=== PATIENT | female | born 1955 | race Caucasian/White ===

== ENCOUNTER 2020-06-18 15:21 | Emergency (ER) | payer MEDICAID ==
[2020-06-18] MEDS ORDERED: Fluorescein 1 MG Ophth Strip EYERT ONE (15:40)
--- NOTE | 2020-06-18 16:04 | EDM.PDOC ---
ED HPI GENERAL MEDICAL PROBLEM - General Chief Complaint: Eye Problems Stated Complaint: EYE IRRITATION FROM DUST AND LEAVES Time Seen by Provider: 06/18/20 15:40 Source of Information: Reports: Patient, RN Notes Reviewed History Limitations: Reports: No Limitations - History of Present Illness INITIAL COMMENTS - FREE TEXT/NARRATIVE: Patient is a 64-year-old female who presents to the ED for the evaluation of her right eye irritation. She notes she was walking this morning at around 11:30, when the wind came up and blew dust into her eye. She states that her eye has been hurting ever since, and feels like there is something stuck in it. She had her daughter help flush her eye with some eyedrops, and her eye seems to just be red and irritated, and she still feels like there is something in the eye. Patient notes she does have bilateral cataracts, other than this she denies any other sick symptoms like fevers or chills, cough or shortness of breath. She is not having any blurred vision or double vision. 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 ED EXAM GENERAL W FULL EYE - Physical Exam Exam: See Below Exam Limited By: No Limitations General Appearance: Alert, WD/WN, No Apparent Distress Eye Exam: Right Eye: Conjunctival Injection, Left Eye: Normal Inspection, Bilateral Eye: EOMI, PERRL Eyelids: Bilateral: Normal Appearance Conjunctiva & Sclera: Right: Injected, Left: Normal Appearance Cornea Exam: Right: Corneal Abrasion (to mid pupil), Examined with Flourescein, Left: Normal Appearance Extraocular Movements: Bilateral: Intact Pupils: Normal Accommodation Pupillary Size: Bilateral: 3 mm Pupillary Reaction: Bilateral: Brisk Respiratory/Chest: No Respiratory Distress, Lungs Clear, Normal Breath Sounds, No Accessory Muscle Use, Chest Non-Tender Cardiovascular: Normal Peripheral Pulses, Regular Rate, Rhythm, No Murmur Extremities: Normal Inspection, Normal Capillary Refill Neurological: Alert, Oriented, Normal Cognition, No Motor/Sensory Deficits Psychiatric: Normal Affect, Normal Mood Skin Exam: Warm, Dry, Intact, Normal Color, No Rash Course - Vital Signs Last Recorded V/S: Last Vital Signs Temp 97.7 F 06/18/20 15:34 Pulse 102 H 06/18/20 15:34 Resp 20 06/18/20 15:34 BP 143/108 H 06/18/20 15:34 Pulse Ox 96 06/18/20 15:34 - Orders/Labs/Meds Orders: Active Orders 24 hr Category Date Time Status Erythromycin Base [Erythromycin 0.5% Ophth Oint] Med 06/18/20 16:31 Once 1 gm EYERT ONETIME ONE Ketorolac [Acular 0.5% Ophth Soln] Med 06/18/20 16:33 Ordered 1 ml EYERT QID Meds: Medications Discontinued Medications Generic Name Dose Route Start Last Admin Trade Name Freq PRN Reason Stop Dose Admin Fluorescein Sodium 1 mg 06/18/20 15:40 06/18/20 16:21 Ful-Janet EYERT 06/18/20 15:41 1 mg ONETIME ONE Administration - Re-Assessments/Exams Free Text/Narrative Re-Assessment/Exam: 06/18/20 16:02 Patient presents to the ED for her right eye irritation. Have ordered some fluorescein for evaluation of her eye to evaluate for corneal abrasion. This might just be irritation due to dust in the eye from earlier. Departure - Departure Time of Disposition: 16:35 Disposition: Home, Self-Care 01 Condition: Good Clinical Impression: Injury of conjunctiva and corneal abrasion of right eye w/o FB Qualifiers: Encounter type: initial encounter Qualified Code(s): S05.01XA - Injury of conjunctiva and corneal abrasion without foreign body, right eye, initial encounter - Discharge Information *PRESCRIPTION DRUG MONITORING PROGRAM REVIEWED*: No *COPY OF PRESCRIPTION DRUG MONITORING REPORT IN PATIENT SHY: No Instructions: Corneal Abrasion, [id number] Referrals: Giuseppe Pathak PA-C [Primary Care Provider] - Forms: ED Department Discharge Additional Instructions: You have been evaluated in the ED today for a foreign body sensation in your ey e. You were identified to have a corneal abrasion to the right eye. You were given some pain drops for your eye, ketorolac, please instill 2 drops to the affected eye every 6 hours at least for the next 24 hours . You may use this up to 2-3 days if needed. Please use the erythromycin ointment, 1 cm ribbon to the lower affected eyelid margin 4 times daily for the next 3-5 days. Recommend that you follow up with optometry MARCIA for a more thorough evaluation and to make sure that everything is healing appropriately. You will have to call around and schedule yourself an appointment with the next available provider if you do not already have a current eye doctor. Please return to the ED if your symptoms should change or worsen. Sepsis Event Note (ED) - Evaluation Sepsis Screening Result: No Definite Risk - Focused Exam Vital Signs: Vital Signs Temp Pulse Resp BP Pulse Ox 06/18/20 15:34 97.7 F 102 H 20 143/108 H 96 - My Orders Last 24 Hours: My Active Orders 06/18/20 16:31 Erythromycin Base [Erythromycin 0.5% Ophth Oint] 1 gm EYERT ONETIME ONE 06/18/20 16:33 Ketorolac [Acular 0.5% Ophth Soln] 1 ml EYERT QID - Assessment/Plan Last 24 Hours: My Active Orders 06/18/20 16:31 Erythromycin Base [Erythromycin 0.5% Ophth Oint] 1 gm EYERT ONETIME ONE 06/18/20 16:33 Ketorolac [Acular 0.5% Ophth Soln] 1 ml EYERT QID
[2020-06-18] MEDS ORDERED: Erythromycin Base 0.5% Ophth Oint 1 GM Tube EYERT ONE (16:31)
[2020-06-18] MEDS ORDERED: Ketorolac 0.5% Ophth Soln 5 ML Bottle EYERT SCH (16:33)
== END 2020-06-18 16:56 | disposition home or self-care (01) ==
LOC: JD.ED 15:21
DX: S05.01XA Injury of conjunctiva and corneal abrasion without foreign body, right eye, initial encounter (principal); I10 Essential (primary) hypertension; E11.9 Type 2 diabetes mellitus without complications; W22.8XXA Striking against or struck by other objects, initial encounter
CPT/HCPCS: 99283; A9270

== ENCOUNTER → 2020-07-27 | Day surgery (SDC) | payer MEDICAID ==
[~2020-07-27] MED LIST: Cefuroxime 10 MG/ML SYRINGE EYERT SCH; Lidocaine 1% PF 2 ML SDV INJECT SCH; Pilocarpine 4% Ophth Soln 15 ML Bot EYERT SCH
[2020-07-27] MEDS: Polymyxin B/Trimethoprim 10 ML Bottle EYERT SCH ×3 (13:40→15:22)
[2020-07-27] MEDS: Brimonidine 0.2% Ophth Soln 5 ML Bottle EYERT SCH ×3 (13:46→15:22)
[2020-07-27] MEDS: Phenylephrine 2.5% Ophth Soln 2 ML Bot EYERT SCH ×5 (13:52→15:05)
[2020-07-27] MEDS: Tropicamide 1% Ophth Soln 15 ML Bottle EYERT SCH ×4 (13:57→14:33)
--- NOTE | 2020-07-27 14:22 | PCM.PREANE ---
Preanesthetic Assessment - Anesthesia/Transfusion/Family Hx Anesthesia History: Prior Anesthesia Without Reaction Family History of Anesthesia Reaction: No Transfusion History: No Prior Transfusion(s) - Review of Systems General: No Symptoms Pulmonary: No Symptoms Cardiovascular: No Symptoms Gastrointestinal: No Symptoms Neurological: No Symptoms Other: Reports: Diabetes (BS 122 07/26/20) - Physical Assessment NPO Status Date: 07/26/20 NPO Status Time: 23:00 Vital Signs: Last Vital Signs Temp 36.1 C 07/27/20 13:30 Pulse 92 07/27/20 13:30 Resp 16 07/27/20 13:30 BP 151/97 H 07/27/20 13:30 Pulse Ox 97 07/27/20 13:30 Height: 1.55 m Weight: 79.379 kg ASA Class: 2 Mental Status: Alert & Oriented x3 Airway Class: Mallampati = 2 Dentition: Reports: Normal Dentition Thyro-Mental Finger Breadths: 3 Mouth Opening Finger Breadths: 3 ROM/Head Extension: Full Lungs: Clear to Auscultation, Normal Respiratory Effort Cardiovascular: Regular Rate, Regular Rhythm - Allergies Allergies/Adverse Reactions: Allergies Allergy/AdvReac Type Severity Reaction Status Date / Time No Known Allergies Allergy Verified 07/26/20 11:45 - Acknowledgements Anesthesia Type Planned: MAC Pt an Appropriate Candidate for the Planned Anesthesia: Yes Alternatives and Risks of Anesthesia Discussed w Pt/Guardian: Yes Pt/Guardian Understands and Agrees with Anesthesia Plan: Yes PreAnesthesia Questionnaire HEENT History: Reports: Cataract Cardiovascular History: Reports: High Cholesterol, Hypertension Respiratory History: Reports: None Gastrointestinal History: Reports: None Genitourinary History: Reports: None 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: Musculoskeletal History: Reports: Gout Neurological History: Reports: None Psychiatric History: Reports: None Endocrine/Metabolic History: Reports: Diabetes, Type II - Past Surgical History HEENT Surgical History: Reports: Tonsillectomy - SUBSTANCE USE Tobacco Use Status *Q: Never Tobacco User - HOME MEDS Home Medications: Home Meds Aspirin 325 mg PO DAILY 07/26/20 [History] Carboxymethylcellulose Sodium [Artificial Tears] 1 drop EYEBOTH ASDIRECTED PRN 07/26/20 [History] atorvaSTATin [Lipitor] 20 mg PO DAILY 07/26/20 [History] glipiZIDE [Glipizide ER] 5 mg PO DAILY 07/26/20 [History] lisinopriL [Lisinopril] 5 mg PO DAILY 07/26/20 [History] metFORMIN [Glucophage XR] 500 mg PO DAILY 07/26/20 [History] - CURRENT (IN HOUSE) MEDS Current Meds: Current Medications Brimonidine Tartrate (Alphagan 0.2% Ophth Soln) 0 ml EYERT ASDIRECTED JOSÉ LUIS Stop: 07/27/20 23:00 Last Admin: 07/27/20 13:46 Dose: 1 drop Documented by: Cefuroxime Sodium (Zinacef) 0 mg EYERT ASDIRECTED JOSÉ LUIS Stop: 07/27/20 23:00 Lidocaine HCl (Xylocaine-Mpf 1%) 0 ml INJECT ASDIRECTED JOSÉ LUIS Stop: 07/27/20 23:00 Phenylephrine HCl (Joaquín-Synephrine 2.5% Ophth Soln) 0 ml EYERT ASDIRECTED JOSÉ LUIS Stop: 07/27/20 23:00 Last Admin: 07/27/20 14:09 Dose: 1 drop Documented by: Pilocarpine HCl (Pilocar 4% Ophth Soln) 0 ml EYERT ASDIRECTED JOSÉ LUIS Stop: 07/27/20 23:00 Polymyxin/Trimethoprim Sulfate (Polytrim Ophth Soln) 0 ml EYERT ASDIRECTED JOSÉ LUIS Stop: 07/27/20 23:00 Last Admin: 07/27/20 13:40 Dose: 1 drop Documented by: Tetracaine HCl (Tetracaine 0.5% Steri-Unit Shruthi) 0 ml EYEBOTH ASDIRECTED JOSÉ LUIS Stop: 07/27/20 23:00 Tropicamide (Mydriacyl 1% Ophth Soln) 0 ml EYERT ASDIRECTED JOSÉ LUIS Stop: 07/27/20 23:00 Last Admin: 07/27/20 14:13 Dose: 1 drop Documented by:
[2020-07-27] MEDS: Tetracaine HCl/PF 0.5% 4 ML Bottle EYEBOTH SCH ×4 (14:39→15:11)
--- NOTE | 2020-07-27 15:54 | PCM48HPAN ---
Post Anesthesia Note - EVALUATION WITHIN 48HRS OF ANESTHETIC Vital Signs in Normal Range: Yes Patient Participated in Evaluation: Yes Respiratory Function Stable: Yes Airway Patent: Yes Cardiovascular Function Stable: Yes Hydration Status Stable: Yes Pain Control Satisfactory: Yes Nausea and Vomiting Control Satisfactory: Yes Mental Status Recovered: Yes Vital Signs: Last Vital Signs Temp 36.1 C 07/27/20 13:30 Pulse 92 07/27/20 13:30 Resp 16 07/27/20 13:30 BP 151/97 H 07/27/20 13:30 Pulse Ox 97 07/27/20 13:30
== END ==
LOC: JD.SDS 13:34
PROVIDERS: ATTEND Ophthalmology
DX: E11.36 Type 2 diabetes mellitus with diabetic cataract (principal); H25.89 Other age-related cataract; H16.223 Keratoconjunctivitis sicca, not specified as Sjogren's, bilateral; H02.834 Dermatochalasis of left upper eyelid; H02.831 Dermatochalasis of right upper eyelid; I10 Essential (primary) hypertension; E78.00 Pure hypercholesterolemia, unspecified; Z79.82 Long term (current) use of aspirin; Z79.899 Other long term (current) drug therapy
CPT/HCPCS: 66984; C1780; J0697; J2001

== ENCOUNTER 2020-07-28 05:42 | Emergency (ER) | payer MEDICAID ==
[2020-07-28] MEDS ORDERED: Orphenadrine 100 MG Tab.ER PO STA (06:20)
[2020-07-28] MEDS ORDERED: Ibuprofen 600 MG Tab PO ONE (06:20)
--- NOTE | 2020-07-28 06:24 | EDM.PDOC ---
ED HPI GENERAL MEDICAL PROBLEM - General Chief Complaint: Respiratory Problem Stated Complaint: [facility] Time Seen by Provider: 07/28/20 05:56 Source of Information: Reports: Patient History Limitations: Reports: No Limitations - History of Present Illness INITIAL COMMENTS - FREE TEXT/NARRATIVE: Ms. Aguilar is a pleasant 64-year-old woman who now presents the ED with a complaint of right lower back pain, a nonproductive cough, and dyspnea when she coughs, since this past 07/25/2020. She describes her lower back pain is sharp in character. It comes and goes, typically lasting 10 to 15 minutes, occurring a few times per day. She states that it feels better if she is sitting and leaning forward, or if she takes a hot shower with the water spring directly on her lower right back. She states that she had all of these symptoms in 2017 or 2017. She states that she was evaluated by her PCP, who determined that she had muscle spasms, and prescribed a muscle relaxant. Her symptoms subsequently resolved. The patient states that she has been taking [id number] cough drops which may or may not have helped, and Tylenol for her back pain, 2 to 3 tablets 3-4 times a day, which does seem to help. The patient has a history of diabetes. She ordinarily checks her blood glucose 3-4 times a day, with the usual range in the high 90s to 215. Recently, her blood glucoses have been between 130 and 150. Here in the ED, the patient's initial BP is found to be mildly elevated at 156/91, otherwise, she is hemodynamically stable, afebrile, saturating 97% on room air. Prior to Sunday, the patient denies having a recent fever, chills, sore throat, ear pain, nasal or sinus congestion, cough, dyspnea, chest pain, palpitations, nausea, vomiting, constipation, diarrhea, abdominal pain, urinary symptoms, recent weight gain or weight loss, recent bloody bowel movements or black bowel movements, recent joint aches, headaches, or rashes. The patient's PCP is MILLI Murguia. She has not received an influenza vaccine this season, but agreed to receive one here today. Right Lower Back Pain Score (Numeric/FACES): 7 - Related Data Allergies Allergy/AdvReac Type Severity Reaction Status Date / Time No Known Allergies Allergy Verified 07/26/20 11:45 Home Meds: Home Meds atorvaSTATin [Lipitor] 20 mg PO DAILY 07/26/20 [History] glipiZIDE [Glipizide ER] 5 mg PO DAILY 07/26/20 [History] lisinopriL [Lisinopril] 5 mg PO DAILY 07/26/20 [History] metFORMIN [Glucophage XR] 500 mg PO DAILY 07/26/20 [History] Aspirin 81 mg PO DAILY 07/28/20 [History] Orphenadrine [Norflex] 1 tab PO Q12H PRN #14 tab.er 07/28/20 [Rx] Past Medical History Cardiovascular History: Reports: High Cholesterol, Hypertension Endocrine/Metabolic History: Reports: Diabetes, Type II - Past Surgical History HEENT Surgical History: Reports: Cataract Surgery (right only), Oral Surgery (dental extractions), Tonsillectomy Social & Family History - Tobacco Use Tobacco Use Status *Q: Never Tobacco User - Caffeine Use Caffeine Use: Reports: Tea - Alcohol Use Alcohol Use History: No - Recreational Drug Use Recreational Drug Use: No - Living Situation & Occupation Living situation: Reports: , Alone Occupation: Retired ED ROS GENERAL - Review of Systems Review Of Systems: Comprehensive ROS is negative, except as noted in HPI. ED EXAM, GENERAL - Physical Exam Exam: See Below Exam Limited By: No Limitations General Appearance: Alert, WD/WN, No Apparent Distress Eye Exam: Bilateral Eye: EOMI, Normal Inspection Ears: Normal External Exam, Hearing Grossly Normal Nose: Normal Inspection Throat/Mouth: Normal Inspection, Normal Lips, Normal Voice, No Airway Compromise Head: Atraumatic, Normocephalic Neck: Normal Inspection, Full Range of Motion Respiratory/Chest: No Respiratory Distress, Lungs Clear, Normal Breath Sounds, No Accessory Muscle Use, Other (Taking deep breaths induces a cough) Cardiovascular: Normal Peripheral Pulses, Regular Rate, Rhythm, No Edema, No Gallop, No JVD, No Murmur, No Rub Peripheral Pulses: 3+: Radial (L), Radial (R) GI/Abdominal: Normal Bowel Sounds, Soft, Non-Tender, No Organomegaly, No Distention, No Abnormal Bruit, No Mass Back Exam: Normal Inspection, Full Range of Motion, Paraspinal Tenderness (Reproducible tenderness over the right SI joint area). No: CVA Tenderness (L), CVA Tenderness (R) Extremities: Normal Inspection, Normal Range of Motion, No Pedal Edema, Normal Capillary Refill Neurological: Alert, Oriented, Normal Cognition, No Motor/Sensory Deficits Psychiatric: Normal Affect Skin Exam: Warm, Dry, Intact, Normal Color, No Rash Course - Vital Signs Last Recorded V/S: Last Vital Signs Temp 35.9 C L 07/28/20 05:47 Pulse 87 07/28/20 05:47 Resp 19 07/28/20 05:47 BP 156/91 H 07/28/20 05:47 Pulse Ox 97 07/28/20 05:47 - Orders/Labs/Meds Orders: Active Orders 24 hr Category Date Time Status Chest 2V [CR] Stat Exams 07/28/20 06:18 Taken CBC WITH MANUAL DIFF [HEME] Stat Lab 07/28/20 06:35 Results CORONAVIRUS COVID-19 PCR PHL Stat Lab 07/28/20 06:29 Received Magnesium Sulfate/Water [Magnesium Sulfate in Water Med 07/28/20 07:20 Ordered Premix] 4 gm Premix Bag 1 bag IV ONETIME Isolation [COMM] Routine Oth 07/28/20 06:20 Ordered Medication Orders Magnesium Sulfate 4 gm/ Premix 50 mls @ 12.5 mls/hr IV ONETIME ONE Stop: 07/28/20 11:19 Labs: Laboratory Tests 07/28/20 07/28/20 07/28/20 Range/Units 06:35 06:35 06:35 WBC 3.64 L (3.98-10.04) K/mm3 RBC 4.93 (3.98-5.22) M/mm3 Hgb 13.7 (11.2-15.7) gm/dl Hct 38.9 (34.1-44.9) % MCV 78.9 L D (79.4-94.8) fl MCH 27.8 (25.6-32.2) pg MCHC 35.2 (32.2-35.5) g/dl RDW Std Deviation 35.2 L (36.4-46.3) fL Plt Count 189 (182-369) K/mm3 MPV 9.2 L (9.4-12.3) fl D-Dimer, Quantitative 0.77 H (0.19-0.50) mg/L Sodium 133 L (136-145) mEq/L Potassium 3.6 (3.5-5.1) mEq/L Chloride 97 L (98-107) mEq/L Carbon Dioxide 22 (21-32) mEq/L Anion Gap 17.6 H (5-15) BUN 18 (7-18) mg/dL Creatinine 0.7 (0.55-1.02) mg/dL Est Cr Clr Drug Dosing 62.07 mL/min Estimated GFR (MDRD) > 60 (>60) mL/min BUN/Creatinine Ratio 25.7 H (14-18) Glucose 214 H (80-115) mg/dL Lactic Acid (0.4-2.0) mmol/L Calcium 8.8 (8.5-10.1) mg/dL Magnesium 1.6 L (1.8-2.4) mg/dl Total Bilirubin 0.3 (0.2-1.0) mg/dL AST 33 (15-37) U/L ALT 34 (14-59) U/L Alkaline Phosphatase 216 H (46-116) U/L Troponin I < 0.017 (0.00-0.056) ng/mL C-Reactive Protein 0.6 (<1.0) mg/dL Total Protein 7.5 (6.4-8.2) g/dl Albumin 3.6 (3.4-5.0) g/dl Globulin 3.9 gm/dL Albumin/Globulin Ratio 0.9 L (1-2) 07/28/20 Range/Units 06:35 WBC (3.98-10.04) K/mm3 RBC (3.98-5.22) M/mm3 Hgb (11.2-15.7) gm/dl Hct (34.1-44.9) % MCV (79.4-94.8) fl MCH (25.6-32.2) pg MCHC (32.2-35.5) g/dl RDW Std Deviation (36.4-46.3) fL Plt Count (182-369) K/mm3 MPV (9.4-12.3) fl D-Dimer, Quantitative (0.19-0.50) mg/L Sodium (136-145) mEq/L Potassium (3.5-5.1) mEq/L Chloride (98-107) mEq/L Carbon Dioxide (21-32) mEq/L Anion Gap (5-15) BUN (7-18) mg/dL Creatinine (0.55-1.02) mg/dL Est Cr Clr Drug Dosing mL/min Estimated GFR (MDRD) (>60) mL/min BUN/Creatinine Ratio (14-18) Glucose (80-115) mg/dL Lactic Acid 1.3 (0.4-2.0) mmol/L Calcium (8.5-10.1) mg/dL Magnesium (1.8-2.4) mg/dl Total Bilirubin (0.2-1.0) mg/dL AST (15-37) U/L ALT (14-59) U/L Alkaline Phosphatase (46-116) U/L Troponin I (0.00-0.056) ng/mL C-Reactive Protein (<1.0) mg/dL Total Protein (6.4-8.2) g/dl Albumin (3.4-5.0) g/dl Globulin gm/dL Albumin/Globulin Ratio (1-2) Meds: Medications Generic Name Dose Route Start Last Admin Trade Name Freq PRN Reason Stop Dose Admin Magnesium Sulfate 4 gm/ Premix 50 mls @ 12.5 mls/hr 07/28/20 07:20 IV 07/28/20 11:19 ONETIME ONE Discontinued Medications Generic Name Dose Route Start Last Admin Trade Name Freq PRN Reason Stop Dose Admin Ibuprofen 600 mg 07/28/20 06:20 07/28/20 06:26 Motrin PO 07/28/20 06:21 600 mg ONETIME ONE Administration Orphenadrine Citrate 100 mg 07/28/20 06:20 07/28/20 06:26 Norflex PO 07/28/20 06:21 100 mg ONETIME STA Administration - Re-Assessments/Exams Free Text/Narrative Re-Assessment/Exam: 07/28/20 06:21 As above, the patient appears to have 2 separate problems that do not appear to be related, although they both started on Sunday. Her lower back pain appears to be musculoskeletal, as it is modifiable with position and is reproducible with direct palpation. Her nonproductive cough induces some dyspnea while she is coughing, although no dyspnea when she is not coughing. No recent fever, and her oxygen saturation is 97% on room air. I have ordered a work-up in this regard that includes several blood tests, a chest x-ray, an influenza swab, and a send-out swab for the SARS-CoV-2 virus. In the meantime, the patient will be given oral Norflex and ibuprofen. 07/28/20 07:21 Two-view chest radiograph reviewed. Poor inspiratory effort. The cardiac silhouette is within normal limits. No pulmonary vascular congestion. No pleural effusions. No focal infiltrate. No pneumothorax. Formal read per the Radiologist pending. The patient's CBC is remarkable for leukopenia of 3.64, with the remainder of he r CBC being unremarkable. Her CMP is remarkable for slight hyponatremia of 133, and anion gap mildly elevated at 17.6, but with a bicarbonate normal at 22, hyperglycemia of 214, and an alkaline phosphatase slightly elevated at 216, with the remainder of her CMP being unremarkable. She has hypomagnesemia of 1.6. Her lactic acid level is within normal limits at 1.3. Her CRP is within normal limits at 0.6. Her troponin is undetectably low. Her D-dimer is mildly elevated at 0.77. Her influenza swab is negative. Based on the above, I have ordered a 4 g Mg-rider. 07/28/20 07:27 Test results discussed with the patient. She agrees to stay to receive the Mg- rider, after which time she will be discharged home. I will submit a prescription for Norflex that she should take twice a day, along with either Tylenol or ibuprofen as needed for discomfort. Departure - Departure Time of Disposition: 11:30 Disposition: Home, Self-Care 01 Condition: Good Clinical Impression: Nonproductive cough, Hypomagnesemia, Musculoskeletal back pain - Discharge Information *PRESCRIPTION DRUG MONITORING PROGRAM REVIEWED*: Not Applicable *COPY OF PRESCRIPTION DRUG MONITORING REPORT IN PATIENT SHY: Not Applicable Forms: ED Department Discharge Additional Instructions: You were seen in the emergency room for lower right back pain, a dry cough, and shortness of breath when you cough, since Sunday. Work-up in the ER included several blood tests, a chest x-ray, a influenza swab, and a-out of swab for the virus that causes COVID-19. Your blood work found your magnesium level to be low. You were given IV magnesium replacement in the ER. The remainder of your work-up was unremarkable. You do not have pneumonia. Your lower back pain appears to be due to a muscle spasm. You have been started on the muscle relaxant Norflex, and a prescription for Norflex has been sent to the [facility], located in the [facility] grocery store. Take 1 tablet of Norflex every 12 hours, starting this evening, 07/28/2020, as prescribed. Norflex works well with ibuprofen. We recommend that you take 3 tablets (600 mg) every 8 hours, with food, as needed for discomfort. If any other problems, please do not hesitate to return to the ER. You were given an influenza vaccine during your ER visit. Sepsis Event Note (ED) - Evaluation Sepsis Screening Result: No Definite Risk - Focused Exam Vital Signs: Vital Signs Temp Pulse Resp BP Pulse Ox 07/28/20 05:47 35.9 C L 87 19 156/91 H 97 - My Orders Last 24 Hours: My Active Orders 07/28/20 06:18 Chest 2V [CR] Stat 07/28/20 06:20 Isolation [COMM] Routine 07/28/20 06:29 CORONAVIRUS COVID-19 PCR PHL Stat 07/28/20 06:35 CBC WITH MANUAL DIFF [HEME] Stat 07/28/20 07:20 Magnesium Sulfate/Water [Magnesium Sulfate in Water Premix] 4 gm Premix Bag 1 bag IV ONETIME - Assessment/Plan Last 24 Hours: My Active Orders 07/28/20 06:18 Chest 2V [CR] Stat 07/28/20 06:20 Isolation [COMM] Routine 07/28/20 06:29 CORONAVIRUS COVID-19 PCR PHL Stat 07/28/20 06:35 CBC WITH MANUAL DIFF [HEME] Stat 07/28/20 07:20 Magnesium Sulfate/Water [Magnesium Sulfate in Water Premix] 4 gm Premix Bag 1 bag IV ONETIME
[2020-07-28] MEDS ORDERED: Magnesium Sulfate/Water 4 GM in Premix Bag 1 BAG IV ONE (07:20)
--- NOTE | 2020-07-28 08:31 | CR ---
Chest: 2 views of the chest were obtained. Comparison: Prior chest x-ray of 04/05/17. Findings: Heart and mediastinum: Heart size and mediastinum are normal. Lungs: Focal linear densities are noted within the lingula. Lungs otherwise are clear. No pleural effusions are seen. Osseous: Mild degenerative change is scattered within the spine with minimal scoliosis. Impression: 1. Focal atelectasis within the lingula. 2. Nothing acute is otherwise seen on 2 view chest x-ray. Diagnostic code #2
== END 2020-07-28 12:10 | disposition home or self-care (01) ==
LOC: JD.ED 05:42
DX: U07.1 COVID-19 (principal); M54.5 Low back pain; E83.42 Hypomagnesemia; E87.1 Hypo-osmolality and hyponatremia; R79.1 Abnormal coagulation profile; I10 Essential (primary) hypertension; E78.00 Pure hypercholesterolemia, unspecified; E11.9 Type 2 diabetes mellitus without complications; Z79.82 Long term (current) use of aspirin; Z79.899 Other long term (current) drug therapy
CPT/HCPCS: 36415; 71046; 80053; 83605; 83735; 84484; 85007; 85027; 85379; 86140; 87635; 87804; 96365; 96366; 99285; A9270; J3475; 99283; U0002

== ENCOUNTER 2020-09-07 07:18 | Day surgery (SDC) | payer MEDICAID ==
[2020-09-07] MEDS: Polymyxin B/Trimethoprim 10 ML Bottle EYELF SCH ×4 (07:25→09:25)
[2020-09-07] MEDS: Brimonidine 0.2% Ophth Soln 5 ML Bottle EYELF SCH ×4 (07:30→09:25)
[2020-09-07] MEDS: Phenylephrine 2.5% Ophth Soln 15 ML Bot EYELF SCH ×6 (07:35→08:58)
--- NOTE | 2020-09-07 07:39 | PCM.PREANE ---
Preanesthetic Assessment - Procedure Proposed Procedure: Lt eye cataract - Anesthesia/Transfusion/Family Hx Anesthesia History: Prior Anesthesia Without Reaction Transfusion History: No Prior Transfusion(s) - Review of Systems General: No Symptoms Pulmonary: No Symptoms, Cough (recent recovery from COVID-19) Cardiovascular: No Symptoms Gastrointestinal: No Symptoms Neurological: No Symptoms Other: Reports: Diabetes - Physical Assessment NPO Status Date: 09/06/20 NPO Status Time: 23:00 Vital Signs: 164/102, 107, 97.3F 97% 16 Height: 1.55 m Weight: 76.204 kg ASA Class: 2 Mental Status: Alert & Oriented x3 Airway Class: Mallampati = 2 Dentition: Reports: Normal Dentition Thyro-Mental Finger Breadths: 3 Mouth Opening Finger Breadths: 3 ROM/Head Extension: Full Lungs: Clear to Auscultation, Normal Respiratory Effort Cardiovascular: Regular Rate, Regular Rhythm - Allergies Allergies/Adverse Reactions: Allergies Allergy/AdvReac Type Severity Reaction Status Date / Time No Known Allergies Allergy Verified 09/07/20 05:21 - Acknowledgements Anesthesia Type Planned: MAC Pt an Appropriate Candidate for the Planned Anesthesia: Yes Alternatives and Risks of Anesthesia Discussed w Pt/Guardian: Yes Pt/Guardian Understands and Agrees with Anesthesia Plan: Yes PreAnesthesia Questionnaire HEENT History: Reports: Cataract Cardiovascular History: Reports: High Cholesterol, Hypertension Respiratory History: Reports: None Gastrointestinal History: Reports: None Genitourinary History: Reports: None 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: Musculoskeletal History: Reports: Gout Neurological History: Reports: None Psychiatric History: Reports: None Endocrine/Metabolic History: Reports: Diabetes, Type II - Past Surgical History HEENT Surgical History: Reports: Cataract Surgery (right only), Oral Surgery (dental extractions), Tonsillectomy - HOME MEDS Home Medications: Home Meds atorvaSTATin [Lipitor] 20 mg PO DAILY 07/26/20 [History] glipiZIDE [Glipizide ER] 5 mg PO DAILY 07/26/20 [History] lisinopriL [Lisinopril] 5 mg PO DAILY 07/26/20 [History] metFORMIN [Glucophage XR] 500 mg PO DAILY 07/26/20 [History] Aspirin 81 mg PO DAILY 07/28/20 [History] Orphenadrine [Norflex] 1 tab PO Q12H PRN #14 tab.er 07/28/20 [Rx] - CURRENT (IN HOUSE) MEDS Current Meds: Current Medications Brimonidine Tartrate (Alphagan 0.2% Ophth Soln) 0 ml EYELF ASDIRECTED JOSÉ LUIS Stop: 09/07/20 18:00 Last Admin: 09/07/20 07:30 Dose: 1 drop Documented by: Cefuroxime Sodium (Zinacef) 0 mg EYELF ASDIRECTED JOSÉ LUIS Stop: 09/07/20 18:00 Lidocaine HCl (Xylocaine-Mpf 1%) 0 ml INJECT ASDIRECTED JOSÉ LUIS Stop: 09/07/20 18:00 Phenylephrine HCl (Joaquín-Synephrine 2.5% Ophth Soln) 0 ml EYELF ASDIRECTED JOSÉ LUIS Stop: 09/07/20 18:00 Pilocarpine HCl (Pilocar 4% Ophth Soln) 0 ml EYELF ASDIRECTED JOSÉ LUIS Stop: 09/07/20 18:00 Polymyxin/Trimethoprim Sulfate (Polytrim Ophth Soln) 0 ml EYELF ASDIRECTED JOSÉ LUIS Stop: 09/07/20 18:00 Last Admin: 09/07/20 07:25 Dose: 1 drop Documented by: Tetracaine HCl (Tetracaine 0.5% Steri-Unit Shruthi) 0 ml EYEBOTH ASDIRECTED JOSÉ LUIS Stop: 09/07/20 18:00 Tropicamide (Mydriacyl 1% Ophth Soln) 0 ml EYELF ASDIRECTED JOSÉ LUIS Stop: 09/07/20 18:00
[2020-09-07] MEDS: Tropicamide 1% Ophth Soln 15 ML Bottle EYELF SCH ×4 (07:40→08:31)
[2020-09-07] MEDS: Cefuroxime 10 MG/ML SYRINGE EYELF SCH ×2 (08:31→09:24)
[2020-09-07] MEDS: Lidocaine 1% PF 2 ML SDV INJECT SCH ×2 (08:31→09:07)
[2020-09-07] MEDS: Pilocarpine 4% Ophth Soln 15 ML Bot EYELF SCH ×2 (08:31→09:25)
[2020-09-07] MEDS: Tetracaine HCl/PF 0.5% 4 ML Bottle EYEBOTH SCH ×5 (08:31→09:08)
--- NOTE | 2020-09-07 09:00 | PCM48HPAN ---
Post Anesthesia Note - EVALUATION WITHIN 48HRS OF ANESTHETIC Vital Signs in Normal Range: Yes Vital Signs: Last Vital Signs Temp 36.3 C 09/07/20 07:15 Pulse 107 H 09/07/20 07:15 Resp 16 09/07/20 07:15 BP 164/102 H 09/07/20 07:15 Pulse Ox 97 09/07/20 07:15
--- NOTE | 2020-09-07 09:20 | PCM48HPAN ---
Post Anesthesia Note - EVALUATION WITHIN 48HRS OF ANESTHETIC Vital Signs in Normal Range: Yes Patient Participated in Evaluation: Yes Respiratory Function Stable: Yes Airway Patent: Yes Cardiovascular Function Stable: Yes Hydration Status Stable: Yes Pain Control Satisfactory: Yes Nausea and Vomiting Control Satisfactory: Yes Mental Status Recovered: Yes Vital Signs: Last Vital Signs Temp 36.3 C 09/07/20 07:15 Pulse 107 H 09/07/20 07:15 Resp 16 09/07/20 07:15 BP 164/102 H 09/07/20 07:15 Pulse Ox 97 09/07/20 07:15
== END 2020-09-07 09:36 | disposition home or self-care (01) ==
LOC: JD.SDS 07:18
PROVIDERS: ATTEND Ophthalmology
DX: E11.36 Type 2 diabetes mellitus with diabetic cataract (principal); H25.89 Other age-related cataract; H16.103 Unspecified superficial keratitis, bilateral; H16.223 Keratoconjunctivitis sicca, not specified as Sjogren's, bilateral; E78.00 Pure hypercholesterolemia, unspecified; I10 Essential (primary) hypertension; Z79.899 Other long term (current) drug therapy; Z79.84 Long term (current) use of oral hypoglycemic drugs; Z96.1 Presence of intraocular lens
CPT/HCPCS: 66984; C1780; J0697; J2001

== ENCOUNTER 2020-09-25 20:45 | Emergency (ER) | payer MEDICAID ==
[2020-09-25] MEDS ORDERED: HYDROmorphone 1 MG/ML Syringe IM ONE (21:06)
[2020-09-25] MEDS ORDERED: Dexamethasone 4 MG/ML SDV IM ONE (21:15)
--- NOTE | 2020-09-25 21:17 | EDM.PDOC ---
ED HPI GENERAL MEDICAL PROBLEM - General Chief Complaint: Lower Extremity Injury/Pain Stated Complaint: [facility] Time Seen by Provider: 09/25/20 20:48 Source of Information: Reports: Patient History Limitations: Reports: No Limitations - History of Present Illness INITIAL COMMENTS - FREE TEXT/NARRATIVE: This is a 64-year-old female. Back in July she was seen in the ER for right hip pain and she went to see her family doctor regarding it and he did an x-ray that apparently showed some arthritis and put her on some tramadol. She states that since that time over the last few weeks the pain is gotten worse and worse and worse and now she could not get out of bed today. She denies any history of falls or injuries to her back or her right hip. She has been putting a heating pad back there but the pain is continued to worsen and seems to come from her back and run down into her hip and then down her lateral right thigh to the distal thigh area but not into the knee or the calf or foot. The patient finally called the ambulance this evening because the pain she could not tolerate. She has been putting a heating pad to her back to help with the pain but she states she is not able to get up and it feels like her bones are hurting. She denies any fever or chills no urinary symptoms no cough or congestion no nausea or vomiting. Right Hip Pain Score (Numeric/FACES): 8 - Related Data Allergies Allergy/AdvReac Type Severity Reaction Status Date / Time No Known Allergies Allergy Verified 09/25/20 20:52 Home Meds: Home Meds atorvaSTATin [Lipitor] 20 mg PO DAILY 07/26/20 [History] glipiZIDE [Glipizide ER] 5 mg PO DAILY 07/26/20 [History] lisinopriL [Lisinopril] 5 mg PO DAILY 07/26/20 [History] metFORMIN [Glucophage XR] 500 mg PO DAILY 07/26/20 [History] Aspirin 81 mg PO DAILY 07/28/20 [History] Orphenadrine [Norflex] 1 tab PO Q12H PRN #14 tab.er 07/28/20 [Rx] Acetaminophen/oxyCODONE [Percocet 325-5 MG] 1 each PO Q6H PRN #15 tab 09/25/20 [Rx] predniSONE [Prednisone] 40 mg PO QAM #5 tablet 09/25/20 [Rx] Past Medical History HEENT History: Reports: Cataract Cardiovascular History: Reports: High Cholesterol, Hypertension Respiratory History: Reports: None Gastrointestinal History: Reports: None Genitourinary History: Reports: None 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: Musculoskeletal History: Reports: Gout Neurological History: Reports: None Psychiatric History: Reports: None Endocrine/Metabolic History: Reports: Diabetes, Type II - Infectious Disease History Infectious Disease History: Reports: Novel Coronavirus - Past Surgical History HEENT Surgical History: Reports: Cataract Surgery, Oral Surgery, Tonsillectomy Social & Family History - Tobacco Use Tobacco Use Status *Q: Never Tobacco User Second Hand Smoke Exposure: No - Caffeine Use Caffeine Use: Reports: Tea - Recreational Drug Use Recreational Drug Use: No - Living Situation & Occupation Living situation: Reports: , Alone Occupation: Retired Review of Systems - Review of Systems Review Of Systems: See Below Constitutional: Denies: Chills, Fever Eyes: Reports: No Symptoms Ears: Reports: No Symptoms Nose: Reports: No Symptoms Mouth/Throat: Reports: No Symptoms Respiratory: Reports: No Symptoms Cardiovascular: Reports: No Symptoms GI/Abdominal: Reports: No Symptoms Genitourinary: Reports: No Symptoms Musculoskeletal: Reports: Back Pain Skin: Reports: No Symptoms Neurological: Reports: Other (right sciatica) Psychiatric: Reports: No Symptoms ED EXAM, GENERAL - Physical Exam Exam: See Below Exam Limited By: No Limitations General Appearance: Alert, WD/WN, Mild Distress Eye Exam: Bilateral Eye: Normal Inspection Ears: Normal External Exam Nose: Normal Inspection Throat/Mouth: Normal Lips, Normal Voice, No Airway Compromise Head: Normocephalic Neck: Supple Respiratory/Chest: No Respiratory Distress, Lungs Clear, Normal Breath Sounds Cardiovascular: Regular Rate, Rhythm, No Murmur GI/Abdominal: Soft Back Exam: Decreased Range of Motion, Other (Looking at her back she has brown mottling of the skin from using her heat I believe at a too high setting, there is no blistering noted. She is nontender in the midline spine but she does have paraspinal muscle tenderness her right SI joint is very tender in palpation of the sciatic nerve causes pain down her lateral thigh and the L4 for L5 dermatome on. By palpation of the sciatic nerve I am able to reproduce this pain. ) Extremities: Normal Inspection, Other (She complains of right hip pain and really does not want to move her leg so I cannot tell if she is got normal range of motion. Palpation of the hip itself does not appear to be tender but she does complain of that sciatic nerve pain. She describes bone pain deep and throbbing.) Neurological: Alert, Oriented Psychiatric: Anxious Skin Exam: Warm, Dry Course - Vital Signs Last Recorded V/S: Last Vital Signs Temp 97.8 F 09/25/20 20:49 Pulse 96 09/25/20 20:49 Resp 16 09/25/20 20:49 BP 174/87 H 09/25/20 20:49 Pulse Ox 99 09/25/20 20:49 - Orders/Labs/Meds Orders: Active Orders 24 hr Category Date Time Status Hip Min 2V or 3V Rt [CR] Stat Exams 09/25/20 21:07 Taken Lumbar Spine 2 or 3V [CR] Stat Exams 09/25/20 21:07 Taken Labs: Laboratory Tests 09/25/20 09/25/20 Range/Units 21:20 21:20 WBC 7.00 (3.98-10.04) K/mm3 RBC 5.36 H (3.98-5.22) M/mm3 Hgb 14.9 (11.2-15.7) gm/dl Hct 42.4 (34.1-44.9) % MCV 79.1 L (79.4-94.8) fl MCH 27.8 (25.6-32.2) pg MCHC 35.1 (32.2-35.5) g/dl RDW Std Deviation 43.6 (36.4-46.3) fL Plt Count 378 H D (182-369) K/mm3 MPV 8.8 L (9.4-12.3) fl Neut % (Auto) 69.1 (34.0-71.1) % Lymph % (Auto) 24.1 (19.3-51.7) % [place] % (Auto) 5.7 (4.7-12.5) % Eos % (Auto) 0.7 (0.7-5.8) Baso % (Auto) 0.3 (0.1-1.2) % Neut # (Auto) 4.83 (1.56-6.13) K/mm3 Lymph # (Auto) 1.69 (1.18-3.74) K/mm3 [place] # (Auto) 0.40 H (0.24-0.36) K/mm3 Eos # (Auto) 0.05 (0.04-0.36) K/mm3 Baso # (Auto) 0.02 (0.01-0.08) K/mm3 C-Reactive Protein 0.2 (<1.0) mg/dL Meds: Medications Discontinued Medications Generic Name Dose Route Start Last Admin Trade Name Blossom PRN Reason Stop Dose Admin Dexamethasone 10 mg 09/25/20 21:15 09/25/20 21:31 Decadron IM 09/25/20 21:16 10 mg ONETIME ONE Administration Hydromorphone HCl 1 mg 09/25/20 21:06 09/25/20 21:14 Dilaudid IM 09/25/20 21:07 1 mg ONETIME ONE Administration - Radiology Interpretation Free Text/Narrative:: X-rays of the right hip do not show any acute changes just arthritic changes. X-rays of the lumbar spine do not show any acute bone changes other than arthritic changes. - Re-Assessments/Exams Free Text/Narrative Re-Assessment/Exam: 09/25/20 22:47 Spoke to the patient and her sister regarding the x-ray results. The patient is much more comfortable now and laying on her back rather than her left side and she does not appear to be in any distress. I explained to her that this pain down her right leg suggest sciatica and that she needs an MRI of the lumbar spine to determine if this is just an irritation or a herniated disc. This is something that she needs to follow-up with her primary care provider on Sunday to get an MRI of her lumbar spine. In the meantime I will provide something for pain as well as a steroid pack to decrease the inflammation and irritation of the nerve. Departure - Departure Time of Disposition: 22:48 Disposition: Home, Self-Care 01 Condition: Fair Clinical Impression: Right sided sciatica Lumbar back sprain Qualifiers: Encounter type: initial encounter Qualified Code(s): S33.5XXA - Sprain of ligaments of lumbar spine, initial encounter - Discharge Information *PRESCRIPTION DRUG MONITORING PROGRAM REVIEWED*: Yes *COPY OF PRESCRIPTION DRUG MONITORING REPORT IN PATIENT SHY: No Prescriptions: Acetaminophen/oxyCODONE [Percocet 325-5 MG] 1 each PO Q6H PRN #15 tab PRN Reason: Pain predniSONE [Prednisone] 40 mg PO QAM #5 tablet Instructions: Sciatica, [id number] Referrals: Giuseppe Pathak PA-C [Physician Premium Note Interest Calculator Clerk] - Forms: ED Department Discharge Additional Instructions: Stop the tramadol and take the Percocet if needed for pain, start taking the steroids on Sunday morning and make sure you eat something with the steroids so it does not upset your stomach, you must follow-up with your primary care provider this week for recheck and possibly an MRI of your lumbar spine to help determine why you are having this pain down your right thigh, avoid any sort of bending or lifting until you can see your primary care provider, return to the ER if needed Sepsis Event Note (ED) - Evaluation Sepsis Screening Result: No Definite Risk - Focused Exam Vital Signs: Vital Signs Temp Pulse Resp BP Pulse Ox 09/25/20 20:49 97.8 F 96 16 174/87 H 99 - My Orders Last 24 Hours: My Active Orders 09/25/20 21:07 Hip Min 2V or 3V Rt [CR] Stat Lumbar Spine 2 or 3V [CR] Stat - Assessment/Plan Last 24 Hours: My Active Orders 09/25/20 21:07 Hip Min 2V or 3V Rt [CR] Stat Lumbar Spine 2 or 3V [CR] Stat
[2020-09-25] MEDS ORDERED: Acetaminophen/oxyCODONE 325-5 MG Tab PO ONE (22:58)
--- NOTE | 2020-09-26 10:42 | CR ---
Right hip: AP and lateral views of the right hip were obtained. Comparison: Prior right hip exam of 08/25/20. Joint space narrowing does not appear as severe as seen on prior study which may relate to differences in weightbearing. Sacroiliac joint is normal. No acute fracture or other abnormality is appreciated. Impression: 1. Presumably differences in weightbearing from prior study. 2. Nothing acute is definitely seen. Diagnostic code #2
--- NOTE | 2020-09-26 10:43 | CR ---
Lumbar spine: AP, lateral and coned-down lateral view centered to the lumbosacral junction were obtained. Comparison: Prior lumbar spine study of 08/25/20. There is a fairly severe compression deformity being seen at L1. This is an interval change from previous exam. There is mild retrolisthesis of the posterior vertebral line at L1 by about 4.2 mm. Scattered degenerative change is seen which is stable. Pedicles are intact. Transverse and spinous processes are intact. Impression: 1. Fairly severe compression deformity of L1 as noted above. This compression deformity is an interval change from prior study. 2. Stable degenerative change from previous study is seen. Diagnostic code #3
== END 2020-09-25 23:05 | disposition home or self-care (01) ==
LOC: JD.ED 20:45
DX: S33.5XXA Sprain of ligaments of lumbar spine, initial encounter (principal); I10 Essential (primary) hypertension; E78.00 Pure hypercholesterolemia, unspecified; E11.9 Type 2 diabetes mellitus without complications; M10.9 Gout, unspecified; Z79.82 Long term (current) use of aspirin; Z79.899 Other long term (current) drug therapy; X58.XXXA Exposure to other specified factors, initial encounter
CPT/HCPCS: 36415; 72100; 73502; 85025; 86140; 96372; 99284; A9270; J1100; J1170

== ENCOUNTER 2020-10-27 23:42 | Emergency (ER) | payer MEDICAID | END 2020-10-28 02:16 | disposition left against medical advice (07) | LOC: JD.ED 23:42 | DX: Z53.21 Procedure and treatment not carried out due to patient leaving prior to being seen by health care provider (principal) ==

== ENCOUNTER 2021-03-25 22:32 | Emergency (ER) | payer MEDICAID ==
[2021-03-25] MEDS ORDERED: Sodium Chloride 0.9% 1,000 ML IV ONE (23:07)
[2021-03-25] MEDS ORDERED: Ketorolac 15 MG/ML SDV IVPUSH ONE (23:07)
[2021-03-25] MEDS ORDERED: Ondansetron 4 MG/2 ML SDV IVPUSH ONE (23:07)
--- NOTE | 2021-03-25 23:19 | EDM.PDOC ---
ED HPI GENERAL MEDICAL PROBLEM - General Chief Complaint: Abdominal Pain Stated Complaint: VERY ILL FROM CHEMO Time Seen by Provider: 03/25/21 22:35 Source of Information: Reports: Patient History Limitations: Reports: No Limitations - History of Present Illness INITIAL COMMENTS - FREE TEXT/NARRATIVE: Patient is a 65-year-old female who complains of having dry heaves and diarrhea which started earlier today after she was treated with a new chemotherapy regime. Patient was warned she might have crampy abdominal pain and diarrhea. She is having 8 out of 10 pain in her lower abdomen but denies any dysuria or fever or chills. Patient has had no past abdominal surgeries and had felt well until 8 PM tonight. She had eaten soup for dinner without any problems and then at 8:00 woke up from sleeping with abdominal pain and the dry heaves. She denies any headache or any cough or respiratory symptoms. She has a known history of metastatic breast cancer with mets to her liver and to her bones. She states she had a recent CT scan at [place] of her abdomen which we are attempting to get in addition to an H&P. Patient did take some Compazine at 9:00pm for her dry heaves without any relief. Medical records obtained from [facility] show that she had an abdominal pelvic CT on 03/23/2021. This shows extensive hepatic metastatic disease and multifocal bony metastatic disease in the spine, left rib and pelvis with severe pathogenic compression fractures of T11 T12-L1 and L5 in addition to her left breast malignancy. 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 Onset: Today Duration: Constant Location: Reports: Abdomen Quality: Reports: Ache Severity: Severe Improves with: Reports: None Worsens with: Reports: None Associated Symptoms: Reports: No Other Symptoms - Related Data Allergies Allergy/AdvReac Type Severity Reaction Status Date / Time No Known Allergies Allergy Verified 03/25/21 23:01 Home Meds: Home Meds atorvaSTATin [Lipitor] 20 mg PO BEDTIME 07/26/20 [History] glipiZIDE [Glipizide ER] 5 mg PO DAILY 07/26/20 [History] metFORMIN [Glucophage XR] 1,000 mg PO BID 07/26/20 [History] Acetaminophen/oxyCODONE [Percocet 325-5 MG] 1 each PO Q6H PRN #15 tab 09/25/20 [Rx] Calcium Carbonate/Vitamin D3 [Calcium 500-Vit D3 200 Caplet] 1 tab PO BID 10/28/20 [History] Morphine [MS Contin] 15 mg PO BID 10/28/20 [History] OLANZapine [Olanzapine] 10 mg PO ASDIRECTED 10/28/20 [History] Ondansetron [Zofran] 8 mg PO Q8H PRN 10/28/20 [History] lisinopriL [Lisinopril] 40 mg PO DAILY 10/28/20 [History] Ondansetron [Ondansetron ODT] 4 mg PO Q6H PRN #20 tab.rapdis 03/26/21 [Rx] Past Medical History HEENT History: Reports: Cataract Cardiovascular History: Reports: High Cholesterol, Hypertension Respiratory History: Reports: None, Pneumonia, Recurrent Gastrointestinal History: Reports: None Genitourinary History: Reports: None 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: Musculoskeletal History: Reports: Gout Neurological History: Reports: None Psychiatric History: Reports: None Endocrine/Metabolic History: Reports: Diabetes, Type II Oncologic (Cancer) History: Reports: Bone, Breast, Liver, Metastatic - Infectious Disease History Infectious Disease History: Reports: Chicken Pox, Mumps, Novel Coronavirus - Past Surgical History HEENT Surgical History: Reports: Cataract Surgery, Oral Surgery, Tonsillectomy Social & Family History - Tobacco Use Tobacco Use Status *Q: Never Tobacco User - Caffeine Use Caffeine Use: Reports: Soda - Recreational Drug Use Recreational Drug Use: No - Living Situation & Occupation Living situation: Reports: , Alone Occupation: Retired ED ROS GENERAL - Review of Systems Review Of Systems: Comprehensive ROS is negative, except as noted in HPI. ED EXAM, GI/ABD - Physical Exam Exam: See Below Exam Limited By: No Limitations General Appearance: Alert, Mild Distress Head: Normocephalic Neck: Normal Inspection, Supple, Non-Tender Respiratory/Chest: No Respiratory Distress, Lungs Clear, Normal Breath Sounds Cardiovascular: Regular Rate, Rhythm, No Edema, No JVD GI/Abdominal Exam: Normal Bowel Sounds, No Organomegaly, No Distention, Tender (Mild tenderness in the epigastric area.). No: Distended, Guarding, Rigid, Rebound, Hepatomegaly Extremities: Normal Inspection, No Pedal Edema Neurological: Alert, Oriented, CN II-XII Intact, Normal Cognition Psychiatric: Normal Affect, Normal Mood Skin Exam: Warm, Dry, Normal Color Lymphatic: No Adenopathy Course - Vital Signs Text/Narrative:: Patient's CMP is unremarkable. Her white blood cell count is low at 1.1. Patient is feeling much better with IV fluids and meds. She is able to keep down p.o. fluids currently. She is requesting to go home and since she is clinically much improved I am comfortable with this. I am assuming patient will be in hospice in the near future. Last Recorded V/S: Last Vital Signs Temp 96.5 F L 03/25/21 22:45 Pulse 99 03/25/21 22:45 Resp 20 03/25/21 22:45 BP 153/97 H 03/25/21 22:45 Pulse Ox 98 03/25/21 22:45 - Orders/Labs/Meds Orders: Active Orders 24 hr Category Date Time Status UA W/O MICROSCOPIC [URIN] Stat Lab 03/25/21 23:06 Ordered Insulin NPH/Insulin Reg,Human [HumuLIN 70-30] Med 03/26/21 06:00 Active 10 units SUBCUT BIDAC Sodium Chloride 0.9% [Normal Saline] 1,000 ml Med 03/26/21 00:45 Active IV ASDIRECTED Medication Orders Sodium Chloride (Normal Saline) 1,000 mls @ 1,000 mls/hr IV ASDIRECTED JOSÉ LUIS Last Admin: 03/26/21 00:46 Dose: 1,000 mls/hr Documented by: JIMENEZ Insulin Human Isoph/Insulin Regular (Insulin Nph/Insulin Regular,Human 70-30 100 Units/Ml 10 Ml Vial) 10 units SUBCUT BIDAC JOSÉ LUIS Last Admin: 03/26/21 00:59 Dose: 10 units Documented by: JIMENEZ Labs: Laboratory Tests 03/25/21 03/25/21 03/25/21 Range/Units 23:45 23:45 23:45 WBC 1.66 L* (3.98-10.04) K/mm3 RBC 3.35 L (3.98-5.22) M/mm3 Hgb 11.2 D (11.2-15.7) gm/dl Hct 33.0 L (34.1-44.9) % MCV 98.5 H D (79.4-94.8) fl MCH 33.4 H (25.6-32.2) pg MCHC 33.9 (32.2-35.5) g/dl RDW Std Deviation 57.2 H (36.4-46.3) fL Plt Count 149 L D (182-369) K/mm3 MPV 9.7 (9.4-12.3) fl Neutrophils % (Manual) 66 H (40-60) % Band Neutrophils % 8 (0-10) % Lymphocytes % (Manual) 19 L (20-40) % Atypical Lymphs % 0 % Monocytes % (Manual) 6 (2-10) % Eosinophils % (Manual) 0 L (0.7-5.8) % Basophils % (Manual) 1 (0.1-1.2) Platelet Estimate Decreased Polychromasia 1+ slight Anisocytosis 2+ moderate RBC Morph Comment Abnormal Sodium 140 (136-145) mEq/L Potassium 4.2 (3.5-5.1) mEq/L Chloride 105 (98-107) mEq/L Carbon Dioxide 17 L (21-32) mEq/L Anion Gap 22.2 H (5-15) BUN 18 (7-18) mg/dL Creatinine 0.9 (0.55-1.02) mg/dL Est Cr Clr Drug Dosing 47.65 mL/min Estimated GFR (MDRD) > 60 (>60) mL/min BUN/Creatinine Ratio 20.0 H (14-18) Glucose 352 H (70-99) mg/dL Lactic Acid 2.4 H* (0.4-2.0) mmol/L Calcium 7.9 L D (8.5-10.1) mg/dL Total Bilirubin 1.5 H (0.2-1.0) mg/dL AST 468 H (15-37) U/L ALT 348 H (14-59) U/L Alkaline Phosphatase 364 H (46-116) U/L Total Protein 5.3 L (6.4-8.2) g/dl Albumin 2.7 L (3.4-5.0) g/dl Globulin 2.6 gm/dL Albumin/Globulin Ratio 1.0 (1-2) Lipase 65 L (73-393) U/L 03/26/21 Range/Units 01:30 WBC (3.98-10.04) K/mm3 RBC (3.98-5.22) M/mm3 Hgb (11.2-15.7) gm/dl Hct (34.1-44.9) % MCV (79.4-94.8) fl MCH (25.6-32.2) pg MCHC (32.2-35.5) g/dl RDW Std Deviation (36.4-46.3) fL Plt Count (182-369) K/mm3 MPV (9.4-12.3) fl Neutrophils % (Manual) (40-60) % Band Neutrophils % (0-10) % Lymphocytes % (Manual) (20-40) % Atypical Lymphs % % Monocytes % (Manual) (2-10) % Eosinophils % (Manual) (0.7-5.8) % Basophils % (Manual) (0.1-1.2) Platelet Estimate Polychromasia Anisocytosis RBC Morph Comment Sodium (136-145) mEq/L Potassium (3.5-5.1) mEq/L Chloride (98-107) mEq/L Carbon Dioxide (21-32) mEq/L Anion Gap (5-15) BUN (7-18) mg/dL Creatinine (0.55-1.02) mg/dL Est Cr Clr Drug Dosing mL/min Estimated GFR (MDRD) (>60) mL/min BUN/Creatinine Ratio (14-18) Glucose (70-99) mg/dL Lactic Acid 1.5 (0.4-2.0) mmol/L Calcium (8.5-10.1) mg/dL Total Bilirubin (0.2-1.0) mg/dL AST (15-37) U/L ALT (14-59) U/L Alkaline Phosphatase (46-116) U/L Total Protein (6.4-8.2) g/dl Albumin (3.4-5.0) g/dl Globulin gm/dL Albumin/Globulin Ratio (1-2) Lipase (73-393) U/L Meds: Medications Generic Name Dose Route Start Last Admin Trade Name Freq PRN Reason Stop Dose Admin Sodium Chloride 1,000 mls @ 1,000 mls/hr 03/26/21 00:45 03/26/21 00:46 Normal Saline IV 1,000 mls/hr ASDIRECTED JOSÉ LUIS Administration Insulin Human Isoph/Insulin Regular 10 units 03/26/21 06:00 03/26/21 00:59 Insulin Nph/Insulin Regular,Human 70-30 100 Units/Ml 10 Ml Vial SUBCUT 10 units BIDAC JOSÉ LUIS Administration Discontinued Medications Generic Name Dose Route Start Last Admin Trade Name Blossom DUNBAR Reason Stop Dose Admin Hydromorphone HCl 0.5 mg 03/26/21 00:18 03/26/21 00:27 Hydromorphone 0.5 Mg/0.5 Ml Syringe IVPUSH 03/26/21 00:19 0.5 mg ONETIME ONE Administration Sodium Chloride 1,000 mls @ 1,000 mls/hr 03/25/21 23:07 03/25/21 23:34 Normal Saline IV 03/26/21 00:06 1,000 mls/hr ONETIME ONE Administration Ketorolac Tromethamine 15 mg 03/25/21 23:07 03/25/21 23:34 Ketorolac 15 Mg/Ml Sdv IVPUSH 03/25/21 23:08 15 mg ONETIME ONE Administration Ondansetron HCl 4 mg 03/25/21 23:07 03/25/21 23:34 Ondansetron 4 Mg/2 Ml Sdv IVPUSH 03/25/21 23:08 4 mg ONETIME ONE Administration Departure - Departure Time of Disposition: 03:18 Disposition: Home, Self-Care 01 Condition: Fair Clinical Impression: Chemotherapy adverse reaction, Vomiting, Abdominal pain - Discharge Information Instructions: Nausea and Vomiting, Adult, Abdominal Pain, Adult, [id number] Referrals: PCP,None [Primary Care Provider] - Forms: ED Department Discharge Additional Instructions: Zofran and Compazine as needed. Increase fluids. Follow-up with oncologist if not improving by Sunday. Return to emergency department anytime if feeling worse. Sepsis Event Note (ED) - Evaluation Sepsis Screening Result: No Definite Risk - Focused Exam Vital Signs: Vital Signs Temp Pulse Resp BP Pulse Ox 03/25/21 22:45 96.5 F L 99 20 153/97 H 98 - My Orders Last 24 Hours: My Active Orders 03/25/21 23:06 UA W/O MICROSCOPIC [URIN] Stat 03/26/21 00:45 Sodium Chloride 0.9% [Normal Saline] 1,000 ml IV ASDIRECTED 03/26/21 06:00 Insulin NPH/Insulin Reg,Human [HumuLIN 70-30] 10 units SUBCUT BIDAC - Assessment/Plan Last 24 Hours: My Active Orders 03/25/21 23:06 UA W/O MICROSCOPIC [URIN] Stat 03/26/21 00:45 Sodium Chloride 0.9% [Normal Saline] 1,000 ml IV ASDIRECTED 03/26/21 06:00 Insulin NPH/Insulin Reg,Human [HumuLIN 70-30] 10 units SUBCUT BIDAC
[2021-03-26] MEDS ORDERED: HYDROmorphone 0.5 MG/0.5 ML Syringe IVPUSH ONE (00:18)
[2021-03-26] MEDS ORDERED: Sodium Chloride 0.9% 1,000 ML IV SCH (00:45)
[2021-03-26] MEDS ORDERED: Ondansetron 4 MG Tab.DIS PO ONE (03:21)
[2021-03-26] MEDS ORDERED: Insulin NPH/Insulin Regular,Human 70-30 100 Units/ML 10 ML Vial SUBCUT SCH (06:00)
== END 2021-03-26 03:35 | disposition home or self-care (01) ==
LOC: JD.ED 22:32
DX: R11.2 Nausea with vomiting, unspecified (principal); R10.13 Epigastric pain; R19.7 Diarrhea, unspecified; T45.1X5A Adverse effect of antineoplastic and immunosuppressive drugs, initial encounter; C79.51 Secondary malignant neoplasm of bone; I10 Essential (primary) hypertension; E78.00 Pure hypercholesterolemia, unspecified; E11.9 Type 2 diabetes mellitus without complications; Z79.84 Long term (current) use of oral hypoglycemic drugs; Z79.899 Other long term (current) drug therapy; Z86.16 Personal history of COVID-19
CPT/HCPCS: 36415; 80053; 83605; 83690; 85007; 85027; 96374; 96375; 99284; A9270; J1170; J1642; J1885; J2405; J7030; 99283

== ENCOUNTER 2021-04-20 15:44 | Emergency (ER) | payer MEDICAID ==
[2021-04-20] MEDS ORDERED: Sodium Chloride 0.9% 10 ML Syringe FLUSH PRN (16:32)
[2021-04-20] MEDS ORDERED: Sodium Chloride 0.9% 1,000 ML IV STA (17:12)
[2021-04-20] MEDS ORDERED: Magnesium Sulfate/Water 2 GM in Premix Bag 1 BAG IV ONE (18:22)
[2021-04-20] MEDS ORDERED: Potassium Chloride 20 MEQ Tab.ER PO ONE (18:22)
--- NOTE | 2021-04-20 18:37 | EDM.PDOC ---
ED HPI GENERAL MEDICAL PROBLEM - General Chief Complaint: Cardiovascular Problem Stated Complaint: HIGH HEART RATE Time Seen by Provider: 04/20/21 17:05 Source of Information: Reports: Patient, RN Notes Reviewed History Limitations: Reports: No Limitations - History of Present Illness INITIAL COMMENTS - FREE TEXT/NARRATIVE: Patient is a 65 year-old female presenting to the emergency department from the [facility] with complaints of tachycardia. Orts that on arrival to the infusion clinic, she was found an elevated heart rate. She received a total of 1 L of IV fluid infusion but heart rate did not improve. She has no symptoms with regards to this. She does report dizziness, weakness and fatigue, however that is been present for a number of weeks related to her chemotherapy treatment. Patient having chemo for left-sided breast cancer. She also receives infusions of IV fluids 1-2 times weekly. Prior to today her last IV infusion was last . Denies any palpitations, chest pain, shortness of breath chills, nausea, vomiting, or diarrhea. Reports decreased appetite, however this is also normal for her related to her chemotherapy treatment. - Related Data Allergies Allergy/AdvReac Type Severity Reaction Status Date / Time No Known Allergies Allergy Verified 04/20/21 15:56 Home Meds: Home Meds atorvaSTATin [Lipitor] 20 mg PO BEDTIME 07/26/20 [History] glipiZIDE [Glipizide ER] 5 mg PO DAILY 07/26/20 [History] metFORMIN [Glucophage XR] 1,000 mg PO BID 07/26/20 [History] Acetaminophen/oxyCODONE [Percocet 325-5 MG] 1 each PO Q6H PRN #15 tab 09/25/20 [Rx] Calcium Carbonate/Vitamin D3 [Calcium 500-Vit D3 200 Caplet] 1 tab PO BID 10/28/20 [History] Morphine [MS Contin] 15 mg PO BID 10/28/20 [History] OLANZapine [Olanzapine] 10 mg PO ASDIRECTED 10/28/20 [History] Ondansetron [Zofran] 8 mg PO Q8H PRN 10/28/20 [History] lisinopriL [Lisinopril] 40 mg PO DAILY 10/28/20 [History] Ondansetron [Ondansetron ODT] 4 mg PO Q6H PRN #20 tab.brendondis 03/26/21 [Rx] Past Medical History HEENT History: Reports: Cataract Cardiovascular History: Reports: High Cholesterol, Hypertension Respiratory History: Reports: None, Pneumonia, Recurrent Gastrointestinal History: Reports: None Genitourinary History: Reports: None 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: Musculoskeletal History: Reports: Gout Neurological History: Reports: None Psychiatric History: Reports: None Endocrine/Metabolic History: Reports: Diabetes, Type II Oncologic (Cancer) History: Reports: Bone, Breast, Liver, Metastatic - Infectious Disease History Infectious Disease History: Reports: Chicken Pox, Mumps, Novel Coronavirus - Past Surgical History HEENT Surgical History: Reports: Cataract Surgery, Oral Surgery, Tonsillectomy Social & Family History - Tobacco Use Tobacco Use Status *Q: Never Tobacco User - Caffeine Use Caffeine Use: Reports: Soda - Recreational Drug Use Recreational Drug Use: No - Living Situation & Occupation Living situation: Reports: , Alone Occupation: Retired ED ROS GENERAL - Review of Systems Review Of Systems: Comprehensive ROS is negative, except as noted in HPI. ED EXAM, GENERAL - Physical Exam Exam: See Below Exam Limited By: No Limitations General Appearance: Alert, WD/WN, No Apparent Distress, Other (allopecia) Neck: Normal Inspection, Supple, Non-Tender, Full Range of Motion Respiratory/Chest: No Respiratory Distress, Lungs Clear, Normal Breath Sounds, No Accessory Muscle Use, Chest Non-Tender Cardiovascular: Normal Peripheral Pulses, Regular Rate, Rhythm, No Edema, No Gallop, No JVD, No Murmur, No Rub, Tachycardia GI/Abdominal: Normal Bowel Sounds, Soft, Non-Tender, No Organomegaly, No Distention, No Abnormal Bruit, No Mass Neurological: Alert, Oriented, CN II-XII Intact, Normal Cognition, Normal Gait, Normal Reflexes, No Motor/Sensory Deficits Psychiatric: Normal Affect, Normal Mood Skin Exam: Warm, Dry, Intact, No Rash, Pallor Course - Vital Signs Last Recorded V/S: Last Vital Signs Temp 97 F 04/20/21 15:53 Pulse 142 H 04/20/21 15:53 Resp 18 04/20/21 15:53 BP 115/82 04/20/21 15:53 Pulse Ox 96 04/20/21 15:53 - Orders/Labs/Meds Labs: Laboratory Tests 04/20/21 04/20/21 04/20/21 Range/Units 17:34 17:34 17:34 WBC 2.69 L (3.98-10.04) K/mm3 RBC 2.69 L (3.98-5.22) M/mm3 Hgb 8.9 L D (11.2-15.7) gm/dl Hct 26.8 L (34.1-44.9) % MCV 99.6 H (79.4-94.8) fl MCH 33.1 H (25.6-32.2) pg MCHC 33.2 (32.2-35.5) g/dl RDW Std Deviation 52.4 H (36.4-46.3) fL Plt Count 132 L (182-369) K/mm3 MPV 8.8 L (9.4-12.3) fl Neut % (Auto) 70.3 (34.0-71.1) % Lymph % (Auto) 17.8 L (19.3-51.7) % [place] % (Auto) 7.4 (4.7-12.5) % Eos % (Auto) 0.7 (0.7-5.8) Baso % (Auto) 1.9 H (0.1-1.2) % Neut # (Auto) 1.89 (1.56-6.13) K/mm3 Lymph # (Auto) 0.48 L (1.18-3.74) K/mm3 [place] # (Auto) 0.20 L (0.24-0.36) K/mm3 Eos # (Auto) 0.02 L (0.04-0.36) K/mm3 Baso # (Auto) 0.05 (0.01-0.08) K/mm3 Manual Slide Review Abnormal smear Sodium 139 (136-145) mEq/L Potassium 3.4 L (3.5-5.1) mEq/L Chloride 105 (98-107) mEq/L Carbon Dioxide 20 L (21-32) mEq/L Anion Gap 17.4 H (5-15) BUN 8 (7-18) mg/dL Creatinine 0.6 (0.55-1.02) mg/dL Est Cr Clr Drug Dosing 71.48 mL/min Estimated GFR (MDRD) > 60 (>60) mL/min BUN/Creatinine Ratio 13.3 L (14-18) Glucose 185 H (70-99) mg/dL Lactic Acid 1.2 (0.4-2.0) mmol/L Calcium 7.5 L (8.5-10.1) mg/dL Magnesium (1.8-2.4) mg/dL Total Bilirubin 1.5 H (0.2-1.0) mg/dL AST 64 H (15-37) U/L ALT 65 H (14-59) U/L Alkaline Phosphatase 478 H (46-116) U/L Troponin I < 0.017 (0.00-0.056) ng/mL Total Protein 5.7 L (6.4-8.2) g/dl Albumin 2.1 L (3.4-5.0) g/dl Globulin 3.6 gm/dL Albumin/Globulin Ratio 0.6 L (1-2) Urine Color (Yellow) Urine Appearance (Clear) Urine pH (5.0-8.0) Ur Specific [place] (1.005-1.030) Urine Protein (Negative) Urine Glucose (UA) (Negative) Urine Ketones (Negative) Urine Occult Blood (Negative) Urine Nitrite (Negative) Urine Bilirubin (Negative) Urine Urobilinogen (0.2-1.0) Ur Leukocyte Esterase (Negative) Urine RBC (0-5) /hpf Urine WBC (0-5) /hpf Ur Squamous Epith Cells (0-5) /hpf Urine Bacteria (FEW) /hpf Urine Mucus (FEW) /hpf 04/20/21 04/20/21 Range/Units 17:34 20:00 WBC (3.98-10.04) K/mm3 RBC (3.98-5.22) M/mm3 Hgb (11.2-15.7) gm/dl Hct (34.1-44.9) % MCV (79.4-94.8) fl MCH (25.6-32.2) pg MCHC (32.2-35.5) g/dl RDW Std Deviation (36.4-46.3) fL Plt Count (182-369) K/mm3 MPV (9.4-12.3) fl Neut % (Auto) (34.0-71.1) % Lymph % (Auto) (19.3-51.7) % [place] % (Auto) (4.7-12.5) % Eos % (Auto) (0.7-5.8) Baso % (Auto) (0.1-1.2) % Neut # (Auto) (1.56-6.13) K/mm3 Lymph # (Auto) (1.18-3.74) K/mm3 [place] # (Auto) (0.24-0.36) K/mm3 Eos # (Auto) (0.04-0.36) K/mm3 Baso # (Auto) (0.01-0.08) K/mm3 Manual Slide Review Sodium (136-145) mEq/L Potassium (3.5-5.1) mEq/L Chloride (98-107) mEq/L Carbon Dioxide (21-32) mEq/L Anion Gap (5-15) BUN (7-18) mg/dL Creatinine (0.55-1.02) mg/dL Est Cr Clr Drug Dosing mL/min Estimated GFR (MDRD) (>60) mL/min BUN/Creatinine Ratio (14-18) Glucose (70-99) mg/dL Lactic Acid (0.4-2.0) mmol/L Calcium (8.5-10.1) mg/dL Magnesium 1.6 L (1.8-2.4) mg/dL Total Bilirubin (0.2-1.0) mg/dL AST (15-37) U/L ALT (14-59) U/L Alkaline Phosphatase (46-116) U/L Troponin I (0.00-0.056) ng/mL Total Protein (6.4-8.2) g/dl Albumin (3.4-5.0) g/dl Globulin gm/dL Albumin/Globulin Ratio (1-2) Urine Color Yellow (Yellow) Urine Appearance Clear (Clear) Urine pH 5.5 (5.0-8.0) Ur Specific [place] 1.015 (1.005-1.030) Urine Protein Negative (Negative) Urine Glucose (UA) 3+ H (Negative) Urine Ketones 2+ H (Negative) Urine Occult Blood Negative (Negative) Urine Nitrite Negative (Negative) Urine Bilirubin 1+ H (Negative) Urine Urobilinogen 2.0 H (0.2-1.0) Ur Leukocyte Esterase Negative (Negative) Urine RBC 0-5 (0-5) /hpf Urine WBC 0-5 (0-5) /hpf Ur Squamous Epith Cells 0-5 (0-5) /hpf Urine Bacteria Few (FEW) /hpf Urine Mucus Few (FEW) /hpf Meds: Medications Discontinued Medications Generic Name Dose Route Start Last Admin Trade Name Blossom PRN Reason Stop Dose Admin Heparin Sodium (Porcine) 500 units 04/20/21 21:52 04/20/21 21:56 Heparin Sodium 100 Units/Ml 5 Ml Syringe FLUSH 04/20/21 21:53 500 units ASDIRECTED ONE Administration Sodium Chloride 1,000 mls @ 150 mls/hr 04/20/21 17:12 04/20/21 17:31 Normal Saline IV 04/20/21 23:51 150 mls/hr NOW STA Administration Magnesium Sulfate 2 gm/ Premix 50 mls @ 25 mls/hr 04/20/21 18:22 04/20/21 18:59 IV 04/20/21 20:21 25 mls/hr ONETIME ONE Administration Potassium Chloride 40 meq 04/20/21 18:22 04/20/21 18:59 Potassium Chloride 20 Meq Tab.Er PO 04/20/21 18:23 40 meq ONETIME ONE Administration Sodium Chloride 10 ml 04/20/21 16:32 04/20/21 16:42 Sodium Chloride 0.9% 10 Ml Syringe FLUSH 10 ml ASDIRECTED PRN Administration Keep Vein Open - Re-Assessments/Exams Free Text/Narrative Re-Assessment/Exam: Patient is a 65-year-old female presenting to the emergency department from the [facility] clinic for tachycardia. Patient is currently being treated with chemotherapy for left sided breast cancer. Receives fluid infusions twice weekly, but has not received any since last . She received 1 L of IV fluids in the clinic today. On arrival to ER, she was out of a heart rate in the 140s normal sinus rhythm. She states that she feels normal, but is weak with a decreased appetite which has been the case for a number of weeks related to her chemotherapy. Exam is unremarkable. I have ordered blood work urinalysis, EKG. Start IV fluids of NS at 150 mils pending lab results. 04/20/21 1825 Hematology was significant for WBC low at 2.69, hemoglobin low at 8.9, potassium 3.4, CO2 20, anion gap 17.4, magnesium 1.6. Urinalysis is negative for infection. We will give the patient the full liter of normal saline as a bolus. I ordered 40 mEq of oral potassium as well as 2 g of IV magnesium. 04/20/21 21:39 Infusion of magnesium has completed. Heart rate is improved to 105-110. Remains sinus rhythm. Patient states that she is feeling well. She has IV fluid infusion scheduled on Sunday. Recommend that she check her pulse intermittently at home. If you find that it is high again, she should return to ER. We will discharge her home. Discharge instructions as documented. Departure - Departure Time of Disposition: 21:42 Disposition: Home, Self-Care 01 Condition: Good Clinical Impression: Hypomagnesemia, Tachycardia, Hypokalemia Instructions: Hypomagnesemia, Hypokalemia, Sinus Tachycardia Referrals: Juanito Olivares MD [Primary Care Provider] - Forms: ED Department Discharge Additional Instructions: You were seen in the emergency department today for evaluation of high heart rate. Work-up included blood work, urinalysis, and EKG. Results your work-up show that your magnesium and potassium were low. Both of these were replaced in the ER. You also received a liter of IV fluids. This did improve your heart rate. Recommend that you increase fluid intake is much as tolerable. Continue to monitor your pulse at home. If you find that it is elevated, recommend that she return for reevaluation. Follow-up with infusion clinic as scheduled on Sunday. Return to ER for any new or worsening symptoms of concern. Sepsis Event Note (ED) - Evaluation Sepsis Screening Result: No Definite Risk
== END 2021-04-20 22:04 | disposition home or self-care (01) ==
LOC: JD.ED 15:44
DX: R00.0 Tachycardia, unspecified (principal); E87.6 Hypokalemia; E83.42 Hypomagnesemia; E78.00 Pure hypercholesterolemia, unspecified; I10 Essential (primary) hypertension; E11.9 Type 2 diabetes mellitus without complications; Z79.899 Other long term (current) drug therapy; Z79.84 Long term (current) use of oral hypoglycemic drugs
CPT/HCPCS: 36415; 80053; 81001; 83605; 83735; 84484; 85025; 93005; 96365; 96366; 99285; A9270; J1642; J3475; J7030; 99284

== ENCOUNTER 2021-05-01 16:19 | Inpatient (IN) | payer MEDICAID ==
[~2021-05-01 16:19] MED LIST changes: -Cefuroxime 10 MG/ML SYRINGE EYERT SCH; +Enoxaparin 40 MG/0.4 ML Syringe SUBCUT SCH; -Lidocaine 1% PF 2 ML SDV INJECT SCH; -Pilocarpine 4% Ophth Soln 15 ML Bot EYERT SCH
[2021-05-01] MEDS ORDERED: Sodium Chloride 0.9% 1,000 ML IV ONE ×2 (16:42→20:17)
--- NOTE | 2021-05-01 16:45 | EDM.PDOC ---
ED HPI GENERAL MEDICAL PROBLEM - General Chief Complaint: General Stated Complaint: [facility] Time Seen by Provider: 05/01/21 16:35 Source of Information: Reports: Patient, Old Records, RN Notes Reviewed History Limitations: Reports: No Limitations - History of Present Illness INITIAL COMMENTS - FREE TEXT/NARRATIVE: Patient is a 65-year-old female who presents to the ER for evaluation of feeling generally unwell. She was brought to the ER by [facility]. Patient is currently on chemotherapy for left-sided breast cancer. States that her last chemo was on Sunday. She typically gets quite sick after chemo runs. States that she is not having any nausea or vomiting, but just feels dizzy, lightheaded and had some chills at home. States that she was seen in the ER a week or 2 ago, and was found to have low potassium and low magnesium, she got some fluids and electrolyte replacement this seemed to help her feel better. She does not think she has been around anyone has been sick. Oncologist is Dr. Osuna. Middle Chest Pain Score (Numeric/FACES): 6 - Related Data Allergies Allergy/AdvReac Type Severity Reaction Status Date / Time No Known Allergies Allergy Verified 05/01/21 16:34 Home Meds: Home Meds atorvaSTATin [Lipitor] 20 mg PO BEDTIME 07/26/20 [History] glipiZIDE [Glipizide ER] 5 mg PO DAILY 07/26/20 [History] metFORMIN [Glucophage XR] 1,000 mg PO BID 07/26/20 [History] Acetaminophen/oxyCODONE [Percocet 325-5 MG] 1 each PO Q6H PRN #15 tab 09/25/20 [Rx] Calcium Carbonate/Vitamin D3 [Calcium 500-Vit D3 200 Caplet] 1 tab PO BID 10/28/20 [History] Morphine [MS Contin] 15 mg PO BID 10/28/20 [History] OLANZapine [Olanzapine] 10 mg PO ASDIRECTED 10/28/20 [History] Ondansetron [Zofran] 8 mg PO Q8H PRN 10/28/20 [History] lisinopriL [Lisinopril] 40 mg PO DAILY 10/28/20 [History] Ondansetron [Ondansetron ODT] 4 mg PO Q6H PRN #20 tab.brendondis 03/26/21 [Rx] Past Medical History HEENT History: Reports: Cataract Cardiovascular History: Reports: High Cholesterol, Hypertension Respiratory History: Reports: Pneumonia, Recurrent 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: Musculoskeletal History: Reports: Gout Endocrine/Metabolic History: Reports: Diabetes, Type II Oncologic (Cancer) History: Reports: Bone, Breast, Liver, Metastatic - Infectious Disease History Infectious Disease History: Reports: Chicken Pox, Mumps, Novel Coronavirus - Past Surgical History HEENT Surgical History: Reports: Cataract Surgery, Oral Surgery, Tonsillectomy Social & Family History - Tobacco Use Tobacco Use Status *Q: Never Tobacco User - Caffeine Use Caffeine Use: Reports: None - Recreational Drug Use Recreational Drug Use: No - Living Situation & Occupation Living situation: Reports: , Alone Occupation: Retired ED ROS GENERAL - Review of Systems Review Of Systems: Comprehensive ROS is negative, except as noted in HPI. ED EXAM, GENERAL - Physical Exam Exam: See Below Exam Limited By: No Limitations General Appearance: Alert, WD/WN, No Apparent Distress, Anxious (slight genera lized) Respiratory/Chest: No Respiratory Distress, Lungs Clear, Normal Breath Sounds, No Accessory Muscle Use, Chest Non-Tender Cardiovascular: Normal Peripheral Pulses, Regular Rate, Rhythm, No Edema Peripheral Pulses: 2+: Radial (L), Radial (R) GI/Abdominal: Normal Bowel Sounds, Soft, Non-Tender, No Distention, No Mass Extremities: Normal Inspection, Normal Capillary Refill Neurological: Alert, Oriented, Normal Cognition, No Motor/Sensory Deficits Psychiatric: Normal Affect, Normal Mood Skin Exam: Warm, Dry, Intact, No Rash, Pallor (generalized) #1 Interpretation EKG Date: 05/01/21 Time: 16:25 Rhythm: Other (sinus tach) Rate (Beats/Min): 144 Aguilar: Normal P-Wave: Present QRS: Normal ST-T: Normal QT: Normal EKG Interpretation Comments: No obvious ischemia or acute ST changes noted, reviewed by myself and Dr. Bledsoe. Course - Vital Signs Last Recorded V/S: Last Vital Signs Temp 98.3 F 05/01/21 16:31 Pulse 143 H 05/01/21 16:31 Resp 24 H 05/01/21 16:31 BP 110/73 05/01/21 16:31 Pulse Ox 95 05/01/21 16:31 - Orders/Labs/Meds Orders: Active Orders 24 hr Category Date Time Status Implanted Port Access [RC] ONETIME Care 05/01/21 16:41 Active Chest 1V Frontal [CR] Stat Exams 05/01/21 16:43 Taken CORONAVIRUS COVID-19 ALLISON [MOLEC] Stat Lab 05/01/21 20:17 Ordered Sodium Chloride 0.9% [Normal Saline] 1,000 ml Med 05/01/21 20:17 Ordered IV ONETIME Isolation [COMM] Routine Oth 05/01/21 16:43 Ordered Medication Orders Sodium Chloride (Normal Saline) 1,000 mls @ 150 mls/hr IV ONETIME ONE Stop: 05/02/21 02:56 Labs: Laboratory Tests 05/01/21 05/01/21 Range/Units 17:15 17:15 WBC 1.85 L* (3.98-10.04) K/mm3 RBC 3.06 L (3.98-5.22) M/mm3 Hgb 10.2 L (11.2-15.7) gm/dl Hct 30.7 L (34.1-44.9) % MCV 100.3 H (79.4-94.8) fl MCH 33.3 H (25.6-32.2) pg MCHC 33.2 (32.2-35.5) g/dl RDW Std Deviation 59.3 H (36.4-46.3) fL Plt Count 113 L (182-369) K/mm3 MPV 9.4 (9.4-12.3) fl Neut % (Auto) 82.7 H (34.0-71.1) % Lymph % (Auto) 15.1 L (19.3-51.7) % [place] % (Auto) 1.1 L (4.7-12.5) % Eos % (Auto) 0 L (0.7-5.8) Baso % (Auto) 0.0 L (0.1-1.2) % Neut # (Auto) 1.53 L (1.56-6.13) K/mm3 Lymph # (Auto) 0.28 L (1.18-3.74) K/mm3 [place] # (Auto) 0.02 L (0.24-0.36) K/mm3 Eos # (Auto) 0.00 L (0.04-0.36) K/mm3 Baso # (Auto) 0.00 L (0.01-0.08) K/mm3 Manual Slide Review Abnormal smear Sodium 136 (136-145) mEq/L Potassium 3.8 (3.5-5.1) mEq/L Chloride 103 (98-107) mEq/L Carbon Dioxide 23 (21-32) mEq/L Anion Gap 13.8 (5-15) BUN 12 (7-18) mg/dL Creatinine 0.6 (0.55-1.02) mg/dL Est Cr Clr Drug Dosing 71.48 mL/min Estimated GFR (MDRD) > 60 (>60) mL/min BUN/Creatinine Ratio 20.0 H (14-18) Glucose 103 H (70-99) mg/dL Calcium 7.5 L (8.5-10.1) mg/dL Magnesium 1.3 L (1.8-2.4) mg/dL Total Bilirubin 1.4 H (0.2-1.0) mg/dL AST 153 H (15-37) U/L ALT 107 H (14-59) U/L Alkaline Phosphatase 348 H (46-116) U/L Total Protein 5.5 L (6.4-8.2) g/dl Albumin 2.5 L (3.4-5.0) g/dl Globulin 3.0 gm/dL Albumin/Globulin Ratio 0.8 L (1-2) Meds: Medications Generic Name Dose Route Start Last Admin Trade Name Freq PRN Reason Stop Dose Admin Sodium Chloride 1,000 mls @ 150 mls/hr 05/01/21 20:17 Normal Saline IV 05/02/21 02:56 ONETIME ONE Discontinued Medications Generic Name Dose Route Start Last Admin Trade Name Freq PRN Reason Stop Dose Admin Sodium Chloride 1,000 mls @ 999 mls/hr 05/01/21 16:42 05/01/21 16:54 Normal Saline IV 05/01/21 17:42 999 mls/hr ONETIME ONE Administration Magnesium Sulfate 2 gm/ Premix 50 mls @ 25 mls/hr 05/01/21 17:47 05/01/21 18:08 IV 05/01/21 19:46 25 mls/hr ONETIME ONE Administration Lorazepam 1 mg 05/01/21 16:57 05/01/21 17:23 Lorazepam 2 Mg/Ml Sdv IVPUSH 05/01/21 16:58 1 mg ONETIME ONE Administration Ondansetron HCl 4 mg 05/01/21 16:57 05/01/21 17:23 Ondansetron 4 Mg/2 Ml Sdv IVPUSH 05/01/21 16:58 4 mg ONETIME ONE Administration - Re-Assessments/Exams Free Text/Narrative Re-Assessment/Exam: 05/01/21 17:23 Patient presents to the ER after feeling generally unwell from chemo this last Sunday. We will go ahead and give her some IV fluids, some medications for her anxiety and nausea and get some basic labs for evaluation. 05/01/21 17:54 Patient's laboratory evaluation demonstrates a white count that is low at 1.85, with 85% neutrophils on the auto differential. Metabolic panel demonstrates a magnesium that is low at 1.3, have ordered 2 g IV mag for this. Her liver enzymes are all elevated as well as a bilirubin, the patient does have metastatic breast cancer to her bones and liver. 05/01/21 18:42 I did speak with on-call oncologist, Dr. Arroyo at , and went over lab results and the patient's clinical course for today, and he has no major concerns he does request that the patient follow-up with her doctor sometime this week for repeat lab test. I will make this known to the patient. Magnesium is still running, and should be done around 8:00 PM. If she is still feeling fine at that time we will go ahead and try to get her going home. 05/01/21 20:00 Patient was reassessed at bedside a short while ago, and states that she is again not feeling well, has generalized weakness and lightheadedness. Do not think that she is safe to discharge home at this time. I did speak with her daughters and our hospitalist, Dr. Butler and we will go ahead and place her in observation in the hospital for ongoing management of her generalized weakness. Departure - Departure Time of Disposition: 20:25 Disposition: Refer to Observation Condition: Good Clinical Impression: Chemotherapy induced neutropenia, Hypomagnesemia, Generalized weakness - Discharge Information *PRESCRIPTION DRUG MONITORING PROGRAM REVIEWED*: No *COPY OF PRESCRIPTION DRUG MONITORING REPORT IN PATIENT SHY: No Referrals: Juanito Olivares MD [Primary Care Provider] - Forms: ED Department Discharge Sepsis Event Note (ED) - Evaluation Sepsis Screening Result: No Definite Risk - Focused Exam Vital Signs: Vital Signs Temp Pulse Resp BP Pulse Ox 05/01/21 16:31 98.3 F 143 H 24 H 110/73 95 - My Orders Last 24 Hours: My Active Orders 05/01/21 16:41 Implanted Port Access [RC] ONETIME 05/01/21 16:43 Chest 1V Frontal [CR] Stat Isolation [COMM] Routine 05/01/21 20:17 CORONAVIRUS COVID-19 ALLISON [MOLEC] Stat Sodium Chloride 0.9% [Normal Saline] 1,000 ml IV ONETIME - Assessment/Plan Last 24 Hours: My Active Orders 05/01/21 16:41 Implanted Port Access [RC] ONETIME 05/01/21 16:43 Chest 1V Frontal [CR] Stat Isolation [COMM] Routine 05/01/21 20:17 CORONAVIRUS COVID-19 ALLISON [MOLEC] Stat Sodium Chloride 0.9% [Normal Saline] 1,000 ml IV ONETIME
[2021-05-01] MEDS ORDERED: LORazepam 2 MG/ML SDV IVPUSH ONE (16:57)
[2021-05-01] MEDS ORDERED: Ondansetron 4 MG/2 ML SDV IVPUSH ONE (16:57)
[2021-05-01] MEDS ORDERED: Magnesium Sulfate/Water 2 GM in Premix Bag 1 BAG IV ONE (17:47)
[2021-05-01] MEDS ORDERED: Ketorolac 30 MG/ML SDV IVPUSH ONE (20:29)
[2021-05-01] MEDS ORDERED: Docusate Sodium 100 MG Cap PO PRN (21:04)
[2021-05-01] MEDS ORDERED: Zolpidem 5 MG Tab PO PRN (21:04)
[2021-05-01] MEDS ORDERED: Ondansetron 4 MG Tab.DIS PO PRN (21:04)
[2021-05-01] MEDS ORDERED: Promethazine 6.25 MG in Sodium Chloride 0.9% 50 ML IV PRN (21:04)
[2021-05-01] MEDS: Dextrose 5%-0.45% NaCl 1,000 ML IV SCH (22:44)
[2021-05-01] MEDS: Enoxaparin 40 MG/0.4 ML Syringe SUBCUT SCH (22:44)
[2021-05-02] MEDS: Acetaminophen 325 MG Tab PO PRN (02:55)
[2021-05-02] MEDS: Pantoprazole 40 MG Tab.CR PO SCH (06:57)
--- NOTE | 2021-05-02 07:20 | CR ---
Chest: Portable view of the chest was obtained. Comparison: Prior chest x-ray of 07/28/20. Scarring is seen within the right lower lung. Minimal scarring is seen within the left lower lung. Lungs otherwise are clear. Right-sided infusion catheter is noted. Mild deformity is seen within the right third rib which appears chronic. Heart size and mediastinum are within normal limits. Impression: 1. Slight areas of scarring within both lung bases. 2. Right-sided infusion catheter. 3. Nothing acute is definitely appreciated on portable chest x-ray. Diagnostic code #2
[2021-05-02] MEDS: Acetaminophen/HYDROcodone 325-5 MG Tab PO PRN ×2 (07:51→13:50)
[2021-05-02] MEDS ORDERED: Calcium Carbonate 500 MG Tab.Chew PO PRN (08:11)
[2021-05-02] MEDS: Potassium Chloride 10 MEQ in Premix Bag 1 BAG IV SCH ×4 (08:43→11:50)
[2021-05-02] MEDS ORDERED: Take Home: Ondansetron 4 MG Tab.DIS, 2 Tab Pack PO PRN (09:46)
[2021-05-02] MEDS ORDERED: Prochlorperazine 5 MG Tab PO PRN (09:46)
[2021-05-02] MEDS ORDERED: ONDANSETRON 8 MG PO PRN (09:46)
--- NOTE | 2021-05-02 09:57 | PCM.HP.2 ---
H&P History of Present Illness - General Date of Service: 05/01/21 Admit Problem/Dx: Admission Diagnosis/Problem Admission Diagnosis/Problem Generalized weakness - History of Present Illness Other HPI/Comments: Mrs. Aguilar is a 67-year-old female history with a h/o breast cancer diagnosed in September 2020. She was started on chemotherapy in October of this year and is now on her 4th cycle of treatment. She follows with Dr. Osuna at [facility]. The patient's daughter checked on her yesterday and noted that she was very lethargic and not doing well at all. She called for the ambulance and had her brought to the ER. On arrival to the ER the patient was dehydrated, lethargic and complained of generalized weakness. She had her last chemotherapy 2 days ago and reports that every time she gets these treatments she gets pretty wiped out for several days. She has had very poor appetite over the last several days. She has mostly been able to drink some fluids and very few solids because nothing tastes good to her. She denies having any fevers or chills. She tested for possible Covid 19 in July 2020. Later on she had her two Covid 19 vaccines. In the ED today patient's COVID-19 test was negative. The rest of her lab work revealed multiple electrolyte abnormalities a low magnesium, potassium, calcium, total protein and albumin levels. Middle Chest Pain Score (Numeric/FACES): 6 Generalized Pain Score (Numeric/FACES): 4 - Related Data Allergies/Adverse Reactions: Allergies Allergy/AdvReac Type Severity Reaction Status Date / Time No Known Allergies Allergy Verified 05/01/21 23:29 Home Medications: Home Meds atorvaSTATin [Lipitor] 20 mg PO BEDTIME 07/26/20 [History] metFORMIN [Glucophage XR] 1,000 mg PO BID 07/26/20 [History] Calcium Carbonate/Vitamin D3 [Calcium 500-Vit D3 200 Caplet] 1 tab PO TID 10/28/20 [History] Morphine [MS Contin] 15 mg PO BEDTIME 10/28/20 [History] Ondansetron [Zofran] 8 mg PO Q8H PRN 10/28/20 [History] Ondansetron [Ondansetron ODT] 4 mg PO Q6H PRN #20 tab.rapdis 03/26/21 [Rx] Aspirin [Aspirin EC] 81 mg PO DAILY 05/02/21 [History] Diphenhyd/Lidocaine/Nystatin [First-Bxn Mouthwash] 153 ml MM QID PRN MDD mild-moderate pain-mouth sores 05/02/21 [History] Empagliflozin [Jardiance] 25 mg PO QAM 05/02/21 [History] Famotidine [Pepcid] 10 mg PO DAILY 05/02/21 [History] Gabapentin [Neurontin] 200 mg PO BID 05/02/21 [History] Ibuprofen [Motrin] 400 mg PO TID PRN 05/02/21 [History] Ibuprofen [Motrin] 600 mg PO TID PRN 05/02/21 [History] LORazepam [Ativan] 0.5 mg PO Q6HR 05/02/21 [History] Loperamide [Imodium] 2 mg PO ASDIRECTED 05/02/21 [History] Loratadine [Claritin] 10 mg PO DAILY 05/02/21 [History] Potassium Chloride [K-Tab] 10 meq PO TID 05/02/21 [History] Prochlorperazine [Compazine] 10 mg PO QID PRN 05/02/21 [History] amLODIPine [Norvasc] 5 mg PO DAILY 05/02/21 [History] bisacodyL [Dulcolax] 5 mg PO DAILY 05/02/21 [History] dexAMETHasone [Dexamethasone] 2 mg PO DAILY 05/02/21 [History] traZODone 50 mg PO BEDTIME 05/02/21 [History] Past Medical History - Past Health History Medical/Surgical History: Denies Medical/Surgical History HEENT History: Reports: Cataract Cardiovascular History: Reports: High Cholesterol, Hypertension Respiratory History: Reports: Pneumonia, Recurrent Gastrointestinal History: Reports: None Genitourinary History: Reports: None [employer] SECTION History: Reports: Musculoskeletal History: Reports: Gout Neurological History: Reports: None Psychiatric History: Reports: None Endocrine/Metabolic History: Reports: Diabetes, Type II Oncologic (Cancer) History: Reports: Bone, Breast, Liver, Metastatic - Infectious Disease History Infectious Disease History: Reports: Chicken Pox, Mumps, Novel Coronavirus - Past Surgical History HEENT Surgical History: Reports: Cataract Surgery, Oral Surgery, Tonsillectomy Social & Family History - Tobacco Use Tobacco Use Status *Q: Never Tobacco User - Caffeine Use Caffeine Use: Reports: None - Recreational Drug Use Recreational Drug Use: No - Living Situation & Occupation Living situation: Reports: , Alone Occupation: Retired H&P Review of Systems - Review of Systems: Review Of Systems: See Below Review of Systems Comment:: Constitutional: Patient has any fevers or chills. CVS: Denies any chest pain or any anginal symptoms Lungs: Denies any cough, wheeze or shortness of breath Abdomen: She complains of nausea but denies any vomiting or any abdominal pain. No blood in the stools or constipation. Genitourinary: She denies having any dysuria, frequency, urgency or hematuria. Neuro: She is able to ambulate with a walker. She denies any seizures or tremors Psych: Patient has a depressed mood and affect. Exam - Exam Exam: See Below - Vital Signs Vital Signs: Last Vital Signs Temp 98.2 F 05/02/21 08:11 Pulse 102 H 05/02/21 08:11 Resp 16 05/02/21 08:11 BP 106/68 05/02/21 08:11 Pulse Ox 98 05/02/21 08:11 Weight: 138 lb - Exam Physical Exam Comments:: General: This is a middle-aged female who appears ill HEENT: Normocephalic, atraumatic, PERRLA, EOMI, patient has alopecia CVS: S1-S2 appreciated regular rhythm no murmurs, rubs or gallops Lungs: Clear without rales or wheezes Abdomen: soft, nontender, bowel sounds present Extremities: There is no clubbing, cyanosis or edema. Peripheral pulses 2+ Neuro exam: Patient moves all her extremities. There is global muscle weakness but no focal findings - Patient Data Lab Results Last 24 hrs: Laboratory Results - last 24 hr 05/01/21 05/01/21 05/01/21 Range/Units 17:15 17:15 20:20 WBC 1.85 L* (3.98-10.04) K/mm3 RBC 3.06 L (3.98-5.22) M/mm3 Hgb 10.2 L (11.2-15.7) gm/dl Hct 30.7 L (34.1-44.9) % MCV 100.3 H (79.4-94.8) fl MCH 33.3 H (25.6-32.2) pg MCHC 33.2 (32.2-35.5) g/dl RDW Std Deviation 59.3 H (36.4-46.3) fL Plt Count 113 L (182-369) K/mm3 MPV 9.4 (9.4-12.3) fl Neut % (Auto) 82.7 H (34.0-71.1) % Lymph % (Auto) 15.1 L (19.3-51.7) % [place] % (Auto) 1.1 L (4.7-12.5) % Eos % (Auto) 0 L (0.7-5.8) Baso % (Auto) 0.0 L (0.1-1.2) % Neut # (Auto) 1.53 L (1.56-6.13) K/mm3 Lymph # (Auto) 0.28 L (1.18-3.74) K/mm3 [place] # (Auto) 0.02 L (0.24-0.36) K/mm3 Eos # (Auto) 0.00 L (0.04-0.36) K/mm3 Baso # (Auto) 0.00 L (0.01-0.08) K/mm3 Manual Slide Review Abnormal smear Sodium 136 (136-145) mEq/L Potassium 3.8 (3.5-5.1) mEq/L Chloride 103 (98-107) mEq/L Carbon Dioxide 23 (21-32) mEq/L Anion Gap 13.8 (5-15) BUN 12 (7-18) mg/dL Creatinine 0.6 (0.55-1.02) mg/dL Est Cr Clr Drug Dosing 71.48 mL/min Estimated GFR (MDRD) > 60 (>60) mL/min BUN/Creatinine Ratio 20.0 H (14-18) Glucose 103 H (70-99) mg/dL Calcium 7.5 L (8.5-10.1) mg/dL Magnesium 1.3 L (1.8-2.4) mg/dL Total Bilirubin 1.4 H (0.2-1.0) mg/dL AST 153 H (15-37) U/L ALT 107 H (14-59) U/L Alkaline Phosphatase 348 H (46-116) U/L Total Protein 5.5 L (6.4-8.2) g/dl Albumin 2.5 L (3.4-5.0) g/dl Globulin 3.0 gm/dL Albumin/Globulin Ratio 0.8 L (1-2) SARS-CoV-2 RNA ([facility]) Negative (NEGATIVE) 05/02/21 05/02/21 Range/Units 05:30 05:30 WBC 1.32 L* (3.98-10.04) K/mm3 RBC 2.50 L (3.98-5.22) M/mm3 Hgb 8.2 L D (11.2-15.7) gm/dl Hct 24.8 L (34.1-44.9) % MCV 99.2 H (79.4-94.8) fl MCH 32.8 H (25.6-32.2) pg MCHC 33.1 (32.2-35.5) g/dl RDW Std Deviation 57.7 H (36.4-46.3) fL Plt Count 106 L (182-369) K/mm3 MPV 9.8 (9.4-12.3) fl Neut % (Auto) 90.8 H (34.0-71.1) % Lymph % (Auto) 6.8 L (19.3-51.7) % [place] % (Auto) 0.8 L (4.7-12.5) % Eos % (Auto) 0.8 (0.7-5.8) Baso % (Auto) 0.0 L (0.1-1.2) % Neut # (Auto) 1.20 L (1.56-6.13) K/mm3 Lymph # (Auto) 0.09 L (1.18-3.74) K/mm3 [place] # (Auto) 0.01 L (0.24-0.36) K/mm3 Eos # (Auto) 0.01 L (0.04-0.36) K/mm3 Baso # (Auto) 0.00 L (0.01-0.08) K/mm3 Manual Slide Review Abnormal smear Sodium 137 (136-145) mEq/L Potassium 3.1 L (3.5-5.1) mEq/L Chloride 104 (98-107) mEq/L Carbon Dioxide 23 (21-32) mEq/L Anion Gap 13.1 (5-15) BUN 10 (7-18) mg/dL Creatinine 0.5 L (0.55-1.02) mg/dL Est Cr Clr Drug Dosing 85.77 mL/min Estimated GFR (MDRD) > 60 (>60) mL/min BUN/Creatinine Ratio 20.0 H (14-18) Glucose 145 H (70-99) mg/dL Calcium 6.6 L (8.5-10.1) mg/dL Magnesium 2.0 (1.8-2.4) mg/dL Total Bilirubin 1.1 H (0.2-1.0) mg/dL AST 144 H (15-37) U/L ALT 107 H (14-59) U/L Alkaline Phosphatase 261 H (46-116) U/L Total Protein 4.5 L (6.4-8.2) g/dl Albumin 1.9 L (3.4-5.0) g/dl Globulin 2.6 gm/dL Albumin/Globulin Ratio 0.7 L (1-2) SARS-CoV-2 RNA ([facility]) (NEGATIVE) Result Diagrams: 05/02/21 05:30 05/02/21 05:30 Sepsis Event Note - Evaluation Sepsis Screening Result: Possible Sepsis Risk - Focused Exam Vital Signs: Vital Signs Temp Pulse Resp BP Pulse Ox 05/02/21 08:11 98.2 F 102 H 16 106/68 98 05/02/21 04:06 97.3 F 95 20 77/59 L 93 L 05/02/21 02:50 91 95 05/01/21 22:33 117 H 95/61 93 L 05/01/21 22:30 117 H 95/61 94 L 05/01/21 22:15 118 H 80/52 L 93 L 05/01/21 22:12 99.3 F 119 H 91 L 05/01/21 22:07 122 H 32 H 87/53 L 83 L - Problem List (1) Generalized weakness SNOMED Code(s): 41150379 ICD Code: R53.1 - WEAKNESS Status: Acute Current Visit: Yes (2) Breast cancer SNOMED Code(s): 112311107 ICD Code: C50.919 - MALIGNANT NEOPLASM OF UNSP SITE OF UNSPECIFIED FEMALE BREAST Status: Acute Current Visit: Yes (3) Chemotherapy induced neutropenia SNOMED Code(s): 569592097 ICD Code: D70.1 - AGRANULOCYTOSIS SECONDARY TO CANCER CHEMOTHERAPY; T45.1X5A - ADVERSE EFFECT OF ANTINEOPLASTIC AND IMMUNOSUP DRUGS, INIT Status: Acute Current Visit: Yes (4) Chemotherapy adverse reaction SNOMED Code(s): 546454173 ICD Code: T45.1X5A - ADVERSE EFFECT OF ANTINEOPLASTIC AND IMMUNOSUP DRUGS, INIT Status: Acute Current Visit: No (5) Full code status SNOMED Code(s): 859751343 ICD Code: Z78.9 - OTHER SPECIFIED HEALTH STATUS Status: Acute Current Visit: Yes (6) T2DM (type 2 diabetes mellitus) SNOMED Code(s): 23768018 ICD Code: E11.9 - TYPE 2 DIABETES MELLITUS WITHOUT COMPLICATIONS Status: Acute Current Visit: Yes (7) HTN (hypertension) SNOMED Code(s): 63588665 ICD Code: I10 - ESSENTIAL (PRIMARY) HYPERTENSION Status: Acute Current Visit: Yes (8) Hyperlipidemia SNOMED Code(s): 56282110 ICD Code: E78.5 - HYPERLIPIDEMIA, UNSPECIFIED Status: Acute Current Visit: Yes (9) Hypokalemia SNOMED Code(s): 63160881 ICD Code: E87.6 - HYPOKALEMIA Status: Acute Current Visit: Yes (10) Severe protein-calorie malnutrition SNOMED Code(s): 102829322, 293222005, 663773424 ICD Code: E43 - UNSPECIFIED SEVERE PROTEIN-CALORIE MALNUTRITION Status: Acute Current Visit: Yes (11) Hypomagnesemia SNOMED Code(s): 303796144 ICD Code: E83.42 - HYPOMAGNESEMIA Status: Acute Current Visit: Yes Problem List Initiated/Reviewed/Updated: Yes Orders Last 24hrs: Active Orders 24 hr Category Date Time Status Admission Status [Patient Status] [ADT] Routine ADT 05/01/21 20:50 Active Antiembolic Devices [RC] BID Care 05/01/21 21:06 Active Dietary Supplements [RC] TIDAC Care 05/02/21 08:14 Active Oxygen Therapy [RC] ASDIRECTED Care 05/01/21 21:05 Active Up With Assistance [RC] QSHIFT Care 05/01/21 21:05 Active Vital Signs [RC] 21,03,09,15 Care 05/01/21 21:05 Active Consult to Configuration Specialist [CONS] Routine Cons 05/01/21 21:04 Active Consult to Physical Therapy [PT Evaluation and Cons 05/02/21 09:31 Active Treatment] [CONS] Routine CBC WITH AUTO DIFF [HEME] AM Lab 05/03/21 05:11 Ordered Acetaminophen [TylenoL] Med 05/01/21 21:04 Active 650 mg PO Q4H PRN Acetaminophen/HYDROcodone [[place] 325-5 MG] Med 05/01/21 21:04 Active 1 tab PO Q4H PRN Aspirin [Halfprin] Med 05/02/21 10:00 Ordered 81 mg PO DAILY Calcium Carbonate Med 05/02/21 17:00 Active 1,200 mg PO BIDMEALS Calcium Carbonate [Tums] Med 05/02/21 08:11 Active 1,000 mg PO Q2HR PRN Calcium Carbonate/Vitamin D3 Med 05/02/21 15:00 Ordered 1 tab PO TID Dextrose 5%-0.45% NaCl [Dextrose 5%-1/2 NS] 1,000 ml Med 05/01/21 21:15 Active IV ASDIRECTED Docusate Sodium [Colace] Med 05/01/21 21:04 Active 100 mg PO DAILY PRN Enoxaparin [Lovenox] Med 05/01/21 22:00 Active 40 mg SUBCUT DAILY@2200 Famotidine [Pepcid] Med 05/02/21 10:00 Ordered 10 mg PO DAILY Gabapentin [Neurontin] Med 05/02/21 10:00 Ordered 200 mg PO BID LORazepam Med 05/02/21 12:00 Ordered 0.5 mg PO Q6HR Loratadine [Claritin] Med 05/02/21 10:00 Ordered 10 mg PO DAILY Morphine [MS Contin] Med 05/02/21 21:00 Ordered 15 mg PO BEDTIME Ondansetron Med 05/02/21 09:46 Ordered 8 mg PO Q8H PRN Ondansetron [Take Home: Ondansetron ODT 4 MG, 2 Tab Med 05/02/21 09:46 Ordered Pack] 4 mg PO Q6H PRN Ondansetron [Zofran ODT] Med 05/01/21 21:04 Active 4 mg PO Q4H PRN Pantoprazole [ProTONIX] Med 05/02/21 06:00 Active 40 mg PO ACBREAKFAST Potassium Chloride [KCl in Water 10 MEQ/100 ML] 10 meq Med 05/02/21 08:15 Act jonnathan Premix Bag 1 bag IV Q1H Potassium Chloride [Klor-Con 10] Med 05/02/21 15:00 Ordered 10 meq PO TID Prochlorperazine Med 05/02/21 09:46 Ordered 10 mg PO QID PRN Promethazine [Phenergan] 6.25 mg Med 05/01/21 21:04 Active Sodium Chloride 0.9% [Normal Saline] 50 ml IV Q6H Zolpidem [Ambien] Med 05/01/21 21:04 Active 5 mg PO BEDTIME PRN bisacodyL [Dulcolax] Med 05/02/21 10:00 Ordered 5 mg PO DAILY dexAMETHasone Med 05/02/21 10:00 Ordered 2 mg PO DAILY traZODone Med 05/02/21 21:00 Ordered 50 mg PO BEDTIME Antiembolic Hose [OM.PC] Per Unit Routine Oth 05/01/21 21:05 Ordered Isolation [COMM] Routine Oth 05/01/21 16:43 Ordered Resuscitation Status Routine Resus Stat 05/01/21 21:04 Ordered Medication Orders Acetaminophen (Acetaminophen 325 Mg Tab) 650 mg PO Q4H PRN PRN Reason: Pain (Mild 1-3)/fever Last Admin: 05/02/21 02:55 Dose: 650 mg Documented by: MAXWELL Hydrocodone Bitart/Acetaminophen (Acetaminophen/Hydrocodone 325-5 Mg Tab) 1 tab PO Q4H PRN PRN Reason: Pain (moderate 4-6) Last Admin: 05/02/21 07:51 Dose: 1 tab Documented by: FRANCIS Aspirin (Aspirin 81 Mg Tab.Ec) 81 mg PO DAILY [facility] Bisacodyl (Bisacodyl 5 Mg Tab) 5 mg PO DAILY [facility] Calcium Carbonate/Glycine (Calcium Carbonate 500 Mg Tab.Chew) 1,000 mg PO Q2HR PRN PRN Reason: Indigestion Calcium Carbonate/Glycine (Calcium Carbonate 600 Mg Tab) 1,200 mg PO BIDMEALS [facility] Docusate Sodium (Docusate Sodium 100 Mg Cap) 100 mg PO DAILY PRN PRN Reason: Constipation Enoxaparin Sodium (Enoxaparin 40 Mg/0.4 Ml Syringe) 40 mg SUBCUT DAILY@2200 JOSÉ LUSI Last Admin: 05/01/21 22:44 Dose: 40 mg Documented by: CARMEN Famotidine (Famotidine 10 Mg Tab) 10 mg PO DAILY [facility] Gabapentin (Gabapentin 100 Mg Cap) 200 mg PO BID [facility] Dextrose/Sodium Chloride (Dextrose 5%-1/2 Ns) 1,000 mls @ 75 mls/hr IV ASDIRECTED [facility] Last Admin: 05/01/21 22:44 Dose: 75 mls/hr Documented by: CARMEN Promethazine HCl 6.25 mg/ (Sodium Chloride) 50.25 mls @ 100 mls/hr IV Q6H PRN PRN Reason: Nausea/Vomiting Potassium Chloride 10 meq/ (Premix) 100 mls @ 100 mls/hr IV Q1H [facility] Stop: 05/02/21 12:14 Last Admin: 05/02/21 08:43 Dose: 100 mls/hr Documented by: FRANCIS Morphine Sulfate (Morphine 15 Mg Tab.Er) 15 mg PO BEDTIME [facility] Non-Formulary Medication (Calcium Carbonate/Vitamin D3) 1 tab PO TID [facility] Non-Formulary Medication (Dexamethasone) 2 mg PO DAILY [facility] Non-Formulary Medication (Loratadine [Claritin]) 10 mg PO DAILY [facility] Non-Formulary Medication (Lorazepam) 0.5 mg PO Q6HR [facility] Non-Formulary Medication (Ondansetron) 8 mg PO Q8H PRN PRN Reason: Nausea Non-Formulary Medication (Prochlorperazine) 10 mg PO QID PRN PRN Reason: Nausea/Vomiting Ondansetron HCl (Ondansetron 4 Mg Tab.Dis) 4 mg PO Q4H PRN PRN Reason: nausea, able to take PO Ondansetron HCl (Take Home: Ondansetron 4 Mg Tab.Dis, 2 Tab Pack) packet PO Q6H PRN PRN Reason: Nausea/Vomiting Pantoprazole Sodium (Pantoprazole 40 Mg Tab.Cr) 40 mg PO ACBREAKFAST [facility] Last Admin: 05/02/21 06:57 Dose: 40 mg Documented by: MAXWELL Potassium Chloride (Potassium Chloride 10 Meq Tab.Er) 10 meq PO TID [facility] Trazodone HCl (Trazodone 50 Mg Tab) 50 mg PO BEDTIME [facility] Zolpidem Tartrate (Zolpidem 5 Mg Tab) 5 mg PO BEDTIME PRN PRN Reason: Sleep Assessment/Plan Comment:: 65-year-old female with history of metastatic breast cancer on chemotherapy p resented with generalized weakness, failure to thrive and neutropenia Generalized weakness Admit pt to the medical floor under observation status. Patient will need PT and OT as well as nutritional support Dehydration Hydrate patient with IV fluids Hypomagnesemia Replaced with IV Magnesium and recheck levels Hypokalemia Placed with IV potassium. Recheck levels Neutropenia Patient may benefit from a colony-stimulating factor such as Neulasta or Neupogen. I will contact his oncologist regarding this. In the meantime she will not be doing any chemotherapy within the next week or so. Hopefully her white cell count bounces back to within normal range some time soon. Metastatic breast cancer Pt will continue to follow with her oncologist Dr. Osuna on an outpt basis upon DC from the hospital. Diabetes mellitus We will hold medications for now since patient is not really eating much. Hypertension Hold BP meds due to borderline low blood pressures Hypocalcemia Likely secondary to the low albumin levels. Patient is on calcium supplementation Severe protein calorie malnutrition Patient has a very poor appetite and has not been taking in enough protein and calories. I will try an appetite stimulant and see if that will improve her overall oral intake. Full code DVT prophylaxis. - Mortality Measure Prognosis:: Poor
--- NOTE | 2021-05-02 10:24 | PCM.PN ---
- General Info Date of Service: 05/02/21 Admission Dx/Problem (Free Text): Admission Diagnosis/Problem Admission Diagnosis/Problem Generalized weakness Subjective Update: Pt has been complaining of chills today. She has a low grade fever. She otherwise is more energetic today and able to speak to me as opposed to yesterday. - Patient Data Vitals - Most Recent: Last Vital Signs Temp 98.2 F 05/02/21 08:11 Pulse 102 H 05/02/21 08:11 Resp 16 05/02/21 08:11 BP 106/68 05/02/21 08:11 Pulse Ox 98 05/02/21 08:11 Weight - Most Recent: 138 lb I&O - Last 24 Hours: Intake & Output 05/01/21 05/02/21 05/02/21 22:59 06:59 14:59 Intake Total 463 Output Total 200 Balance 263 Lab Results Last 24 Hours: Laboratory Results - last 24 hr 05/01/21 05/01/21 05/01/21 Range/Units 17:15 17:15 20:20 WBC 1.85 L* (3.98-10.04) K/mm3 RBC 3.06 L (3.98-5.22) M/mm3 Hgb 10.2 L (11.2-15.7) gm/dl Hct 30.7 L (34.1-44.9) % MCV 100.3 H (79.4-94.8) fl MCH 33.3 H (25.6-32.2) pg MCHC 33.2 (32.2-35.5) g/dl RDW Std Deviation 59.3 H (36.4-46.3) fL Plt Count 113 L (182-369) K/mm3 MPV 9.4 (9.4-12.3) fl Neut % (Auto) 82.7 H (34.0-71.1) % Lymph % (Auto) 15.1 L (19.3-51.7) % [place] % (Auto) 1.1 L (4.7-12.5) % Eos % (Auto) 0 L (0.7-5.8) Baso % (Auto) 0.0 L (0.1-1.2) % Neut # (Auto) 1.53 L (1.56-6.13) K/mm3 Lymph # (Auto) 0.28 L (1.18-3.74) K/mm3 [place] # (Auto) 0.02 L (0.24-0.36) K/mm3 Eos # (Auto) 0.00 L (0.04-0.36) K/mm3 Baso # (Auto) 0.00 L (0.01-0.08) K/mm3 Manual Slide Review Abnormal smear Sodium 136 (136-145) mEq/L Potassium 3.8 (3.5-5.1) mEq/L Chloride 103 (98-107) mEq/L Carbon Dioxide 23 (21-32) mEq/L Anion Gap 13.8 (5-15) BUN 12 (7-18) mg/dL Creatinine 0.6 (0.55-1.02) mg/dL Est Cr Clr Drug Dosing 71.48 mL/min Estimated GFR (MDRD) > 60 (>60) mL/min BUN/Creatinine Ratio 20.0 H (14-18) Glucose 103 H (70-99) mg/dL Calcium 7.5 L (8.5-10.1) mg/dL Magnesium 1.3 L (1.8-2.4) mg/dL Total Bilirubin 1.4 H (0.2-1.0) mg/dL AST 153 H (15-37) U/L ALT 107 H (14-59) U/L Alkaline Phosphatase 348 H (46-116) U/L Total Protein 5.5 L (6.4-8.2) g/dl Albumin 2.5 L (3.4-5.0) g/dl Globulin 3.0 gm/dL Albumin/Globulin Ratio 0.8 L (1-2) SARS-CoV-2 RNA ([facility]) Negative (NEGATIVE) 05/02/21 05/02/21 Range/Units 05:30 05:30 WBC 1.32 L* (3.98-10.04) K/mm3 RBC 2.50 L (3.98-5.22) M/mm3 Hgb 8.2 L D (11.2-15.7) gm/dl Hct 24.8 L (34.1-44.9) % MCV 99.2 H (79.4-94.8) fl MCH 32.8 H (25.6-32.2) pg MCHC 33.1 (32.2-35.5) g/dl RDW Std Deviation 57.7 H (36.4-46.3) fL Plt Count 106 L (182-369) K/mm3 MPV 9.8 (9.4-12.3) fl Neut % (Auto) 90.8 H (34.0-71.1) % Lymph % (Auto) 6.8 L (19.3-51.7) % [place] % (Auto) 0.8 L (4.7-12.5) % Eos % (Auto) 0.8 (0.7-5.8) Baso % (Auto) 0.0 L (0.1-1.2) % Neut # (Auto) 1.20 L (1.56-6.13) K/mm3 Lymph # (Auto) 0.09 L (1.18-3.74) K/mm3 [place] # (Auto) 0.01 L (0.24-0.36) K/mm3 Eos # (Auto) 0.01 L (0.04-0.36) K/mm3 Baso # (Auto) 0.00 L (0.01-0.08) K/mm3 Manual Slide Review Abnormal smear Sodium 137 (136-145) mEq/L Potassium 3.1 L (3.5-5.1) mEq/L Chloride 104 (98-107) mEq/L Carbon Dioxide 23 (21-32) mEq/L Anion Gap 13.1 (5-15) BUN 10 (7-18) mg/dL Creatinine 0.5 L (0.55-1.02) mg/dL Est Cr Clr Drug Dosing 85.77 mL/min Estimated GFR (MDRD) > 60 (>60) mL/min BUN/Creatinine Ratio 20.0 H (14-18) Glucose 145 H (70-99) mg/dL Calcium 6.6 L (8.5-10.1) mg/dL Magnesium 2.0 (1.8-2.4) mg/dL Total Bilirubin 1.1 H (0.2-1.0) mg/dL AST 144 H (15-37) U/L ALT 107 H (14-59) U/L Alkaline Phosphatase 261 H (46-116) U/L Total Protein 4.5 L (6.4-8.2) g/dl Albumin 1.9 L (3.4-5.0) g/dl Globulin 2.6 gm/dL Albumin/Globulin Ratio 0.7 L (1-2) SARS-CoV-2 RNA ([facility]ISON) (NEGATIVE) Med Orders - Current: Current Medications Acetaminophen (Acetaminophen 325 Mg Tab) 650 mg PO Q4H PRN PRN Reason: Pain (Mild 1-3)/fever Last Admin: 05/02/21 02:55 Dose: 650 mg Documented by: Hydrocodone Bitart/Acetaminophen (Acetaminophen/Hydrocodone 325-5 Mg Tab) 1 tab PO Q4H PRN PRN Reason: Pain (moderate 4-6) Last Admin: 05/02/21 07:51 Dose: 1 tab Documented by: Aspirin (Aspirin 81 Mg Tab.Ec) 81 mg PO DAILY [facility] Bisacodyl (Bisacodyl 5 Mg Tab) 5 mg PO DAILY [facility] Calcium Carbonate (Calcium Carbonate/Vitamin D3 600 Mg-200 Units Tab) 1 tab PO TID [facility] Calcium Carbonate/Glycine (Calcium Carbonate 500 Mg Tab.Chew) 1,000 mg PO Q2HR PRN PRN Reason: Indigestion Calcium Carbonate/Glycine (Calcium Carbonate 600 Mg Tab) 1,200 mg PO BIDMEALS [facility] Dexamethasone (Dexamethasone 4 Mg Tab) 2 mg PO DAILY [facility] Docusate Sodium (Docusate Sodium 100 Mg Cap) 100 mg PO DAILY PRN PRN Reason: Constipation Enoxaparin Sodium (Enoxaparin 40 Mg/0.4 Ml Syringe) 40 mg SUBCUT DAILY@2200 [facility] Last Admin: 05/01/21 22:44 Dose: 40 mg Documented by: Famotidine (Famotidine 10 Mg Tab) 10 mg PO DAILY [facility] Gabapentin (Gabapentin 100 Mg Cap) 200 mg PO BID [facility] Dextrose/Sodium Chloride (Dextrose 5%-1/2 Ns) 1,000 mls @ 75 mls/hr IV ASDIRECTED [facility] Last Admin: 05/01/21 22:44 Dose: 75 mls/hr Documented by: Promethazine HCl 6.25 mg/ (Sodium Chloride) 50.25 mls @ 100 mls/hr IV Q6H PRN PRN Reason: Nausea/Vomiting Potassium Chloride 10 meq/ (Premix) 100 mls @ 100 mls/hr IV Q1H [facility] Stop: 05/02/21 12:14 Last Admin: 05/02/21 09:50 Dose: 100 mls/hr Documented by: Loratadine (Loratadine 10 Mg Tab) 10 mg PO DAILY [facility] Lorazepam (Lorazepam 0.5 Mg Tab) 0.5 mg PO Q6H [facility] Morphine Sulfate (Morphine 15 Mg Tab.Er) 15 mg PO BEDTIME [facility] Ondansetron HCl (Ondansetron 4 Mg Tab.Dis) 4 mg PO Q4H PRN PRN Reason: nausea, able to take PO Pantoprazole Sodium (Pantoprazole 40 Mg Tab.Cr) 40 mg PO ACBREAKFAST [facility] Last Admin: 05/02/21 06:57 Dose: 40 mg Documented by: Potassium Chloride (Potassium Chloride 10 Meq Tab.Er) 10 meq PO TID [facility] Prochlorperazine Maleate (Prochlorperazine 5 Mg Tab) 10 mg PO QID PRN PRN Reason: Nausea/Vomiting Trazodone HCl (Trazodone 50 Mg Tab) 50 mg PO BEDTIME [facility] Zolpidem Tartrate (Zolpidem 5 Mg Tab) 5 mg PO BEDTIME PRN PRN Reason: Sleep Discontinued Medications Enoxaparin Sodium (Enoxaparin 40 Mg/0.4 Ml Syringe) 40 mg SUBCUT DAILY [facility] Last Admin: 05/02/21 01:33 Dose: Not Given Documented by: Sodium Chloride (Normal Saline) 1,000 mls @ 999 mls/hr IV ONETIME ONE Stop: 05/01/21 17:42 Last Admin: 05/01/21 16:54 Dose: 999 mls/hr Documented by: Magnesium Sulfate 2 gm/ Premix 50 mls @ 25 mls/hr IV ONETIME ONE Stop: 05/01/21 19:46 Last Admin: 05/01/21 18:08 Dose: 25 mls/hr Documented by: Sodium Chloride (Normal Saline) 1,000 mls @ 150 mls/hr IV ONETIME ONE Stop: 05/02/21 02:56 Last Admin: 05/01/21 22:45 Dose: Not Given Documented by: Ketorolac Tromethamine (Ketorolac 30 Mg/Ml Sdv) 30 mg IVPUSH ONETIME ONE Stop: 05/01/21 20:30 Last Admin: 05/01/21 22:44 Dose: 30 mg Documented by: Lorazepam (Lorazepam 2 Mg/Ml Sdv) 1 mg IVPUSH ONETIME ONE Stop: 05/01/21 16:58 Last Admin: 05/01/21 17:23 Dose: 1 mg Documented by: Ondansetron HCl (Ondansetron 4 Mg/2 Ml Sdv) 4 mg IVPUSH ONETIME ONE Stop: 05/01/21 16:58 Last Admin: 05/01/21 17:23 Dose: 4 mg Documented by: - Exam Central Line Total Time: 0Days 15Hours Physical Findings Comments:: General: Middle aged female. In no acute distress HEENT: NC, AT, PERRLA. Alopecia CVS: S1S2 appreciated. RRR Lungs: clear bilaterally with no rales or wheezes. pa: soft, non tender. bowel sounds present ext: no clubbing, cyanosis or edema neuro: no focal deficits. - Patient Data Lab Results Last 24 hrs: Laboratory Results - last 24 hr 05/01/21 05/01/21 05/01/21 Range/Units 17:15 17:15 20:20 WBC 1.85 L* (3.98-10.04) K/mm3 RBC 3.06 L (3.98-5.22) M/mm3 Hgb 10.2 L (11.2-15.7) gm/dl Hct 30.7 L (34.1-44.9) % MCV 100.3 H (79.4-94.8) fl MCH 33.3 H (25.6-32.2) pg MCHC 33.2 (32.2-35.5) g/dl RDW Std Deviation 59.3 H (36.4-46.3) fL Plt Count 113 L (182-369) K/mm3 MPV 9.4 (9.4-12.3) fl Neut % (Auto) 82.7 H (34.0-71.1) % Lymph % (Auto) 15.1 L (19.3-51.7) % [place] % (Auto) 1.1 L (4.7-12.5) % Eos % (Auto) 0 L (0.7-5.8) Baso % (Auto) 0.0 L (0.1-1.2) % Neut # (Auto) 1.53 L (1.56-6.13) K/mm3 Lymph # (Auto) 0.28 L (1.18-3.74) K/mm3 [place] # (Auto) 0.02 L (0.24-0.36) K/mm3 Eos # (Auto) 0.00 L (0.04-0.36) K/mm3 Baso # (Auto) 0.00 L (0.01-0.08) K/mm3 Manual Slide Review Abnormal smear Sodium 136 (136-145) mEq/L Potassium 3.8 (3.5-5.1) mEq/L Chloride 103 (98-107) mEq/L Carbon Dioxide 23 (21-32) mEq/L Anion Gap 13.8 (5-15) BUN 12 (7-18) mg/dL Creatinine 0.6 (0.55-1.02) mg/dL Est Cr Clr Drug Dosing 71.48 mL/min Estimated GFR (MDRD) > 60 (>60) mL/min BUN/Creatinine Ratio 20.0 H (14-18) Glucose 103 H (70-99) mg/dL Calcium 7.5 L (8.5-10.1) mg/dL Magnesium 1.3 L (1.8-2.4) mg/dL Total Bilirubin 1.4 H (0.2-1.0) mg/dL AST 153 H (15-37) U/L ALT 107 H (14-59) U/L Alkaline Phosphatase 348 H (46-116) U/L Total Protein 5.5 L (6.4-8.2) g/dl Albumin 2.5 L (3.4-5.0) g/dl Globulin 3.0 gm/dL Albumin/Globulin Ratio 0.8 L (1-2) SARS-CoV-2 RNA ([facility]) Negative (NEGATIVE) 05/02/21 05/02/21 Range/Units 05:30 05:30 WBC 1.32 L* (3.98-10.04) K/mm3 RBC 2.50 L (3.98-5.22) M/mm3 Hgb 8.2 L D (11.2-15.7) gm/dl Hct 24.8 L (34.1-44.9) % MCV 99.2 H (79.4-94.8) fl MCH 32.8 H (25.6-32.2) pg MCHC 33.1 (32.2-35.5) g/dl RDW Std Deviation 57.7 H (36.4-46.3) fL Plt Count 106 L (182-369) K/mm3 MPV 9.8 (9.4-12.3) fl Neut % (Auto) 90.8 H (34.0-71.1) % Lymph % (Auto) 6.8 L (19.3-51.7) % [place] % (Auto) 0.8 L (4.7-12.5) % Eos % (Auto) 0.8 (0.7-5.8) Baso % (Auto) 0.0 L (0.1-1.2) % Neut # (Auto) 1.20 L (1.56-6.13) K/mm3 Lymph # (Auto) 0.09 L (1.18-3.74) K/mm3 [place] # (Auto) 0.01 L (0.24-0.36) K/mm3 Eos # (Auto) 0.01 L (0.04-0.36) K/mm3 Baso # (Auto) 0.00 L (0.01-0.08) K/mm3 Manual Slide Review Abnormal smear Sodium 137 (136-145) mEq/L Potassium 3.1 L (3.5-5.1) mEq/L Chloride 104 (98-107) mEq/L Carbon Dioxide 23 (21-32) mEq/L Anion Gap 13.1 (5-15) BUN 10 (7-18) mg/dL Creatinine 0.5 L (0.55-1.02) mg/dL Est Cr Clr Drug Dosing 85.77 mL/min Estimated GFR (MDRD) > 60 (>60) mL/min BUN/Creatinine Ratio 20.0 H (14-18) Glucose 145 H (70-99) mg/dL Calcium 6.6 L (8.5-10.1) mg/dL Magnesium 2.0 (1.8-2.4) mg/dL Total Bilirubin 1.1 H (0.2-1.0) mg/dL AST 144 H (15-37) U/L ALT 107 H (14-59) U/L Alkaline Phosphatase 261 H (46-116) U/L Total Protein 4.5 L (6.4-8.2) g/dl Albumin 1.9 L (3.4-5.0) g/dl Globulin 2.6 gm/dL Albumin/Globulin Ratio 0.7 L (1-2) SARS-CoV-2 RNA ([facility]) (NEGATIVE) Result Diagrams: 05/02/21 05:30 05/02/21 05:30 Sepsis Event Note - Evaluation Sepsis Screening Result: Possible Sepsis Risk - Focused Exam Vital Signs: Vital Signs Temp Pulse Resp BP Pulse Ox 05/02/21 08:11 98.2 F 102 H 16 106/68 98 05/02/21 04:06 97.3 F 95 20 77/59 L 93 L 05/02/21 02:50 91 95 05/01/21 22:33 117 H 95/61 93 L 05/01/21 22:30 117 H 95/61 94 L - Problem List & Annotations (1) Generalized weakness SNOMED Code(s): 68219334 Code(s): R53.1 - WEAKNESS Status: Acute Current Visit: Yes (2) Breast cancer SNOMED Code(s): 792858251 Code(s): C50.919 - MALIGNANT NEOPLASM OF UNSP SITE OF UNSPECIFIED FEMALE BREAST Status: Acute Current Visit: Yes (3) Chemotherapy induced neutropenia SNOMED Code(s): 322508830 Code(s): D70.1 - AGRANULOCYTOSIS SECONDARY TO CANCER CHEMOTHERAPY; T45.1X5A - ADVERSE EFFECT OF ANTINEOPLASTIC AND IMMUNOSUP DRUGS, INIT Status: Acute Current Visit: Yes (4) Chemotherapy adverse reaction SNOMED Code(s): 527591426 Code(s): T45.1X5A - ADVERSE EFFECT OF ANTINEOPLASTIC AND IMMUNOSUP DRUGS, INIT Status: Acute Current Visit: No (5) Full code status SNOMED Code(s): 141585527 Code(s): Z78.9 - OTHER SPECIFIED HEALTH STATUS Status: Acute Current Visit: Yes (6) T2DM (type 2 diabetes mellitus) SNOMED Code(s): 97713964 Code(s): E11.9 - TYPE 2 DIABETES MELLITUS WITHOUT COMPLICATIONS Status: Acute Current Visit: Yes (7) HTN (hypertension) SNOMED Code(s): 77353995 Code(s): I10 - ESSENTIAL (PRIMARY) HYPERTENSION Status: Acute Current Visit: Yes (8) Hyperlipidemia SNOMED Code(s): 51108264 Code(s): E78.5 - HYPERLIPIDEMIA, UNSPECIFIED Status: Acute Current Visit: Yes (9) Hypokalemia SNOMED Code(s): 22574175 Code(s): E87.6 - HYPOKALEMIA Status: Acute Current Visit: Yes (10) Severe protein-calorie malnutrition SNOMED Code(s): 683199865, 177047734, 143665048 Code(s): E43 - UNSPECIFIED SEVERE PROTEIN-CALORIE MALNUTRITION Status: Acute Current Visit: Yes (11) Hypomagnesemia SNOMED Code(s): 424389457 Code(s): E83.42 - HYPOMAGNESEMIA Status: Acute Current Visit: Yes - Problem List Review Problem List Initiated/Reviewed/Updated: Yes - My Orders Last 24 Hours: My Active Orders 05/01/21 21:04 Consult to [employer] [CONS] Routine Acetaminophen [TylenoL] 650 mg PO Q4H PRN Acetaminophen/HYDROcodone [Gleason 325-5 MG] 1 tab PO Q4H PRN Docusate Sodium [Colace] 100 mg PO DAILY PRN Ondansetron [Zofran ODT] 4 mg PO Q4H PRN Promethazine [Phenergan] 6.25 mg Sodium Chloride 0.9% [Normal Saline] 50 ml IV Q6H Zolpidem [Ambien] 5 mg PO BEDTIME PRN Resuscitation Status Routine 05/01/21 21:05 Oxygen Therapy [RC] ASDIRECTED Up With Assistance [RC] QSHIFT Vital Signs [RC] 21,03,09,15 Antiembolic Hose [OM.PC] Per Unit Routine 05/01/21 21:06 Antiembolic Devices [RC] BID 05/01/21 21:15 Dextrose 5%-0.45% NaCl [Dextrose 5%-1/2 NS] 1,000 ml IV ASDIRECTED 05/01/21 22:00 Enoxaparin [Lovenox] 40 mg SUBCUT DAILY@2200 05/02/21 06:00 Pantoprazole [ProTONIX] 40 mg PO ACBREAKFAST 05/02/21 08:11 Calcium Carbonate [Tums] 1,000 mg PO Q2HR PRN 05/02/21 08:14 Dietary Supplements [RC] TIDAC 05/02/21 08:15 Potassium Chloride [KCl in Water 10 MEQ/100 ML] 10 meq Premix Bag 1 bag IV Q1H 05/02/21 09:31 Consult to Physical Therapy [PT Evaluation and Treatment] [CONS] Routine 05/02/21 09:46 Prochlorperazine 10 mg PO QID PRN 05/02/21 10:00 Aspirin [Halfprin] 81 mg PO DAILY Famotidine [Pepcid] 10 mg PO DAILY Gabapentin [Neurontin] 200 mg PO BID Loratadine [Claritin] 10 mg PO DAILY bisacodyL [Dulcolax] 5 mg PO DAILY dexAMETHasone 2 mg PO DAILY 05/02/21 12:00 LORazepam 0.5 mg PO Q6HR 05/02/21 15:00 Calcium Carbonate/Vitamin D3 1 tab PO TID Potassium Chloride [Klor-Con 10] 10 meq PO TID 05/02/21 17:00 Calcium Carbonate 1,200 mg PO BIDMEALS 05/02/21 21:00 Morphine [MS Contin] 15 mg PO BEDTIME traZODone 50 mg PO BEDTIME 05/03/21 05:11 CBC WITH AUTO DIFF [HEME] AM - Plan Plan:: 65-year-old female with history of metastatic breast cancer on chemotherapy presented with generalized weakness, failure to thrive and neutropenia Neutropenic fever will obtain blood cultures and a UA emprically start pt on Cefepime. Generalized weakness Admit pt to the medical floor under observation status. Patient will need PT and OT as well as nutritional support Dehydration Hydrate patient with IV fluids Hypomagnesemia Replaced with IV Magnesium and recheck levels Hypokalemia Placed with IV potassium. Recheck levels Neutropenia Patient may benefit from a colony-stimulating factor such as Neulasta or Neupogen. I will contact his oncologist regarding this. In the meantime she will not be doing any chemotherapy within the next week or so. Hopefully her white cell count bounces back to within normal range some time soon. Metastatic breast cancer Pt will continue to follow with her oncologist Dr. Osuna on an outpt basis upon DC from the hospital. Diabetes mellitus We will hold medications for now since patient is not really eating much. Hypertension Hold BP meds due to borderline low blood pressures Hypocalcemia Likely secondary to the low albumin levels. Patient is on calcium supplementation Severe protein calorie malnutrition Patient has a very poor appetite and has not been taking in enough protein and calories. I will try an appetite stimulant and see if that will improve her overall oral intake. Full code DVT prophylaxis.
[2021-05-02] MEDS: Dexamethasone 4 MG Tab PO SCH (10:33)
[2021-05-02] MEDS: Aspirin 81 MG Tab.EC PO SCH (10:33)
[2021-05-02] MEDS: Bisacodyl 5 MG Tab PO SCH (10:33)
[2021-05-02] MEDS: Famotidine 10 MG Tab PO SCH (10:34)
[2021-05-02] MEDS: Gabapentin 100 MG Cap PO SCH ×2 (10:34→21:34)
[2021-05-02] MEDS: Potassium Chloride 10 MEQ Tab.ER PO SCH ×3 (10:34→21:33)
[2021-05-02] MEDS: Dextrose 5%-0.45% NaCl 1,000 ML IV SCH (10:54)
[2021-05-02] MEDS: Megestrol Susp 40 MG/ML 10 ML UD Cup PO SCH (11:50)
[2021-05-02] MEDS: LORazepam 0.5 MG Tab PO SCH ×2 (11:52→18:15)
[2021-05-02] MEDS ORDERED: Sodium Chloride 0.9% 1,000 ML IV ONE (13:04)
[2021-05-02] MEDS: Cefepime 2 GM in Premix Bag 1 BAG IV SCH ×2 (14:45→21:37)
[2021-05-02] MEDS: Calcium Carbonate/Vitamin D3 600 MG-200 Units Tab PO SCH ×2 (16:00→21:33)
[2021-05-02] MEDS: Calcium Carbonate 600 MG Tab PO SCH (18:15)
[2021-05-02] MEDS: Enoxaparin 40 MG/0.4 ML Syringe SUBCUT SCH (21:28)
[2021-05-02] MEDS: traZODone 50 MG Tab PO SCH (21:34)
[2021-05-02] MEDS: Morphine 15 MG Tab.ER PO SCH (22:00)
[2021-05-03] MEDS: LORazepam 0.5 MG Tab PO SCH ×5 (01:03→19:30)
[2021-05-03] MEDS: Dextrose 5%-0.45% NaCl 1,000 ML IV SCH ×2 (01:05→23:42)
[2021-05-03] MEDS: Acetaminophen 325 MG Tab PO PRN ×2 (04:12→12:44)
[2021-05-03] MEDS: Pantoprazole 40 MG Tab.CR PO SCH (05:50)
[2021-05-03] MEDS: Cefepime 2 GM in Premix Bag 1 BAG IV SCH ×3 (05:52→22:28)
[2021-05-03] MEDS: Calcium Carbonate 600 MG Tab PO SCH (06:09)
[2021-05-03] MEDS ORDERED: Sodium Chloride 0.9% 500 ML IV ONE ×2 (09:05→12:30)
[2021-05-03] MEDS: Potassium Chloride 10 MEQ Tab.ER PO SCH ×3 (09:25→21:11)
[2021-05-03] MEDS: Calcium Carbonate/Vitamin D3 600 MG-200 Units Tab PO SCH ×3 (09:25→21:10)
[2021-05-03] MEDS: Dexamethasone 4 MG Tab PO SCH (09:27)
[2021-05-03] MEDS: Aspirin 81 MG Tab.EC PO SCH (09:28)
[2021-05-03] MEDS: Gabapentin 100 MG Cap PO SCH ×2 (09:28→21:10)
[2021-05-03] MEDS: Loratadine 10 MG Tab PO SCH (09:29)
[2021-05-03] MEDS: Bisacodyl 5 MG Tab PO SCH (09:29)
[2021-05-03] MEDS: Famotidine 10 MG Tab PO SCH (09:29)
[2021-05-03] MEDS: Megestrol Susp 40 MG/ML 10 ML UD Cup PO SCH (09:30)
[2021-05-03] MEDS ORDERED: Vancomycin 1 GM, Vancomycin 250 MG in Sodium Chloride 0.9% 250 ML IV ONE (10:30)
[2021-05-03] MEDS ORDERED: Sodium Chloride 0.9% 1,000 ML IV SCH (10:30)
[2021-05-03] MEDS ORDERED: Magnesium Sulfate/Water 2 GM in Premix Bag 1 BAG IV ONE (11:30)
[2021-05-03] MEDS ORDERED: Sodium Phosphate 30 MMOLE in Sodium Chloride 0.9% 250 ML IV ONE (11:45)
--- NOTE | 2021-05-03 13:03 | PCM.PN ---
- General Info Date of Service: 05/03/21 Admission Dx/Problem (Free Text): Admission Diagnosis/Problem Admission Diagnosis/Problem Generalized weakness Subjective Update: Patient complains of weakness. She complains of fever and chills. Decreased appetite. Functional Status: Reports: Pain Controlled - Review of Systems General: Reports: Fever, Weakness, Fatigue HEENT: Reports: Sore Throat Pulmonary: Reports: No Symptoms Cardiovascular: Reports: No Symptoms Gastrointestinal: Reports: No Symptoms Musculoskeletal: Reports: Other (Hip pain) - Patient Data Vitals - Most Recent: Last Vital Signs Temp 102 F H 05/03/21 12:44 Pulse 131 H 05/03/21 03:00 Resp 18 05/03/21 03:00 BP 130/86 05/03/21 03:00 Pulse Ox 97 05/03/21 03:00 Weight - Most Recent: 142 lb 2 oz I&O - Last 24 Hours: Intake & Output 05/02/21 05/03/21 05/03/21 22:59 06:59 14:59 Intake Total 2600 1555 Output Total 850 875 Balance 1750 680 Lab Results Last 24 Hours: Laboratory Results - last 24 hr 05/02/21 05/03/21 05/03/21 Range/Units 14:20 06:10 06:40 WBC 0.31 L* (3.98-10.04) K/mm3 RBC 2.25 L (3.98-5.22) M/mm3 Hgb 7.2 L* (11.2-15.7) gm/dl Hct 22.2 L (34.1-44.9) % MCV 98.7 H (79.4-94.8) fl MCH 32.0 (25.6-32.2) pg MCHC 32.4 (32.2-35.5) g/dl RDW Std Deviation 54.6 H (36.4-46.3) fL Plt Count 88 L (182-369) K/mm3 MPV 10.0 (9.4-12.3) fl Neut % (Auto) 71.0 (34.0-71.1) % Lymph % (Auto) 12.9 L (19.3-51.7) % Fisher % (Auto) 3.2 L (4.7-12.5) % Eos % (Auto) 0 L (0.7-5.8) Baso % (Auto) 0.0 L (0.1-1.2) % Neut # (Auto) 0.22 L (1.56-6.13) K/mm3 Lymph # (Auto) 0.04 L (1.18-3.74) K/mm3 Fisher # (Auto) 0.01 L (0.24-0.36) K/mm3 Eos # (Auto) 0.00 L (0.04-0.36) K/mm3 Baso # (Auto) 0.00 L (0.01-0.08) K/mm3 Manual Slide Review Abnormal smear PT (9.7-12.0) SECONDS INR APTT (21.7-31.4) SECONDS Sodium (136-145) mEq/L Potassium (3.5-5.1) mEq/L Chloride (98-107) mEq/L Carbon Dioxide (21-32) mEq/L Anion Gap (5-15) BUN (7-18) mg/dL Creatinine (0.55-1.02) mg/dL Est Cr Clr Drug Dosing mL/min Estimated GFR (MDRD) (>60) mL/min BUN/Creatinine Ratio (14-18) Glucose (70-99) mg/dL Calcium (8.5-10.1) mg/dL Phosphorus (2.6-4.7) mg/dL Magnesium (1.8-2.4) mg/dL Total Bilirubin (0.2-1.0) mg/dL AST (15-37) U/L ALT (14-59) U/L Alkaline Phosphatase (46-116) U/L Total Protein (6.4-8.2) g/dl Albumin (3.4-5.0) g/dl Globulin gm/dL Albumin/Globulin Ratio (1-2) Urine Color Yellow (Yellow) Urine Appearance Clear (Clear) Urine pH 7.0 (5.0-8.0) Ur Specific [place] 1.020 (1.005-1.030) Urine Protein 1+ H (Negative) Urine Glucose (UA) 2+ H (Negative) Urine Ketones 1+ H (Negative) Urine Occult Blood Negative (Negative) Urine Nitrite Negative (Negative) Urine Bilirubin Negative (Negative) Urine Urobilinogen 2.0 H (0.2-1.0) Ur Leukocyte Esterase Negative (Negative) Urine RBC 0-5 (0-5) /hpf Urine WBC 0-5 (0-5) /hpf Ur Squamous Epith Cells 0-5 (0-5) /hpf Urine Bacteria Few (FEW) /hpf Urine Mucus Few (FEW) /hpf Blood Type B POSITIVE Gel Antibody Screen Negative Crossmatch See Detail 05/03/21 05/03/21 05/03/21 Range/Units 06:40 06:40 10:15 WBC (3.98-10.04) K/mm3 RBC (3.98-5.22) M/mm3 Hgb (11.2-15.7) gm/dl Hct (34.1-44.9) % MCV (79.4-94.8) fl MCH (25.6-32.2) pg MCHC (32.2-35.5) g/dl RDW Std Deviation (36.4-46.3) fL Plt Count (182-369) K/mm3 MPV (9.4-12.3) fl Neut % (Auto) (34.0-71.1) % Lymph % (Auto) (19.3-51.7) % Fisher % (Auto) (4.7-12.5) % Eos % (Auto) (0.7-5.8) Baso % (Auto) (0.1-1.2) % Neut # (Auto) (1.56-6.13) K/mm3 Lymph # (Auto) (1.18-3.74) K/mm3 Fisher # (Auto) (0.24-0.36) K/mm3 Eos # (Auto) (0.04-0.36) K/mm3 Baso # (Auto) (0.01-0.08) K/mm3 Manual Slide Review PT 10.8 (9.7-12.0) SECONDS INR 0.97 APTT 23.3 (21.7-31.4) SECONDS Sodium 135 L (136-145) mEq/L Potassium 3.6 (3.5-5.1) mEq/L Chloride 103 (98-107) mEq/L Carbon Dioxide 20 L (21-32) mEq/L Anion Gap 15.6 H (5-15) BUN 8 (7-18) mg/dL Creatinine 0.6 (0.55-1.02) mg/dL Est Cr Clr Drug Dosing 71.48 mL/min Estimated GFR (MDRD) > 60 (>60) mL/min BUN/Creatinine Ratio 13.3 L (14-18) Glucose 233 H (70-99) mg/dL Calcium 7.2 L (8.5-10.1) mg/dL Phosphorus 0.9 L (2.6-4.7) mg/dL Magnesium 1.6 L (1.8-2.4) mg/dL Total Bilirubin 0.8 (0.2-1.0) mg/dL AST 142 H (15-37) U/L ALT 138 H (14-59) U/L Alkaline Phosphatase 291 H (46-116) U/L Total Protein 4.7 L (6.4-8.2) g/dl Albumin 1.9 L (3.4-5.0) g/dl Globulin 2.8 gm/dL Albumin/Globulin Ratio 0.7 L (1-2) Urine Color (Yellow) Urine Appearance (Clear) Urine pH (5.0-8.0) Ur Specific [place] (1.005-1.030) Urine Protein (Negative) Urine Glucose (UA) (Negative) Urine Ketones (Negative) Urine Occult Blood (Negative) Urine Nitrite (Negative) Urine Bilirubin (Negative) Urine Urobilinogen (0.2-1.0) Ur Leukocyte Esterase (Negative) Urine RBC (0-5) /hpf Urine WBC (0-5) /hpf Ur Squamous Epith Cells (0-5) /hpf Urine Bacteria (FEW) /hpf Urine Mucus (FEW) /hpf Blood Type Gel Antibody Screen Crossmatch Med Orders - Current: Current Medications Acetaminophen (Acetaminophen 325 Mg Tab) 650 mg PO Q4H PRN PRN Reason: Pain (Mild 1-3)/fever Last Admin: 05/03/21 12:44 Dose: 650 mg Documented by: Hydrocodone Bitart/Acetaminophen (Acetaminophen/Hydrocodone 325-5 Mg Tab) 1 tab PO Q4H PRN PRN Reason: Pain (moderate 4-6) Last Admin: 05/02/21 13:50 Dose: 1 tab Documented by: Aspirin (Aspirin 81 Mg Tab.Ec) 81 mg PO DAILY [facility] Last Admin: 05/03/21 09:28 Dose: 81 mg Documented by: Bisacodyl (Bisacodyl 5 Mg Tab) 5 mg PO DAILY [facility] Last Admin: 05/03/21 09:29 Dose: 5 mg Documented by: Calcium Carbonate (Calcium Carbonate/Vitamin D3 600 Mg-200 Units Tab) 1 tab PO TID [facility] Last Admin: 05/03/21 09:25 Dose: 1 tab Documented by: Calcium Carbonate/Glycine (Calcium Carbonate 500 Mg Tab.Chew) 1,000 mg PO Q2HR PRN PRN Reason: Indigestion Dexamethasone (Dexamethasone 4 Mg Tab) 2 mg PO DAILY [facility] Last Admin: 05/03/21 09:27 Dose: 2 mg Documented by: Docusate Sodium (Docusate Sodium 100 Mg Cap) 100 mg PO DAILY PRN PRN Reason: Constipation Famotidine (Famotidine 10 Mg Tab) 10 mg PO DAILY [facility] Last Admin: 05/03/21 09:29 Dose: 10 mg Documented by: Gabapentin (Gabapentin 100 Mg Cap) 200 mg PO BID [facility] Last Admin: 05/03/21 09:28 Dose: 200 mg Documented by: Dextrose/Sodium Chloride (Dextrose 5%-1/2 Ns) 1,000 mls @ 75 mls/hr IV ASDIRECTED [facility] Last Infusion: 05/03/21 09:23 Dose: 0 mls/hr Documented by: Promethazine HCl 6.25 mg/ (Sodium Chloride) 50.25 mls @ 100 mls/hr IV Q6H PRN PRN Reason: Nausea/Vomiting Cefepime HCl 2 gm/ Premix 50 mls @ 100 mls/hr IV Q8H [facility] Last Admin: 05/03/21 05:52 Dose: 100 mls/hr Documented by: Vancomycin HCl 1 gm/ Sodium (Chloride) 250 mls @ 250 mls/hr IV Q12H [facility] Potassium Phosphate 30 mmole/ (Sodium Chloride) 510 mls @ 102 mls/hr IV ONETIME ONE Stop: 05/03/21 18:59 Sodium Phosphate 30 mmole/ (Sodium Chloride) 260 mls @ 130 mls/hr IV ONETIME ONE Stop: 05/03/21 13:44 Last Admin: 05/03/21 12:51 Dose: 130 mls/hr Documented by: Magnesium Sulfate 2 gm/ Premix 50 mls @ 25 mls/hr IV ONETIME ONE Stop: 05/03/21 13:29 Last Admin: 05/03/21 12:50 Dose: 25 mls/hr Documented by: Loratadine (Loratadine 10 Mg Tab) 10 mg PO DAILY [facility] Last Admin: 05/03/21 09:29 Dose: 10 mg Documented by: Lorazepam (Lorazepam 0.5 Mg Tab) 0.5 mg PO Q6H [facility] Last Admin: 05/03/21 09:55 Dose: Not Given Documented by: Megestrol Acetate (Megestrol Susp 40 Mg/Ml 10 Ml Ud Cup) 400 mg PO DAILY [facility] Last Admin: 05/03/21 09:30 Dose: 400 mg Documented by: Morphine Sulfate (Morphine 15 Mg Tab.Er) 15 mg PO BEDTIME [facility] Last Admin: 05/02/21 22:00 Dose: 15 mg Documented by: Ondansetron HCl (Ondansetron 4 Mg Tab.Dis) 4 mg PO Q4H PRN PRN Reason: nausea, able to take PO Pantoprazole Sodium (Pantoprazole 40 Mg Tab.Cr) 40 mg PO ACBREAKFAST [facility] Last Admin: 05/03/21 05:50 Dose: 40 mg Documented by: Potassium Chloride (Potassium Chloride 10 Meq Tab.Er) 10 meq PO TID [facility] Last Admin: 05/03/21 09:25 Dose: 10 meq Documented by: Prochlorperazine Maleate (Prochlorperazine 5 Mg Tab) 10 mg PO QID PRN PRN Reason: Nausea/Vomiting Tbo-Filgrastim (Tbo-Filgrastim 480 Mcg/0.8 Ml Syringe) 320 mcg SUBCUT DAILY [facility] Last Admin: 05/03/21 10:22 Dose: 320 mcg Documented by: Trazodone HCl (Trazodone 50 Mg Tab) 50 mg PO BEDTIME [facility] Last Admin: 05/02/21 21:34 Dose: 50 mg Documented by: Vancomycin HCl (Pharmacy To Dose - Vancomycin) 0 dose .XX ASDIRECTED PRN PRN Reason: RX TO DOSE VANCO Zolpidem Tartrate (Zolpidem 5 Mg Tab) 5 mg PO BEDTIME PRN PRN Reason: Sleep Discontinued Medications Calcium Carbonate/Glycine (Calcium Carbonate 600 Mg Tab) 1,200 mg PO BIDMEALS [facility] Last Admin: 05/03/21 06:09 Dose: 1,200 mg Documented by: Enoxaparin Sodium (Enoxaparin 40 Mg/0.4 Ml Syringe) 40 mg SUBCUT DAILY [facility] Last Admin: 05/02/21 01:33 Dose: Not Given Documented by: Enoxaparin Sodium (Enoxaparin 40 Mg/0.4 Ml Syringe) 40 mg SUBCUT DAILY@2200 [facility] Last Admin: 05/02/21 21:28 Dose: 40 mg Documented by: Sodium Chloride (Normal Saline) 1,000 mls @ 999 mls/hr IV ONETIME ONE Stop: 05/01/21 17:42 Last Admin: 05/01/21 16:54 Dose: 999 mls/hr Documented by: Magnesium Sulfate 2 gm/ Premix 50 mls @ 25 mls/hr IV ONETIME ONE Stop: 05/01/21 19:46 Last Admin: 05/01/21 18:08 Dose: 25 mls/hr Documented by: Sodium Chloride (Normal Saline) 1,000 mls @ 150 mls/hr IV ONETIME ONE Stop: 05/02/21 02:56 Last Admin: 05/01/21 22:45 Dose: Not Given Documented by: Potassium Chloride 10 meq/ (Premix) 100 mls @ 100 mls/hr IV Q1H [facility] Stop: 05/02/21 12:14 Last Admin: 05/02/21 11:50 Dose: 100 mls/hr Documented by: Sodium Chloride (Normal Saline) 1,000 mls @ 999 mls/hr IV ONETIME ONE Stop: 05/02/21 14:04 Last Admin: 05/02/21 13:15 Dose: 999 mls/hr Documented by: Sodium Chloride (Normal Saline) 500 mls @ 500 mls/hr IV .BOLUS ONE Stop: 05/03/21 10:04 Last Admin: 05/03/21 09:22 Dose: 500 mls/hr Documented by: Vancomycin HCl 1 gm/Vancomycin HCl 250 mg/ Sodium Chloride 250 mls @ 166.667 mls/hr IV ONETIME ONE Stop: 05/03/21 11:59 Last Admin: 05/03/21 10:24 Dose: 166.667 mls/hr Documented by: Ketorolac Tromethamine (Ketorolac 30 Mg/Ml Sdv) 30 mg IVPUSH ONETIME ONE Stop: 05/01/21 20:30 Last Admin: 05/01/21 22:44 Dose: 30 mg Documented by: Lorazepam (Lorazepam 2 Mg/Ml Sdv) 1 mg IVPUSH ONETIME ONE Stop: 05/01/21 16:58 Last Admin: 05/01/21 17:23 Dose: 1 mg Documented by: Ondansetron HCl (Ondansetron 4 Mg/2 Ml Sdv) 4 mg IVPUSH ONETIME ONE Stop: 05/01/21 16:58 Last Admin: 05/01/21 17:23 Dose: 4 mg Documented by: - Exam Quality Assessment: Supplemental Oxygen (1 L) Central Line Total Time: 1Days 15Hours General: Alert, Oriented HEENT: Pupils Equal, Mucous Membr. Moist/[place] Neck: Supple Lungs: Normal Respiratory Effort, Crackles (Bibasilar) Cardiovascular: Regular Rhythm, Tachycardia GI/Abdominal Exam: Normal Bowel Sounds, Soft, Non-Tender, No Organomegaly, No Distention Extremities: Normal Inspection, Non-Tender, No Pedal Edema, Normal Capillary Refill Skin: Warm, Dry, Intact Psy/Mental Status: Alert, Normal Affect, Normal Mood - Patient Data Lab Results Last 24 hrs: Laboratory Results - last 24 hr 05/02/21 05/03/21 05/03/21 Range/Units 14:20 06:10 06:40 WBC 0.31 L* (3.98-10.04) K/mm3 RBC 2.25 L (3.98-5.22) M/mm3 Hgb 7.2 L* (11.2-15.7) gm/dl Hct 22.2 L (34.1-44.9) % MCV 98.7 H (79.4-94.8) fl MCH 32.0 (25.6-32.2) pg MCHC 32.4 (32.2-35.5) g/dl RDW Std Deviation 54.6 H (36.4-46.3) fL Plt Count 88 L (182-369) K/mm3 MPV 10.0 (9.4-12.3) fl Neut % (Auto) 71.0 (34.0-71.1) % Lymph % (Auto) 12.9 L (19.3-51.7) % Fisher % (Auto) 3.2 L (4.7-12.5) % Eos % (Auto) 0 L (0.7-5.8) Baso % (Auto) 0.0 L (0.1-1.2) % Neut # (Auto) 0.22 L (1.56-6.13) K/mm3 Lymph # (Auto) 0.04 L (1.18-3.74) K/mm3 Fisher # (Auto) 0.01 L (0.24-0.36) K/mm3 Eos # (Auto) 0.00 L (0.04-0.36) K/mm3 Baso # (Auto) 0.00 L (0.01-0.08) K/mm3 Manual Slide Review Abnormal smear PT (9.7-12.0) SECONDS INR APTT (21.7-31.4) SECONDS Sodium (136-145) mEq/L Potassium (3.5-5.1) mEq/L Chloride (98-107) mEq/L Carbon Dioxide (21-32) mEq/L Anion Gap (5-15) BUN (7-18) mg/dL Creatinine (0.55-1.02) mg/dL Est Cr Clr Drug Dosing mL/min Estimated GFR (MDRD) (>60) mL/min BUN/Creatinine Ratio (14-18) Glucose (70-99) mg/dL Calcium (8.5-10.1) mg/dL Phosphorus (2.6-4.7) mg/dL Magnesium (1.8-2.4) mg/dL Total Bilirubin (0.2-1.0) mg/dL AST (15-37) U/L ALT (14-59) U/L Alkaline Phosphatase (46-116) U/L Total Protein (6.4-8.2) g/dl Albumin (3.4-5.0) g/dl Globulin gm/dL Albumin/Globulin Ratio (1-2) Urine Color Yellow (Yellow) Urine Appearance Clear (Clear) Urine pH 7.0 (5.0-8.0) Ur Specific [place] 1.020 (1.005-1.030) Urine Protein 1+ H (Negative) Urine Glucose (UA) 2+ H (Negative) Urine Ketones 1+ H (Negative) Urine Occult Blood Negative (Negative) Urine Nitrite Negative (Negative) Urine Bilirubin Negative (Negative) Urine Urobilinogen 2.0 H (0.2-1.0) Ur Leukocyte Esterase Negative (Negative) Urine RBC 0-5 (0-5) /hpf Urine WBC 0-5 (0-5) /hpf Ur Squamous Epith Cells 0-5 (0-5) /hpf Urine Bacteria Few (FEW) /hpf Urine Mucus Few (FEW) /hpf Blood Type B POSITIVE Gel Antibody Screen Negative Crossmatch See Detail 05/03/21 05/03/21 05/03/21 Range/Units 06:40 06:40 10:15 WBC (3.98-10.04) K/mm3 RBC (3.98-5.22) M/mm3 Hgb (11.2-15.7) gm/dl Hct (34.1-44.9) % MCV (79.4-94.8) fl MCH (25.6-32.2) pg MCHC (32.2-35.5) g/dl RDW Std Deviation (36.4-46.3) fL Plt Count (182-369) K/mm3 MPV (9.4-12.3) fl Neut % (Auto) (34.0-71.1) % Lymph % (Auto) (19.3-51.7) % Fisher % (Auto) (4.7-12.5) % Eos % (Auto) (0.7-5.8) Baso % (Auto) (0.1-1.2) % Neut # (Auto) (1.56-6.13) K/mm3 Lymph # (Auto) (1.18-3.74) K/mm3 Fisher # (Auto) (0.24-0.36) K/mm3 Eos # (Auto) (0.04-0.36) K/mm3 Baso # (Auto) (0.01-0.08) K/mm3 Manual Slide Review PT 10.8 (9.7-12.0) SECONDS INR 0.97 APTT 23.3 (21.7-31.4) SECONDS Sodium 135 L (136-145) mEq/L Potassium 3.6 (3.5-5.1) mEq/L Chloride 103 (98-107) mEq/L Carbon Dioxide 20 L (21-32) mEq/L Anion Gap 15.6 H (5-15) BUN 8 (7-18) mg/dL Creatinine 0.6 (0.55-1.02) mg/dL Est Cr Clr Drug Dosing 71.48 mL/min Estimated GFR (MDRD) > 60 (>60) mL/min BUN/Creatinine Ratio 13.3 L (14-18) Glucose 233 H (70-99) mg/dL Calcium 7.2 L (8.5-10.1) mg/dL Phosphorus 0.9 L (2.6-4.7) mg/dL Magnesium 1.6 L (1.8-2.4) mg/dL Total Bilirubin 0.8 (0.2-1.0) mg/dL AST 142 H (15-37) U/L ALT 138 H (14-59) U/L Alkaline Phosphatase 291 H (46-116) U/L Total Protein 4.7 L (6.4-8.2) g/dl Albumin 1.9 L (3.4-5.0) g/dl Globulin 2.8 gm/dL Albumin/Globulin Ratio 0.7 L (1-2) Urine Color (Yellow) Urine Appearance (Clear) Urine pH (5.0-8.0) Ur Specific [place] (1.005-1.030) Urine Protein (Negative) Urine Glucose (UA) (Negative) Urine Ketones (Negative) Urine Occult Blood (Negative) Urine Nitrite (Negative) Urine Bilirubin (Negative) Urine Urobilinogen (0.2-1.0) Ur Leukocyte Esterase (Negative) Urine RBC (0-5) /hpf Urine WBC (0-5) /hpf Ur Squamous Epith Cells (0-5) /hpf Urine Bacteria (FEW) /hpf Urine Mucus (FEW) /hpf Blood Type Gel Antibody Screen Crossmatch Result Diagrams: 05/03/21 06:40 05/03/21 06:40 Sepsis Event Note - Evaluation Sepsis Screening Result: Severe Sepsis Risk - Focused Exam Vital Signs: Vital Signs Temp Temp Pulse Resp BP Pulse Ox 05/03/21 12:44 102 F H 05/03/21 04:30 100.0 F 05/03/21 04:12 101.5 F H 05/03/21 03:00 101.5 F H 131 H 18 130/86 97 - Problem List & Annotations (1) Neutropenic fever SNOMED Code(s): 183166893 Code(s): D70.9 - NEUTROPENIA, UNSPECIFIED; R50.81 - FEVER PRESENTING WITH CONDITIONS CLASSIFIED ELSEWHERE Status: Acute Current Visit: Yes (2) Breast cancer SNOMED Code(s): 339776260 Code(s): C50.919 - MALIGNANT NEOPLASM OF UNSP SITE OF UNSPECIFIED FEMALE CLARISSA ST Status: Acute Current Visit: Yes (3) Chemotherapy induced neutropenia SNOMED Code(s): 361318913 Code(s): D70.1 - AGRANULOCYTOSIS SECONDARY TO CANCER CHEMOTHERAPY; T45.1X5A - ADVERSE EFFECT OF ANTINEOPLASTIC AND IMMUNOSUP DRUGS, INIT Status: Acute Current Visit: Yes (4) Generalized weakness SNOMED Code(s): 87080914 Code(s): R53.1 - WEAKNESS Status: Acute Current Visit: Yes - Problem List Review Problem List Initiated/Reviewed/Updated: Yes - My Orders Last 24 Hours: My Active Orders 05/03/21 06:10 RED BLOOD CELLS LP [BBK] Stat TYPE AND SCREEN [BBK] Stat 05/03/21 06:40 PROCALCITONIN [REF] Routine 05/03/21 09:00 Tbo-Filgrastim [Granix] 320 mcg SUBCUT DAILY 05/03/21 09:25 Transfuse PRBC [Transfuse Red Blood Cells] [COMM] Stat 05/03/21 09:27 Verify Patient Consent Obtain [RC] ASDIRECTED 05/03/21 09:45 Pharmacy to Dose - Vancomycin 0 dose .XX ASDIRECTED PRN 05/03/21 11:30 Magnesium Sulfate/Water [Magnesium Sulfate in Water 2 GM/50 ML] 2 gm Premix Bag 1 bag IV ONETIME 05/03/21 11:42 Admission Status [Patient Status] [ADT] Routine 05/03/21 11:45 Sodium Phosphate 30 mmole Sodium Chloride 0.9% [Normal Saline] 250 ml IV ONETIME 05/03/21 14:00 Potassium Phosphates 30 mmole Sodium Chloride 0.9% [Normal Saline] 500 ml IV ONETIME 05/03/21 22:30 Vancomycin [Vancocin] 1 gm Sodium Chloride 0.9% [Normal Saline (AdvBag)] 250 ml IV Q12H 05/05/21 09:30 VANCOMYCIN TROUGH [CHEM] Timed - Plan Plan:: 65-year-old female with history of metastatic breast cancer on chemotherapy presented with generalized weakness, failure to thrive and neutropenia Neutropenic fever Fever 102 today. Tachycardic and hypotensive this morning. blood cultures and a UA emprically started pt on Cefepime. Add vancomycin Normal saline 500 mL bolus. 1 unit packed red blood cells Generalized weakness Admit pt to the medical floor under observation status. Patient will need PT and OT as well as nutritional support Hypomagnesemia Replaced with IV Magnesium and recheck levels Hypokalemia Resolved but will give some K-Phos recheck levels Neutropenia Anemia Thrombocytopenia ANC down to 220 In the meantime she will not be doing any chemotherapy within the next week or so. Hopefully her white cell count bounces back to within normal range some time soon. Give Granix/filgrastim Transfuse 1 unit packed red blood cells Follow CBC Metastatic breast cancer Spoke with Mckayla Barrett NP who recommended filgrastim. She is 5 days post chemotherapy Diabetes mellitus We will hold home medications for now since patient is not really eating much. Fingerstick blood sugar 4 times daily with sliding scale insulin low-dose Past medical history of hypertension Hold BP meds due to borderline low blood pressures Severe protein calorie malnutrition Albumin 1.9 Patient has a very poor appetite and has not been taking in enough protein and calories. I will try an appetite stimulant and see if that will improve her overall oral intake. Dehydration Resolved Full code DVT prophylaxis. Lovenox stopped because of thrombocytopenia. SCDs
[2021-05-03] MEDS ORDERED: Potassium Phosphates 30 MMOLE in Sodium Chloride 0.9% 500 ML IV ONE (14:00)
[2021-05-03] MEDS: Insulin Lispro 100 UNIT/ML 10 ML Vial SUBCUT SCH ×2 (16:45→22:26)
[2021-05-03] MEDS: Morphine 15 MG Tab.ER PO SCH (21:09)
[2021-05-03] MEDS: traZODone 50 MG Tab PO SCH (21:10)
[2021-05-04] MEDS: LORazepam 0.5 MG Tab PO SCH ×4 (00:01→18:22)
[2021-05-04] MEDS: Acetaminophen 325 MG Tab PO PRN (03:52)
[2021-05-04] MEDS: Cefepime 2 GM in Premix Bag 1 BAG IV SCH ×3 (06:01→22:22)
[2021-05-04] MEDS: Pantoprazole 40 MG Tab.CR PO SCH (06:02)
[2021-05-04] MEDS: Insulin Lispro 100 UNIT/ML 10 ML Vial SUBCUT SCH ×5 (06:29→22:23)
--- NOTE | 2021-05-04 07:08 | PCM.PN ---
- General Info Date of Service: 05/04/21 Admission Dx/Problem (Free Text): Admission Diagnosis/Problem Admission Diagnosis/Problem Generalized weakness Subjective Update: Maliha states that she is not feeling any better today than before. Her hemoglobin has gone up to 9.4 overnight and her total WBC is up to 1.06. She has not had a fever since early yesterday afternoon. She is now on 2 L via nasal cannula. Functional Status: Reports: Pain Controlled - Review of Systems General: Reports: Fatigue HEENT: Reports: No Symptoms Pulmonary: Reports: No Symptoms Cardiovascular: Reports: No Symptoms Gastrointestinal: Reports: No Symptoms - Patient Data Vitals - Most Recent: Last Vital Signs Temp 99.9 F 05/04/21 04:00 Pulse 79 05/04/21 04:00 Resp 24 H 05/04/21 04:00 BP 121/69 05/04/21 04:00 Pulse Ox 99 05/04/21 04:00 Weight - Most Recent: 146 lb I&O - Last 24 Hours: Intake & Output 05/03/21 05/04/21 05/04/21 22:59 06:59 14:59 Intake Total 3890 590 Output Total 3250 800 Balance 640 -210 Lab Results Last 24 Hours: Laboratory Results - last 24 hr 05/03/21 05/03/21 05/03/21 Range/Units 06:10 06:40 06:40 WBC (3.98-10.04) K/mm3 RBC (3.98-5.22) M/mm3 Hgb (11.2-15.7) gm/dl Hct (34.1-44.9) % MCV (79.4-94.8) fl MCH (25.6-32.2) pg MCHC (32.2-35.5) g/dl RDW Std Deviation (36.4-46.3) fL Plt Count (182-369) K/mm3 MPV (9.4-12.3) fl Neut % (Auto) (34.0-71.1) % Lymph % (Auto) (19.3-51.7) % [place] % (Auto) (4.7-12.5) % Eos % (Auto) (0.7-5.8) Baso % (Auto) (0.1-1.2) % Neut # (Auto) (1.56-6.13) K/mm3 Lymph # (Auto) (1.18-3.74) K/mm3 [place] # (Auto) (0.24-0.36) K/mm3 Eos # (Auto) (0.04-0.36) K/mm3 Baso # (Auto) (0.01-0.08) K/mm3 Manual Slide Review Abnormal smear PT (9.7-12.0) SECONDS INR APTT (21.7-31.4) SECONDS Sodium 135 L (136-145) mEq/L Potassium 3.6 (3.5-5.1) mEq/L Chloride 103 (98-107) mEq/L Carbon Dioxide 20 L (21-32) mEq/L Anion Gap 15.6 H (5-15) BUN 8 (7-18) mg/dL Creatinine 0.6 (0.55-1.02) mg/dL Est Cr Clr Drug Dosing 71.48 mL/min Estimated GFR (MDRD) > 60 (>60) mL/min BUN/Creatinine Ratio 13.3 L (14-18) Glucose 233 H (70-99) mg/dL POC Glucose (70-99) mg/dL Calcium 7.2 L (8.5-10.1) mg/dL Phosphorus (2.6-4.7) mg/dL Magnesium (1.8-2.4) mg/dL Total Bilirubin 0.8 (0.2-1.0) mg/dL AST 142 H (15-37) U/L ALT 138 H (14-59) U/L Alkaline Phosphatase 291 H (46-116) U/L Total Protein 4.7 L (6.4-8.2) g/dl Albumin 1.9 L (3.4-5.0) g/dl Globulin 2.8 gm/dL Albumin/Globulin Ratio 0.7 L (1-2) Procalcitonin ng/mL Blood Type B POSITIVE Gel Antibody Screen Negative Crossmatch See Detail 05/03/21 05/03/21 05/03/21 Range/Units 06:40 06:40 10:15 WBC (3.98-10.04) K/mm3 RBC (3.98-5.22) M/mm3 Hgb (11.2-15.7) gm/dl Hct (34.1-44.9) % MCV (79.4-94.8) fl MCH (25.6-32.2) pg MCHC (32.2-35.5) g/dl RDW Std Deviation (36.4-46.3) fL Plt Count (182-369) K/mm3 MPV (9.4-12.3) fl Neut % (Auto) (34.0-71.1) % Lymph % (Auto) (19.3-51.7) % [place] % (Auto) (4.7-12.5) % Eos % (Auto) (0.7-5.8) Baso % (Auto) (0.1-1.2) % Neut # (Auto) (1.56-6.13) K/mm3 Lymph # (Auto) (1.18-3.74) K/mm3 [place] # (Auto) (0.24-0.36) K/mm3 Eos # (Auto) (0.04-0.36) K/mm3 Baso # (Auto) (0.01-0.08) K/mm3 Manual Slide Review PT 10.8 (9.7-12.0) SECONDS INR 0.97 APTT 23.3 (21.7-31.4) SECONDS Sodium (136-145) mEq/L Potassium (3.5-5.1) mEq/L Chloride (98-107) mEq/L Carbon Dioxide (21-32) mEq/L Anion Gap (5-15) BUN (7-18) mg/dL Creatinine (0.55-1.02) mg/dL Est Cr Clr Drug Dosing mL/min Estimated GFR (MDRD) (>60) mL/min BUN/Creatinine Ratio (14-18) Glucose (70-99) mg/dL POC Glucose (70-99) mg/dL Calcium (8.5-10.1) mg/dL Phosphorus 0.9 L (2.6-4.7) mg/dL Magnesium 1.6 L (1.8-2.4) mg/dL Total Bilirubin (0.2-1.0) mg/dL AST (15-37) U/L ALT (14-59) U/L Alkaline Phosphatase (46-116) U/L Total Protein (6.4-8.2) g/dl Albumin (3.4-5.0) g/dl Globulin gm/dL Albumin/Globulin Ratio (1-2) Procalcitonin 9.35 H ng/mL Blood Type Gel Antibody Screen Crossmatch 05/03/21 05/03/21 05/03/21 Range/Units 16:29 21:01 21:01 WBC 0.95 L* (3.98-10.04) K/mm3 RBC 2.73 L (3.98-5.22) M/mm3 Hgb 8.7 L D (11.2-15.7) gm/dl Hct 26.5 L (34.1-44.9) % MCV 97.1 H (79.4-94.8) fl MCH 31.9 (25.6-32.2) pg MCHC 32.8 (32.2-35.5) g/dl RDW Std Deviation 52.5 H (36.4-46.3) fL Plt Count 71 L (182-369) K/mm3 MPV 9.9 (9.4-12.3) fl Neut % (Auto) 66.3 (34.0-71.1) % Lymph % (Auto) 4.2 L (19.3-51.7) % [place] % (Auto) 2.1 L (4.7-12.5) % Eos % (Auto) 0 L (0.7-5.8) Baso % (Auto) 0.0 L (0.1-1.2) % Neut # (Auto) 0.63 L (1.56-6.13) K/mm3 Lymph # (Auto) 0.04 L (1.18-3.74) K/mm3 [place] # (Auto) 0.02 L (0.24-0.36) K/mm3 Eos # (Auto) 0.00 L (0.04-0.36) K/mm3 Baso # (Auto) 0.00 L (0.01-0.08) K/mm3 Manual Slide Review Abnormal smear PT (9.7-12.0) SECONDS INR APTT (21.7-31.4) SECONDS Sodium (136-145) mEq/L Potassium (3.5-5.1) mEq/L Chloride (98-107) mEq/L Carbon Dioxide (21-32) mEq/L Anion Gap (5-15) BUN (7-18) mg/dL Creatinine (0.55-1.02) mg/dL Est Cr Clr Drug Dosing mL/min Estimated GFR (MDRD) (>60) mL/min BUN/Creatinine Ratio (14-18) Glucose (70-99) mg/dL POC Glucose 335 H 286 H (70-99) mg/dL Calcium (8.5-10.1) mg/dL Phosphorus (2.6-4.7) mg/dL Magnesium (1.8-2.4) mg/dL Total Bilirubin (0.2-1.0) mg/dL AST (15-37) U/L ALT (14-59) U/L Alkaline Phosphatase (46-116) U/L Total Protein (6.4-8.2) g/dl Albumin (3.4-5.0) g/dl Globulin gm/dL Albumin/Globulin Ratio (1-2) Procalcitonin ng/mL Blood Type Gel Antibody Screen Crossmatch 05/03/21 05/04/21 Range/Units 21:01 06:08 WBC (3.98-10.04) K/mm3 RBC (3.98-5.22) M/mm3 Hgb (11.2-15.7) gm/dl Hct (34.1-44.9) % MCV (79.4-94.8) fl MCH (25.6-32.2) pg MCHC (32.2-35.5) g/dl RDW Std Deviation (36.4-46.3) fL Plt Count (182-369) K/mm3 MPV (9.4-12.3) fl Neut % (Auto) (34.0-71.1) % Lymph % (Auto) (19.3-51.7) % [place] % (Auto) (4.7-12.5) % Eos % (Auto) (0.7-5.8) Baso % (Auto) (0.1-1.2) % Neut # (Auto) (1.56-6.13) K/mm3 Lymph # (Auto) (1.18-3.74) K/mm3 [place] # (Auto) (0.24-0.36) K/mm3 Eos # (Auto) (0.04-0.36) K/mm3 Baso # (Auto) (0.01-0.08) K/mm3 Manual Slide Review PT (9.7-12.0) SECONDS INR APTT (21.7-31.4) SECONDS Sodium (136-145) mEq/L Potassium (3.5-5.1) mEq/L Chloride (98-107) mEq/L Carbon Dioxide (21-32) mEq/L Anion Gap (5-15) BUN (7-18) mg/dL Creatinine (0.55-1.02) mg/dL Est Cr Clr Drug Dosing mL/min Estimated GFR (MDRD) (>60) mL/min BUN/Creatinine Ratio (14-18) Glucose (70-99) mg/dL POC Glucose 286 H 222 H (70-99) mg/dL Calcium (8.5-10.1) mg/dL Phosphorus (2.6-4.7) mg/dL Magnesium (1.8-2.4) mg/dL Total Bilirubin (0.2-1.0) mg/dL AST (15-37) U/L ALT (14-59) U/L Alkaline Phosphatase (46-116) U/L Total Protein (6.4-8.2) g/dl Albumin (3.4-5.0) g/dl Globulin gm/dL Albumin/Globulin Ratio (1-2) Procalcitonin ng/mL Blood Type Gel Antibody Screen Crossmatch Jairo Results Last 24 Hours: Microbiology 05/02/21 13:53 Blood Culture - Preliminary Blood - Venous - Lab Draw 05/02/21 13:48 Blood Culture - Preliminary Blood - Venous - Lab Draw Med Orders - Current: Current Medications Acetaminophen (Acetaminophen 325 Mg Tab) 650 mg PO Q4H PRN PRN Reason: Pain (Mild 1-3)/fever Last Admin: 05/04/21 03:52 Dose: 650 mg Documented by: Hydrocodone Bitart/Acetaminophen (Acetaminophen/Hydrocodone 325-5 Mg Tab) 1 tab PO Q4H PRN PRN Reason: Pain (moderate 4-6) Last Admin: 05/02/21 13:50 Dose: 1 tab Documented by: Aspirin (Aspirin 81 Mg Tab.Ec) 81 mg PO DAILY [facility] Last Admin: 05/03/21 09:28 Dose: 81 mg Documented by: Bisacodyl (Bisacodyl 5 Mg Tab) 5 mg PO DAILY [facility] Last Admin: 05/03/21 09:29 Dose: 5 mg Documented by: Calcium Carbonate (Calcium Carbonate/Vitamin D3 600 Mg-200 Units Tab) 1 tab PO TID [facility] Last Admin: 05/03/21 21:10 Dose: 1 tab Documented by: Calcium Carbonate/Glycine (Calcium Carbonate 500 Mg Tab.Chew) 1,000 mg PO Q2HR PRN PRN Reason: Indigestion Dexamethasone (Dexamethasone 4 Mg Tab) 2 mg PO DAILY [facility] Last Admin: 05/03/21 09:27 Dose: 2 mg Documented by: Docusate Sodium (Docusate Sodium 100 Mg Cap) 100 mg PO DAILY PRN PRN Reason: Constipation Famotidine (Famotidine 10 Mg Tab) 10 mg PO DAILY [facility] Last Admin: 05/03/21 09:29 Dose: 10 mg Documented by: Gabapentin (Gabapentin 100 Mg Cap) 200 mg PO BID [facility] Last Admin: 05/03/21 21:10 Dose: 200 mg Documented by: Dextrose/Sodium Chloride (Dextrose 5%-1/2 Ns) 1,000 mls @ 75 mls/hr IV ASDIRECTED [facility] Last Admin: 05/03/21 23:42 Dose: 75 mls/hr Documented by: Promethazine HCl 6.25 mg/ (Sodium Chloride) 50.25 mls @ 100 mls/hr IV Q6H PRN PRN Reason: Nausea/Vomiting Cefepime HCl 2 gm/ Premix 50 mls @ 100 mls/hr IV Q8H [facility] Last Admin: 05/04/21 06:01 Dose: 100 mls/hr Documented by: Vancomycin HCl 1 gm/ Sodium (Chloride) 250 mls @ 250 mls/hr IV Q12H [facility] Last Admin: 05/03/21 22:30 Dose: 250 mls/hr Documented by: Sodium Chloride (Normal Saline) 1,000 mls @ 50 mls/hr IV ASDIRECTED [facility] Insulin Human Lispro (Insulin Lispro 100 Unit/Ml 10 Ml Vial) 0 unit SUBCUT QI DACANDBED [facility]; Protocol Last Admin: 05/04/21 06:29 Dose: 2 units Documented by: Loratadine (Loratadine 10 Mg Tab) 10 mg PO DAILY [facility] Last Admin: 05/03/21 09:29 Dose: 10 mg Documented by: Lorazepam (Lorazepam 0.5 Mg Tab) 0.5 mg PO Q6H [facility] Last Admin: 05/04/21 06:16 Dose: Not Given Documented by: Megestrol Acetate (Megestrol Susp 40 Mg/Ml 10 Ml Ud Cup) 400 mg PO DAILY [facility] Last Admin: 05/03/21 09:30 Dose: 400 mg Documented by: Morphine Sulfate (Morphine 15 Mg Tab.Er) 15 mg PO BEDTIME [facility] Last Admin: 05/03/21 21:09 Dose: 15 mg Documented by: Ondansetron HCl (Ondansetron 4 Mg Tab.Dis) 4 mg PO Q4H PRN PRN Reason: nausea, able to take PO Pantoprazole Sodium (Pantoprazole 40 Mg Tab.Cr) 40 mg PO ACBREAKFAST [facility] Last Admin: 05/04/21 06:02 Dose: 40 mg Documented by: Potassium Chloride (Potassium Chloride 10 Meq Tab.Er) 10 meq PO TID [facility] Last Admin: 05/03/21 21:11 Dose: 10 meq Documented by: Prochlorperazine Maleate (Prochlorperazine 5 Mg Tab) 10 mg PO QID PRN PRN Reason: Nausea/Vomiting Tbo-Filgrastim (Tbo-Filgrastim 480 Mcg/0.8 Ml Syringe) 320 mcg SUBCUT DAILY [facility] Last Admin: 05/03/21 10:22 Dose: 320 mcg Documented by: Trazodone HCl (Trazodone 50 Mg Tab) 50 mg PO BEDTIME [facility] Last Admin: 05/03/21 21:10 Dose: 50 mg Documented by: Vancomycin HCl (Pharmacy To Dose - Vancomycin) 0 dose .XX ASDIRECTED PRN PRN Reason: RX TO DOSE VANCO Zolpidem Tartrate (Zolpidem 5 Mg Tab) 5 mg PO BEDTIME PRN PRN Reason: Sleep Discontinued Medications Calcium Carbonate/Glycine (Calcium Carbonate 600 Mg Tab) 1,200 mg PO BIDMEALS [facility] Last Admin: 05/03/21 06:09 Dose: 1,200 mg Documented by: Enoxaparin Sodium (Enoxaparin 40 Mg/0.4 Ml Syringe) 40 mg SUBCUT DAILY [facility] Last Admin: 05/02/21 01:33 Dose: Not Given Documented by: Enoxaparin Sodium (Enoxaparin 40 Mg/0.4 Ml Syringe) 40 mg SUBCUT DAILY@2200 [facility] Last Admin: 05/02/21 21:28 Dose: 40 mg Documented by: Sodium Chloride (Normal Saline) 1,000 mls @ 999 mls/hr IV ONETIME ONE Stop: 05/01/21 17:42 Last Admin: 05/01/21 16:54 Dose: 999 mls/hr Documented by: Magnesium Sulfate 2 gm/ Premix 50 mls @ 25 mls/hr IV ONETIME ONE Stop: 05/01/21 19:46 Last Admin: 05/01/21 18:08 Dose: 25 mls/hr Documented by: Sodium Chloride (Normal Saline) 1,000 mls @ 150 mls/hr IV ONETIME ONE Stop: 05/02/21 02:56 Last Admin: 05/01/21 22:45 Dose: Not Given Documented by: Potassium Chloride 10 meq/ (Premix) 100 mls @ 100 mls/hr IV Q1H JOSÉ LUIS Stop: 05/02/21 12:14 Last Admin: 05/02/21 11:50 Dose: 100 mls/hr Documented by: Sodium Chloride (Normal Saline) 1,000 mls @ 999 mls/hr IV ONETIME ONE Stop: 05/02/21 14:04 Last Admin: 05/02/21 13:15 Dose: 999 mls/hr Documented by: Sodium Chloride (Normal Saline) 500 mls @ 500 mls/hr IV .BOLUS ONE Stop: 05/03/21 10:04 Last Infusion: 05/03/21 10:30 Dose: Infused Documented by: Vancomycin HCl 1 gm/Vancomycin HCl 250 mg/ Sodium Chloride 250 mls @ 166.667 mls/hr IV ONETIME ONE Stop: 05/03/21 11:59 Last Admin: 05/03/21 10:24 Dose: 166.667 mls/hr Documented by: Potassium Phosphate 30 mmole/ (Sodium Chloride) 510 mls @ 102 mls/hr IV ONETIME ONE Stop: 05/03/21 18:59 Last Admin: 05/03/21 16:09 Dose: 102 mls/hr Documented by: Sodium Phosphate 30 mmole/ (Sodium Chloride) 260 mls @ 130 mls/hr IV ONETIME ONE Stop: 05/03/21 13:44 Last Admin: 05/03/21 12:51 Dose: 130 mls/hr Documented by: Magnesium Sulfate 2 gm/ Premix 50 mls @ 25 mls/hr IV ONETIME ONE Stop: 05/03/21 13:29 Last Admin: 05/03/21 12:50 Dose: 25 mls/hr Documented by: Sodium Chloride (Normal Saline) 500 mls @ 100 mls/hr IV ONETIME ONE Stop: 05/03/21 17:29 Last Admin: 05/03/21 15:50 Dose: 100 mls/hr Documented by: Ketorolac Tromethamine (Ketorolac 30 Mg/Ml Sdv) 30 mg IVPUSH ONETIME ONE Stop: 05/01/21 20:30 Last Admin: 05/01/21 22:44 Dose: 30 mg Documented by: Lorazepam (Lorazepam 2 Mg/Ml Sdv) 1 mg IVPUSH ONETIME ONE Stop: 05/01/21 16:58 Last Admin: 05/01/21 17:23 Dose: 1 mg Documented by: Ondansetron HCl (Ondansetron 4 Mg/2 Ml Sdv) 4 mg IVPUSH ONETIME ONE Stop: 05/01/21 16:58 Last Admin: 05/01/21 17:23 Dose: 4 mg Documented by: - Exam Central Line Total Time: 2Days 10Hours General: Alert, Lethargic HEENT: Pupils Equal, Mucous Membr. Moist/[place] Lungs: Normal Respiratory Effort, Rales (Bibasilar) Cardiovascular: Regular Rate, Regular Rhythm GI/Abdominal Exam: Normal Bowel Sounds, Soft, Non-Tender, No Distention Extremities: Normal Inspection, Normal Range of Motion, No Pedal Edema - Patient Data Lab Results Last 24 hrs: Laboratory Results - last 24 hr 05/03/21 05/03/21 05/03/21 Range/Units 06:10 06:40 06:40 WBC (3.98-10.04) K/mm3 RBC (3.98-5.22) M/mm3 Hgb (11.2-15.7) gm/dl Hct (34.1-44.9) % MCV (79.4-94.8) fl MCH (25.6-32.2) pg MCHC (32.2-35.5) g/dl RDW Std Deviation (36.4-46.3) fL Plt Count (182-369) K/mm3 MPV (9.4-12.3) fl Neut % (Auto) (34.0-71.1) % Lymph % (Auto) (19.3-51.7) % [place] % (Auto) (4.7-12.5) % Eos % (Auto) (0.7-5.8) Baso % (Auto) (0.1-1.2) % Neut # (Auto) (1.56-6.13) K/mm3 Lymph # (Auto) (1.18-3.74) K/mm3 [place] # (Auto) (0.24-0.36) K/mm3 Eos # (Auto) (0.04-0.36) K/mm3 Baso # (Auto) (0.01-0.08) K/mm3 Manual Slide Review Abnormal smear PT (9.7-12.0) SECONDS INR APTT (21.7-31.4) SECONDS Sodium 135 L (136-145) mEq/L Potassium 3.6 (3.5-5.1) mEq/L Chloride 103 (98-107) mEq/L Carbon Dioxide 20 L (21-32) mEq/L Anion Gap 15.6 H (5-15) BUN 8 (7-18) mg/dL Creatinine 0.6 (0.55-1.02) mg/dL Est Cr Clr Drug Dosing 71.48 mL/min Estimated GFR (MDRD) > 60 (>60) mL/min BUN/Creatinine Ratio 13.3 L (14-18) Glucose 233 H (70-99) mg/dL POC Glucose (70-99) mg/dL Calcium 7.2 L (8.5-10.1) mg/dL Phosphorus (2.6-4.7) mg/dL Magnesium (1.8-2.4) mg/dL Total Bilirubin 0.8 (0.2-1.0) mg/dL AST 142 H (15-37) U/L ALT 138 H (14-59) U/L Alkaline Phosphatase 291 H (46-116) U/L Total Protein 4.7 L (6.4-8.2) g/dl Albumin 1.9 L (3.4-5.0) g/dl Globulin 2.8 gm/dL Albumin/Globulin Ratio 0.7 L (1-2) Procalcitonin ng/mL Blood Type B POSITIVE Gel Antibody Screen Negative Crossmatch See Detail 05/03/21 05/03/21 05/03/21 Range/Units 06:40 06:40 10:15 WBC (3.98-10.04) K/mm3 RBC (3.98-5.22) M/mm3 Hgb (11.2-15.7) gm/dl Hct (34.1-44.9) % MCV (79.4-94.8) fl MCH (25.6-32.2) pg MCHC (32.2-35.5) g/dl RDW Std Deviation (36.4-46.3) fL Plt Count (182-369) K/mm3 MPV (9.4-12.3) fl Neut % (Auto) (34.0-71.1) % Lymph % (Auto) (19.3-51.7) % [place] % (Auto) (4.7-12.5) % Eos % (Auto) (0.7-5.8) Baso % (Auto) (0.1-1.2) % Neut # (Auto) (1.56-6.13) K/mm3 Lymph # (Auto) (1.18-3.74) K/mm3 [place] # (Auto) (0.24-0.36) K/mm3 Eos # (Auto) (0.04-0.36) K/mm3 Baso # (Auto) (0.01-0.08) K/mm3 Manual Slide Review PT 10.8 (9.7-12.0) SECONDS INR 0.97 APTT 23.3 (21.7-31.4) SECONDS Sodium (136-145) mEq/L Potassium (3.5-5.1) mEq/L Chloride (98-107) mEq/L Carbon Dioxide (21-32) mEq/L Anion Gap (5-15) BUN (7-18) mg/dL Creatinine (0.55-1.02) mg/dL Est Cr Clr Drug Dosing mL/min Estimated GFR (MDRD) (>60) mL/min BUN/Creatinine Ratio (14-18) Glucose (70-99) mg/dL POC Glucose (70-99) mg/dL Calcium (8.5-10.1) mg/dL Phosphorus 0.9 L (2.6-4.7) mg/dL Magnesium 1.6 L (1.8-2.4) mg/dL Total Bilirubin (0.2-1.0) mg/dL AST (15-37) U/L ALT (14-59) U/L Alkaline Phosphatase (46-116) U/L Total Protein (6.4-8.2) g/dl Albumin (3.4-5.0) g/dl Globulin gm/dL Albumin/Globulin Ratio (1-2) Procalcitonin 9.35 H ng/mL Blood Type Gel Antibody Screen Crossmatch 05/03/21 05/03/21 05/03/21 Range/Units 16:29 21:01 21:01 WBC 0.95 L* (3.98-10.04) K/mm3 RBC 2.73 L (3.98-5.22) M/mm3 Hgb 8.7 L D (11.2-15.7) gm/dl Hct 26.5 L (34.1-44.9) % MCV 97.1 H (79.4-94.8) fl MCH 31.9 (25.6-32.2) pg MCHC 32.8 (32.2-35.5) g/dl RDW Std Deviation 52.5 H (36.4-46.3) fL Plt Count 71 L (182-369) K/mm3 MPV 9.9 (9.4-12.3) fl Neut % (Auto) 66.3 (34.0-71.1) % Lymph % (Auto) 4.2 L (19.3-51.7) % [place] % (Auto) 2.1 L (4.7-12.5) % Eos % (Auto) 0 L (0.7-5.8) Baso % (Auto) 0.0 L (0.1-1.2) % Neut # (Auto) 0.63 L (1.56-6.13) K/mm3 Lymph # (Auto) 0.04 L (1.18-3.74) K/mm3 [place] # (Auto) 0.02 L (0.24-0.36) K/mm3 Eos # (Auto) 0.00 L (0.04-0.36) K/mm3 Baso # (Auto) 0.00 L (0.01-0.08) K/mm3 Manual Slide Review Abnormal smear PT (9.7-12.0) SECONDS INR APTT (21.7-31.4) SECONDS Sodium (136-145) mEq/L Potassium (3.5-5.1) mEq/L Chloride (98-107) mEq/L Carbon Dioxide (21-32) mEq/L Anion Gap (5-15) BUN (7-18) mg/dL Creatinine (0.55-1.02) mg/dL Est Cr Clr Drug Dosing mL/min Estimated GFR (MDRD) (>60) mL/min BUN/Creatinine Ratio (14-18) Glucose (70-99) mg/dL POC Glucose 335 H 286 H (70-99) mg/dL Calcium (8.5-10.1) mg/dL Phosphorus (2.6-4.7) mg/dL Magnesium (1.8-2.4) mg/dL Total Bilirubin (0.2-1.0) mg/dL AST (15-37) U/L ALT (14-59) U/L Alkaline Phosphatase (46-116) U/L Total Protein (6.4-8.2) g/dl Albumin (3.4-5.0) g/dl Globulin gm/dL Albumin/Globulin Ratio (1-2) Procalcitonin ng/mL Blood Type Gel Antibody Screen Crossmatch 05/03/21 05/04/21 Range/Units 21:01 06:08 WBC (3.98-10.04) K/mm3 RBC (3.98-5.22) M/mm3 Hgb (11.2-15.7) gm/dl Hct (34.1-44.9) % MCV (79.4-94.8) fl MCH (25.6-32.2) pg MCHC (32.2-35.5) g/dl RDW Std Deviation (36.4-46.3) fL Plt Count (182-369) K/mm3 MPV (9.4-12.3) fl Neut % (Auto) (34.0-71.1) % Lymph % (Auto) (19.3-51.7) % [place] % (Auto) (4.7-12.5) % Eos % (Auto) (0.7-5.8) Baso % (Auto) (0.1-1.2) % Neut # (Auto) (1.56-6.13) K/mm3 Lymph # (Auto) (1.18-3.74) K/mm3 [place] # (Auto) (0.24-0.36) K/mm3 Eos # (Auto) (0.04-0.36) K/mm3 Baso # (Auto) (0.01-0.08) K/mm3 Manual Slide Review PT (9.7-12.0) SECONDS INR APTT (21.7-31.4) SECONDS Sodium (136-145) mEq/L Potassium (3.5-5.1) mEq/L Chloride (98-107) mEq/L Carbon Dioxide (21-32) mEq/L Anion Gap (5-15) BUN (7-18) mg/dL Creatinine (0.55-1.02) mg/dL Est Cr Clr Drug Dosing mL/min Estimated GFR (MDRD) (>60) mL/min BUN/Creatinine Ratio (14-18) Glucose (70-99) mg/dL POC Glucose 286 H 222 H (70-99) mg/dL Calcium (8.5-10.1) mg/dL Phosphorus (2.6-4.7) mg/dL Magnesium (1.8-2.4) mg/dL Total Bilirubin (0.2-1.0) mg/dL AST (15-37) U/L ALT (14-59) U/L Alkaline Phosphatase (46-116) U/L Total Protein (6.4-8.2) g/dl Albumin (3.4-5.0) g/dl Globulin gm/dL Albumin/Globulin Ratio (1-2) Procalcitonin ng/mL Blood Type Gel Antibody Screen Crossmatch Result Diagrams: 05/04/21 07:10 05/04/21 07:10 Jairo Results Last 24 hrs: Microbiology 05/02/21 13:53 Blood Culture - Preliminary Blood - Venous - Lab Draw 05/02/21 13:48 Blood Culture - Preliminary Blood - Venous - Lab Draw Sepsis Event Note - Evaluation Sepsis Screening Result: Severe Sepsis Risk - Focused Exam Vital Signs: Vital Signs Temp Temp Pulse Resp BP Pulse Ox 05/04/21 04:00 99.9 F 79 24 H 121/69 99 05/04/21 03:52 99.9 F 05/04/21 00:00 97.5 F 98 24 H 108/72 99 05/03/21 20:00 99 F 88 24 H 104/64 94 L - Problem List & Annotations (1) Neutropenic fever SNOMED Code(s): 310281804 Code(s): D70.9 - NEUTROPENIA, UNSPECIFIED; R50.81 - FEVER PRESENTING WITH CONDITIONS CLASSIFIED ELSEWHERE Status: Acute Current Visit: Yes (2) Breast cancer SNOMED Code(s): 388388900 Code(s): C50.919 - MALIGNANT NEOPLASM OF UNSP SITE OF UNSPECIFIED FEMALE BREAST Status: Acute Current Visit: Yes (3) Chemotherapy induced neutropenia SNOMED Code(s): 259911007 Code(s): D70.1 - AGRANULOCYTOSIS SECONDARY TO CANCER CHEMOTHERAPY; T45.1X5A - ADVERSE EFFECT OF ANTINEOPLASTIC AND IMMUNOSUP DRUGS, INIT Status: Acute Current Visit: Yes (4) Generalized weakness SNOMED Code(s): 02590462 Code(s): R53.1 - WEAKNESS Status: Acute Current Visit: Yes - Problem List Review Problem List Initiated/Reviewed/Updated: Yes - My Orders Last 24 Hours: My Active Orders 05/03/21 09:00 Tbo-Filgrastim [Granix] 320 mcg SUBCUT DAILY 05/03/21 09:25 Transfuse PRBC [Transfuse Red Blood Cells] [COMM] Stat 05/03/21 09:45 Pharmacy to Dose - Vancomycin 0 dose .XX ASDIRECTED PRN 05/03/21 10:30 Sodium Chloride 0.9% [Normal Saline] 1,000 ml IV ASDIRECTED 05/03/21 11:42 Admission Status [Patient Status] [ADT] Routine 05/03/21 13:33 Blood Glucose Check, Bedside [RC] WITHMEALSANDBED 05/03/21 17:00 Insulin Lispro [HumaLOG] See Protocol SUBCUT QIDACANDBED 05/03/21 22:30 Vancomycin [Vancocin] 1 gm Sodium Chloride 0.9% [Normal Saline (AdvBag)] 250 ml IV Q12H 05/04/21 06:22 CBC WITH AUTO DIFF [HEME] Routine COMPREHENSIVE METABOLIC PN,CMP [CHEM] Routine MAGNESIUM [CHEM] Routine PHOSPHORUS [CHEM] Routine 05/04/21 06:23 PROCALCITONIN [REF] Routine 05/05/21 09:30 VANCOMYCIN TROUGH [CHEM] Timed - Plan Plan:: 65-year-old female with history of metastatic breast cancer on chemotherapy presented with generalized weakness, failure to thrive and neutropenia Neutropenic fever Afebrile last 18 hours. Blood pressure improving White count increasing blood cultures and a UA emprically started pt on Cefepime. Add vancomycin Normal saline 500 mL bolus. 1 unit packed red blood cells Generalized weakness Admit pt to the medical floor under observation status. Patient will need PT and OT as well as nutritional support Hypomagnesemia Currently 1.8 Hypokalemia Resolved and currently 4.2 Neutropenia Anemia Thrombocytopenia Last chemotherapy Sunday, April 29 ANC up to 960 Continue Granix/filgrastim Transfused 1 unit packed red blood cells Hemoglobin up to 9.4 Follow CBC Metastatic breast cancer Spoke with Mckayla Barrett NP who recommended filgrastim. She is 6 days post chemotherapy Diabetes mellitus We will hold home medications for now since patient is not really eating much. Fingerstick blood sugar 4 times daily with sliding scale insulin low-dose Past medical history of hypertension Hold BP meds due to borderline low blood pressures Severe protein calorie malnutrition Hypophosphatemia Phosphorus 1.2 Will replace Started on Megace Dehydration Resolved Full code DVT prophylaxis. Lovenox stopped because of thrombocytopenia. SCDs
[2021-05-04] MEDS: Calcium Carbonate/Vitamin D3 600 MG-200 Units Tab PO SCH ×3 (09:09→21:29)
[2021-05-04] MEDS: Loratadine 10 MG Tab PO SCH (09:10)
[2021-05-04] MEDS: Dexamethasone 4 MG Tab PO SCH (09:10)
[2021-05-04] MEDS: Aspirin 81 MG Tab.EC PO SCH (09:12)
[2021-05-04] MEDS: Bisacodyl 5 MG Tab PO SCH (09:12)
[2021-05-04] MEDS: Famotidine 10 MG Tab PO SCH (09:13)
[2021-05-04] MEDS: Gabapentin 100 MG Cap PO SCH ×2 (09:14→21:28)
[2021-05-04] MEDS: Potassium Chloride 10 MEQ Tab.ER PO SCH ×3 (09:14→21:30)
[2021-05-04] MEDS: Megestrol Susp 40 MG/ML 10 ML UD Cup PO SCH (09:15)
[2021-05-04] MEDS ORDERED: Sodium Phosphate 30 MMOLE in Sodium Chloride 0.9% 250 ML IV ONE ×2 (10:00→14:00)
[2021-05-04] MEDS ORDERED: Sodium Chloride 0.9% 1,000 ML IV SCH (14:30)
[2021-05-04] MEDS: Morphine 15 MG Tab.ER PO SCH (21:29)
[2021-05-04] MEDS: traZODone 50 MG Tab PO SCH (21:30)
[2021-05-05] MEDS: LORazepam 0.5 MG Tab PO SCH ×4 (02:21→19:11)
[2021-05-05] MEDS: Cefepime 2 GM in Premix Bag 1 BAG IV SCH ×3 (06:18→21:18)
[2021-05-05] MEDS: Pantoprazole 40 MG Tab.CR PO SCH (06:20)
[2021-05-05] MEDS: Insulin Lispro 100 UNIT/ML 10 ML Vial SUBCUT SCH ×4 (07:42→21:55)
[2021-05-05] MEDS: Bisacodyl 5 MG Tab PO SCH (09:21)
[2021-05-05] MEDS: Aspirin 81 MG Tab.EC PO SCH (09:21)
[2021-05-05] MEDS: Megestrol Susp 40 MG/ML 10 ML UD Cup PO SCH (09:21)
[2021-05-05] MEDS: Loratadine 10 MG Tab PO SCH (09:21)
[2021-05-05] MEDS: Dexamethasone 4 MG Tab PO SCH (09:21)
[2021-05-05] MEDS: Potassium Chloride 10 MEQ Tab.ER PO SCH ×3 (09:21→21:00)
[2021-05-05] MEDS: Calcium Carbonate/Vitamin D3 600 MG-200 Units Tab PO SCH ×3 (09:21→21:00)
[2021-05-05] MEDS: Famotidine 10 MG Tab PO SCH (09:22)
[2021-05-05] MEDS: Gabapentin 100 MG Cap PO SCH ×2 (09:22→21:00)
[2021-05-05] MEDS ORDERED: Vancomycin 500 MG SDV ONE (11:17)
[2021-05-05] MEDS ORDERED: Magnesium Sulfate/Water 2 GM in Premix Bag 1 BAG IV ONE (11:30)
[2021-05-05] MEDS: Vancomycin 1 GM, Vancomycin 250 MG in Sodium Chloride 0.9% 250 ML IV SCH ×2 (11:41→21:57)
--- NOTE | 2021-05-05 12:12 | PCM.PN ---
- General Info Date of Service: 05/05/21 Admission Dx/Problem (Free Text): Admission Diagnosis/Problem Admission Diagnosis/Problem Generalized weakness Subjective Update: Maliha is starting to feel stronger today. Blood parameters are also improving. Appetite is still poor but improving. Functional Status: Reports: Pain Controlled - Review of Systems General: Reports: Fatigue. Denies: Fever, Chills HEENT: Reports: No Symptoms Pulmonary: Denies: Shortness of Breath, Cough Cardiovascular: Reports: No Symptoms - Patient Data Vitals - Most Recent: Last Vital Signs Temp 98.4 F 05/05/21 10:41 Pulse 103 H 05/05/21 10:41 Resp 26 H 05/05/21 10:41 BP 95/63 05/05/21 10:41 Pulse Ox 93 L 05/05/21 10:41 Weight - Most Recent: 145 lb 6.4 oz I&O - Last 24 Hours: Intake & Output 05/04/21 05/05/21 05/05/21 22:59 06:59 14:59 Intake Total 1740 2512 Output Total 500 2412 Balance 1240 100 Lab Results Last 24 Hours: Laboratory Results - last 24 hr 05/04/21 05/04/21 05/04/21 Range/Units 07:10 17:28 21:36 WBC (3.98-10.04) K/mm3 RBC (3.98-5.22) M/mm3 Hgb (11.2-15.7) gm/dl Hct (34.1-44.9) % MCV (79.4-94.8) fl MCH (25.6-32.2) pg MCHC (32.2-35.5) g/dl RDW Std Deviation (36.4-46.3) fL Plt Count (182-369) K/mm3 MPV (9.4-12.3) fl Neut % (Auto) (34.0-71.1) % Lymph % (Auto) (19.3-51.7) % Morrill % (Auto) (4.7-12.5) % Eos % (Auto) (0.7-5.8) Baso % (Auto) (0.1-1.2) % Neut # (Auto) (1.56-6.13) K/mm3 Lymph # (Auto) (1.18-3.74) K/mm3 Morrill # (Auto) (0.24-0.36) K/mm3 Eos # (Auto) (0.04-0.36) K/mm3 Baso # (Auto) (0.01-0.08) K/mm3 Manual Slide Review Sodium (136-145) mEq/L Potassium (3.5-5.1) mEq/L Chloride (98-107) mEq/L Carbon Dioxide (21-32) mEq/L Anion Gap (5-15) BUN (7-18) mg/dL Creatinine (0.55-1.02) mg/dL Est Cr Clr Drug Dosing mL/min Estimated GFR (MDRD) (>60) mL/min BUN/Creatinine Ratio (14-18) Glucose (70-99) mg/dL POC Glucose 207 H 257 H (70-99) mg/dL Calcium (8.5-10.1) mg/dL Phosphorus (2.6-4.7) mg/dL Magnesium (1.8-2.4) mg/dL Total Bilirubin (0.2-1.0) mg/dL AST (15-37) U/L ALT (14-59) U/L Alkaline Phosphatase (46-116) U/L Total Protein (6.4-8.2) g/dl Albumin (3.4-5.0) g/dl Globulin gm/dL Albumin/Globulin Ratio (1-2) Procalcitonin 5.58 H ng/mL Vancomycin Trough (10.0-20.0) 05/05/21 05/05/21 05/05/21 Range/Units 05:51 06:28 06:28 WBC 2.41 L* (3.98-10.04) K/mm3 RBC 2.82 L (3.98-5.22) M/mm3 Hgb 9.0 L (11.2-15.7) gm/dl Hct 27.5 L (34.1-44.9) % MCV 97.5 H (79.4-94.8) fl MCH 31.9 (25.6-32.2) pg MCHC 32.7 (32.2-35.5) g/dl RDW Std Deviation 54.0 H (36.4-46.3) fL Plt Count 52 L (182-369) K/mm3 MPV 9.9 (9.4-12.3) fl Neut % (Auto) 62.3 (34.0-71.1) % Lymph % (Auto) 10.4 L (19.3-51.7) % Morrill % (Auto) 5.8 (4.7-12.5) % Eos % (Auto) 0.4 L (0.7-5.8) Baso % (Auto) 0.8 (0.1-1.2) % Neut # (Auto) 1.50 L (1.56-6.13) K/mm3 Lymph # (Auto) 0.25 L (1.18-3.74) K/mm3 Morrill # (Auto) 0.14 L (0.24-0.36) K/mm3 Eos # (Auto) 0.01 L (0.04-0.36) K/mm3 Baso # (Auto) 0.02 (0.01-0.08) K/mm3 Manual Slide Review Abnormal smear Sodium 137 (136-145) mEq/L Potassium 4.0 (3.5-5.1) mEq/L Chloride 107 (98-107) mEq/L Carbon Dioxide 22 (21-32) mEq/L Anion Gap 12.0 (5-15) BUN 4 L (7-18) mg/dL Creatinine 0.4 L (0.55-1.02) mg/dL Est Cr Clr Drug Dosing 107.22 mL/min Estimated GFR (MDRD) > 60 (>60) mL/min BUN/Creatinine Ratio 10.0 L (14-18) Glucose 142 H (70-99) mg/dL POC Glucose 139 H (70-99) mg/dL Calcium 7.0 L (8.5-10.1) mg/dL Phosphorus 1.8 L (2.6-4.7) mg/dL Magnesium 1.7 L (1.8-2.4) mg/dL Total Bilirubin 1.0 (0.2-1.0) mg/dL AST 512 H (15-37) U/L ALT 477 H (14-59) U/L Alkaline Phosphatase 357 H (46-116) U/L Total Protein 4.6 L (6.4-8.2) g/dl Albumin 1.8 L (3.4-5.0) g/dl Globulin 2.8 gm/dL Albumin/Globulin Ratio 0.6 L (1-2) Procalcitonin ng/mL Vancomycin Trough (10.0-20.0) 05/05/21 Range/Units 09:26 WBC (3.98-10.04) K/mm3 RBC (3.98-5.22) M/mm3 Hgb (11.2-15.7) gm/dl Hct (34.1-44.9) % MCV (79.4-94.8) fl MCH (25.6-32.2) pg MCHC (32.2-35.5) g/dl RDW Std Deviation (36.4-46.3) fL Plt Count (182-369) K/mm3 MPV (9.4-12.3) fl Neut % (Auto) (34.0-71.1) % Lymph % (Auto) (19.3-51.7) % Morrill % (Auto) (4.7-12.5) % Eos % (Auto) (0.7-5.8) Baso % (Auto) (0.1-1.2) % Neut # (Auto) (1.56-6.13) K/mm3 Lymph # (Auto) (1.18-3.74) K/mm3 Morrill # (Auto) (0.24-0.36) K/mm3 Eos # (Auto) (0.04-0.36) K/mm3 Baso # (Auto) (0.01-0.08) K/mm3 Manual Slide Review Sodium (136-145) mEq/L Potassium (3.5-5.1) mEq/L Chloride (98-107) mEq/L Carbon Dioxide (21-32) mEq/L Anion Gap (5-15) BUN (7-18) mg/dL Creatinine (0.55-1.02) mg/dL Est Cr Clr Drug Dosing mL/min Estimated GFR (MDRD) (>60) mL/min BUN/Creatinine Ratio (14-18) Glucose (70-99) mg/dL POC Glucose (70-99) mg/dL Calcium (8.5-10.1) mg/dL Phosphorus (2.6-4.7) mg/dL Magnesium (1.8-2.4) mg/dL Total Bilirubin (0.2-1.0) mg/dL AST (15-37) U/L ALT (14-59) U/L Alkaline Phosphatase (46-116) U/L Total Protein (6.4-8.2) g/dl Albumin (3.4-5.0) g/dl Globulin gm/dL Albumin/Globulin Ratio (1-2) Procalcitonin ng/mL Vancomycin Trough 9.3 L (10.0-20.0) Med Orders - Current: Current Medications Acetaminophen (Acetaminophen 325 Mg Tab) 650 mg PO Q4H PRN PRN Reason: Pain (Mild 1-3)/fever Last Admin: 05/04/21 03:52 Dose: 650 mg Documented by: Hydrocodone Bitart/Acetaminophen (Acetaminophen/Hydrocodone 325-5 Mg Tab) 1 tab PO Q4H PRN PRN Reason: Pain (moderate 4-6) Last Admin: 05/02/21 13:50 Dose: 1 tab Documented by: Aspirin (Aspirin 81 Mg Tab.Ec) 81 mg PO DAILY [facility] Last Admin: 05/05/21 09:21 Dose: 81 mg Documented by: Bisacodyl (Bisacodyl 5 Mg Tab) 5 mg PO DAILY [facility] Last Admin: 05/05/21 09:21 Dose: 5 mg Documented by: Calcium Carbonate (Calcium Carbonate/Vitamin D3 600 Mg-200 Units Tab) 1 tab PO TID [facility] Last Admin: 05/05/21 09:21 Dose: 1 tab Documented by: Calcium Carbonate/Glycine (Calcium Carbonate 500 Mg Tab.Chew) 1,000 mg PO Q2HR PRN PRN Reason: Indigestion Dexamethasone (Dexamethasone 4 Mg Tab) 2 mg PO DAILY [facility] Last Admin: 05/05/21 09:21 Dose: 2 mg Documented by: Docusate Sodium (Docusate Sodium 100 Mg Cap) 100 mg PO DAILY PRN PRN Reason: Constipation Famotidine (Famotidine 10 Mg Tab) 10 mg PO DAILY [facility] Last Admin: 05/05/21 09:22 Dose: 10 mg Documented by: Gabapentin (Gabapentin 100 Mg Cap) 200 mg PO BID [facility] Last Admin: 05/05/21 09:22 Dose: 200 mg Documented by: Promethazine HCl 6.25 mg/ (Sodium Chloride) 50.25 mls @ 100 mls/hr IV Q6H PRN PRN Reason: Nausea/Vomiting Cefepime HCl 2 gm/ Premix 50 mls @ 100 mls/hr IV Q8H [facility] Last Admin: 05/05/21 06:18 Dose: 100 mls/hr Documented by: Sodium Chloride (Normal Saline) 1,000 mls @ 15 mls/hr IV ASDIRECTED [facility] Last Admin: 05/04/21 18:26 Dose: 15 mls/hr Documented by: Vancomycin HCl 1 gm/Vancomycin HCl 250 mg/ Sodium Chloride 250 mls @ 166.667 mls/hr IV Q12H [facility] Last Admin: 05/05/21 11:41 Dose: 166.667 mls/hr Documented by: Sodium Phosphate 30 mmole/ (Sodium Chloride) 260 mls @ 130 mls/hr IV ONETIME ONE Stop: 05/05/21 15:59 Magnesium Sulfate 2 gm/ Premix 50 mls @ 25 mls/hr IV ONETIME ONE Stop: 05/05/21 13:29 Last Admin: 05/05/21 11:41 Dose: 25 mls/hr Documented by: Insulin Human Lispro (Insulin Lispro 100 Unit/Ml 10 Ml Vial) 0 unit SUBCUT QIDACANDBED [facility]; Protocol Last Admin: 05/05/21 07:42 Dose: Not Given Documented by: Loratadine (Loratadine 10 Mg Tab) 10 mg PO DAILY [facility] Last Admin: 05/05/21 09:21 Dose: 10 mg Documented by: Lorazepam (Lorazepam 0.5 Mg Tab) 0.5 mg PO Q6H [facility] Last Admin: 05/05/21 07:40 Dose: Not Given Documented by: Megestrol Acetate (Megestrol Susp 40 Mg/Ml 10 Ml Ud Cup) 400 mg PO DAILY [facility] Last Admin: 05/05/21 09:21 Dose: 400 mg Documented by: Morphine Sulfate (Morphine 15 Mg Tab.Er) 15 mg PO BEDTIME [facility] Last Admin: 05/04/21 21:29 Dose: 15 mg Documented by: Ondansetron HCl (Ondansetron 4 Mg Tab.Dis) 4 mg PO Q4H PRN PRN Reason: nausea, able to take PO Pantoprazole Sodium (Pantoprazole 40 Mg Tab.Cr) 40 mg PO ACBREAKFAST [facility] Last Admin: 05/05/21 06:20 Dose: 40 mg Documented by: Potassium Chloride (Potassium Chloride 10 Meq Tab.Er) 10 meq PO TID [facility] Last Admin: 05/05/21 09:21 Dose: 10 meq Documented by: Prochlorperazine Maleate (Prochlorperazine 5 Mg Tab) 10 mg PO QID PRN PRN Reason: Nausea/Vomiting Tbo-Filgrastim (Tbo-Filgrastim 480 Mcg/0.8 Ml Syringe) 320 mcg SUBCUT DAILY [facility] Last Admin: 05/05/21 09:28 Dose: 320 mcg Documented by: Trazodone HCl (Trazodone 50 Mg Tab) 50 mg PO BEDTIME [facility] Last Admin: 05/04/21 21:30 Dose: 50 mg Documented by: Vancomycin HCl (Pharmacy To Dose - Vancomycin) 0 dose .XX ASDIRECTED PRN PRN Reason: RX TO DOSE VANCO Zolpidem Tartrate (Zolpidem 5 Mg Tab) 5 mg PO BEDTIME PRN PRN Reason: Sleep Discontinued Medications Calcium Carbonate/Glycine (Calcium Carbonate 600 Mg Tab) 1,200 mg PO BIDMEALS [facility] Last Admin: 05/03/21 06:09 Dose: 1,200 mg Documented by: Enoxaparin Sodium (Enoxaparin 40 Mg/0.4 Ml Syringe) 40 mg SUBCUT DAILY [facility] Last Admin: 05/02/21 01:33 Dose: Not Given Documented by: Enoxaparin Sodium (Enoxaparin 40 Mg/0.4 Ml Syringe) 40 mg SUBCUT DAILY@2200 [facility] Last Admin: 05/02/21 21:28 Dose: 40 mg Documented by: Sodium Chloride (Normal Saline) 1,000 mls @ 999 mls/hr IV ONETIME ONE Stop: 05/01/21 17:42 Last Admin: 05/01/21 16:54 Dose: 999 mls/hr Documented by: Magnesium Sulfate 2 gm/ Premix 50 mls @ 25 mls/hr IV ONETIME ONE Stop: 05/01/21 19:46 Last Admin: 05/01/21 18:08 Dose: 25 mls/hr Documented by: Sodium Chloride (Normal Saline) 1,000 mls @ 150 mls/hr IV ONETIME ONE Stop: 05/02/21 02:56 Last Admin: 05/01/21 22:45 Dose: Not Given Documented by: Dextrose/Sodium Chloride (Dextrose 5%-1/2 Ns) 1,000 mls @ 75 mls/hr IV ASDIRECTED [facility] Last Admin: 05/03/21 23:42 Dose: 75 mls/hr Documented by: Potassium Chloride 10 meq/ (Premix) 100 mls @ 100 mls/hr IV Q1H [facility] Stop: 05/02/21 12:14 Last Admin: 05/02/21 11:50 Dose: 100 mls/hr Documented by: Sodium Chloride (Normal Saline) 1,000 mls @ 999 mls/hr IV ONETIME ONE Stop: 05/02/21 14:04 Last Admin: 05/02/21 13:15 Dose: 999 mls/hr Documented by: Sodium Chloride (Normal Saline) 500 mls @ 500 mls/hr IV .BOLUS ONE Stop: 05/03/21 10:04 Last Infusion: 05/03/21 10:30 Dose: Infused Documented by: Vancomycin HCl 1 gm/Vancomycin HCl 250 mg/ Sodium Chloride 250 mls @ 166.667 mls/hr IV ONETIME ONE Stop: 05/03/21 11:59 Last Admin: 05/03/21 10:24 Dose: 166.667 mls/hr Documented by: Vancomycin HCl 1 gm/ Sodium (Chloride) 250 mls @ 250 mls/hr IV Q12H [facility] Last Admin: 05/04/21 23:01 Dose: 250 mls/hr Documented by: Potassium Phosphate 30 mmole/ (Sodium Chloride) 510 mls @ 102 mls/hr IV ONETIME ONE Stop: 05/03/21 18:59 Last Admin: 05/03/21 16:09 Dose: 102 mls/hr Documented by: Sodium Phosphate 30 mmole/ (Sodium Chloride) 260 mls @ 130 mls/hr IV ONETIME ONE Stop: 05/03/21 13:44 Last Admin: 05/03/21 12:51 Dose: 130 mls/hr Documented by: Magnesium Sulfate 2 gm/ Premix 50 mls @ 25 mls/hr IV ONETIME ONE Stop: 05/03/21 13:29 Last Admin: 05/03/21 12:50 Dose: 25 mls/hr Documented by: Sodium Chloride (Normal Saline) 500 mls @ 100 mls/hr IV ONETIME ONE Stop: 05/03/21 17:29 Last Admin: 05/03/21 15:50 Dose: 100 mls/hr Documented by: Sodium Chloride (Normal Saline) 1,000 mls @ 50 mls/hr IV ASDIRECTED [facility] Sodium Phosphate 30 mmole/ (Sodium Chloride) 260 mls @ 130 mls/hr IV ONETIME ONE Stop: 05/04/21 11:59 Last Admin: 05/04/21 11:34 Dose: 130 mls/hr Documented by: Sodium Phosphate 30 mmole/ (Sodium Chloride) 260 mls @ 130 mls/hr IV ONETIME ONE Stop: 05/04/21 15:59 Last Admin: 05/04/21 15:21 Dose: 130 mls/hr Documented by: Insulin Human Lispro (Insulin Lispro 100 Unit/Ml 10 Ml Vial) 0 unit SUBCUT QIDACANDBED [facility]; Protocol Last Admin: 05/04/21 11:53 Dose: Not Given Documented by: Ketorolac Tromethamine (Ketorolac 30 Mg/Ml Sdv) 30 mg IVPUSH ONETIME ONE Stop: 05/01/21 20:30 Last Admin: 05/01/21 22:44 Dose: 30 mg Documented by: Lorazepam (Lorazepam 2 Mg/Ml Sdv) 1 mg IVPUSH ONETIME ONE Stop: 05/01/21 16:58 Last Admin: 05/01/21 17:23 Dose: 1 mg Documented by: Ondansetron HCl (Ondansetron 4 Mg/2 Ml Sdv) 4 mg IVPUSH ONETIME ONE Stop: 05/01/21 16:58 Last Admin: 05/01/21 17:23 Dose: 4 mg Documented by: Vancomycin HCl (Vancomycin 500 Mg Sdv) Confirm Administered Dose 500 mg .ROUTE .STK-MED ONE Stop: 05/05/21 11:18 Last Admin: 05/05/21 11:43 Dose: Not Given Documented by: - Exam Quality Assessment: Supplemental Oxygen Central Line Total Time: 3Days 15Hours HEENT: Pupils Equal Neck: Supple Lungs: Crackles (Bibasilar and midlung toro). No: Normal Respiratory Effort (Increased rate with normal respiratory effort) GI/Abdominal Exam: Normal Bowel Sounds, Soft, Non-Tender, No Distention Extremities: Normal Range of Motion, No Pedal Edema, Normal Capillary Refill, Pedal Edema (1+) Skin: Warm, Dry, Intact Psy/Mental Status: Alert, Normal Affect, Normal Mood - Patient Data Lab Results Last 24 hrs: Laboratory Results - last 24 hr 05/04/21 05/04/21 05/04/21 Range/Units 07:10 17:28 21:36 WBC (3.98-10.04) K/mm3 RBC (3.98-5.22) M/mm3 Hgb (11.2-15.7) gm/dl Hct (34.1-44.9) % MCV (79.4-94.8) fl MCH (25.6-32.2) pg MCHC (32.2-35.5) g/dl RDW Std Deviation (36.4-46.3) fL Plt Count (182-369) K/mm3 MPV (9.4-12.3) fl Neut % (Auto) (34.0-71.1) % Lymph % (Auto) (19.3-51.7) % Morrill % (Auto) (4.7-12.5) % Eos % (Auto) (0.7-5.8) Baso % (Auto) (0.1-1.2) % Neut # (Auto) (1.56-6.13) K/mm3 Lymph # (Auto) (1.18-3.74) K/mm3 Morrill # (Auto) (0.24-0.36) K/mm3 Eos # (Auto) (0.04-0.36) K/mm3 Baso # (Auto) (0.01-0.08) K/mm3 Manual Slide Review Sodium (136-145) mEq/L Potassium (3.5-5.1) mEq/L Chloride (98-107) mEq/L Carbon Dioxide (21-32) mEq/L Anion Gap (5-15) BUN (7-18) mg/dL Creatinine (0.55-1.02) mg/dL Est Cr Clr Drug Dosing mL/min Estimated GFR (MDRD) (>60) mL/min BUN/Creatinine Ratio (14-18) Glucose (70-99) mg/dL POC Glucose 207 H 257 H (70-99) mg/dL Calcium (8.5-10.1) mg/dL Phosphorus (2.6-4.7) mg/dL Magnesium (1.8-2.4) mg/dL Total Bilirubin (0.2-1.0) mg/dL AST (15-37) U/L ALT (14-59) U/L Alkaline Phosphatase (46-116) U/L Total Protein (6.4-8.2) g/dl Albumin (3.4-5.0) g/dl Globulin gm/dL Albumin/Globulin Ratio (1-2) Procalcitonin 5.58 H ng/mL Vancomycin Trough (10.0-20.0) 05/05/21 05/05/21 05/05/21 Range/Units 05:51 06:28 06:28 WBC 2.41 L* (3.98-10.04) K/mm3 RBC 2.82 L (3.98-5.22) M/mm3 Hgb 9.0 L (11.2-15.7) gm/dl Hct 27.5 L (34.1-44.9) % MCV 97.5 H (79.4-94.8) fl MCH 31.9 (25.6-32.2) pg MCHC 32.7 (32.2-35.5) g/dl RDW Std Deviation 54.0 H (36.4-46.3) fL Plt Count 52 L (182-369) K/mm3 MPV 9.9 (9.4-12.3) fl Neut % (Auto) 62.3 (34.0-71.1) % Lymph % (Auto) 10.4 L (19.3-51.7) % Morrill % (Auto) 5.8 (4.7-12.5) % Eos % (Auto) 0.4 L (0.7-5.8) Baso % (Auto) 0.8 (0.1-1.2) % Neut # (Auto) 1.50 L (1.56-6.13) K/mm3 Lymph # (Auto) 0.25 L (1.18-3.74) K/mm3 Morrill # (Auto) 0.14 L (0.24-0.36) K/mm3 Eos # (Auto) 0.01 L (0.04-0.36) K/mm3 Baso # (Auto) 0.02 (0.01-0.08) K/mm3 Manual Slide Review Abnormal smear Sodium 137 (136-145) mEq/L Potassium 4.0 (3.5-5.1) mEq/L Chloride 107 (98-107) mEq/L Carbon Dioxide 22 (21-32) mEq/L Anion Gap 12.0 (5-15) BUN 4 L (7-18) mg/dL Creatinine 0.4 L (0.55-1.02) mg/dL Est Cr Clr Drug Dosing 107.22 mL/min Estimated GFR (MDRD) > 60 (>60) mL/min BUN/Creatinine Ratio 10.0 L (14-18) Glucose 142 H (70-99) mg/dL POC Glucose 139 H (70-99) mg/dL Calcium 7.0 L (8.5-10.1) mg/dL Phosphorus 1.8 L (2.6-4.7) mg/dL Magnesium 1.7 L (1.8-2.4) mg/dL Total Bilirubin 1.0 (0.2-1.0) mg/dL AST 512 H (15-37) U/L ALT 477 H (14-59) U/L Alkaline Phosphatase 357 H (46-116) U/L Total Protein 4.6 L (6.4-8.2) g/dl Albumin 1.8 L (3.4-5.0) g/dl Globulin 2.8 gm/dL Albumin/Globulin Ratio 0.6 L (1-2) Procalcitonin ng/mL Vancomycin Trough (10.0-20.0) 05/05/21 Range/Units 09:26 WBC (3.98-10.04) K/mm3 RBC (3.98-5.22) M/mm3 Hgb (11.2-15.7) gm/dl Hct (34.1-44.9) % MCV (79.4-94.8) fl MCH (25.6-32.2) pg MCHC (32.2-35.5) g/dl RDW Std Deviation (36.4-46.3) fL Plt Count (182-369) K/mm3 MPV (9.4-12.3) fl Neut % (Auto) (34.0-71.1) % Lymph % (Auto) (19.3-51.7) % Morrill % (Auto) (4.7-12.5) % Eos % (Auto) (0.7-5.8) Baso % (Auto) (0.1-1.2) % Neut # (Auto) (1.56-6.13) K/mm3 Lymph # (Auto) (1.18-3.74) K/mm3 Morrill # (Auto) (0.24-0.36) K/mm3 Eos # (Auto) (0.04-0.36) K/mm3 Baso # (Auto) (0.01-0.08) K/mm3 Manual Slide Review Sodium (136-145) mEq/L Potassium (3.5-5.1) mEq/L Chloride (98-107) mEq/L Carbon Dioxide (21-32) mEq/L Anion Gap (5-15) BUN (7-18) mg/dL Creatinine (0.55-1.02) mg/dL Est Cr Clr Drug Dosing mL/min Estimated GFR (MDRD) (>60) mL/min BUN/Creatinine Ratio (14-18) Glucose (70-99) mg/dL POC Glucose (70-99) mg/dL Calcium (8.5-10.1) mg/dL Phosphorus (2.6-4.7) mg/dL Magnesium (1.8-2.4) mg/dL Total Bilirubin (0.2-1.0) mg/dL AST (15-37) U/L ALT (14-59) U/L Alkaline Phosphatase (46-116) U/L Total Protein (6.4-8.2) g/dl Albumin (3.4-5.0) g/dl Globulin gm/dL Albumin/Globulin Ratio (1-2) Procalcitonin ng/mL Vancomycin Trough 9.3 L (10.0-20.0) Result Diagrams: 05/05/21 06:28 05/05/21 06:28 Sepsis Event Note - Evaluation Sepsis Screening Result: Severe Sepsis Risk - Focused Exam Vital Signs: Vital Signs Temp Pulse Resp BP Pulse Ox 05/05/21 10:41 98.4 F 103 H 26 H 95/63 93 L 05/05/21 09:48 109 H 93 L 05/05/21 04:39 97.7 F 88 26 H 106/75 97 - Problem List & Annotations (1) Neutropenic fever SNOMED Code(s): 870920245 Code(s): D70.9 - NEUTROPENIA, UNSPECIFIED; R50.81 - FEVER PRESENTING WITH CON DITIONS CLASSIFIED ELSEWHERE Status: Acute Current Visit: Yes (2) Breast cancer SNOMED Code(s): 872095173 Code(s): C50.919 - MALIGNANT NEOPLASM OF UNSP SITE OF UNSPECIFIED FEMALE BREAST Status: Acute Current Visit: Yes (3) Chemotherapy induced neutropenia SNOMED Code(s): 690911567 Code(s): D70.1 - AGRANULOCYTOSIS SECONDARY TO CANCER CHEMOTHERAPY; T45.1X5A - ADVERSE EFFECT OF ANTINEOPLASTIC AND IMMUNOSUP DRUGS, INIT Status: Acute Current Visit: Yes (4) Generalized weakness SNOMED Code(s): 44468470 Code(s): R53.1 - WEAKNESS Status: Acute Current Visit: Yes - Problem List Review Problem List Initiated/Reviewed/Updated: Yes - My Orders Last 24 Hours: My Active Orders 05/04/21 11:15 Insulin Lispro [HumaLOG] See Protocol SUBCUT QIDACANDBED 05/04/21 14:29 Code Status [Resuscitation Status] Routine 05/04/21 14:30 Sodium Chloride 0.9% [Normal Saline] 1,000 ml IV ASDIRECTED 05/05/21 11:00 Vancomycin 1 gm Vancomycin 250 mg Sodium Chloride 0.9% [Normal Saline] 250 ml IV Q12H 05/05/21 11:07 Magnesium Sulfate/Water [Magnesium Sulfate in Water 2 GM/50 ML] 2 gm Premix Bag 1 bag IV ONETIME 05/05/21 12:00 Sodium Phosphate 30 mmole Sodium Chloride 0.9% [Normal Saline] 250 ml IV ONETIME - Plan Plan:: 65-year-old female with history of metastatic breast cancer on chemotherapy presented with generalized weakness, failure to thrive and neutropenia Neutropenic fever Afebrile for 48 hours. Blood pressure improving White count increasing-WBC 2.4, ANC 1500 blood cultures and a UA Cefepime, vancomycin 1 unit packed red blood cells -given on May 03 Generalized weakness Admit pt to the medical floor under observation status. Patient will need PT and OT as well as nutritional support Pancytopenia Last chemotherapy Sunday, April 29 ANC up to 1500 Granix/filgrastim -stop on May 06 Transfused 1 unit packed red blood cells Hemoglobin up to 9.0 Follow CBC Metastatic breast cancer Spoke with Mckayla Barrett NP who recommended filgrastim. She is 7 days post chemotherapy Diabetes mellitus Restart home Jardiance Continue to hold Glucophage Fingerstick blood sugar 4 times daily with sliding scale insulin low-dose Past medical history of hypertension Hold BP meds due to borderline low blood pressures Severe protein calorie malnutrition Hypophosphatemia Hypomagnesemia Magnesium 1.8 Phosphorus 1.8 Will replace Started on Megace Dehydration Resolved Full code DVT prophylaxis. Lovenox stopped because of thrombocytopenia. SCDs
[2021-05-05] MEDS ORDERED: Sodium Phosphate 30 MMOLE in Sodium Chloride 0.9% 250 ML IV ONE (14:00)
[2021-05-05] MEDS ORDERED: Sodium Chloride 0.9% 500 ML IV SCH (18:07)
[2021-05-05] MEDS: Morphine 15 MG Tab.ER PO SCH (21:00)
[2021-05-05] MEDS: Sodium Chloride 0.9% 1,000 ML IV SCH (21:17)
[2021-05-05] MEDS: traZODone 50 MG Tab PO SCH (21:55)
[2021-05-05] MEDS: Acetaminophen/HYDROcodone 325-5 MG Tab PO PRN (23:47)
[2021-05-05] MEDS: Acetaminophen 325 MG Tab PO PRN (23:49)
[2021-05-06] MEDS: LORazepam 0.5 MG Tab PO SCH ×4 (06:03→19:18)
[2021-05-06] MEDS: Vancomycin 1 GM, Vancomycin 250 MG in Sodium Chloride 0.9% 250 ML IV SCH ×3 (06:04→22:52)
[2021-05-06] MEDS: Cefepime 2 GM in Premix Bag 1 BAG IV SCH ×3 (06:05→22:11)
[2021-05-06] MEDS: Pantoprazole 40 MG Tab.CR PO SCH (06:06)
[2021-05-06] MEDS: Insulin Lispro 100 UNIT/ML 10 ML Vial SUBCUT SCH ×4 (06:53→21:17)
[2021-05-06] MEDS: Calcium Carbonate/Vitamin D3 600 MG-200 Units Tab PO SCH ×3 (08:31→21:16)
[2021-05-06] MEDS: Loratadine 10 MG Tab PO SCH (08:32)
[2021-05-06] MEDS: Dexamethasone 4 MG Tab PO SCH (08:33)
[2021-05-06] MEDS: Bisacodyl 5 MG Tab PO SCH (08:33)
[2021-05-06] MEDS: Potassium Chloride 10 MEQ Tab.ER PO SCH ×3 (08:34→21:16)
[2021-05-06] MEDS: Empagliflozin 25 MG Tab PO SCH (08:34)
[2021-05-06] MEDS: Aspirin 81 MG Tab.EC PO SCH (08:34)
[2021-05-06] MEDS: Megestrol Susp 40 MG/ML 10 ML UD Cup PO SCH (08:35)
[2021-05-06] MEDS: Gabapentin 100 MG Cap PO SCH ×2 (08:35→21:15)
[2021-05-06] MEDS: Famotidine 10 MG Tab PO SCH (08:36)
[2021-05-06] MEDS ORDERED: Sodium Phosphate 30 MMOLE in Sodium Chloride 0.9% 250 ML IV ONE (09:00)
--- NOTE | 2021-05-06 11:56 | PCM.PN ---
- General Info Date of Service: 05/06/21 Admission Dx/Problem (Free Text): Admission Diagnosis/Problem Admission Diagnosis/Problem Generalized weakness Subjective Update: Patient continues to improve. She has a little bit better appetite and better lab work. White count is now in the normal range. She did grow out gram- positive rods from her blood. Functional Status: Reports: Pain Controlled - Review of Systems General: Reports: Fatigue. Denies: Fever HEENT: Reports: No Symptoms Pulmonary: Reports: No Symptoms Cardiovascular: Reports: No Symptoms - Patient Data Vitals - Most Recent: Last Vital Signs Temp 98.2 F 05/06/21 08:50 Pulse 103 H 05/06/21 08:50 Resp 18 05/06/21 08:50 BP 134/91 H 05/06/21 08:50 Pulse Ox 99 05/06/21 08:50 Weight - Most Recent: 146 lb 11.2 oz I&O - Last 24 Hours: Intake & Output 05/05/21 05/06/21 05/06/21 22:59 06:59 14:59 Intake Total 910 520 Output Total 300 400 Balance 610 120 Lab Results Last 24 Hours: Laboratory Results - last 24 hr 05/05/21 05/05/21 05/05/21 Range/Units 12:09 18:30 21:28 WBC (3.98-10.04) K/mm3 RBC (3.98-5.22) M/mm3 Hgb (11.2-15.7) gm/dl Hct (34.1-44.9) % MCV (79.4-94.8) fl MCH (25.6-32.2) pg MCHC (32.2-35.5) g/dl RDW Std Deviation (36.4-46.3) fL Plt Count (182-369) K/mm3 MPV (9.4-12.3) fl Neut % (Auto) (34.0-71.1) % Lymph % (Auto) (19.3-51.7) % [place] % (Auto) (4.7-12.5) % Eos % (Auto) (0.7-5.8) Baso % (Auto) (0.1-1.2) % Neut # (Auto) (1.56-6.13) K/mm3 Lymph # (Auto) (1.18-3.74) K/mm3 [place] # (Auto) (0.24-0.36) K/mm3 Eos # (Auto) (0.04-0.36) K/mm3 Baso # (Auto) (0.01-0.08) K/mm3 Manual Slide Review Sodium (136-145) mEq/L Potassium (3.5-5.1) mEq/L Chloride (98-107) mEq/L Carbon Dioxide (21-32) mEq/L Anion Gap (5-15) BUN (7-18) mg/dL Creatinine (0.55-1.02) mg/dL Est Cr Clr Drug Dosing mL/min Estimated GFR (MDRD) (>60) mL/min BUN/Creatinine Ratio (14-18) Glucose (70-99) mg/dL POC Glucose 230 H 285 H 275 H (70-99) mg/dL Calcium (8.5-10.1) mg/dL Phosphorus (2.6-4.7) mg/dL Magnesium (1.8-2.4) mg/dL Total Bilirubin (0.2-1.0) mg/dL AST (15-37) U/L ALT (14-59) U/L Alkaline Phosphatase (46-116) U/L Total Protein (6.4-8.2) g/dl Albumin (3.4-5.0) g/dl Globulin gm/dL Albumin/Globulin Ratio (1-2) 05/06/21 05/06/21 05/06/21 Range/Units 04:53 04:53 06:10 WBC 4.44 (3.98-10.04) K/mm3 RBC 2.96 L (3.98-5.22) M/mm3 Hgb 9.4 L (11.2-15.7) gm/dl Hct 28.8 L (34.1-44.9) % MCV 97.3 H (79.4-94.8) fl MCH 31.8 (25.6-32.2) pg MCHC 32.6 (32.2-35.5) g/dl RDW Std Deviation 55.5 H (36.4-46.3) fL Plt Count 46 L (182-369) K/mm3 MPV 10.8 (9.4-12.3) fl Neut % (Auto) 70.6 (34.0-71.1) % Lymph % (Auto) 14.4 L (19.3-51.7) % [place] % (Auto) 10.1 (4.7-12.5) % Eos % (Auto) 0.2 L (0.7-5.8) Baso % (Auto) 1.1 (0.1-1.2) % Neut # (Auto) 3.13 (1.56-6.13) K/mm3 Lymph # (Auto) 0.64 L (1.18-3.74) K/mm3 [place] # (Auto) 0.45 H (0.24-0.36) K/mm3 Eos # (Auto) 0.01 L (0.04-0.36) K/mm3 Baso # (Auto) 0.05 (0.01-0.08) K/mm3 Manual Slide Review Abnormal smear Sodium 140 (136-145) mEq/L Potassium 4.2 (3.5-5.1) mEq/L Chloride 109 H (98-107) mEq/L Carbon Dioxide 21 (21-32) mEq/L Anion Gap 14.2 (5-15) BUN 5 L (7-18) mg/dL Creatinine 0.5 L (0.55-1.02) mg/dL Est Cr Clr Drug Dosing 85.77 mL/min Estimated GFR (MDRD) > 60 (>60) mL/min BUN/Creatinine Ratio 10.0 L (14-18) Glucose 192 H (70-99) mg/dL POC Glucose 164 H (70-99) mg/dL Calcium 7.5 L (8.5-10.1) mg/dL Phosphorus 2.2 L (2.6-4.7) mg/dL Magnesium 1.8 (1.8-2.4) mg/dL Total Bilirubin 1.1 H (0.2-1.0) mg/dL AST 304 H (15-37) U/L ALT 437 H (14-59) U/L Alkaline Phosphatase 537 H (46-116) U/L Total Protein 4.7 L (6.4-8.2) g/dl Albumin 1.8 L (3.4-5.0) g/dl Globulin 2.9 gm/dL Albumin/Globulin Ratio 0.6 L (1-2) 05/06/21 Range/Units 11:05 WBC (3.98-10.04) K/mm3 RBC (3.98-5.22) M/mm3 Hgb (11.2-15.7) gm/dl Hct (34.1-44.9) % MCV (79.4-94.8) fl MCH (25.6-32.2) pg MCHC (32.2-35.5) g/dl RDW Std Deviation (36.4-46.3) fL Plt Count (182-369) K/mm3 MPV (9.4-12.3) fl Neut % (Auto) (34.0-71.1) % Lymph % (Auto) (19.3-51.7) % [place] % (Auto) (4.7-12.5) % Eos % (Auto) (0.7-5.8) Baso % (Auto) (0.1-1.2) % Neut # (Auto) (1.56-6.13) K/mm3 Lymph # (Auto) (1.18-3.74) K/mm3 [place] # (Auto) (0.24-0.36) K/mm3 Eos # (Auto) (0.04-0.36) K/mm3 Baso # (Auto) (0.01-0.08) K/mm3 Manual Slide Review Sodium (136-145) mEq/L Potassium (3.5-5.1) mEq/L Chloride (98-107) mEq/L Carbon Dioxide (21-32) mEq/L Anion Gap (5-15) BUN (7-18) mg/dL Creatinine (0.55-1.02) mg/dL Est Cr Clr Drug Dosing mL/min Estimated GFR (MDRD) (>60) mL/min BUN/Creatinine Ratio (14-18) Glucose (70-99) mg/dL POC Glucose 177 H (70-99) mg/dL Calcium (8.5-10.1) mg/dL Phosphorus (2.6-4.7) mg/dL Magnesium (1.8-2.4) mg/dL Total Bilirubin (0.2-1.0) mg/dL AST (15-37) U/L ALT (14-59) U/L Alkaline Phosphatase (46-116) U/L Total Protein (6.4-8.2) g/dl Albumin (3.4-5.0) g/dl Globulin gm/dL Albumin/Globulin Ratio (1-2) Jairo Results Last 24 Hours: Microbiology 05/02/21 13:48 Blood Culture - Preliminary Blood - Venous - Lab Draw Gram Positive Rods 05/02/21 13:53 Blood Culture - Preliminary Blood - Venous - Lab Draw Gram Positive Rods Med Orders - Current: Current Medications Acetaminophen (Acetaminophen 325 Mg Tab) 650 mg PO Q4H PRN PRN Reason: Pain (Mild 1-3)/fever Last Admin: 05/05/21 23:49 Dose: 650 mg Documented by: Hydrocodone Bitart/Acetaminophen (Acetaminophen/Hydrocodone 325-5 Mg Tab) 1 tab PO Q4H PRN PRN Reason: Pain (moderate 4-6) Last Admin: 05/05/21 23:47 Dose: 1 tab Documented by: Aspirin (Aspirin 81 Mg Tab.Ec) 81 mg PO DAILY [facility] Last Admin: 05/06/21 08:34 Dose: 81 mg Documented by: Bisacodyl (Bisacodyl 5 Mg Tab) 5 mg PO DAILY [facility] Last Admin: 05/06/21 08:33 Dose: 5 mg Documented by: Calcium Carbonate (Calcium Carbonate/Vitamin D3 600 Mg-200 Units Tab) 1 tab PO TID [facility] Last Admin: 05/06/21 08:31 Dose: 1 tab Documented by: Calcium Carbonate/Glycine (Calcium Carbonate 500 Mg Tab.Chew) 1,000 mg PO Q2HR PRN PRN Reason: Indigestion Dexamethasone (Dexamethasone 4 Mg Tab) 2 mg PO DAILY [facility] Last Admin: 05/06/21 08:33 Dose: 2 mg Documented by: Docusate Sodium (Docusate Sodium 100 Mg Cap) 100 mg PO DAILY PRN PRN Reason: Constipation Famotidine (Famotidine 10 Mg Tab) 10 mg PO DAILY [facility] Last Admin: 05/06/21 08:36 Dose: 10 mg Documented by: Gabapentin (Gabapentin 100 Mg Cap) 200 mg PO BID [facility] Last Admin: 05/06/21 08:35 Dose: 200 mg Documented by: Promethazine HCl 6.25 mg/ (Sodium Chloride) 50.25 mls @ 100 mls/hr IV Q6H PRN PRN Reason: Nausea/Vomiting Cefepime HCl 2 gm/ Premix 50 mls @ 100 mls/hr IV Q8H [facility] Last Admin: 05/06/21 06:05 Dose: 100 mls/hr Documented by: Vancomycin HCl 1 gm/Vancomycin HCl 250 mg/ Sodium Chloride 250 mls @ 166.667 mls/hr IV Q12H [facility] Last Admin: 05/06/21 06:04 Dose: Not Given Documented by: Sodium Chloride (Normal Saline) 1,000 mls @ 25 mls/hr IV ASDIRECTED [facility] Last Admin: 05/05/21 21:17 Dose: 25 mls/hr Documented by: Insulin Human Lispro (Insulin Lispro 100 Unit/Ml 10 Ml Vial) 0 unit SUBCUT QIDACANDBED [facility]; Protocol Last Admin: 05/06/21 11:28 Dose: 2 unit Documented by: Loratadine (Loratadine 10 Mg Tab) 10 mg PO DAILY [facility] Last Admin: 05/06/21 08:32 Dose: 10 mg Documented by: Lorazepam (Lorazepam 0.5 Mg Tab) 0.5 mg PO Q6H [facility] Last Admin: 05/06/21 06:21 Dose: Not Given Documented by: Megestrol Acetate (Megestrol Susp 40 Mg/Ml 10 Ml Ud Cup) 400 mg PO DAILY [facility] Last Admin: 05/06/21 08:35 Dose: 400 mg Documented by: Morphine Sulfate (Morphine 15 Mg Tab.Er) 15 mg PO BEDTIME [facility] Last Admin: 05/05/21 21:00 Dose: 15 mg Documented by: Ondansetron HCl (Ondansetron 4 Mg Tab.Dis) 4 mg PO Q4H PRN PRN Reason: nausea, able to take PO Pantoprazole Sodium (Pantoprazole 40 Mg Tab.Cr) 40 mg PO ACBREAKFAST [facility] Last Admin: 05/06/21 06:06 Dose: 40 mg Documented by: Potassium Chloride (Potassium Chloride 10 Meq Tab.Er) 10 meq PO TID [facility] Last Admin: 05/06/21 08:34 Dose: 10 meq Documented by: Prochlorperazine Maleate (Prochlorperazine 5 Mg Tab) 10 mg PO QID PRN PRN Reason: Nausea/Vomiting Trazodone HCl (Trazodone 50 Mg Tab) 50 mg PO BEDTIME [facility] Last Admin: 05/05/21 21:55 Dose: 50 mg Documented by: Vancomycin HCl (Pharmacy To Dose - Vancomycin) 0 dose .XX ASDIRECTED PRN PRN Reason: RX TO DOSE VANCO Zolpidem Tartrate (Zolpidem 5 Mg Tab) 5 mg PO BEDTIME PRN PRN Reason: Sleep Discontinued Medications Calcium Carbonate/Glycine (Calcium Carbonate 600 Mg Tab) 1,200 mg PO BIDMEALS [facility] Last Admin: 05/03/21 06:09 Dose: 1,200 mg Documented by: Enoxaparin Sodium (Enoxaparin 40 Mg/0.4 Ml Syringe) 40 mg SUBCUT DAILY [facility] Last Admin: 05/02/21 01:33 Dose: Not Given Documented by: Enoxaparin Sodium (Enoxaparin 40 Mg/0.4 Ml Syringe) 40 mg SUBCUT DAILY@2200 [facility] Last Admin: 05/02/21 21:28 Dose: 40 mg Documented by: Sodium Chloride (Normal Saline) 1,000 mls @ 999 mls/hr IV ONETIME ONE Stop: 05/01/21 17:42 Last Admin: 05/01/21 16:54 Dose: 999 mls/hr Documented by: Magnesium Sulfate 2 gm/ Premix 50 mls @ 25 mls/hr IV ONETIME ONE Stop: 05/01/21 19:46 Last Admin: 05/01/21 18:08 Dose: 25 mls/hr Documented by: Sodium Chloride (Normal Saline) 1,000 mls @ 150 mls/hr IV ONETIME ONE Stop: 05/02/21 02:56 Last Admin: 05/01/21 22:45 Dose: Not Given Documented by: Dextrose/Sodium Chloride (Dextrose 5%-1/2 Ns) 1,000 mls @ 75 mls/hr IV ASDIRECTED [facility] Last Admin: 05/03/21 23:42 Dose: 75 mls/hr Documented by: Potassium Chloride 10 meq/ (Premix) 100 mls @ 100 mls/hr IV Q1H [facility] Stop: 05/02/21 12:14 Last Admin: 05/02/21 11:50 Dose: 100 mls/hr Documented by: Sodium Chloride (Normal Saline) 1,000 mls @ 999 mls/hr IV ONETIME ONE Stop: 05/02/21 14:04 Last Admin: 05/02/21 13:15 Dose: 999 mls/hr Documented by: Sodium Chloride (Normal Saline) 500 mls @ 500 mls/hr IV .BOLUS ONE Stop: 05/03/21 10:04 Last Infusion: 05/03/21 10:30 Dose: Infused Documented by: Vancomycin HCl 1 gm/Vancomycin HCl 250 mg/ Sodium Chloride 250 mls @ 166.667 mls/hr IV ONETIME ONE Stop: 05/03/21 11:59 Last Admin: 05/03/21 10:24 Dose: 166.667 mls/hr Documented by: Vancomycin HCl 1 gm/ Sodium (Chloride) 250 mls @ 250 mls/hr IV Q12H [facility] Last Admin: 05/04/21 23:01 Dose: 250 mls/hr Documented by: Potassium Phosphate 30 mmole/ (Sodium Chloride) 510 mls @ 102 mls/hr IV ONETIME ONE Stop: 05/03/21 18:59 Last Admin: 05/03/21 16:09 Dose: 102 mls/hr Documented by: Sodium Phosphate 30 mmole/ (Sodium Chloride) 260 mls @ 130 mls/hr IV ONETIME ONE Stop: 05/03/21 13:44 Last Admin: 05/03/21 12:51 Dose: 130 mls/hr Documented by: Magnesium Sulfate 2 gm/ Premix 50 mls @ 25 mls/hr IV ONETIME ONE Stop: 05/03/21 13:29 Last Admin: 05/03/21 12:50 Dose: 25 mls/hr Documented by: Sodium Chloride (Normal Saline) 500 mls @ 100 mls/hr IV ONETIME ONE Stop: 05/03/21 17:29 Last Admin: 05/03/21 15:50 Dose: 100 mls/hr Documented by: Sodium Chloride (Normal Saline) 1,000 mls @ 50 mls/hr IV ASDIRECTED [facility] Sodium Phosphate 30 mmole/ (Sodium Chloride) 260 mls @ 130 mls/hr IV ONETIME ONE Stop: 05/04/21 11:59 Last Admin: 05/04/21 11:34 Dose: 130 mls/hr Documented by: Sodium Phosphate 30 mmole/ (Sodium Chloride) 260 mls @ 130 mls/hr IV ONETIME ONE Stop: 05/04/21 15:59 Last Admin: 05/04/21 15:21 Dose: 130 mls/hr Documented by: Sodium Chloride (Normal Saline) 1,000 mls @ 15 mls/hr IV ASDIRECTED [facility] Last Admin: 05/04/21 18:26 Dose: 15 mls/hr Documented by: Sodium Phosphate 30 mmole/ (Sodium Chloride) 260 mls @ 130 mls/hr IV ONETIME ONE Stop: 05/05/21 15:59 Last Admin: 05/05/21 13:54 Dose: 130 mls/hr Documented by: Magnesium Sulfate 2 gm/ Premix 50 mls @ 25 mls/hr IV ONETIME ONE Stop: 05/05/21 13:29 Last Admin: 05/05/21 11:41 Dose: 25 mls/hr Documented by: Sodium Phosphate 30 mmole/ (Sodium Chloride) 260 mls @ 86.667 mls/hr IV ONETIME ONE Stop: 05/06/21 09:01 Last Admin: 05/06/21 08:44 Dose: 86.667 mls/hr Documented by: Insulin Human Lispro (Insulin Lispro 100 Unit/Ml 10 Ml Vial) 0 unit SUBCUT QIDACANDBED [facility]; Protocol Last Admin: 05/04/21 11:53 Dose: Not Given Documented by: Ketorolac Tromethamine (Ketorolac 30 Mg/Ml Sdv) 30 mg IVPUSH ONETIME ONE Stop: 05/01/21 20:30 Last Admin: 05/01/21 22:44 Dose: 30 mg Documented by: Lorazepam (Lorazepam 2 Mg/Ml Sdv) 1 mg IVPUSH ONETIME ONE Stop: 05/01/21 16:58 Last Admin: 05/01/21 17:23 Dose: 1 mg Documented by: Ondansetron HCl (Ondansetron 4 Mg/2 Ml Sdv) 4 mg IVPUSH ONETIME ONE Stop: 05/01/21 16:58 Last Admin: 05/01/21 17:23 Dose: 4 mg Documented by: Tbo-Filgrastim (Tbo-Filgrastim 480 Mcg/0.8 Ml Syringe) 320 mcg SUBCUT DAILY [facility] Stop: 05/06/21 11:00 Last Admin: 05/05/21 09:28 Dose: 320 mcg Documented by: Vancomycin HCl (Vancomycin 500 Mg Sdv) Confirm Administered Dose 500 mg .ROUTE .STK-MED ONE Stop: 05/05/21 11:18 Last Admin: 05/05/21 11:43 Dose: Not Given Documented by: - Exam Quality Assessment: Supplemental Oxygen (1 L) Central Line Total Time: 4Days 15Hours General: Alert, Oriented HEENT: Pupils Equal, Mucous Membr. Moist/Angus Neck: Supple Lungs: Normal Respiratory Effort, Crackles (Bibasilar) Cardiovascular: Regular Rate, Regular Rhythm GI/Abdominal Exam: Normal Bowel Sounds, Soft, Non-Tender, No Distention Extremities: Normal Inspection Skin: Warm, Dry, Intact Psy/Mental Status: Alert, Normal Affect, Normal Mood - Patient Data Lab Results Last 24 hrs: Laboratory Results - last 24 hr 05/05/21 05/05/21 05/05/21 Range/Units 12:09 18:30 21:28 WBC (3.98-10.04) K/mm3 RBC (3.98-5.22) M/mm3 Hgb (11.2-15.7) gm/dl Hct (34.1-44.9) % MCV (79.4-94.8) fl MCH (25.6-32.2) pg MCHC (32.2-35.5) g/dl RDW Std Deviation (36.4-46.3) fL Plt Count (182-369) K/mm3 MPV (9.4-12.3) fl Neut % (Auto) (34.0-71.1) % Lymph % (Auto) (19.3-51.7) % [place] % (Auto) (4.7-12.5) % Eos % (Auto) (0.7-5.8) Baso % (Auto) (0.1-1.2) % Neut # (Auto) (1.56-6.13) K/mm3 Lymph # (Auto) (1.18-3.74) K/mm3 [place] # (Auto) (0.24-0.36) K/mm3 Eos # (Auto) (0.04-0.36) K/mm3 Baso # (Auto) (0.01-0.08) K/mm3 Manual Slide Review Sodium (136-145) mEq/L Potassium (3.5-5.1) mEq/L Chloride (98-107) mEq/L Carbon Dioxide (21-32) mEq/L Anion Gap (5-15) BUN (7-18) mg/dL Creatinine (0.55-1.02) mg/dL Est Cr Clr Drug Dosing mL/min Estimated GFR (MDRD) (>60) mL/min BUN/Creatinine Ratio (14-18) Glucose (70-99) mg/dL POC Glucose 230 H 285 H 275 H (70-99) mg/dL Calcium (8.5-10.1) mg/dL Phosphorus (2.6-4.7) mg/dL Magnesium (1.8-2.4) mg/dL Total Bilirubin (0.2-1.0) mg/dL AST (15-37) U/L ALT (14-59) U/L Alkaline Phosphatase (46-116) U/L Total Protein (6.4-8.2) g/dl Albumin (3.4-5.0) g/dl Globulin gm/dL Albumin/Globulin Ratio (1-2) 05/06/21 05/06/21 05/06/21 Range/Units 04:53 04:53 06:10 WBC 4.44 (3.98-10.04) K/mm3 RBC 2.96 L (3.98-5.22) M/mm3 Hgb 9.4 L (11.2-15.7) gm/dl Hct 28.8 L (34.1-44.9) % MCV 97.3 H (79.4-94.8) fl MCH 31.8 (25.6-32.2) pg MCHC 32.6 (32.2-35.5) g/dl RDW Std Deviation 55.5 H (36.4-46.3) fL Plt Count 46 L (182-369) K/mm3 MPV 10.8 (9.4-12.3) fl Neut % (Auto) 70.6 (34.0-71.1) % Lymph % (Auto) 14.4 L (19.3-51.7) % [place] % (Auto) 10.1 (4.7-12.5) % Eos % (Auto) 0.2 L (0.7-5.8) Baso % (Auto) 1.1 (0.1-1.2) % Neut # (Auto) 3.13 (1.56-6.13) K/mm3 Lymph # (Auto) 0.64 L (1.18-3.74) K/mm3 [place] # (Auto) 0.45 H (0.24-0.36) K/mm3 Eos # (Auto) 0.01 L (0.04-0.36) K/mm3 Baso # (Auto) 0.05 (0.01-0.08) K/mm3 Manual Slide Review Abnormal smear Sodium 140 (136-145) mEq/L Potassium 4.2 (3.5-5.1) mEq/L Chloride 109 H (98-107) mEq/L Carbon Dioxide 21 (21-32) mEq/L Anion Gap 14.2 (5-15) BUN 5 L (7-18) mg/dL Creatinine 0.5 L (0.55-1.02) mg/dL Est Cr Clr Drug Dosing 85.77 mL/min Estimated GFR (MDRD) > 60 (>60) mL/min BUN/Creatinine Ratio 10.0 L (14-18) Glucose 192 H (70-99) mg/dL POC Glucose 164 H (70-99) mg/dL Calcium 7.5 L (8.5-10.1) mg/dL Phosphorus 2.2 L (2.6-4.7) mg/dL Magnesium 1.8 (1.8-2.4) mg/dL Total Bilirubin 1.1 H (0.2-1.0) mg/dL AST 304 H (15-37) U/L ALT 437 H (14-59) U/L Alkaline Phosphatase 537 H (46-116) U/L Total Protein 4.7 L (6.4-8.2) g/dl Albumin 1.8 L (3.4-5.0) g/dl Globulin 2.9 gm/dL Albumin/Globulin Ratio 0.6 L (1-2) 05/06/ Range/Units 11:05 WBC (3.98-10.04) K/mm3 RBC (3.98-5.22) M/mm3 Hgb (11.2-15.7) gm/dl Hct (34.1-44.9) % MCV (79.4-94.8) fl MCH (25.6-32.2) pg MCHC (32.2-35.5) g/dl RDW Std Deviation (36.4-46.3) fL Plt Count (182-369) K/mm3 MPV (9.4-12.3) fl Neut % (Auto) (34.0-71.1) % Lymph % (Auto) (19.3-51.7) % [place] % (Auto) (4.7-12.5) % Eos % (Auto) (0.7-5.8) Baso % (Auto) (0.1-1.2) % Neut # (Auto) (1.56-6.13) K/mm3 Lymph # (Auto) (1.18-3.74) K/mm3 [place] # (Auto) (0.24-0.36) K/mm3 Eos # (Auto) (0.04-0.36) K/mm3 Baso # (Auto) (0.01-0.08) K/mm3 Manual Slide Review Sodium (136-145) mEq/L Potassium (3.5-5.1) mEq/L Chloride (98-107) mEq/L Carbon Dioxide (21-32) mEq/L Anion Gap (5-15) BUN (7-18) mg/dL Creatinine (0.55-1.02) mg/dL Est Cr Clr Drug Dosing mL/min Estimated GFR (MDRD) (>60) mL/min BUN/Creatinine Ratio (14-18) Glucose (70-99) mg/dL POC Glucose 177 H (70-99) mg/dL Calcium (8.5-10.1) mg/dL Phosphorus (2.6-4.7) mg/dL Magnesium (1.8-2.4) mg/dL Total Bilirubin (0.2-1.0) mg/dL AST (15-37) U/L ALT (14-59) U/L Alkaline Phosphatase (46-116) U/L Total Protein (6.4-8.2) g/dl Albumin (3.4-5.0) g/dl Globulin gm/dL Albumin/Globulin Ratio (1-2) Result Diagrams: 05/06/21 04:53 05/06/21 04:53 Jairo Results Last 24 hrs: Microbiology 05/02/21 13:48 Blood Culture - Preliminary Blood - Venous - Lab Draw Gram Positive Rods 05/02/21 13:53 Blood Culture - Preliminary Blood - Venous - Lab Draw Gram Positive Rods Sepsis Event Note - Evaluation Sepsis Screening Result: Severe Sepsis Risk - Focused Exam Vital Signs: Vital Signs Temp Temp Pulse Pulse Resp BP BP 05/06/21 08:50 98.2 F 103 H 18 134/91 H 05/06/21 08:39 98.2 F 87 05/06/21 08:31 05/06/21 04:00 98.6 F 95 24 H 129/82 05/06/21 00:00 98.0 F Pulse Ox Pulse Ox 05/06/21 08:50 99 05/06/21 08:39 94 L 05/06/21 08:31 93 L 05/06/21 04:00 91 L 05/06/21 00:00 95 - Problem List & Annotations (1) Neutropenic fever SNOMED Code(s): 998569241 Code(s): D70.9 - NEUTROPENIA, UNSPECIFIED; R50.81 - FEVER PRESENTING WITH CONDITIONS CLASSIFIED ELSEWHERE Status: Acute Current Visit: Yes (2) Breast cancer SNOMED Code(s): 404442939 Code(s): C50.919 - MALIGNANT NEOPLASM OF UNSP SITE OF UNSPECIFIED FEMALE BREAST Status: Acute Current Visit: Yes (3) Chemotherapy induced neutropenia SNOMED Code(s): 288239619 Code(s): D70.1 - AGRANULOCYTOSIS SECONDARY TO CANCER CHEMOTHERAPY; T45.1X5A - ADVERSE EFFECT OF ANTINEOPLASTIC AND IMMUNOSUP DRUGS, INIT Status: Acute Current Visit: Yes (4) Generalized weakness SNOMED Code(s): 30073551 Code(s): R53.1 - WEAKNESS Status: Acute Current Visit: Yes - Problem List Review Problem List Initiated/Reviewed/Updated: Yes - My Orders Last 24 Hours: My Active Orders 05/05/21 11:00 Vancomycin 1 gm Vancomycin 250 mg Sodium Chloride 0.9% [Normal Saline] 250 ml IV Q12H 05/05/21 21:15 Sodium Chloride 0.9% [Normal Saline] 1,000 ml IV ASDIRECTED 05/06/21 Echo Comp wo Cont [US] Routine 05/06/21 09:00 Empagliflozin [Jardiance] 25 mg PO DAILY 05/06/21 11:49 BLOOD CULTURE [MREF] Stat BLOOD CULTURE [MREF] Stat Blood Culture x2 Reflex Set [OM.PC] Stat 05/07/21 05:11 CBC WITH AUTO DIFF [HEME] AM CMP [COMPREHENSIVE METABOLIC PN,CMP] [CHEM] AM MAGNESIUM [CHEM] AM PHOSPHORUS [CHEM] AM 05/07/21 10:00 VANCOMYCIN TROUGH [CHEM] Timed - Plan Plan:: 65-year-old female with history of metastatic breast cancer on chemotherapy presented with generalized weakness, failure to thrive and neutropenia Neutropenic fever -resolved Gram-positive messi bacteremia Afebrile for 72, White count normalized-WBC 4.4, ANC 1500 3.3. Marked toxic granulation of PMNs. Few immature granulocytes seen. blood cultures growing gram-positive messi. Repeat PCR today is negative Cefepime, vancomycinwe will likely stop cefepime when culture and sensitivity results return 1 unit packed red blood cells -given on May 03 Generalized weaknessimproving Admit pt to the medical floor under observation status. Patient will need PT and OT as well as nutritional support Pancytopenia Marked thrombocytopenia -Platelets 46,000 Last chemotherapy April 29 Granix/filgrastim -stopped on May 06 Transfused 1 unit packed red blood cells Hemoglobin up to 9.0 Follow CBC Metastatic breast cancer Spoke with Mckayla Barrett NP who recommended filgrastim. She is 7 days post chemotherapy Transaminitis secondary to chemotherapy -No change in enzymes -AST 304, ALT 437, alkaline phosphatase worsened at 537. -Bilirubin 0.7 -Albumin 1.8 Diabetes mellitus Restart home Jardiance Continue to hold Glucophage Fingerstick blood sugar 4 times daily with sliding scale insulin low-dose Past medical history of hypertension Hold BP meds due to borderline low blood pressures Severe protein calorie malnutrition Hypophosphatemia Hypomagnesemia Magnesium 1.8 Phosphorus 2.2 Will replace Started on Megace Dehydration Resolved Full code DVT prophylaxis. Lovenox stopped because of thrombocytopenia. SCDs
[2021-05-06] MEDS: Morphine 15 MG Tab.ER PO SCH (21:16)
[2021-05-06] MEDS: traZODone 50 MG Tab PO SCH (21:17)
[2021-05-06] MEDS: Acetaminophen/HYDROcodone 325-5 MG Tab PO PRN (21:17)
[2021-05-06] MEDS: Acetaminophen 325 MG Tab PO PRN (22:14)
[2021-05-07] MEDS: LORazepam 0.5 MG Tab PO SCH ×4 (06:00→17:58)
[2021-05-07] MEDS: Sodium Chloride 0.9% 1,000 ML IV SCH (06:26)
[2021-05-07] MEDS: Insulin Lispro 100 UNIT/ML 10 ML Vial SUBCUT SCH ×4 (06:35→21:30)
[2021-05-07] MEDS: Cefepime 2 GM in Premix Bag 1 BAG IV SCH (06:49)
[2021-05-07] MEDS: Pantoprazole 40 MG Tab.CR PO SCH (06:50)
[2021-05-07] MEDS: Calcium Carbonate/Vitamin D3 600 MG-200 Units Tab PO SCH ×3 (08:22→21:13)
[2021-05-07] MEDS: Dexamethasone 4 MG Tab PO SCH (08:23)
[2021-05-07] MEDS: Loratadine 10 MG Tab PO SCH (08:23)
[2021-05-07] MEDS: Empagliflozin 25 MG Tab PO SCH (08:24)
[2021-05-07] MEDS: Aspirin 81 MG Tab.EC PO SCH (08:24)
[2021-05-07] MEDS: Bisacodyl 5 MG Tab PO SCH (08:24)
[2021-05-07] MEDS: Potassium Chloride 10 MEQ Tab.ER PO SCH ×3 (08:25→21:13)
[2021-05-07] MEDS: Gabapentin 100 MG Cap PO SCH ×2 (08:25→21:13)
[2021-05-07] MEDS: Megestrol Susp 40 MG/ML 10 ML UD Cup PO SCH (08:25)
[2021-05-07] MEDS: Famotidine 10 MG Tab PO SCH (08:26)
[2021-05-07] MEDS: Vancomycin 1 GM, Vancomycin 250 MG in Sodium Chloride 0.9% 250 ML IV SCH ×2 (11:33→23:14)
--- NOTE | 2021-05-07 11:56 | PCM.PN ---
- General Info Date of Service: 05/07/21 Admission Dx/Problem (Free Text): Admission Diagnosis/Problem Admission Diagnosis/Problem Generalized weakness Subjective Update: Patient patient is improving appetite. She ate 90% of her dinner and 100% of breakfast. We had a long conversation today about vaccination for COVID-19. Her family, sister and children, are not vaccinated. I recommended that she have them get vaccinated before she sees them in person because of the high risk to her if she gets infected. Patient with understanding. Functional Status: Reports: Pain Controlled - Review of Systems General: Reports: No Symptoms, Fatigue HEENT: Reports: No Symptoms Pulmonary: Reports: No Symptoms Cardiovascular: Reports: No Symptoms Gastrointestinal: Reports: No Symptoms Musculoskeletal: Reports: No Symptoms - Patient Data Vitals - Most Recent: Last Vital Signs Temp 99.3 F 05/07/21 08:16 Pulse 112 H 05/07/21 08:16 Resp 22 H 05/07/21 08:16 BP 114/69 05/07/21 08:16 Pulse Ox 98 05/07/21 08:16 Weight - Most Recent: 146 lb 8 oz I&O - Last 24 Hours: Intake & Output 05/06/21 05/07/21 05/07/21 22:59 06:59 14:59 Intake Total 1500 300 Output Total 850 1350 Balance 650 -1050 Lab Results Last 24 Hours: Laboratory Results - last 24 hr 05/06/21 05/06/21 05/07/21 Range/Units 17:00 20:56 05:28 WBC 4.35 (3.98-10.04) K/mm3 RBC 2.94 L (3.98-5.22) M/mm3 Hgb 9.4 L (11.2-15.7) gm/dl Hct 29.3 L (34.1-44.9) % MCV 99.7 H (79.4-94.8) fl MCH 32.0 (25.6-32.2) pg MCHC 32.1 L (32.2-35.5) g/dl RDW Std Deviation 57.7 H (36.4-46.3) fL Plt Count 41 L (182-369) K/mm3 MPV 10.9 (9.4-12.3) fl Neut % (Auto) 55.4 (34.0-71.1) % Lymph % (Auto) 25.3 (19.3-51.7) % [place] % (Auto) 9.2 (4.7-12.5) % Eos % (Auto) 0.5 L (0.7-5.8) Baso % (Auto) 1.1 (0.1-1.2) % Neut # (Auto) 2.41 (1.56-6.13) K/mm3 Lymph # (Auto) 1.10 L (1.18-3.74) K/mm3 [place] # (Auto) 0.40 H (0.24-0.36) K/mm3 Eos # (Auto) 0.02 L (0.04-0.36) K/mm3 Baso # (Auto) 0.05 (0.01-0.08) K/mm3 Manual Slide Review Abnormal smear Sodium (136-145) mEq/L Potassium (3.5-5.1) mEq/L Chloride (98-107) mEq/L Carbon Dioxide (21-32) mEq/L Anion Gap (5-15) BUN (7-18) mg/dL Creatinine (0.55-1.02) mg/dL Est Cr Clr Drug Dosing mL/min Estimated GFR (MDRD) (>60) mL/min BUN/Creatinine Ratio (14-18) Glucose (70-99) mg/dL POC Glucose 228 H 165 H (70-99) mg/dL Calcium (8.5-10.1) mg/dL Phosphorus (2.6-4.7) mg/dL Magnesium (1.8-2.4) mg/dL Total Bilirubin (0.2-1.0) mg/dL AST (15-37) U/L ALT (14-59) U/L Alkaline Phosphatase (46-116) U/L Total Protein (6.4-8.2) g/dl Albumin (3.4-5.0) g/dl Globulin gm/dL Albumin/Globulin Ratio (1-2) Vancomycin Trough (10.0-20.0) 05/07/21 05/07/21 05/07/21 Range/Units 05:28 06:35 10:14 WBC (3.98-10.04) K/mm3 RBC (3.98-5.22) M/mm3 Hgb (11.2-15.7) gm/dl Hct (34.1-44.9) % MCV (79.4-94.8) fl MCH (25.6-32.2) pg MCHC (32.2-35.5) g/dl RDW Std Deviation (36.4-46.3) fL Plt Count (182-369) K/mm3 MPV (9.4-12.3) fl Neut % (Auto) (34.0-71.1) % Lymph % (Auto) (19.3-51.7) % [place] % (Auto) (4.7-12.5) % Eos % (Auto) (0.7-5.8) Baso % (Auto) (0.1-1.2) % Neut # (Auto) (1.56-6.13) K/mm3 Lymph # (Auto) (1.18-3.74) K/mm3 [place] # (Auto) (0.24-0.36) K/mm3 Eos # (Auto) (0.04-0.36) K/mm3 Baso # (Auto) (0.01-0.08) K/mm3 Manual Slide Review Sodium 139 (136-145) mEq/L Potassium 4.4 (3.5-5.1) mEq/L Chloride 109 H (98-107) mEq/L Carbon Dioxide 24 (21-32) mEq/L Anion Gap 10.4 (5-15) BUN 7 (7-18) mg/dL Creatinine 0.5 L (0.55-1.02) mg/dL Est Cr Clr Drug Dosing 85.77 mL/min Estimated GFR (MDRD) > 60 (>60) mL/min BUN/Creatinine Ratio 14.0 (14-18) Glucose 116 H (70-99) mg/dL POC Glucose 105 H (70-99) mg/dL Calcium 7.6 L (8.5-10.1) mg/dL Phosphorus 2.5 L (2.6-4.7) mg/dL Magnesium 1.8 (1.8-2.4) mg/dL Total Bilirubin 1.1 H (0.2-1.0) mg/dL AST 192 H (15-37) U/L ALT 354 H (14-59) U/L Alkaline Phosphatase 589 H (46-116) U/L Total Protein 4.8 L (6.4-8.2) g/dl Albumin 1.9 L (3.4-5.0) g/dl Globulin 2.9 gm/dL Albumin/Globulin Ratio 0.7 L (1-2) Vancomycin Trough 15.7 (10.0-20.0) 05/07/21 Range/Units 11:16 WBC (3.98-10.04) K/mm3 RBC (3.98-5.22) M/mm3 Hgb (11.2-15.7) gm/dl Hct (34.1-44.9) % MCV (79.4-94.8) fl MCH (25.6-32.2) pg MCHC (32.2-35.5) g/dl RDW Std Deviation (36.4-46.3) fL Plt Count (182-369) K/mm3 MPV (9.4-12.3) fl Neut % (Auto) (34.0-71.1) % Lymph % (Auto) (19.3-51.7) % [place] % (Auto) (4.7-12.5) % Eos % (Auto) (0.7-5.8) Baso % (Auto) (0.1-1.2) % Neut # (Auto) (1.56-6.13) K/mm3 Lymph # (Auto) (1.18-3.74) K/mm3 [place] # (Auto) (0.24-0.36) K/mm3 Eos # (Auto) (0.04-0.36) K/mm3 Baso # (Auto) (0.01-0.08) K/mm3 Manual Slide Review Sodium (136-145) mEq/L Potassium (3.5-5.1) mEq/L Chloride (98-107) mEq/L Carbon Dioxide (21-32) mEq/L Anion Gap (5-15) BUN (7-18) mg/dL Creatinine (0.55-1.02) mg/dL Est Cr Clr Drug Dosing mL/min Estimated GFR (MDRD) (>60) mL/min BUN/Creatinine Ratio (14-18) Glucose (70-99) mg/dL POC Glucose 187 H (70-99) mg/dL Calcium (8.5-10.1) mg/dL Phosphorus (2.6-4.7) mg/dL Magnesium (1.8-2.4) mg/dL Total Bilirubin (0.2-1.0) mg/dL AST (15-37) U/L ALT (14-59) U/L Alkaline Phosphatase (46-116) U/L Total Protein (6.4-8.2) g/dl Albumin (3.4-5.0) g/dl Globulin gm/dL Albumin/Globulin Ratio (1-2) Vancomycin Trough (10.0-20.0) [place] Results Last 24 Hours: Microbiology 05/02/21 13:48 Bacteria Detection (PCR) - Final Blood - Venous - Lab Draw 05/02/21 13:48 Blood Culture - Preliminary Blood - Venous - Lab Draw Gram Positive Rods 05/02/21 13:53 Blood Culture - Preliminary Blood - Venous - Lab Draw Gram Positive Rods Med Orders - Current: Current Medications Acetaminophen (Acetaminophen 325 Mg Tab) 650 mg PO Q4H PRN PRN Reason: Pain (Mild 1-3)/fever Last Admin: 05/06/21 22:14 Dose: 650 mg Documented by: Hydrocodone Bitart/Acetaminophen (Acetaminophen/Hydrocodone 325-5 Mg Tab) 1 tab PO Q4H PRN PRN Reason: Pain (moderate 4-6) Last Admin: 05/06/21 21:17 Dose: 1 tab Documented by: Aspirin (Aspirin 81 Mg Tab.Ec) 81 mg PO DAILY [facility] Last Admin: 05/07/21 08:24 Dose: 81 mg Documented by: Bisacodyl (Bisacodyl 5 Mg Tab) 5 mg PO DAILY [facility] Last Admin: 05/07/21 08:24 Dose: 5 mg Documented by: Calcium Carbonate (Calcium Carbonate/Vitamin D3 600 Mg-200 Units Tab) 1 tab PO TID [facility] Last Admin: 05/07/21 08:22 Dose: 1 tab Documented by: Calcium Carbonate/Glycine (Calcium Carbonate 500 Mg Tab.Chew) 1,000 mg PO Q2HR PRN PRN Reason: Indigestion Dexamethasone (Dexamethasone 4 Mg Tab) 2 mg PO DAILY [facility] Last Admin: 05/07/21 08:23 Dose: 2 mg Documented by: Docusate Sodium (Docusate Sodium 100 Mg Cap) 100 mg PO DAILY PRN PRN Reason: Constipation Famotidine (Famotidine 10 Mg Tab) 10 mg PO DAILY [facility] Last Admin: 05/07/21 08:26 Dose: 10 mg Documented by: Gabapentin (Gabapentin 100 Mg Cap) 200 mg PO BID [facility] Last Admin: 05/07/21 08:25 Dose: 200 mg Documented by: Promethazine HCl 6.25 mg/ (Sodium Chloride) 50.25 mls @ 100 mls/hr IV Q6H PRN PRN Reason: Nausea/Vomiting Vancomycin HCl 1 gm/Vancomycin HCl 250 mg/ Sodium Chloride 250 mls @ 166.667 mls/hr IV Q12H [facility] Last Admin: 05/07/21 11:33 Dose: 166.667 mls/hr Documented by: Sodium Chloride (Normal Saline) 1,000 mls @ 25 mls/hr IV ASDIRECTED [facility] Last Admin: 05/07/21 06:26 Dose: 25 mls/hr Documented by: Cefepime HCl 2 gm/ Sodium (Chloride) 50 mls @ 100 mls/hr IV Q8H [facility] Insulin Human Lispro (Insulin Lispro 100 Unit/Ml 10 Ml Vial) 0 unit SUBCUT QIDACANDBED [facility]; Protocol Last Admin: 05/07/21 11:32 Dose: 2 unit Documented by: Loratadine (Loratadine 10 Mg Tab) 10 mg PO DAILY [facility] Last Admin: 05/07/21 08:23 Dose: 10 mg Documented by: Lorazepam (Lorazepam 0.5 Mg Tab) 0.5 mg PO Q6H [facility] Last Admin: 05/07/21 11:44 Dose: Not Given Documented by: Megestrol Acetate (Megestrol Susp 40 Mg/Ml 10 Ml Ud Cup) 400 mg PO DAILY [facility] Last Admin: 05/07/21 08:25 Dose: 400 mg Documented by: Morphine Sulfate (Morphine 15 Mg Tab.Er) 15 mg PO BEDTIME [facility] Last Admin: 05/06/21 21:16 Dose: 15 mg Documented by: Ondansetron HCl (Ondansetron 4 Mg Tab.Dis) 4 mg PO Q4H PRN PRN Reason: nausea, able to take PO Pantoprazole Sodium (Pantoprazole 40 Mg Tab.Cr) 40 mg PO ACBREAKFAST [facility] Last Admin: 05/07/21 06:50 Dose: 40 mg Documented by: Potassium Chloride (Potassium Chloride 10 Meq Tab.Er) 10 meq PO TID [facility] Last Admin: 05/07/21 08:25 Dose: 10 meq Documented by: Prochlorperazine Maleate (Prochlorperazine 5 Mg Tab) 10 mg PO QID PRN PRN Reason: Nausea/Vomiting Trazodone HCl (Trazodone 50 Mg Tab) 50 mg PO BEDTIME [facility] Last Admin: 05/06/21 21:17 Dose: 50 mg Documented by: Vancomycin HCl (Pharmacy To Dose - Vancomycin) 0 dose .XX ASDIRECTED PRN PRN Reason: RX TO DOSE VANCO Zolpidem Tartrate (Zolpidem 5 Mg Tab) 5 mg PO BEDTIME PRN PRN Reason: Sleep Discontinued Medications Calcium Carbonate/Glycine (Calcium Carbonate 600 Mg Tab) 1,200 mg PO BIDMEALS [facility] Last Admin: 05/03/21 06:09 Dose: 1,200 mg Documented by: Enoxaparin Sodium (Enoxaparin 40 Mg/0.4 Ml Syringe) 40 mg SUBCUT DAILY [facility] Last Admin: 05/02/21 01:33 Dose: Not Given Documented by: Enoxaparin Sodium (Enoxaparin 40 Mg/0.4 Ml Syringe) 40 mg SUBCUT DAILY@2200 [facility] Last Admin: 05/02/21 21:28 Dose: 40 mg Documented by: Sodium Chloride (Normal Saline) 1,000 mls @ 999 mls/hr IV ONETIME ONE Stop: 05/01/21 17:42 Last Admin: 05/01/21 16:54 Dose: 999 mls/hr Documented by: Magnesium Sulfate 2 gm/ Premix 50 mls @ 25 mls/hr IV ONETIME ONE Stop: 05/01/21 19:46 Last Admin: 05/01/21 18:08 Dose: 25 mls/hr Documented by: Sodium Chloride (Normal Saline) 1,000 mls @ 150 mls/hr IV ONETIME ONE Stop: 05/02/21 02:56 Last Admin: 05/01/21 22:45 Dose: Not Given Documented by: Dextrose/Sodium Chloride (Dextrose 5%-1/2 Ns) 1,000 mls @ 75 mls/hr IV ASDIRECTED [facility] Last Admin: 05/03/21 23:42 Dose: 75 mls/hr Documented by: Potassium Chloride 10 meq/ (Premix) 100 mls @ 100 mls/hr IV Q1H [facility] Stop: 05/02/21 12:14 Last Admin: 05/02/21 11:50 Dose: 100 mls/hr Documented by: Sodium Chloride (Normal Saline) 1,000 mls @ 999 mls/hr IV ONETIME ONE Stop: 05/02/21 14:04 Last Admin: 05/02/21 13:15 Dose: 999 mls/hr Documented by: Cefepime HCl 2 gm/ Premix 50 mls @ 100 mls/hr IV Q8H [facility] Last Admin: 05/07/21 06:49 Dose: 100 mls/hr Documented by: Sodium Chloride (Normal Saline) 500 mls @ 500 mls/hr IV .BOLUS ONE Stop: 05/03/21 10:04 Last Infusion: 05/03/21 10:30 Dose: Infused Documented by: Vancomycin HCl 1 gm/Vancomycin HCl 250 mg/ Sodium Chloride 250 mls @ 166.667 mls/hr IV ONETIME ONE Stop: 05/03/21 11:59 Last Admin: 05/03/21 10:24 Dose: 166.667 mls/hr Documented by: Vancomycin HCl 1 gm/ Sodium (Chloride) 250 mls @ 250 mls/hr IV Q12H [facility] Last Admin: 05/04/21 23:01 Dose: 250 mls/hr Documented by: Potassium Phosphate 30 mmole/ (Sodium Chloride) 510 mls @ 102 mls/hr IV ONETIME ONE Stop: 05/03/21 18:59 Last Admin: 05/03/21 16:09 Dose: 102 mls/hr Documented by: Sodium Phosphate 30 mmole/ (Sodium Chloride) 260 mls @ 130 mls/hr IV ONETIME ONE Stop: 05/03/21 13:44 Last Admin: 05/03/21 12:51 Dose: 130 mls/hr Documented by: Magnesium Sulfate 2 gm/ Premix 50 mls @ 25 mls/hr IV ONETIME ONE Stop: 05/03/21 13:29 Last Admin: 05/03/21 12:50 Dose: 25 mls/hr Documented by: Sodium Chloride (Normal Saline) 500 mls @ 100 mls/hr IV ONETIME ONE Stop: 05/03/21 17:29 Last Admin: 05/03/21 15:50 Dose: 100 mls/hr Documented by: Sodium Chloride (Normal Saline) 1,000 mls @ 50 mls/hr IV ASDIRECTED [facility] Sodium Phosphate 30 mmole/ (Sodium Chloride) 260 mls @ 130 mls/hr IV ONETIME ONE Stop: 05/04/21 11:59 Last Admin: 05/04/21 11:34 Dose: 130 mls/hr Documented by: Sodium Phosphate 30 mmole/ (Sodium Chloride) 260 mls @ 130 mls/hr IV ONETIME ONE Stop: 05/04/21 15:59 Last Admin: 05/04/21 15:21 Dose: 130 mls/hr Documented by: Sodium Chloride (Normal Saline) 1,000 mls @ 15 mls/hr IV ASDIRECTED [facility] Last Admin: 05/04/21 18:26 Dose: 15 mls/hr Documented by: Sodium Phosphate 30 mmole/ (Sodium Chloride) 260 mls @ 130 mls/hr IV ONETIME ONE Stop: 05/05/21 15:59 Last Admin: 05/05/21 13:54 Dose: 130 mls/hr Documented by: Magnesium Sulfate 2 gm/ Premix 50 mls @ 25 mls/hr IV ONETIME ONE Stop: 05/05/21 13:29 Last Admin: 05/05/21 11:41 Dose: 25 mls/hr Documented by: Sodium Phosphate 30 mmole/ (Sodium Chloride) 260 mls @ 86.667 mls/hr IV ONETIME ONE Stop: 05/06/21 09:01 Last Admin: 05/06/21 08:44 Dose: 86.667 mls/hr Documented by: Insulin Human Lispro (Insulin Lispro 100 Unit/Ml 10 Ml Vial) 0 unit SUBCUT QIDACANDBED [facility]; Protocol Last Admin: 05/04/21 11:53 Dose: Not Given Documented by: Ketorolac Tromethamine (Ketorolac 30 Mg/Ml Sdv) 30 mg IVPUSH ONETIME ONE Stop: 05/01/21 20:30 Last Admin: 05/01/21 22:44 Dose: 30 mg Documented by: Lorazepam (Lorazepam 2 Mg/Ml Sdv) 1 mg IVPUSH ONETIME ONE Stop: 05/01/21 16:58 Last Admin: 05/01/21 17:23 Dose: 1 mg Documented by: Ondansetron HCl (Ondansetron 4 Mg/2 Ml Sdv) 4 mg IVPUSH ONETIME ONE Stop: 09/12/21 16:58 Last Admin: 05/01/21 17:23 Dose: 4 mg Documented by: Tbo-Filgrastim (Tbo-Filgrastim 480 Mcg/0.8 Ml Syringe) 320 mcg SUBCUT DAILY [facility] Stop: 05/06/21 11:00 Last Admin: 05/05/21 09:28 Dose: 320 mcg Documented by: Vancomycin HCl (Vancomycin 500 Mg Sdv) Confirm Administered Dose 500 mg .ROUTE .STK-MED ONE Stop: 05/05/21 11:18 Last Admin: 05/05/21 11:43 Dose: Not Given Documented by: - Exam Quality Assessment: Supplemental Oxygen Central Line Total Time: 5Days 14Hours HEENT: Mucous Membr. Moist/[place] Neck: Supple Lungs: Normal Respiratory Effort, Crackles (Bibasilar) Cardiovascular: Regular Rate, Regular Rhythm GI/Abdominal Exam: Normal Bowel Sounds, Soft, Non-Tender, No Distention Extremities: Normal Inspection, Normal Range of Motion, Non-Tender, No Pedal Edema Psy/Mental Status: Alert, Normal Affect, Normal Mood - Patient Data Lab Results Last 24 hrs: Laboratory Results - last 24 hr 05/06/21 05/06/21 05/07/21 Range/Units 17:00 20:56 05:28 WBC 4.35 (3.98-10.04) K/mm3 RBC 2.94 L (3.98-5.22) M/mm3 Hgb 9.4 L (11.2-15.7) gm/dl Hct 29.3 L (34.1-44.9) % MCV 99.7 H (79.4-94.8) fl MCH 32.0 (25.6-32.2) pg MCHC 32.1 L (32.2-35.5) g/dl RDW Std Deviation 57.7 H (36.4-46.3) fL Plt Count 41 L (182-369) K/mm3 MPV 10.9 (9.4-12.3) fl Neut % (Auto) 55.4 (34.0-71.1) % Lymph % (Auto) 25.3 (19.3-51.7) % [place] % (Auto) 9.2 (4.7-12.5) % Eos % (Auto) 0.5 L (0.7-5.8) Baso % (Auto) 1.1 (0.1-1.2) % Neut # (Auto) 2.41 (1.56-6.13) K/mm3 Lymph # (Auto) 1.10 L (1.18-3.74) K/mm3 [place] # (Auto) 0.40 H (0.24-0.36) K/mm3 Eos # (Auto) 0.02 L (0.04-0.36) K/mm3 Baso # (Auto) 0.05 (0.01-0.08) K/mm3 Manual Slide Review Abnormal smear Sodium (136-145) mEq/L Potassium (3.5-5.1) mEq/L Chloride (98-107) mEq/L Carbon Dioxide (21-32) mEq/L Anion Gap (5-15) BUN (7-18) mg/dL Creatinine (0.55-1.02) mg/dL Est Cr Clr Drug Dosing mL/min Estimated GFR (MDRD) (>60) mL/min BUN/Creatinine Ratio (14-18) Glucose (70-99) mg/dL POC Glucose 228 H 165 H (70-99) mg/dL Calcium (8.5-10.1) mg/dL Phosphorus (2.6-4.7) mg/dL Magnesium (1.8-2.4) mg/dL Total Bilirubin (0.2-1.0) mg/dL AST (15-37) U/L ALT (14-59) U/L Alkaline Phosphatase (46-116) U/L Total Protein (6.4-8.2) g/dl Albumin (3.4-5.0) g/dl Globulin gm/dL Albumin/Globulin Ratio (1-2) Vancomycin Trough (10.0-20.0) 05/07/21 05/07/21 05/07/21 Range/Units 05:28 06:35 10:14 WBC (3.98-10.04) K/mm3 RBC (3.98-5.22) M/mm3 Hgb (11.2-15.7) gm/dl Hct (34.1-44.9) % MCV (79.4-94.8) fl MCH (25.6-32.2) pg MCHC (32.2-35.5) g/dl RDW Std Deviation (36.4-46.3) fL Plt Count (182-369) K/mm3 MPV (9.4-12.3) fl Neut % (Auto) (34.0-71.1) % Lymph % (Auto) (19.3-51.7) % [place] % (Auto) (4.7-12.5) % Eos % (Auto) (0.7-5.8) Baso % (Auto) (0.1-1.2) % Neut # (Auto) (1.56-6.13) K/mm3 Lymph # (Auto) (1.18-3.74) K/mm3 [place] # (Auto) (0.24-0.36) K/mm3 Eos # (Auto) (0.04-0.36) K/mm3 Baso # (Auto) (0.01-0.08) K/mm3 Manual Slide Review Sodium 139 (136-145) mEq/L Potassium 4.4 (3.5-5.1) mEq/L Chloride 109 H (98-107) mEq/L Carbon Dioxide 24 (21-32) mEq/L Anion Gap 10.4 (5-15) BUN 7 (7-18) mg/dL Creatinine 0.5 L (0.55-1.02) mg/dL Est Cr Clr Drug Dosing 85.77 mL/min Estimated GFR (MDRD) > 60 (>60) mL/min BUN/Creatinine Ratio 14.0 (14-18) Glucose 116 H (70-99) mg/dL POC Glucose 105 H (70-99) mg/dL Calcium 7.6 L (8.5-10.1) mg/dL Phosphorus 2.5 L (2.6-4.7) mg/dL Magnesium 1.8 (1.8-2.4) mg/dL Total Bilirubin 1.1 H (0.2-1.0) mg/dL AST 192 H (15-37) U/L ALT 354 H (14-59) U/L Alkaline Phosphatase 589 H (46-116) U/L Total Protein 4.8 L (6.4-8.2) g/dl Albumin 1.9 L (3.4-5.0) g/dl Globulin 2.9 gm/dL Albumin/Globulin Ratio 0.7 L (1-2) Vancomycin Trough 15.7 (10.0-20.0) 05/07/ Range/Units 11:16 WBC (3.98-10.04) K/mm3 RBC (3.98-5.22) M/mm3 Hgb (11.2-15.7) gm/dl Hct (34.1-44.9) % MCV (79.4-94.8) fl MCH (25.6-32.2) pg MCHC (32.2-35.5) g/dl RDW Std Deviation (36.4-46.3) fL Plt Count (182-369) K/mm3 MPV (9.4-12.3) fl Neut % (Auto) (34.0-71.1) % Lymph % (Auto) (19.3-51.7) % [place] % (Auto) (4.7-12.5) % Eos % (Auto) (0.7-5.8) Baso % (Auto) (0.1-1.2) % Neut # (Auto) (1.56-6.13) K/mm3 Lymph # (Auto) (1.18-3.74) K/mm3 [place] # (Auto) (0.24-0.36) K/mm3 Eos # (Auto) (0.04-0.36) K/mm3 Baso # (Auto) (0.01-0.08) K/mm3 Manual Slide Review Sodium (136-145) mEq/L Potassium (3.5-5.1) mEq/L Chloride (98-107) mEq/L Carbon Dioxide (21-32) mEq/L Anion Gap (5-15) BUN (7-18) mg/dL Creatinine (0.55-1.02) mg/dL Est Cr Clr Drug Dosing mL/min Estimated GFR (MDRD) (>60) mL/min BUN/Creatinine Ratio (14-18) Glucose (70-99) mg/dL POC Glucose 187 H (70-99) mg/dL Calcium (8.5-10.1) mg/dL Phosphorus (2.6-4.7) mg/dL Magnesium (1.8-2.4) mg/dL Total Bilirubin (0.2-1.0) mg/dL AST (15-37) U/L ALT (14-59) U/L Alkaline Phosphatase (46-116) U/L Total Protein (6.4-8.2) g/dl Albumin (3.4-5.0) g/dl Globulin gm/dL Albumin/Globulin Ratio (1-2) Vancomycin Trough (10.0-20.0) Result Diagrams: 05/07/21 05:28 05/07/21 05:28 [place] Results Last 24 hrs: Microbiology 05/02/21 13:48 Bacteria Detection (PCR) - Final Blood - Venous - Lab Draw 05/02/21 13:48 Blood Culture - Preliminary Blood - Venous - Lab Draw Gram Positive Rods 05/02/21 13:53 Blood Culture - Preliminary Blood - Venous - Lab Draw Gram Positive Rods Sepsis Event Note - Evaluation Sepsis Screening Result: Possible Sepsis Risk - Focused Exam Vital Signs: Vital Signs Temp Pulse Resp BP Pulse Ox 05/07/21 08:16 99.3 F 112 H 22 H 114/69 98 05/07/21 04:43 98.1 F 86 16 123/76 93 L 05/07/21 00:34 97.3 F 81 16 121/76 93 L - Problem List & Annotations (1) Neutropenic fever SNOMED Code(s): 398529949 Code(s): D70.9 - NEUTROPENIA, UNSPECIFIED; R50.81 - FEVER PRESENTING WITH CONDITIONS CLASSIFIED ELSEWHERE Status: Acute Current Visit: Yes (2) Breast cancer SNOMED Code(s): 800971804 Code(s): C50.919 - MALIGNANT NEOPLASM OF UNSP SITE OF UNSPECIFIED FEMALE BREAST Status: Acute Current Visit: Yes (3) Chemotherapy induced neutropenia SNOMED Code(s): 809686148 Code(s): D70.1 - AGRANULOCYTOSIS SECONDARY TO CANCER CHEMOTHERAPY; T45.1X5A - ADVERSE EFFECT OF ANTINEOPLASTIC AND IMMUNOSUP DRUGS, INIT Status: Acute Current Visit: Yes (4) Generalized weakness SNOMED Code(s): 74477505 Code(s): R53.1 - WEAKNESS Status: Acute Current Visit: Yes - Problem List Review Problem List Initiated/Reviewed/Updated: Yes - My Orders Last 24 Hours: My Active Orders 05/06/21 11:49 Blood Culture x2 Reflex Set [OM.PC] Stat 05/06/21 12:05 BLOOD CULTURE [MREF] Stat 05/06/21 12:12 BLOOD CULTURE [MREF] Stat - Plan Plan:: 65-year-old female with history of metastatic breast cancer on chemotherapy presented with generalized weakness, failure to thrive and neutropenia Neutropenic fever -resolved Gram-positive messi bacteremia Afebrile; last fever 05/03/2021 at 1325 White count normalized-WBC 4.4, anc 2.4; Moderate toxic granulation on PMNs, slight left shift, occasional atypical lymphocytes, thrombocytopenia with normal morphology blood cultures growing gram-positive messi. Repeat PCR today is negative Cefepime, vancomycinwe will likely stop cefepime when culture and sensitivity results return 1 unit packed red blood cells -given on May 03 Generalized weaknessimproving Admit pt to the medical floor under observation status. Patient will need PT and OT as well as nutritional support Pancytopenia Marked thrombocytopenia -Platelets 41,000 Last chemotherapy April 29 Granix/filgrastim -stopped on May 06 Transfused 1 unit packed red blood cells Hemoglobin up to 9.0 Follow CBC Metastatic breast cancer Spoke with Mckayla Barrett NP who recommended filgrastim. She is 7 days post chemotherapy Transaminitis secondary to chemotherapy -No change in enzymes -AST 192 ALT 354, alkaline phosphatase worsened at 589. -Bilirubin 1.1 -Albumin 1.9 Diabetes mellitus Restart home Jardiance Continue to hold Glucophage Fingerstick blood sugar 4 times daily with sliding scale insulin low-dose Past medical history of hypertension Hold BP meds due to borderline low blood pressures Severe protein calorie malnutrition Hypophosphatemia Hypomagnesemia Magnesium 1.8 Phosphorus 2.5 Replace as needed. Started on Megace Dehydration Resolved Full code DVT prophylaxis. Lovenox stopped because of thrombocytopenia. SCDs
[2021-05-07] MEDS: Cefepime 2 GM in Sodium Chloride 0.9% 50 ML IV SCH ×2 (14:10→21:12)
[2021-05-07] MEDS: Acetaminophen/HYDROcodone 325-5 MG Tab PO PRN (18:26)
[2021-05-07] MEDS: Morphine 15 MG Tab.ER PO SCH (21:12)
[2021-05-07] MEDS: traZODone 50 MG Tab PO SCH (21:13)
[2021-05-08] MEDS: LORazepam 0.5 MG Tab PO SCH ×5 (02:44→23:43)
[2021-05-08] MEDS: Pantoprazole 40 MG Tab.CR PO SCH (05:45)
[2021-05-08] MEDS: Cefepime 2 GM in Sodium Chloride 0.9% 50 ML IV SCH ×3 (05:45→22:16)
[2021-05-08] MEDS: Acetaminophen 325 MG Tab PO PRN ×2 (05:54→19:56)
[2021-05-08] MEDS: Insulin Lispro 100 UNIT/ML 10 ML Vial SUBCUT SCH ×4 (06:50→21:12)
[2021-05-08] MEDS: Loratadine 10 MG Tab PO SCH (09:46)
[2021-05-08] MEDS: Calcium Carbonate/Vitamin D3 600 MG-200 Units Tab PO SCH ×3 (09:46→21:09)
[2021-05-08] MEDS: Dexamethasone 4 MG Tab PO SCH (09:47)
[2021-05-08] MEDS: Bisacodyl 5 MG Tab PO SCH (09:47)
[2021-05-08] MEDS: Aspirin 81 MG Tab.EC PO SCH (09:48)
[2021-05-08] MEDS: Empagliflozin 25 MG Tab PO SCH (09:48)
[2021-05-08] MEDS: Potassium Chloride 10 MEQ Tab.ER PO SCH ×3 (09:48→21:09)
[2021-05-08] MEDS: Megestrol Susp 40 MG/ML 10 ML UD Cup PO SCH (09:48)
[2021-05-08] MEDS: Famotidine 10 MG Tab PO SCH (09:49)
[2021-05-08] MEDS: Gabapentin 100 MG Cap PO SCH ×2 (09:49→21:09)
[2021-05-08] MEDS: Vancomycin 1 GM, Vancomycin 250 MG in Sodium Chloride 0.9% 250 ML IV SCH ×2 (11:11→22:52)
[2021-05-08] MEDS: Sodium Chloride 0.9% 1,000 ML IV SCH (14:27)
[2021-05-08] MEDS: Phosphorus #1 250 MG Tab PO SCH ×2 (14:27→21:09)
[2021-05-08] MEDS: Acetaminophen/HYDROcodone 325-5 MG Tab PO PRN ×2 (15:59→19:55)
--- NOTE | 2021-05-08 16:06 | PCM.PN ---
- General Info Date of Service: 05/08/21 Admission Dx/Problem (Free Text): Admission Diagnosis/Problem Admission Diagnosis/Problem Generalized weakness Subjective Update: Mrs. Aguilar is a 67-year-old female history with a h/o breast cancer diagnosed in September 2020. She was started on chemotherapy in October of this year and is now on her 4th cycle of treatment. her last does of chemo was about 8 days ago. She follows with Dr. Osuna at [facility]. She was brought to the ER due to lethargy. In the hospital, she was informed to have low a positive will blood cultu [id number] rods. Today patient does not have any new complaints. She still feels tired. Otherwise the patient denies headache, dizziness, fever, chills, or dysuria. - Review of Systems Systems Review Comment:: Positive for fatigue. All other systems were reviewed and negative. - Patient Data Vitals - Most Recent: Last Vital Signs Temp 36.7 C 05/08/21 11:46 Pulse 106 H 05/08/21 11:46 Resp 20 05/08/21 11:46 BP 118/78 05/08/21 11:46 Pulse Ox 95 05/08/21 11:46 Weight - Most Recent: 65.635 kg I&O - Last 24 Hours: Intake & Output 05/08/21 05/08/21 05/08/21 06:59 14:59 22:59 Intake Total 600 2130 Output Total 700 825 Balance -100 1305 Lab Results Last 24 Hours: Laboratory Results - last 24 hr 05/07/21 05/07/21 05/08/21 Range/Units 16:56 21:11 06:38 POC Glucose 209 H 170 H 132 H (70-99) mg/dL 05/08/21 Range/Units 11:30 POC Glucose 184 H (70-99) mg/dL [place] Results Last 24 Hours: Microbiology 05/06/21 12:12 Blood Culture - Preliminary Blood - Venous - Lab Draw 05/06/21 12:05 Blood Culture - Preliminary Blood - Venous Med Orders - Current: Current Medications Acetaminophen (Acetaminophen 325 Mg Tab) 650 mg PO Q4H PRN PRN Reason: Pain (Mild 1-3)/fever Last Admin: 05/08/21 05:54 Dose: 650 mg Documented by: Hydrocodone Bitart/Acetaminophen (Acetaminophen/Hydrocodone 325-5 Mg Tab) 1 tab PO Q4H PRN PRN Reason: Pain (moderate 4-6) Last Admin: 05/08/21 15:59 Dose: 1 tab Documented by: Aspirin (Aspirin 81 Mg Tab.Ec) 81 mg PO DAILY [facility] Last Admin: 05/08/21 09:48 Dose: 81 mg Documented by: Bisacodyl (Bisacodyl 5 Mg Tab) 5 mg PO DAILY [facility] Last Admin: 05/08/21 09:47 Dose: 5 mg Documented by: Calcium Carbonate (Calcium Carbonate/Vitamin D3 600 Mg-200 Units Tab) 1 tab PO TID [facility] Last Admin: 05/08/21 14:28 Dose: 1 tab Documented by: Calcium Carbonate/Glycine (Calcium Carbonate 500 Mg Tab.Chew) 1,000 mg PO Q2HR PRN PRN Reason: Indigestion Dexamethasone (Dexamethasone 4 Mg Tab) 2 mg PO DAILY [facility] Last Admin: 05/08/21 09:47 Dose: 2 mg Documented by: Docusate Sodium (Docusate Sodium 100 Mg Cap) 100 mg PO DAILY PRN PRN Reason: Constipation Famotidine (Famotidine 10 Mg Tab) 10 mg PO DAILY [facility] Last Admin: 05/08/21 09:49 Dose: 10 mg Documented by: Gabapentin (Gabapentin 100 Mg Cap) 200 mg PO BID [facility] Last Admin: 05/08/21 09:49 Dose: 200 mg Documented by: Promethazine HCl 6.25 mg/ (Sodium Chloride) 50.25 mls @ 100 mls/hr IV Q6H PRN PRN Reason: Nausea/Vomiting Vancomycin HCl 1 gm/Vancomycin HCl 250 mg/ Sodium Chloride 250 mls @ 166.667 mls/hr IV Q12H [facility] Last Admin: 05/08/21 11:11 Dose: 166.667 mls/hr Documented by: Sodium Chloride (Normal Saline) 1,000 mls @ 25 mls/hr IV ASDIRECTED [facility] Last Admin: 05/08/21 14:27 Dose: 25 mls/hr Documented by: Cefepime HCl 2 gm/ Sodium (Chloride) 50 mls @ 100 mls/hr IV Q8H [facility] Last Admin: 05/08/21 14:17 Dose: 100 mls/hr Documented by: Insulin Human Lispro (Insulin Lispro 100 Unit/Ml 10 Ml Vial) 0 unit SUBCUT QIDACANDBED [facility]; Protocol Last Admin: 05/08/21 11:43 Dose: 2 unit Documented by: Loratadine (Loratadine 10 Mg Tab) 10 mg PO DAILY [facility] Last Admin: 05/08/21 09:46 Dose: 10 mg Documented by: Lorazepam (Lorazepam 0.5 Mg Tab) 0.5 mg PO Q6H [facility] Last Admin: 05/08/21 14:13 Dose: Not Given Documented by: Megestrol Acetate (Megestrol Susp 40 Mg/Ml 10 Ml Ud Cup) 400 mg PO DAILY [facility] Last Admin: 05/08/21 09:48 Dose: 400 mg Documented by: Morphine Sulfate (Morphine 15 Mg Tab.Er) 15 mg PO BEDTIME [facility] Last Admin: 05/07/21 21:12 Dose: 15 mg Documented by: Ondansetron HCl (Ondansetron 4 Mg Tab.Dis) 4 mg PO Q4H PRN PRN Reason: nausea, able to take PO Pantoprazole Sodium (Pantoprazole 40 Mg Tab.Cr) 40 mg PO ACBREAKFAST [facility] Last Admin: 05/08/21 05:45 Dose: 40 mg Documented by: Potassium Chloride (Potassium Chloride 10 Meq Tab.Er) 10 meq PO TID [facility] Last Admin: 05/08/21 14:28 Dose: 10 meq Documented by: Prochlorperazine Maleate (Prochlorperazine 5 Mg Tab) 10 mg PO QID PRN PRN Reason: Nausea/Vomiting Sodium Phosphate (Phosphorus #1 250 Mg Tab) 250 mg PO TID [facility] Stop: 05/08/21 21:01 Last Admin: 05/08/21 14:27 Dose: 250 mg Documented by: Trazodone HCl (Trazodone 50 Mg Tab) 50 mg PO BEDTIME [facility] Last Admin: 05/07/21 21:13 Dose: 50 mg Documented by: Vancomycin HCl (Pharmacy To Dose - Vancomycin) 0 dose .XX ASDIRECTED PRN PRN Reason: RX TO DOSE VANCO Zolpidem Tartrate (Zolpidem 5 Mg Tab) 5 mg PO BEDTIME PRN PRN Reason: Sleep Last Admin: 05/07/21 21:12 Dose: 5 mg Documented by: Discontinued Medications Calcium Carbonate/Glycine (Calcium Carbonate 600 Mg Tab) 1,200 mg PO BIDMEALS [facility] Last Admin: 05/03/21 06:09 Dose: 1,200 mg Documented by: Enoxaparin Sodium (Enoxaparin 40 Mg/0.4 Ml Syringe) 40 mg SUBCUT DAILY [facility] Last Admin: 05/02/21 01:33 Dose: Not Given Documented by: Enoxaparin Sodium (Enoxaparin 40 Mg/0.4 Ml Syringe) 40 mg SUBCUT DAILY@2200 [facility] Last Admin: 05/02/21 21:28 Dose: 40 mg Documented by: Sodium Chloride (Normal Saline) 1,000 mls @ 999 mls/hr IV ONETIME ONE Stop: 05/01/21 17:42 Last Admin: 05/01/21 16:54 Dose: 999 mls/hr Documented by: Magnesium Sulfate 2 gm/ Premix 50 mls @ 25 mls/hr IV ONETIME ONE Stop: 05/01/21 19:46 Last Admin: 05/01/21 18:08 Dose: 25 mls/hr Documented by: Sodium Chloride (Normal Saline) 1,000 mls @ 150 mls/hr IV ONETIME ONE Stop: 05/02/21 02:56 Last Admin: 05/01/21 22:45 Dose: Not Given Documented by: Dextrose/Sodium Chloride (Dextrose 5%-1/2 Ns) 1,000 mls @ 75 mls/hr IV ASDIRECTED [facility] Last Admin: 05/03/21 23:42 Dose: 75 mls/hr Documented by: Potassium Chloride 10 meq/ (Premix) 100 mls @ 100 mls/hr IV Q1H [facility] Stop: 05/02/21 12:14 Last Admin: 05/02/21 11:50 Dose: 100 mls/hr Documented by: Sodium Chloride (Normal Saline) 1,000 mls @ 999 mls/hr IV ONETIME ONE Stop: 05/02/21 14:04 Last Admin: 05/02/21 13:15 Dose: 999 mls/hr Documented by: Cefepime HCl 2 gm/ Premix 50 mls @ 100 mls/hr IV Q8H [facility] Last Admin: 05/07/21 06:49 Dose: 100 mls/hr Documented by: Sodium Chloride (Normal Saline) 500 mls @ 500 mls/hr IV .BOLUS ONE Stop: 05/03/21 10:04 Last Infusion: 05/03/21 10:30 Dose: Infused Documented by: Vancomycin HCl 1 gm/Vancomycin HCl 250 mg/ Sodium Chloride 250 mls @ 166.667 mls/hr IV ONETIME ONE Stop: 05/03/21 11:59 Last Admin: 05/03/21 10:24 Dose: 166.667 mls/hr Documented by: Vancomycin HCl 1 gm/ Sodium (Chloride) 250 mls @ 250 mls/hr IV Q12H [facility] Last Admin: 05/04/21 23:01 Dose: 250 mls/hr Documented by: Potassium Phosphate 30 mmole/ (Sodium Chloride) 510 mls @ 102 mls/hr IV ONETIME ONE Stop: 05/03/21 18:59 Last Admin: 05/03/21 16:09 Dose: 102 mls/hr Documented by: Sodium Phosphate 30 mmole/ (Sodium Chloride) 260 mls @ 130 mls/hr IV ONETIME ONE Stop: 05/03/21 13:44 Last Admin: 05/03/21 12:51 Dose: 130 mls/hr Documented by: Magnesium Sulfate 2 gm/ Premix 50 mls @ 25 mls/hr IV ONETIME ONE Stop: 05/03/21 13:29 Last Admin: 05/03/21 12:50 Dose: 25 mls/hr Documented by: Sodium Chloride (Normal Saline) 500 mls @ 100 mls/hr IV ONETIME ONE Stop: 05/03/21 17:29 Last Admin: 05/03/21 15:50 Dose: 100 mls/hr Documented by: Sodium Chloride (Normal Saline) 1,000 mls @ 50 mls/hr IV ASDIRECTED [facility] Sodium Phosphate 30 mmole/ (Sodium Chloride) 260 mls @ 130 mls/hr IV ONETIME ONE Stop: 05/04/21 11:59 Last Admin: 05/04/21 11:34 Dose: 130 mls/hr Documented by: Sodium Phosphate 30 mmole/ (Sodium Chloride) 260 mls @ 130 mls/hr IV ONETIME ONE Stop: 05/04/21 15:59 Last Admin: 05/04/21 15:21 Dose: 130 mls/hr Documented by: Sodium Chloride (Normal Saline) 1,000 mls @ 15 mls/hr IV ASDIRECTED [facility] Last Admin: 05/04/21 18:26 Dose: 15 mls/hr Documented by: Sodium Phosphate 30 mmole/ (Sodium Chloride) 260 mls @ 130 mls/hr IV ONETIME ONE Stop: 05/05/21 15:59 Last Admin: 05/05/21 13:54 Dose: 130 mls/hr Documented by: Magnesium Sulfate 2 gm/ Premix 50 mls @ 25 mls/hr IV ONETIME ONE Stop: 05/05/21 13:29 Last Admin: 05/05/21 11:41 Dose: 25 mls/hr Documented by: Sodium Phosphate 30 mmole/ (Sodium Chloride) 260 mls @ 86.667 mls/hr IV ONETIME ONE Stop: 05/06/21 09:01 Last Admin: 05/06/21 08:44 Dose: 86.667 mls/hr Documented by: Insulin Human Lispro (Insulin Lispro 100 Unit/Ml 10 Ml Vial) 0 unit SUBCUT QIDACANDBED [facility]; Protocol Last Admin: 05/04/21 11:53 Dose: Not Given Documented by: Ketorolac Tromethamine (Ketorolac 30 Mg/Ml Sdv) 30 mg IVPUSH ONETIME ONE Stop: 05/01/21 20:30 Last Admin: 05/01/21 22:44 Dose: 30 mg Documented by: Lorazepam (Lorazepam 2 Mg/Ml Sdv) 1 mg IVPUSH ONETIME ONE Stop: 05/01/21 16:58 Last Admin: 05/01/21 17:23 Dose: 1 mg Documented by: Ondansetron HCl (Ondansetron 4 Mg/2 Ml Sdv) 4 mg IVPUSH ONETIME ONE Stop: 05/01/21 16:58 Last Admin: 05/01/21 17:23 Dose: 4 mg Documented by: Tbo-Filgrastim (Tbo-Filgrastim 480 Mcg/0.8 Ml Syringe) 320 mcg SUBCUT DAILY [facility] Stop: 05/06/21 11:00 Last Admin: 05/05/21 09:28 Dose: 320 mcg Documented by: Vancomycin HCl (Vancomycin 500 Mg Sdv) Confirm Administered Dose 500 mg .ROUTE .STK-MED ONE Stop: 05/05/21 11:18 Last Admin: 05/05/21 11:43 Dose: Not Given Documented by: - Exam Central Line Total Time: 6Days 18Hours Physical Findings Comments:: Central: No acute distress HEENT: Mucous Membr. Moist/[place] Neck: Supple Lungs: Normal Respiratory Effort, Crackles (Bibasilar) Cardiovascular: Regular Rate, Regular Rhythm GI/Abdominal Exam: Normal Bowel Sounds, Soft, Non-Tender, No Distention Extremities: Normal Inspection, Normal Range of Motion, Non-Tender, No Pedal Edema Psy/Mental Status: Alert, Normal Affect, Normal Mood - Patient Data Lab Results Last 24 hrs: Laboratory Results - last 24 hr 05/07/21 05/07/21 05/08/21 Range/Units 16:56 21:11 06:38 POC Glucose 209 H 170 H 132 H (70-99) mg/dL 05/08/21 Range/Units 11:30 POC Glucose 184 H (70-99) mg/dL Result Diagrams: 05/07/21 05:28 05/07/21 05:28 [place] Results Last 24 hrs: Microbiology 05/06/21 12:12 Blood Culture - Preliminary Blood - Venous - Lab Draw 05/06/21 12:05 Blood Culture - Preliminary Blood - Venous Sepsis Event Note - Evaluation Sepsis Screening Result: Possible Sepsis Risk - Focused Exam Vital Signs: Vital Signs Temp Pulse Resp BP Pulse Ox 05/08/21 11:46 36.7 C 106 H 20 118/78 95 05/08/21 08:25 36.4 C 106 H 18 93/63 92 L - Problem List Review Problem List Initiated/Reviewed/Updated: Yes - My Orders Last 24 Hours: My Active Orders 05/08/21 15:00 Phosphorus #1 [Neutra-Phos] 250 mg PO TID - Plan Plan:: 65-year-old female with history of metastatic breast cancer on chemotherapy pres ented with generalized weakness, failure to thrive and neutropenia Neutropenic fever -resolved Gram-positive messi bacteremia Afebrile; last fever 05/03/2021 at 1325 White count normalized blood cultures growing gram-positive messi. Repeat PCR today is negative. Sensitivity pending Cefepime, vancomycinwe will likely stop cefepime when culture and sensitivity results return 1 unit packed red blood cells -given on May 03 Generalized weaknessimproving Admit pt to the medical floor under observation status. Patient will need PT and OT as well as nutritional support Pancytopenia Marked thrombocytopenia Platelets 41,000 Last chemotherapy April 29 Granix/filgrastim -stopped on May 06 Transfused 1 unit packed red blood cells Hemoglobin up to 9.4 Follow CBC Metastatic breast cancer Spoke with Mckayla Barrett NP who recommended filgrastim. She was started on chemotherapy in October of this year and is now on her 4th cycle of treatment. her last does of chemo was on April 29. She follows with Dr. Osuna at [facility] Transaminitis possibly secondary to chemotherapy Repeat liver enzymes in the morning Ultrasound abdomen Diabetes mellitus Restart home Jardiance Continue to hold Glucophage Fingerstick blood sugar 4 times daily with sliding scale insulin low-dose Past medical history of hypertension Hold BP meds due to borderline low blood pressures Severe protein calorie malnutrition Hypophosphatemia Hypomagnesemia Replaced and repeat it. Started on Megace Dehydration Resolved Full code DVT prophylaxis. Lovenox stopped because of thrombocytopenia. SCDs
[2021-05-08] MEDS: Morphine 15 MG Tab.ER PO SCH (21:08)
[2021-05-08] MEDS: traZODone 50 MG Tab PO SCH (21:09)
[2021-05-09] MEDS: Cefepime 2 GM in Sodium Chloride 0.9% 50 ML IV SCH (06:06)
[2021-05-09] MEDS: Pantoprazole 40 MG Tab.CR PO SCH (06:06)
[2021-05-09] MEDS: LORazepam 0.5 MG Tab PO SCH ×2 (06:10→12:54)
[2021-05-09] MEDS: Insulin Lispro 100 UNIT/ML 10 ML Vial SUBCUT SCH ×4 (06:46→22:31)
[2021-05-09] MEDS: Empagliflozin 25 MG Tab PO SCH (08:38)
[2021-05-09] MEDS: Calcium Carbonate/Vitamin D3 600 MG-200 Units Tab PO SCH ×3 (08:38→20:56)
[2021-05-09] MEDS: Aspirin 81 MG Tab.EC PO SCH (08:38)
[2021-05-09] MEDS: Potassium Chloride 10 MEQ Tab.ER PO SCH ×3 (08:38→20:56)
[2021-05-09] MEDS: Acetaminophen/HYDROcodone 325-5 MG Tab PO PRN ×2 (08:39→15:23)
[2021-05-09] MEDS: Loratadine 10 MG Tab PO SCH (08:39)
[2021-05-09] MEDS: Bisacodyl 5 MG Tab PO SCH (08:39)
[2021-05-09] MEDS: Gabapentin 100 MG Cap PO SCH ×2 (08:39→20:56)
[2021-05-09] MEDS: Famotidine 10 MG Tab PO SCH (08:39)
[2021-05-09] MEDS: Megestrol Susp 40 MG/ML 10 ML UD Cup PO SCH (08:40)
[2021-05-09] MEDS: Dexamethasone 4 MG Tab PO SCH (08:40)
[2021-05-09] MEDS ORDERED: Magnesium Sulfate/Water 4 GM in Premix Bag 1 BAG IV ONE (09:00)
[2021-05-09] MEDS: Levofloxacin/Dextrose 5%-Water 750 MG in Premix Bag 1 BAG IV SCH (11:25)
--- NOTE | 2021-05-09 12:30 | US ---
Limited abdominal ultrasound: Multiple real-time images of the upper right abdomen were obtained. Comparison: No prior abdominal imaging is available. Findings: Liver is very irregular in its echo pattern raising the possibility of diffuse liver metastasis. Gallbladder contains no shadowing gallstones. No gallbladder wall thickening or biliary duct dilatation is seen. Right kidney shows a small hyperechoic area within the cortex measuring 7 mm possibly due to an angiomyolipoma. No hydronephrosis is seen. Right kidney has a length of 9.9 cm. Pancreas shows no discrete abnormality. Main portal vein shows normal hepatopedal flow. Impression: 1. Diffusely abnormal appearing liver raising the possibility of metastatic disease. Contrast enhanced CT would be needed to confirm. 2. 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 3. No additional abnormality is appreciated on right upper quadrant abdominal ultrasound. Diagnostic code #9
[2021-05-09] MEDS: Sodium Chloride 0.9% 1,000 ML IV SCH (13:01)
--- NOTE | 2021-05-09 13:33 | PCM.PN ---
- General Info Date of Service: 05/09/21 Admission Dx/Problem (Free Text): Admission Diagnosis/Problem Admission Diagnosis/Problem Generalized weakness Subjective Update: Mrs. Aguilar is a 67-year-old female history with a h/o breast cancer diagnosed in September 2020. She was started on chemotherapy in October of this year and is now on her 4th cycle of treatment. her last does of chemo was about 8 days ago. She follows with Dr. Osuna at [place]. She was brought to the ER due to lethargy. In the hospital, she was informed to have low a positive will blood cultu [id number] rods. Today patient does not have any new complaints. She still feels less tired. She Otherwise denies headache, dizziness, fever, chills, or dysuria. Her blood culture sensitivity still pending. Called microbiology-they feel she could have an unusual species. They need send her blood specimen to even higher labs for further culture and identification which may take 4-5 more days. - Review of Systems Systems Review Comment:: Positive for fatigue. All other systems were reviewed and negative. - Patient Data Vitals - Most Recent: Last Vital Signs Temp 37.1 C 05/09/21 08:15 Pulse 110 H 05/09/21 08:15 Resp 16 05/09/21 08:15 BP 146/86 H 05/09/21 08:15 Pulse Ox 94 L 05/09/21 08:15 Weight - Most Recent: 65.045 kg I&O - Last 24 Hours: Intake & Output 05/08/21 05/09/21 05/09/21 22:59 06:59 14:59 Intake Total 840 500 660 Output Total 1275 1500 400 Balance -435 -1000 260 Lab Results Last 24 Hours: Laboratory Results - last 24 hr 05/08/21 05/08/21 05/09/21 Range/Units 17:12 20:58 06:22 WBC 3.86 L (3.98-10.04) K/mm3 RBC 3.19 L (3.98-5.22) M/mm3 Hgb 10.3 L (11.2-15.7) gm/dl Hct 32.6 L (34.1-44.9) % MCV 102.2 H (79.4-94.8) fl MCH 32.3 H (25.6-32.2) pg MCHC 31.6 L (32.2-35.5) g/dl RDW Std Deviation 62.6 H (36.4-46.3) fL Plt Count 47 L (182-369) K/mm3 MPV 11.4 (9.4-12.3) fl Neut % (Auto) 64.8 (34.0-71.1) % Lymph % (Auto) 18.1 L (19.3-51.7) % Gates % (Auto) 9.1 (4.7-12.5) % Eos % (Auto) 1.0 (0.7-5.8) Baso % (Auto) 0.8 (0.1-1.2) % Neut # (Auto) 2.50 (1.56-6.13) K/mm3 Lymph # (Auto) 0.70 L (1.18-3.74) K/mm3 Gates # (Auto) 0.35 (0.24-0.36) K/mm3 Eos # (Auto) 0.04 (0.04-0.36) K/mm3 Baso # (Auto) 0.03 (0.01-0.08) K/mm3 Manual Slide Review Abnormal smear Sodium (136-145) mEq/L Potassium (3.5-5.1) mEq/L Chloride (98-107) mEq/L Carbon Dioxide (21-32) mEq/L Anion Gap (5-15) BUN (7-18) mg/dL Creatinine (0.55-1.02) mg/dL Est Cr Clr Drug Dosing mL/min Estimated GFR (MDRD) (>60) mL/min BUN/Creatinine Ratio (14-18) Glucose (70-99) mg/dL POC Glucose 267 H 252 H (70-99) mg/dL Calcium (8.5-10.1) mg/dL Phosphorus (2.6-4.7) mg/dL Magnesium (1.8-2.4) mg/dL Total Bilirubin (0.2-1.0) mg/dL AST (15-37) U/L ALT (14-59) U/L Alkaline Phosphatase (46-116) U/L Total Protein (6.4-8.2) g/dl Albumin (3.4-5.0) g/dl Globulin gm/dL Albumin/Globulin Ratio (1-2) 05/09/21 05/09/21 05/09/21 Range/Units 06:22 06:44 12:40 WBC (3.98-10.04) K/mm3 RBC (3.98-5.22) M/mm3 Hgb (11.2-15.7) gm/dl Hct (34.1-44.9) % MCV (79.4-94.8) fl MCH (25.6-32.2) pg MCHC (32.2-35.5) g/dl RDW Std Deviation (36.4-46.3) fL Plt Count (182-369) K/mm3 MPV (9.4-12.3) fl Neut % (Auto) (34.0-71.1) % Lymph % (Auto) (19.3-51.7) % Gates % (Auto) (4.7-12.5) % Eos % (Auto) (0.7-5.8) Baso % (Auto) (0.1-1.2) % Neut # (Auto) (1.56-6.13) K/mm3 Lymph # (Auto) (1.18-3.74) K/mm3 Gates # (Auto) (0.24-0.36) K/mm3 Eos # (Auto) (0.04-0.36) K/mm3 Baso # (Auto) (0.01-0.08) K/mm3 Manual Slide Review Sodium 137 (136-145) mEq/L Potassium 4.1 (3.5-5.1) mEq/L Chloride 104 (98-107) mEq/L Carbon Dioxide 24 (21-32) mEq/L Anion Gap 13.1 (5-15) BUN 11 (7-18) mg/dL Creatinine 0.6 (0.55-1.02) mg/dL Est Cr Clr Drug Dosing 71.48 mL/min Estimated GFR (MDRD) > 60 (>60) mL/min BUN/Creatinine Ratio 18.3 H (14-18) Glucose 150 H (70-99) mg/dL POC Glucose 138 H 380 H (70-99) mg/dL Calcium 8.0 L (8.5-10.1) mg/dL Phosphorus 3.4 (2.6-4.7) mg/dL Magnesium 1.6 L (1.8-2.4) mg/dL Total Bilirubin 1.3 H (0.2-1.0) mg/dL AST 108 H (15-37) U/L ALT 254 H (14-59) U/L Alkaline Phosphatase 654 H (46-116) U/L Total Protein 5.3 L (6.4-8.2) g/dl Albumin 2.1 L (3.4-5.0) g/dl Globulin 3.2 gm/dL Albumin/Globulin Ratio 0.7 L (1-2) Jairo Results Last 24 Hours: Microbiology 05/02/21 13:53 Blood Culture - Preliminary Blood - Venous - Lab Draw Gram Positive Rods 05/02/21 13:48 Blood Culture - Preliminary Blood - Venous - Lab Draw Gram Positive Rods Med Orders - Current: Current Medications Acetaminophen (Acetaminophen 325 Mg Tab) 650 mg PO Q4H PRN PRN Reason: Pain (Mild 1-3)/fever Last Admin: 05/08/21 19:56 Dose: 650 mg Documented by: Hydrocodone Bitart/Acetaminophen (Acetaminophen/Hydrocodone 325-5 Mg Tab) 1 tab PO Q4H PRN PRN Reason: Pain (moderate 4-6) Last Admin: 05/09/21 08:39 Dose: 1 tab Documented by: Aspirin (Aspirin 81 Mg Tab.Ec) 81 mg PO DAILY [facility] Last Admin: 05/09/21 08:38 Dose: 81 mg Documented by: Bisacodyl (Bisacodyl 5 Mg Tab) 5 mg PO DAILY [facility] Last Admin: 05/09/21 08:39 Dose: 5 mg Documented by: Calcium Carbonate (Calcium Carbonate/Vitamin D3 600 Mg-200 Units Tab) 1 tab PO TID [facility] Last Admin: 05/09/21 08:38 Dose: 1 tab Documented by: Calcium Carbonate/Glycine (Calcium Carbonate 500 Mg Tab.Chew) 1,000 mg PO Q2HR PRN PRN Reason: Indigestion Dexamethasone (Dexamethasone 4 Mg Tab) 2 mg PO DAILY [facility] Last Admin: 05/09/21 08:40 Dose: 2 mg Documented by: Docusate Sodium (Docusate Sodium 100 Mg Cap) 100 mg PO DAILY PRN PRN Reason: Constipation Famotidine (Famotidine 10 Mg Tab) 10 mg PO DAILY [facility] Last Admin: 05/09/21 08:39 Dose: 10 mg Documented by: Gabapentin (Gabapentin 100 Mg Cap) 200 mg PO BID [facility] Last Admin: 05/09/21 08:39 Dose: 200 mg Documented by: Promethazine HCl 6.25 mg/ (Sodium Chloride) 50.25 mls @ 100 mls/hr IV Q6H PRN PRN Reason: Nausea/Vomiting Sodium Chloride (Normal Saline) 1,000 mls @ 25 mls/hr IV ASDIRECTED [facility] Last Admin: 05/09/21 13:01 Dose: 25 mls/hr Documented by: Levofloxacin/Dextrose 750 mg/ (Premix) 150 mls @ 100 mls/hr IV Q24H [facility] Last Admin: 05/09/21 11:25 Dose: 100 mls/hr Documented by: Insulin Human Lispro (Insulin Lispro 100 Unit/Ml 10 Ml Vial) 0 unit SUBCUT QIDACANDBED [facility]; Protocol Last Admin: 05/09/21 12:54 Dose: 10 unit Documented by: Loratadine (Loratadine 10 Mg Tab) 10 mg PO DAILY [facility] Last Admin: 05/09/21 08:39 Dose: 10 mg Documented by: Lorazepam (Lorazepam 0.5 Mg Tab) 0.5 mg PO Q6H [facility] Last Admin: 05/09/21 12:54 Dose: 0.5 mg Documented by: Losartan Potassium (Losartan 25 Mg Tab) 25 mg PO DAILY [facility] Megestrol Acetate (Megestrol Susp 40 Mg/Ml 10 Ml Ud Cup) 400 mg PO DAILY [facility] Last Admin: 05/09/21 08:40 Dose: 400 mg Documented by: Morphine Sulfate (Morphine 15 Mg Tab.Er) 15 mg PO BEDTIME [facility] Last Admin: 05/08/21 21:08 Dose: 15 mg Documented by: Ondansetron HCl (Ondansetron 4 Mg Tab.Dis) 4 mg PO Q4H PRN PRN Reason: nausea, able to take PO Pantoprazole Sodium (Pantoprazole 40 Mg Tab.Cr) 40 mg PO ACBREAKFAST [facility] Last Admin: 05/09/21 06:06 Dose: 40 mg Documented by: Potassium Chloride (Potassium Chloride 10 Meq Tab.Er) 10 meq PO TID [facility] Last Admin: 05/09/21 08:38 Dose: 10 meq Documented by: Prochlorperazine Maleate (Prochlorperazine 5 Mg Tab) 10 mg PO QID PRN PRN Reason: Nausea/Vomiting Trazodone HCl (Trazodone 50 Mg Tab) 50 mg PO BEDTIME [facility] Last Admin: 05/08/21 21:09 Dose: 50 mg Documented by: Zolpidem Tartrate (Zolpidem 5 Mg Tab) 5 mg PO BEDTIME PRN PRN Reason: Sleep Last Admin: 05/07/21 21:12 Dose: 5 mg Documented by: Discontinued Medications Calcium Carbonate/Glycine (Calcium Carbonate 600 Mg Tab) 1,200 mg PO BIDMEALS [facility] Last Admin: 05/03/21 06:09 Dose: 1,200 mg Documented by: Enoxaparin Sodium (Enoxaparin 40 Mg/0.4 Ml Syringe) 40 mg SUBCUT DAILY [facility] Last Admin: 05/02/21 01:33 Dose: Not Given Documented by: Enoxaparin Sodium (Enoxaparin 40 Mg/0.4 Ml Syringe) 40 mg SUBCUT DAILY@2200 [facility] Last Admin: 05/02/21 21:28 Dose: 40 mg Documented by: Sodium Chloride (Normal Saline) 1,000 mls @ 999 mls/hr IV ONETIME ONE Stop: 05/01/21 17:42 Last Admin: 05/01/21 16:54 Dose: 999 mls/hr Documented by: Magnesium Sulfate 2 gm/ Premix 50 mls @ 25 mls/hr IV ONETIME ONE Stop: 05/01/21 19:46 Last Admin: 05/01/21 18:08 Dose: 25 mls/hr Documented by: Sodium Chloride (Normal Saline) 1,000 mls @ 150 mls/hr IV ONETIME ONE Stop: 05/02/21 02:56 Last Admin: 05/01/21 22:45 Dose: Not Given Documented by: Dextrose/Sodium Chloride (Dextrose 5%-1/2 Ns) 1,000 mls @ 75 mls/hr IV ASDIRECTED [facility] Last Admin: 05/03/21 23:42 Dose: 75 mls/hr Documented by: Potassium Chloride 10 meq/ (Premix) 100 mls @ 100 mls/hr IV Q1H [facility] Stop: 05/02/21 12:14 Last Admin: 05/02/21 11:50 Dose: 100 mls/hr Documented by: Sodium Chloride (Normal Saline) 1,000 mls @ 999 mls/hr IV ONETIME ONE Stop: 05/02/21 14:04 Last Admin: 05/02/21 13:15 Dose: 999 mls/hr Documented by: Cefepime HCl 2 gm/ Premix 50 mls @ 100 mls/hr IV Q8H [facility] Last Admin: 05/07/21 06:49 Dose: 100 mls/hr Documented by: Sodium Chloride (Normal Saline) 500 mls @ 500 mls/hr IV .BOLUS ONE Stop: 05/03/21 10:04 Last Infusion: 05/03/21 10:30 Dose: Infused Documented by: Vancomycin HCl 1 gm/Vancomycin HCl 250 mg/ Sodium Chloride 250 mls @ 166.667 mls/hr IV ONETIME ONE Stop: 05/03/21 11:59 Last Admin: 05/03/21 10:24 Dose: 166.667 mls/hr Documented by: Vancomycin HCl 1 gm/ Sodium (Chloride) 250 mls @ 250 mls/hr IV Q12H [facility] Last Admin: 05/04/21 23:01 Dose: 250 mls/hr Documented by: Potassium Phosphate 30 mmole/ (Sodium Chloride) 510 mls @ 102 mls/hr IV ONETIME ONE Stop: 05/03/21 18:59 Last Admin: 05/03/21 16:09 Dose: 102 mls/hr Documented by: Sodium Phosphate 30 mmole/ (Sodium Chloride) 260 mls @ 130 mls/hr IV ONETIME ONE Stop: 05/03/21 13:44 Last Admin: 05/03/21 12:51 Dose: 130 mls/hr Documented by: Magnesium Sulfate 2 gm/ Premix 50 mls @ 25 mls/hr IV ONETIME ONE Stop: 05/03/21 13:29 Last Admin: 05/03/21 12:50 Dose: 25 mls/hr Documented by: Sodium Chloride (Normal Saline) 500 mls @ 100 mls/hr IV ONETIME ONE Stop: 05/03/21 17:29 Last Admin: 05/03/21 15:50 Dose: 100 mls/hr Documented by: Sodium Chloride (Normal Saline) 1,000 mls @ 50 mls/hr IV ASDIRECTED [facility] Sodium Phosphate 30 mmole/ (Sodium Chloride) 260 mls @ 130 mls/hr IV ONETIME ONE Stop: 05/04/21 11:59 Last Admin: 05/04/21 11:34 Dose: 130 mls/hr Documented by: Sodium Phosphate 30 mmole/ (Sodium Chloride) 260 mls @ 130 mls/hr IV ONETIME O NE Stop: 05/04/21 15:59 Last Admin: 05/04/21 15:21 Dose: 130 mls/hr Documented by: Sodium Chloride (Normal Saline) 1,000 mls @ 15 mls/hr IV ASDIRECTED [facility] Last Admin: 05/04/21 18:26 Dose: 15 mls/hr Documented by: Vancomycin HCl 1 gm/Vancomycin HCl 250 mg/ Sodium Chloride 250 mls @ 166.667 mls/hr IV Q12H [facility] Last Admin: 05/08/21 22:52 Dose: 166.667 mls/hr Documented by: Sodium Phosphate 30 mmole/ (Sodium Chloride) 260 mls @ 130 mls/hr IV ONETIME ONE Stop: 05/05/21 15:59 Last Admin: 05/05/21 13:54 Dose: 130 mls/hr Documented by: Magnesium Sulfate 2 gm/ Premix 50 mls @ 25 mls/hr IV ONETIME ONE Stop: 05/05/21 13:29 Last Admin: 05/05/21 11:41 Dose: 25 mls/hr Documented by: Sodium Phosphate 30 mmole/ (Sodium Chloride) 260 mls @ 86.667 mls/hr IV ONETIME ONE Stop: 05/06/21 09:01 Last Admin: 05/06/21 08:44 Dose: 86.667 mls/hr Documented by: Cefepime HCl 2 gm/ Sodium (Chloride) 50 mls @ 100 mls/hr IV Q8H [facility] Last Admin: 05/09/21 06:06 Dose: 100 mls/hr Documented by: Magnesium Sulfate 4 gm/ Premix 50 mls @ 12.5 mls/hr IV ONETIME ONE Stop: 05/09/21 12:59 Last Admin: 05/09/21 12:55 Dose: 12.5 mls/hr Documented by: Insulin Human Lispro (Insulin Lispro 100 Unit/Ml 10 Ml Vial) 0 unit SUBCUT QIDACANDBED [facility]; Protocol Last Admin: 05/04/21 11:53 Dose: Not Given Documented by: Ketorolac Tromethamine (Ketorolac 30 Mg/Ml Sdv) 30 mg IVPUSH ONETIME ONE Stop: 05/01/21 20:30 Last Admin: 05/01/21 22:44 Dose: 30 mg Documented by: Lorazepam (Lorazepam 2 Mg/Ml Sdv) 1 mg IVPUSH ONETIME ONE Stop: 05/01/21 16:58 Last Admin: 05/01/21 17:23 Dose: 1 mg Documented by: Ondansetron HCl (Ondansetron 4 Mg/2 Ml Sdv) 4 mg IVPUSH ONETIME ONE Stop: 05/01/21 16:58 Last Admin: 05/01/21 17:23 Dose: 4 mg Documented by: Sodium Phosphate (Phosphorus #1 250 Mg Tab) 250 mg PO TID [facility] Stop: 05/08/21 21:01 Last Admin: 05/08/21 21:09 Dose: 250 mg Documented by: Tbo-Filgrastim (Tbo-Filgrastim 480 Mcg/0.8 Ml Syringe) 320 mcg SUBCUT DAILY [facility] Stop: 05/06/21 11:00 Last Admin: 05/05/21 09:28 Dose: 320 mcg Documented by: Vancomycin HCl (Pharmacy To Dose - Vancomycin) 0 dose .XX ASDIRECTED PRN PRN Reason: RX TO DOSE VANCO Vancomycin HCl (Vancomycin 500 Mg Sdv) Confirm Administered Dose 500 mg .ROUTE .STK-MED ONE Stop: 05/05/21 11:18 Last Admin: 05/05/21 11:43 Dose: Not Given Documented by: - Exam Central Line Total Time: 7Days 15Hours Physical Findings Comments:: Central Line Total Time: 6Days 18Hours Physical Findings Comments:: Central: No acute distress HEENT: Mucous Membr. Moist/[place] Neck: Supple Lungs: Normal Respiratory Effort, Crackles (Bibasilar) Cardiovascular: Regular Rate, Regular Rhythm GI/Abdominal Exam: Normal Bowel Sounds, Soft, Non-Tender, No Distention Extremities: Normal Inspection, Normal Range of Motion, Non-Tender, No Pedal Edema Psy/Mental Status: Alert, Normal Affect, Normal Mood - Patient Data Lab Results Last 24 hrs: Laboratory Results - last 24 hr 05/08/21 05/08/21 05/09/21 Range/Units 17:12 20:58 06:22 WBC 3.86 L (3.98-10.04) K/mm3 RBC 3.19 L (3.98-5.22) M/mm3 Hgb 10.3 L (11.2-15.7) gm/dl Hct 32.6 L (34.1-44.9) % MCV 102.2 H (79.4-94.8) fl MCH 32.3 H (25.6-32.2) pg MCHC 31.6 L (32.2-35.5) g/dl RDW Std Deviation 62.6 H (36.4-46.3) fL Plt Count 47 L (182-369) K/mm3 MPV 11.4 (9.4-12.3) fl Neut % (Auto) 64.8 (34.0-71.1) % Lymph % (Auto) 18.1 L (19.3-51.7) % Gates % (Auto) 9.1 (4.7-12.5) % Eos % (Auto) 1.0 (0.7-5.8) Baso % (Auto) 0.8 (0.1-1.2) % Neut # (Auto) 2.50 (1.56-6.13) K/mm3 Lymph # (Auto) 0.70 L (1.18-3.74) K/mm3 Gates # (Auto) 0.35 (0.24-0.36) K/mm3 Eos # (Auto) 0.04 (0.04-0.36) K/mm3 Baso # (Auto) 0.03 (0.01-0.08) K/mm3 Manual Slide Review Abnormal smear Sodium (136-145) mEq/L Potassium (3.5-5.1) mEq/L Chloride (98-107) mEq/L Carbon Dioxide (21-32) mEq/L Anion Gap (5-15) BUN (7-18) mg/dL Creatinine (0.55-1.02) mg/dL Est Cr Clr Drug Dosing mL/min Estimated GFR (MDRD) (>60) mL/min BUN/Creatinine Ratio (14-18) Glucose (70-99) mg/dL POC Glucose 267 H 252 H (70-99) mg/dL Calcium (8.5-10.1) mg/dL Phosphorus (2.6-4.7) mg/dL Magnesium (1.8-2.4) mg/dL Total Bilirubin (0.2-1.0) mg/dL AST (15-37) U/L ALT (14-59) U/L Alkaline Phosphatase (46-116) U/L Total Protein (6.4-8.2) g/dl Albumin (3.4-5.0) g/dl Globulin gm/dL Albumin/Globulin Ratio (1-2) 05/09/21 05/09/21 05/09/21 Range/Units 06:22 06:44 12:40 WBC (3.98-10.04) K/mm3 RBC (3.98-5.22) M/mm3 Hgb (11.2-15.7) gm/dl Hct (34.1-44.9) % MCV (79.4-94.8) fl MCH (25.6-32.2) pg MCHC (32.2-35.5) g/dl RDW Std Deviation (36.4-46.3) fL Plt Count (182-369) K/mm3 MPV (9.4-12.3) fl Neut % (Auto) (34.0-71.1) % Lymph % (Auto) (19.3-51.7) % Gates % (Auto) (4.7-12.5) % Eos % (Auto) (0.7-5.8) Baso % (Auto) (0.1-1.2) % Neut # (Auto) (1.56-6.13) K/mm3 Lymph # (Auto) (1.18-3.74) K/mm3 Gates # (Auto) (0.24-0.36) K/mm3 Eos # (Auto) (0.04-0.36) K/mm3 Baso # (Auto) (0.01-0.08) K/mm3 Manual Slide Review Sodium 137 (136-145) mEq/L Potassium 4.1 (3.5-5.1) mEq/L Chloride 104 (98-107) mEq/L Carbon Dioxide 24 (21-32) mEq/L Anion Gap 13.1 (5-15) BUN 11 (7-18) mg/dL Creatinine 0.6 (0.55-1.02) mg/dL Est Cr Clr Drug Dosing 71.48 mL/min Estimated GFR (MDRD) > 60 (>60) mL/min BUN/Creatinine Ratio 18.3 H (14-18) Glucose 150 H (70-99) mg/dL POC Glucose 138 H 380 H (70-99) mg/dL Calcium 8.0 L (8.5-10.1) mg/dL Phosphorus 3.4 (2.6-4.7) mg/dL Magnesium 1.6 L (1.8-2.4) mg/dL Total Bilirubin 1.3 H (0.2-1.0) mg/dL AST 108 H (15-37) U/L ALT 254 H (14-59) U/L Alkaline Phosphatase 654 H (46-116) U/L Total Protein 5.3 L (6.4-8.2) g/dl Albumin 2.1 L (3.4-5.0) g/dl Globulin 3.2 gm/dL Albumin/Globulin Ratio 0.7 L (1-2) Result Diagrams: 05/09/21 06:22 05/09/21 06:22 Jairo Results Last 24 hrs: Microbiology 05/02/21 13:53 Blood Culture - Preliminary Blood - Venous - Lab Draw Gram Positive Rods 05/02/21 13:48 Blood Culture - Preliminary Blood - Venous - Lab Draw Gram Positive Rods Sepsis Event Note - Evaluation Sepsis Screening Result: Possible Sepsis Risk - Focused Exam Vital Signs: Vital Signs Temp Pulse Resp BP Pulse Ox 05/09/21 08:15 37.1 C 110 H 16 146/86 H 94 L 05/09/21 03:03 125/81 05/09/21 02:56 36.0 C L 91 18 142/94 H 92 L - Problem List Review Problem List Initiated/Reviewed/Updated: Yes - My Orders Last 24 Hours: My Active Orders 05/08/21 21:28 Renew/Continue Central Line Access [OM.PC] Routine 05/09/21 11:00 Levofloxacin/Dextrose 5%-Water [Levaquin in D5W 750 MG/150 ML] 750 mg Premix Bag 1 bag IV Q24H 05/09/21 13:30 Losartan [Cozaar] 25 mg PO DAILY 05/10/21 05:00 CBC WITH AUTO DIFF [HEME] DAILY COMPREHENSIVE METABOLIC PN,CMP [CHEM] DAILY MAGNESIUM [CHEM] Routine 05/11/21 05:00 CBC WITH AUTO DIFF [HEME] DAILY COMPREHENSIVE METABOLIC PN,CMP [CHEM] DAILY 05/12/21 05:00 CBC WITH AUTO DIFF [HEME] DAILY COMPREHENSIVE METABOLIC PN,CMP [CHEM] DAILY 05/13/21 05:00 CBC WITH AUTO DIFF [HEME] DAILY COMPREHENSIVE METABOLIC PN,CMP [CHEM] DAILY - Plan Plan:: 65-year-old female with history of metastatic breast cancer on chemotherapy presented with generalized weakness, failure to thrive and neutropenia Neutropenic fever -resolved Gram-positive messi bacteremia Afebrile; last fever 05/03/2021 at 1325 White count almost normalized blood cultures growing gram-positive messi. Repeat PCR today is negative. Sensitivity pending I will discontinue vancomycin since culture showed gram-positive rods I will discontinue cefepime and initiate Levaquin for more convenient for outside infusion 1 unit packed red blood cells -given on May 03 Generalized weaknessimproving Admit pt to the medical floor under observation status. Patient will need PT and OT as well as nutritional support Pancytopenia Marked thrombocytopenia Platelets 47 today Last chemotherapy April 29 Granix/filgrastim -stopped on May 06 Transfused 1 unit packed red blood cells Hemoglobin up to 10.3 today Follow CBC Metastatic breast cancer Spoke with Mckayla Barrett NP who recommended filgrastim. She was started on chemotherapy in October of this year and is now on her 4th cycle of treatment. her last does of chemo was on April 29. She follows with Dr. Osuna at [place] Transaminitis possibly secondary to chemotherapy Repeat liver enzymes in the morning Ultrasound abdomen -diffusely abnormal appearance liver raising the possibility of metastatic disease. 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 We discussed with patient if she would like to do more work-up or not. Diabetes mellitus Restart home Jardiance Continue to hold Glucophage Fingerstick blood sugar 4 times daily with sliding scale insulin low-dose Past medical history of hypertension Blood pressure started to increase Added losartan 25 mg daily Severe protein calorie malnutrition Hypophosphatemia Hypomagnesemia Replaced and repeat it. Started on Megace Dehydration Resolved Full code DVT prophylaxis. Lovenox stopped because of thrombocytopenia. SCDs
[2021-05-09] MEDS: Vancomycin 1 GM, Vancomycin 250 MG in Sodium Chloride 0.9% 250 ML IV SCH (15:09)
[2021-05-09] MEDS: Losartan 25 MG Tab PO SCH (15:15)
[2021-05-09] MEDS: traZODone 50 MG Tab PO SCH (20:57)
[2021-05-09] MEDS: Morphine 15 MG Tab.ER PO SCH (20:57)
[2021-05-10] MEDS: LORazepam 0.5 MG Tab PO SCH ×4 (00:44→18:04)
[2021-05-10] MEDS: Pantoprazole 40 MG Tab.CR PO SCH (06:41)
[2021-05-10] MEDS: Insulin Lispro 100 UNIT/ML 10 ML Vial SUBCUT SCH ×4 (07:22→22:26)
--- NOTE | 2021-05-10 08:46 | CR ---
Chest: Portable view of the chest was obtained. Comparison: Prior chest x-ray of 05/01/21. Increasing density is seen within both lower lungs. Upper lungs are clear. Right-sided infusion port is seen. Heart size is normal. Upper mediastinum is within normal limits. Impression: 1. Increasing density within both lung bases. Some of this represents scarring but other findings could represent increasing areas of atelectasis versus possible pneumonia if patient has infectious symptoms. 2. Other stable findings as described above. Diagnostic code #3
[2021-05-10] MEDS: Loratadine 10 MG Tab PO SCH (09:41)
[2021-05-10] MEDS: Calcium Carbonate/Vitamin D3 600 MG-200 Units Tab PO SCH ×3 (09:41→21:29)
[2021-05-10] MEDS: Empagliflozin 25 MG Tab PO SCH (09:42)
[2021-05-10] MEDS: Bisacodyl 5 MG Tab PO SCH (09:42)
[2021-05-10] MEDS: Famotidine 10 MG Tab PO SCH (09:42)
[2021-05-10] MEDS: Potassium Chloride 10 MEQ Tab.ER PO SCH ×3 (09:42→21:33)
[2021-05-10] MEDS: Aspirin 81 MG Tab.EC PO SCH (09:42)
[2021-05-10] MEDS: Gabapentin 100 MG Cap PO SCH ×2 (09:43→21:29)
[2021-05-10] MEDS: Megestrol Susp 40 MG/ML 10 ML UD Cup PO SCH (09:43)
[2021-05-10] MEDS: Dexamethasone 4 MG Tab PO SCH (09:43)
[2021-05-10] MEDS: Losartan 25 MG Tab PO SCH (09:48)
[2021-05-10] MEDS: Acetaminophen 325 MG Tab PO PRN (12:49)
[2021-05-10] MEDS: Levofloxacin/Dextrose 5%-Water 750 MG in Premix Bag 1 BAG IV SCH (12:52)
--- NOTE | 2021-05-10 18:00 | PCM.PN ---
- General Info Date of Service: 05/10/21 Admission Dx/Problem (Free Text): Admission Diagnosis/Problem Admission Diagnosis/Problem Generalized weakness Subjective Update: Mrs. Aguilar is a 67-year-old female history with a h/o breast cancer diagnosed in September 2020. She was started on chemotherapy in October of this year and is now on her 4th cycle of treatment. her last does of chemo was about 8 days ago. She follows with Dr. Osuna at [place]. She was brought to the ER due to lethargy. In the hospital, she was informed to have low a positive will blood cultu [id number] rods. Today patient is feeling weaker. But denies a fever, chills, nausea, vomiting, or dysuria. Tachycardia and tachypnea He is on 1.5 L today - Review of Systems Systems Review Comment:: Positive for fatigue. All other systems were reviewed and negative. - Patient Data Vitals - Most Recent: Last Vital Signs Temp 36.9 C 05/10/21 16:51 Pulse 95 05/10/21 16:51 Resp 24 H 05/10/21 16:51 BP 85/61 L 05/10/21 16:51 Pulse Ox 93 L 05/10/21 16:51 Weight - Most Recent: 63.684 kg I&O - Last 24 Hours: Intake & Output 05/10/21 05/10/21 05/10/21 06:59 14:59 22:59 Intake Total 300 180 830 Output Total 217 766 [id number] Balance -150 -320 -170 Lab Results Last 24 Hours: Laboratory Results - last 24 hr 05/09/21 05/10/21 05/10/21 Range/Units 22:26 06:06 06:06 WBC 5.06 (3.98-10.04) K/mm3 RBC 3.30 L (3.98-5.22) M/mm3 Hgb 10.7 L (11.2-15.7) gm/dl Hct 33.9 L (34.1-44.9) % MCV 102.7 H (79.4-94.8) fl MCH 32.4 H (25.6-32.2) pg MCHC 31.6 L (32.2-35.5) g/dl RDW Std Deviation 65.7 H (36.4-46.3) fL Plt Count 63 L (182-369) K/mm3 MPV 11.1 (9.4-12.3) fl Neut % (Auto) 62.4 (34.0-71.1) % Lymph % (Auto) 19.8 (19.3-51.7) % Clare % (Auto) 9.5 (4.7-12.5) % Eos % (Auto) 2.4 (0.7-5.8) Baso % (Auto) 1.6 H (0.1-1.2) % Neut # (Auto) 3.16 (1.56-6.13) K/mm3 Lymph # (Auto) 1.00 L (1.18-3.74) K/mm3 Clare # (Auto) 0.48 H (0.24-0.36) K/mm3 Eos # (Auto) 0.12 (0.04-0.36) K/mm3 Baso # (Auto) 0.08 (0.01-0.08) K/mm3 Manual Slide Review Abnormal smear Sodium 133 L (136-145) mEq/L Potassium 4.1 (3.5-5.1) mEq/L Chloride 101 (98-107) mEq/L Carbon Dioxide 22 (21-32) mEq/L Anion Gap 14.1 (5-15) BUN 14 (7-18) mg/dL Creatinine 0.5 L (0.55-1.02) mg/dL Est Cr Clr Drug Dosing 85.77 mL/min Estimated GFR (MDRD) > 60 (>60) mL/min BUN/Creatinine Ratio 28.0 H (14-18) Glucose 116 H (70-99) mg/dL POC Glucose 220 H (70-99) mg/dL Calcium 8.2 L (8.5-10.1) mg/dL Magnesium 1.9 (1.8-2.4) mg/dL Total Bilirubin 1.1 H (0.2-1.0) mg/dL AST 71 H (15-37) U/L ALT 192 H (14-59) U/L Alkaline Phosphatase 614 H (46-116) U/L Total Protein 5.3 L (6.4-8.2) g/dl Albumin 2.2 L (3.4-5.0) g/dl Globulin 3.1 gm/dL Albumin/Globulin Ratio 0.7 L (1-2) Urine Color (Yellow) Urine Appearance (Clear) Urine pH (5.0-8.0) Ur Specific [place] (1.005-1.030) Urine Protein (Negative) Urine Glucose (UA) (Negative) Urine Ketones (Negative) Urine Occult Blood (Negative) Urine Nitrite (Negative) Urine Bilirubin (Negative) Urine Urobilinogen (0.2-1.0) Ur Leukocyte Esterase (Negative) 05/10/21 05/10/21 05/10/21 Range/Units 06:43 11:00 12:38 WBC (3.98-10.04) K/mm3 RBC (3.98-5.22) M/mm3 Hgb (11.2-15.7) gm/dl Hct (34.1-44.9) % MCV (79.4-94.8) fl MCH (25.6-32.2) pg MCHC (32.2-35.5) g/dl RDW Std Deviation (36.4-46.3) fL Plt Count (182-369) K/mm3 MPV (9.4-12.3) fl Neut % (Auto) (34.0-71.1) % Lymph % (Auto) (19.3-51.7) % Clare % (Auto) (4.7-12.5) % Eos % (Auto) (0.7-5.8) Baso % (Auto) (0.1-1.2) % Neut # (Auto) (1.56-6.13) K/mm3 Lymph # (Auto) (1.18-3.74) K/mm3 Clare # (Auto) (0.24-0.36) K/mm3 Eos # (Auto) (0.04-0.36) K/mm3 Baso # (Auto) (0.01-0.08) K/mm3 Manual Slide Review Sodium (136-145) mEq/L Potassium (3.5-5.1) mEq/L Chloride (98-107) mEq/L Carbon Dioxide (21-32) mEq/L Anion Gap (5-15) BUN (7-18) mg/dL Creatinine (0.55-1.02) mg/dL Est Cr Clr Drug Dosing mL/min Estimated GFR (MDRD) (>60) mL/min BUN/Creatinine Ratio (14-18) Glucose (70-99) mg/dL POC Glucose 110 H 149 H (70-99) mg/dL Calcium (8.5-10.1) mg/dL Magnesium (1.8-2.4) mg/dL Total Bilirubin (0.2-1.0) mg/dL AST (15-37) U/L ALT (14-59) U/L Alkaline Phosphatase (46-116) U/L Total Protein (6.4-8.2) g/dl Albumin (3.4-5.0) g/dl Globulin gm/dL Albumin/Globulin Ratio (1-2) Urine Color Yellow (Yellow) Urine Appearance Clear (Clear) Urine pH 6.5 (5.0-8.0) Ur Specific [place] 1.015 (1.005-1.030) Urine Protein Negative (Negative) Urine Glucose (UA) 2+ H (Negative) Urine Ketones Negative (Negative) Urine Occult Blood Negative (Negative) Urine Nitrite Negative (Negative) Urine Bilirubin Negative (Negative) Urine Urobilinogen 0.2 (0.2-1.0) Ur Leukocyte Esterase Negative (Negative) Med Orders - Current: Current Medications Acetaminophen (Acetaminophen 325 Mg Tab) 650 mg PO Q4H PRN PRN Reason: Pain (Mild 1-3)/fever Last Admin: 05/10/21 12:49 Dose: 650 mg Documented by: Hydrocodone Bitart/Acetaminophen (Acetaminophen/Hydrocodone 325-5 Mg Tab) 1 tab PO Q4H PRN PRN Reason: Pain (moderate 4-6) Last Admin: 05/09/21 15:23 Dose: 1 tab Documented by: Aspirin (Aspirin 81 Mg Tab.Ec) 81 mg PO DAILY [facility] Last Admin: 05/10/21 09:42 Dose: 81 mg Documented by: Bisacodyl (Bisacodyl 5 Mg Tab) 5 mg PO DAILY [facility] Last Admin: 05/10/21 09:42 Dose: 5 mg Documented by: Calcium Carbonate (Calcium Carbonate/Vitamin D3 600 Mg-200 Units Tab) 1 tab PO TID [facility] Last Admin: 05/10/21 16:00 Dose: 1 tab Documented by: Calcium Carbonate/Glycine (Calcium Carbonate 500 Mg Tab.Chew) 1,000 mg PO Q2HR PRN PRN Reason: Indigestion Dexamethasone (Dexamethasone 4 Mg Tab) 2 mg PO DAILY [facility] Last Admin: 05/10/21 09:43 Dose: 2 mg Documented by: Docusate Sodium (Docusate Sodium 100 Mg Cap) 100 mg PO DAILY PRN PRN Reason: Constipation Famotidine (Famotidine 10 Mg Tab) 10 mg PO DAILY [facility] Last Admin: 05/10/21 09:42 Dose: 10 mg Documented by: Gabapentin (Gabapentin 100 Mg Cap) 200 mg PO BID [facility] Last Admin: 05/10/21 09:43 Dose: 200 mg Documented by: Promethazine HCl 6.25 mg/ (Sodium Chloride) 50.25 mls @ 100 mls/hr IV Q6H PRN PRN Reason: Nausea/Vomiting Sodium Chloride (Normal Saline) 1,000 mls @ 25 mls/hr IV ASDIRECTED [facility] Last Admin: 05/09/21 13:01 Dose: 25 mls/hr Documented by: Levofloxacin/Dextrose 750 mg/ (Premix) 150 mls @ 100 mls/hr IV Q24H [facility] Last Admin: 05/10/21 12:52 Dose: 100 mls/hr Documented by: Insulin Human Lispro (Insulin Lispro 100 Unit/Ml 10 Ml Vial) 0 unit SUBCUT QIDACANDBED [facility]; Protocol Last Admin: 05/10/21 12:41 Dose: Not Given Documented by: Loratadine (Loratadine 10 Mg Tab) 10 mg PO DAILY [facility] Last Admin: 05/10/21 09:41 Dose: 10 mg Documented by: Lorazepam (Lorazepam 0.5 Mg Tab) 0.5 mg PO Q6H [facility] Last Admin: 05/10/21 12:51 Dose: 0.5 mg Documented by: Losartan Potassium (Losartan 25 Mg Tab) 25 mg PO DAILY [facility] Last Admin: 05/10/21 09:48 Dose: 25 mg Documented by: Megestrol Acetate (Megestrol Susp 40 Mg/Ml 10 Ml Ud Cup) 400 mg PO DAILY [facility] Last Admin: 05/10/21 09:43 Dose: 400 mg Documented by: Morphine Sulfate (Morphine 15 Mg Tab.Er) 15 mg PO BEDTIME [facility] Last Admin: 05/09/21 20:57 Dose: 15 mg Documented by: Ondansetron HCl (Ondansetron 4 Mg Tab.Dis) 4 mg PO Q4H PRN PRN Reason: nausea, able to take PO Pantoprazole Sodium (Pantoprazole 40 Mg Tab.Cr) 40 mg PO ACBREAKFAST [facility] Last Admin: 05/10/21 06:41 Dose: 40 mg Documented by: Potassium Chloride (Potassium Chloride 10 Meq Tab.Er) 10 meq PO TID [facility] Last Admin: 05/10/21 16:00 Dose: 10 meq Documented by: Prochlorperazine Maleate (Prochlorperazine 5 Mg Tab) 10 mg PO QID PRN PRN Reason: Nausea/Vomiting Trazodone HCl (Trazodone 50 Mg Tab) 50 mg PO BEDTIME [facility] Last Admin: 05/09/21 20:57 Dose: 50 mg Documented by: Zolpidem Tartrate (Zolpidem 5 Mg Tab) 5 mg PO BEDTIME PRN PRN Reason: Sleep Last Admin: 05/07/21 21:12 Dose: 5 mg Documented by: Discontinued Medications Calcium Carbonate/Glycine (Calcium Carbonate 600 Mg Tab) 1,200 mg PO BIDMEALS [facility] Last Admin: 05/03/21 06:09 Dose: 1,200 mg Documented by: Enoxaparin Sodium (Enoxaparin 40 Mg/0.4 Ml Syringe) 40 mg SUBCUT DAILY [facility] Last Admin: 05/02/21 01:33 Dose: Not Given Documented by: Enoxaparin Sodium (Enoxaparin 40 Mg/0.4 Ml Syringe) 40 mg SUBCUT DAILY@2200 [facility] Last Admin: 05/02/21 21:28 Dose: 40 mg Documented by: Sodium Chloride (Normal Saline) 1,000 mls @ 999 mls/hr IV ONETIME ONE Stop: 05/01/21 17:42 Last Admin: 05/01/21 16:54 Dose: 999 mls/hr Documented by: Magnesium Sulfate 2 gm/ Premix 50 mls @ 25 mls/hr IV ONETIME ONE Stop: 05/01/21 19:46 Last Admin: 05/01/21 18:08 Dose: 25 mls/hr Documented by: Sodium Chloride (Normal Saline) 1,000 mls @ 150 mls/hr IV ONETIME ONE Stop: 05/02/21 02:56 Last Admin: 05/01/21 22:45 Dose: Not Given Documented by: Dextrose/Sodium Chloride (Dextrose 5%-1/2 Ns) 1,000 mls @ 75 mls/hr IV ASDIRECTED [facility] Last Admin: 05/03/21 23:42 Dose: 75 mls/hr Documented by: Potassium Chloride 10 meq/ (Premix) 100 mls @ 100 mls/hr IV Q1H [facility] Stop: 05/02/21 12:14 Last Admin: 05/02/21 11:50 Dose: 100 mls/hr Documented by: Sodium Chloride (Normal Saline) 1,000 mls @ 999 mls/hr IV ONETIME ONE Stop: 05/02/21 14:04 Last Admin: 05/02/21 13:15 Dose: 999 mls/hr Documented by: Cefepime HCl 2 gm/ Premix 50 mls @ 100 mls/hr IV Q8H [facility] Last Admin: 05/07/21 06:49 Dose: 100 mls/hr Documented by: Sodium Chloride (Normal Saline) 500 mls @ 500 mls/hr IV .BOLUS ONE Stop: 05/03/21 10:04 Last Infusion: 05/03/21 10:30 Dose: Infused Documented by: Vancomycin HCl 1 gm/Vancomycin HCl 250 mg/ Sodium Chloride 250 mls @ 166.667 mls/hr IV ONETIME ONE Stop: 05/03/21 11:59 Last Admin: 05/03/21 10:24 Dose: 166.667 mls/hr Documented by: Vancomycin HCl 1 gm/ Sodium (Chloride) 250 mls @ 250 mls/hr IV Q12H [facility] Last Admin: 05/04/21 23:01 Dose: 250 mls/hr Documented by: Potassium Phosphate 30 mmole/ (Sodium Chloride) 510 mls @ 102 mls/hr IV ONETIME ONE Stop: 05/03/21 18:59 Last Admin: 05/03/21 16:09 Dose: 102 mls/hr Documented by: Sodium Phosphate 30 mmole/ (Sodium Chloride) 260 mls @ 130 mls/hr IV ONETIME ONE Stop: 05/03/21 13:44 Last Admin: 05/03/21 12:51 Dose: 130 mls/hr Documented by: Magnesium Sulfate 2 gm/ Premix 50 mls @ 25 mls/hr IV ONETIME ONE Stop: 05/03/21 13:29 Last Admin: 05/03/21 12:50 Dose: 25 mls/hr Documented by: Sodium Chloride (Normal Saline) 500 mls @ 100 mls/hr IV ONETIME ONE Stop: 05/03/21 17:29 Last Admin: 05/03/21 15:50 Dose: 100 mls/hr Documented by: Sodium Chloride (Normal Saline) 1,000 mls @ 50 mls/hr IV ASDIRECTED [facility] Sodium Phosphate 30 mmole/ (Sodium Chloride) 260 mls @ 130 mls/hr IV ONETIME ONE Stop: 05/04/21 11:59 Last Admin: 05/04/21 11:34 Dose: 130 mls/hr Documented by: Sodium Phosphate 30 mmole/ (Sodium Chloride) 260 mls @ 130 mls/hr IV ONETIME ON E Stop: 05/04/21 15:59 Last Admin: 05/04/21 15:21 Dose: 130 mls/hr Documented by: Sodium Chloride (Normal Saline) 1,000 mls @ 15 mls/hr IV ASDIRECTED [facility] Last Admin: 05/04/21 18:26 Dose: 15 mls/hr Documented by: Vancomycin HCl 1 gm/Vancomycin HCl 250 mg/ Sodium Chloride 250 mls @ 166.667 mls/hr IV Q12H [facility] Last Admin: 05/09/21 15:09 Dose: Not Given Documented by: Sodium Phosphate 30 mmole/ (Sodium Chloride) 260 mls @ 130 mls/hr IV ONETIME ONE Stop: 05/05/21 15:59 Last Admin: 05/05/21 13:54 Dose: 130 mls/hr Documented by: Magnesium Sulfate 2 gm/ Premix 50 mls @ 25 mls/hr IV ONETIME ONE Stop: 05/05/21 13:29 Last Admin: 05/05/21 11:41 Dose: 25 mls/hr Documented by: Sodium Phosphate 30 mmole/ (Sodium Chloride) 260 mls @ 86.667 mls/hr IV ONETIME ONE Stop: 05/06/21 09:01 Last Admin: 05/06/21 08:44 Dose: 86.667 mls/hr Documented by: Cefepime HCl 2 gm/ Sodium (Chloride) 50 mls @ 100 mls/hr IV Q8H [facility] Last Admin: 05/09/21 06:06 Dose: 100 mls/hr Documented by: Magnesium Sulfate 4 gm/ Premix 50 mls @ 12.5 mls/hr IV ONETIME ONE Stop: 05/09/21 12:59 Last Admin: 05/09/21 12:55 Dose: 12.5 mls/hr Documented by: Insulin Human Lispro (Insulin Lispro 100 Unit/Ml 10 Ml Vial) 0 unit SUBCUT QIDACANDBED [facility]; Protocol Last Admin: 05/04/21 11:53 Dose: Not Given Documented by: Ketorolac Tromethamine (Ketorolac 30 Mg/Ml Sdv) 30 mg IVPUSH ONETIME ONE Stop: 05/01/21 20:30 Last Admin: 05/01/21 22:44 Dose: 30 mg Documented by: Lorazepam (Lorazepam 2 Mg/Ml Sdv) 1 mg IVPUSH ONETIME ONE Stop: 05/01/21 16:58 Last Admin: 05/01/21 17:23 Dose: 1 mg Documented by: Ondansetron HCl (Ondansetron 4 Mg/2 Ml Sdv) 4 mg IVPUSH ONETIME ONE Stop: 05/01/21 16:58 Last Admin: 05/01/21 17:23 Dose: 4 mg Documented by: Sodium Phosphate (Phosphorus #1 250 Mg Tab) 250 mg PO TID [facility] Stop: 05/08/21 21:01 Last Admin: 05/08/21 21:09 Dose: 250 mg Documented by: Tbo-Filgrastim (Tbo-Filgrastim 480 Mcg/0.8 Ml Syringe) 320 mcg SUBCUT DAILY [facility] Stop: 05/06/21 11:00 Last Admin: 05/05/21 09:28 Dose: 320 mcg Documented by: Vancomycin HCl (Pharmacy To Dose - Vancomycin) 0 dose .XX ASDIRECTED PRN PRN Reason: RX TO DOSE VANCO Vancomycin HCl (Vancomycin 500 Mg Sdv) Confirm Administered Dose 500 mg .ROUTE .STK-MED ONE Stop: 05/05/21 11:18 Last Admin: 05/05/21 11:43 Dose: Not Given Documented by: - Exam Central Line Total Time: 8Days 23Hours Physical Findings Comments:: Central: No acute distress HEENT: Mucous Membr. Moist/[place] Neck: Supple Chest: a port is noted. no evidence of infection. Lungs: Normal Respiratory Effort, Crackles (Bibasilar) Cardiovascular: Regular Rate, Regular Rhythm GI/Abdominal Exam: Normal Bowel Sounds, Soft, Non-Tender, No Distention Extremities: Normal Inspection, Normal Range of Motion, Non-Tender, No Pedal Edema Psy/Mental Status: Alert, Normal Affect, Normal Mood - Patient Data Lab Results Last 24 hrs: Laboratory Results - last 24 hr 05/09/21 05/10/21 05/10/21 Range/Units 22:26 06:06 06:06 WBC 5.06 (3.98-10.04) K/mm3 RBC 3.30 L (3.98-5.22) M/mm3 Hgb 10.7 L (11.2-15.7) gm/dl Hct 33.9 L (34.1-44.9) % MCV 102.7 H (79.4-94.8) fl MCH 32.4 H (25.6-32.2) pg MCHC 31.6 L (32.2-35.5) g/dl RDW Std Deviation 65.7 H (36.4-46.3) fL Plt Count 63 L (182-369) K/mm3 MPV 11.1 (9.4-12.3) fl Neut % (Auto) 62.4 (34.0-71.1) % Lymph % (Auto) 19.8 (19.3-51.7) % Clare % (Auto) 9.5 (4.7-12.5) % Eos % (Auto) 2.4 (0.7-5.8) Baso % (Auto) 1.6 H (0.1-1.2) % Neut # (Auto) 3.16 (1.56-6.13) K/mm3 Lymph # (Auto) 1.00 L (1.18-3.74) K/mm3 Clare # (Auto) 0.48 H (0.24-0.36) K/mm3 Eos # (Auto) 0.12 (0.04-0.36) K/mm3 Baso # (Auto) 0.08 (0.01-0.08) K/mm3 Manual Slide Review Abnormal smear Sodium 133 L (136-145) mEq/L Potassium 4.1 (3.5-5.1) mEq/L Chloride 101 (98-107) mEq/L Carbon Dioxide 22 (21-32) mEq/L Anion Gap 14.1 (5-15) BUN 14 (7-18) mg/dL Creatinine 0.5 L (0.55-1.02) mg/dL Est Cr Clr Drug Dosing 85.77 mL/min Estimated GFR (MDRD) > 60 (>60) mL/min BUN/Creatinine Ratio 28.0 H (14-18) Glucose 116 H (70-99) mg/dL POC Glucose 220 H (70-99) mg/dL Calcium 8.2 L (8.5-10.1) mg/dL Magnesium 1.9 (1.8-2.4) mg/dL Total Bilirubin 1.1 H (0.2-1.0) mg/dL AST 71 H (15-37) U/L ALT 192 H (14-59) U/L Alkaline Phosphatase 614 H (46-116) U/L Total Protein 5.3 L (6.4-8.2) g/dl Albumin 2.2 L (3.4-5.0) g/dl Globulin 3.1 gm/dL Albumin/Globulin Ratio 0.7 L (1-2) Urine Color (Yellow) Urine Appearance (Clear) Urine pH (5.0-8.0) Ur Specific [place] (1.005-1.030) Urine Protein (Negative) Urine Glucose (UA) (Negative) Urine Ketones (Negative) Urine Occult Blood (Negative) Urine Nitrite (Negative) Urine Bilirubin (Negative) Urine Urobilinogen (0.2-1.0) Ur Leukocyte Esterase (Negative) 05/10/21 05/10/21 05/10/21 Range/Units 06:43 11:00 12:38 WBC (3.98-10.04) K/mm3 RBC (3.98-5.22) M/mm3 Hgb (11.2-15.7) gm/dl Hct (34.1-44.9) % MCV (79.4-94.8) fl MCH (25.6-32.2) pg MCHC (32.2-35.5) g/dl RDW Std Deviation (36.4-46.3) fL Plt Count (182-369) K/mm3 MPV (9.4-12.3) fl Neut % (Auto) (34.0-71.1) % Lymph % (Auto) (19.3-51.7) % Clare % (Auto) (4.7-12.5) % Eos % (Auto) (0.7-5.8) Baso % (Auto) (0.1-1.2) % Neut # (Auto) (1.56-6.13) K/mm3 Lymph # (Auto) (1.18-3.74) K/mm3 Clare # (Auto) (0.24-0.36) K/mm3 Eos # (Auto) (0.04-0.36) K/mm3 Baso # (Auto) (0.01-0.08) K/mm3 Manual Slide Review Sodium (136-145) mEq/L Potassium (3.5-5.1) mEq/L Chloride (98-107) mEq/L Carbon Dioxide (21-32) mEq/L Anion Gap (5-15) BUN (7-18) mg/dL Creatinine (0.55-1.02) mg/dL Est Cr Clr Drug Dosing mL/min Estimated GFR (MDRD) (>60) mL/min BUN/Creatinine Ratio (14-18) Glucose (70-99) mg/dL POC Glucose 110 H 149 H (70-99) mg/dL Calcium (8.5-10.1) mg/dL Magnesium (1.8-2.4) mg/dL Total Bilirubin (0.2-1.0) mg/dL AST (15-37) U/L ALT (14-59) U/L Alkaline Phosphatase (46-116) U/L Total Protein (6.4-8.2) g/dl Albumin (3.4-5.0) g/dl Globulin gm/dL Albumin/Globulin Ratio (1-2) Urine Color Yellow (Yellow) Urine Appearance Clear (Clear) Urine pH 6.5 (5.0-8.0) Ur Specific [place] 1.015 (1.005-1.030) Urine Protein Negative (Negative) Urine Glucose (UA) 2+ H (Negative) Urine Ketones Negative (Negative) Urine Occult Blood Negative (Negative) Urine Nitrite Negative (Negative) Urine Bilirubin Negative (Negative) Urine Urobilinogen 0.2 (0.2-1.0) Ur Leukocyte Esterase Negative (Negative) Result Diagrams: 05/10/21 06:06 05/10/21 06:06 Sepsis Event Note - Evaluation Sepsis Screening Result: Severe Sepsis Risk - Focused Exam Vital Signs: Vital Signs Temp Pulse Resp BP Pulse Ox 05/10/21 16:51 36.9 C 95 24 H 85/61 L 93 L 05/10/21 12:49 36.7 C 05/10/21 12:44 36.7 C 118 H 24 H 102/70 93 L 05/10/21 09:48 99/67 05/10/21 09:46 36.8 C 125 H 18 99/67 90 L - Problem List Review Problem List Initiated/Reviewed/Updated: Yes - My Orders Last 24 Hours: My Active Orders 05/10/21 09:09 Renew/Continue Central Line Access [OM.PC] Routine 05/11/21 05:00 CBC WITH AUTO DIFF [HEME] DAILY COMPREHENSIVE METABOLIC PN,CMP [CHEM] DAILY 05/12/21 05:00 CBC WITH AUTO DIFF [HEME] DAILY COMPREHENSIVE METABOLIC PN,CMP [CHEM] DAILY 05/13/21 05:00 CBC WITH AUTO DIFF [HEME] DAILY COMPREHENSIVE METABOLIC PN,CMP [CHEM] DAILY - Plan Plan:: 65-year-old female with history of metastatic breast cancer on chemotherapy presented with generalized weakness, failure to thrive and neutropenia Neutropenic fever -resolved Gram-positive messi bacteremia Afebrile; last fever 05/03/2021 at 1325 White count normalized blood cultures growing gram-positive messi. Repeat PCR today is negative. Sensitivity pending I will discontinue vancomycin since culture showed gram-positive rods I will discontinue cefepime and initiate Levaquin for more convenient for outside infusion 1 unit packed red blood cells -given on May 03 Generalized weaknessimproving Admit pt to the medical floor under observation status. Patient will need PT and OT as well as nutritional support Pancytopenia Marked thrombocytopenia Platelets 63 today Last chemotherapy April 29 Granix/filgrastim -stopped on May 06 Transfused 1 unit packed red blood cells Hemoglobin up to 10.7 today Follow CBC Metastatic breast cancer Spoke with Mckayla Barrett NP who recommended filgrastim. She was started on chemotherapy in October of this year and is now on her 4th cycle of treatment. her last does of chemo was on April 29. She follows with Dr. Osuna at [place] Transaminitis possibly secondary to chemotherapy Repeat liver enzymes in the morning Ultrasound abdomen -diffusely abnormal appearance liver raising the possibility of metastatic disease. 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 Discussed with patient this morning who agreed not to do further work up including CT abd with contrast. She will see Dr. Osuna at [place] for further workup and treatment. Diabetes mellitus Restart home Jardiance Continue to hold Glucophage Fingerstick blood sugar 4 times daily with sliding scale insulin low-dose Past medical history of hypertension Blood pressure started to increase Added losartan 25 mg daily Severe protein calorie malnutrition Hypophosphatemia Hypomagnesemia Replaced and repeat it. Started on Megace Dehydration Resolved Full code DVT prophylaxis. Lovenox stopped because of thrombocytopenia. SCDs Disposition: She is feeling weaker. she has tachycardia and tachypnea today. He is on 1.5 L today. But she had been on RM over the past days until today. Possibly tomorrow.
[2021-05-10] MEDS: Morphine 15 MG Tab.ER PO SCH (21:29)
[2021-05-10] MEDS: traZODone 50 MG Tab PO SCH (21:29)
[2021-05-11] MEDS: Acetaminophen 325 MG Tab PO PRN (00:22)
[2021-05-11] MEDS: LORazepam 0.5 MG Tab PO SCH ×4 (00:38→18:12)
[2021-05-11] MEDS: Pantoprazole 40 MG Tab.CR PO SCH (06:58)
[2021-05-11] MEDS: Sodium Chloride 0.9% 1,000 ML IV SCH (06:58)
[2021-05-11] MEDS: Insulin Lispro 100 UNIT/ML 10 ML Vial SUBCUT SCH ×4 (07:25→22:09)
[2021-05-11] MEDS ORDERED: Dextrose 5%-0.9% NaCl 1,000 ML IV SCH (08:15)
[2021-05-11] MEDS: Calcium Carbonate/Vitamin D3 600 MG-200 Units Tab PO SCH ×3 (09:13→21:04)
[2021-05-11] MEDS: Loratadine 10 MG Tab PO SCH (09:13)
[2021-05-11] MEDS: Bisacodyl 5 MG Tab PO SCH (09:14)
[2021-05-11] MEDS: Aspirin 81 MG Tab.EC PO SCH (09:14)
[2021-05-11] MEDS: Potassium Chloride 10 MEQ Tab.ER PO SCH ×3 (09:15→21:04)
[2021-05-11] MEDS: Losartan 25 MG Tab PO SCH (09:15)
[2021-05-11] MEDS: Empagliflozin 25 MG Tab PO SCH (09:16)
[2021-05-11] MEDS: Gabapentin 100 MG Cap PO SCH ×2 (09:16→21:05)
[2021-05-11] MEDS: Megestrol Susp 40 MG/ML 10 ML UD Cup PO SCH (09:16)
[2021-05-11] MEDS: Famotidine 10 MG Tab PO SCH (09:16)
[2021-05-11] MEDS: Dexamethasone 4 MG Tab PO SCH (09:17)
--- NOTE | 2021-05-11 10:42 | CR ---
Chest: Portable view of the chest was obtained. Comparison: Prior chest x-ray of 05/10/21. Patchy areas of linear densities are seen within both lungs, worse on the left side. Both findings are slightly improved from prior study presumably due to decreasing atelectasis. Lungs otherwise are clear. Heart size and mediastinum are normal. Right-sided infusion port is seen. Slight degenerative change is scattered within the spine. Sclerotic area is noted within the proximal left humerus which was not seen on prior chest x-ray and is difficult to exclude an osteoblastic metastasis. Impression: 1. Sclerotic area within the proximal left humerus. Difficult to exclude an osteosclerotic metastasis. Please correlate with the patient's history. 2. Improved atelectasis within both lung bases. 3. Other stable findings as noted above. Diagnostic code #9
[2021-05-11] MEDS: Levofloxacin/Dextrose 5%-Water 750 MG in Premix Bag 1 BAG IV SCH (11:17)
[2021-05-11] MEDS: SODIUM CHLORIDE 0.9% IV SCH (13:20)
[2021-05-11] MEDS: AMIKACIN IV SCH (13:20)
--- NOTE | 2021-05-11 15:05 | PCM.PN ---
- General Info Date of Service: 05/11/21 Admission Dx/Problem (Free Text): Admission Diagnosis/Problem Admission Diagnosis/Problem Generalized weakness Subjective Update: Mrs. Aguilar is a 67-year-old female history with a h/o breast cancer diagnosed in September 2020. She was started on chemotherapy in October of this year and is now on her 4th cycle of treatment. her last does of chemo was about 8 days ago. She follows with Dr. Osuna at [place]. She was brought to the ER due to lethargy. In the hospital, she was informed to have low a positive will blood cultu [id number] rods. Today patient still feels weak. But denies a fever, chills, nausea, vomiting, or dysuria. She still has tachycardia and tachypnea He is now on 2-2.5 L Repeat blood culture became positive exactly on day 4. - Review of Systems Systems Review Comment:: Positive for fatigue. All other systems were reviewed and negative. - Patient Data Vitals - Most Recent: Last Vital Signs Temp 37.2 C 05/11/21 11:56 Pulse 120 H 05/11/21 11:56 Resp 28 H 05/11/21 11:56 BP 102/60 05/11/21 11:56 Pulse Ox 94 L 05/11/21 11:56 Weight - Most Recent: 63.594 kg I&O - Last 24 Hours: Intake & Output 05/11/21 05/11/21 05/11/21 06:59 14:59 22:59 Intake Total 300 Output Total 800 Balance -500 Lab Results Last 24 Hours: Laboratory Results - last 24 hr 05/10/21 05/10/21 05/11/21 Range/Units 18:01 22:17 06:20 WBC 5.12 (3.98-10.04) K/mm3 RBC 3.31 L (3.98-5.22) M/mm3 Hgb 10.6 L (11.2-15.7) gm/dl Hct 34.3 (34.1-44.9) % MCV 103.6 H (79.4-94.8) fl MCH 32.0 (25.6-32.2) pg MCHC 30.9 L (32.2-35.5) g/dl RDW Std Deviation 67.9 H (36.4-46.3) fL Plt Count 81 L (182-369) K/mm3 MPV 10.9 (9.4-12.3) fl Neut % (Auto) 72.7 H (34.0-71.1) % Lymph % (Auto) 14.1 L (19.3-51.7) % [place] % (Auto) 8.0 (4.7-12.5) % Eos % (Auto) 1.8 (0.7-5.8) Baso % (Auto) 2.0 H (0.1-1.2) % Neut # (Auto) 3.73 (1.56-6.13) K/mm3 Lymph # (Auto) 0.72 L (1.18-3.74) K/mm3 [place] # (Auto) 0.41 H (0.24-0.36) K/mm3 Eos # (Auto) 0.09 (0.04-0.36) K/mm3 Baso # (Auto) 0.10 H (0.01-0.08) K/mm3 Manual Slide Review Abnormal smear Sodium (136-145) mEq/L Potassium (3.5-5.1) mEq/L Chloride (98-107) mEq/L Carbon Dioxide (21-32) mEq/L Anion Gap (5-15) BUN (7-18) mg/dL Creatinine (0.55-1.02) mg/dL Est Cr Clr Drug Dosing mL/min Estimated GFR (MDRD) (>60) mL/min BUN/Creatinine Ratio (14-18) Glucose (70-99) mg/dL POC Glucose 235 H 195 H (70-99) mg/dL Calcium (8.5-10.1) mg/dL Total Bilirubin (0.2-1.0) mg/dL AST (15-37) U/L ALT (14-59) U/L Alkaline Phosphatase (46-116) U/L Total Protein (6.4-8.2) g/dl Albumin (3.4-5.0) g/dl Globulin gm/dL Albumin/Globulin Ratio (1-2) 05/11/21 05/11/21 05/11/21 Range/Units 06:20 06:47 11:04 WBC (3.98-10.04) K/mm3 RBC (3.98-5.22) M/mm3 Hgb (11.2-15.7) gm/dl Hct (34.1-44.9) % MCV (79.4-94.8) fl MCH (25.6-32.2) pg MCHC (32.2-35.5) g/dl RDW Std Deviation (36.4-46.3) fL Plt Count (182-369) K/mm3 MPV (9.4-12.3) fl Neut % (Auto) (34.0-71.1) % Lymph % (Auto) (19.3-51.7) % [place] % (Auto) (4.7-12.5) % Eos % (Auto) (0.7-5.8) Baso % (Auto) (0.1-1.2) % Neut # (Auto) (1.56-6.13) K/mm3 Lymph # (Auto) (1.18-3.74) K/mm3 [place] # (Auto) (0.24-0.36) K/mm3 Eos # (Auto) (0.04-0.36) K/mm3 Baso # (Auto) (0.01-0.08) K/mm3 Manual Slide Review Sodium 135 L (136-145) mEq/L Potassium 4.0 (3.5-5.1) mEq/L Chloride 104 (98-107) mEq/L Carbon Dioxide 22 (21-32) mEq/L Anion Gap 13.0 (5-15) BUN 16 (7-18) mg/dL Creatinine 0.4 L (0.55-1.02) mg/dL Est Cr Clr Drug Dosing 107.22 mL/min Estimated GFR (MDRD) > 60 (>60) mL/min BUN/Creatinine Ratio 40.0 H (14-18) Glucose 102 H (70-99) mg/dL POC Glucose 62 L 237 H (70-99) mg/dL Calcium 7.9 L (8.5-10.1) mg/dL Total Bilirubin 1.0 (0.2-1.0) mg/dL AST 65 H (15-37) U/L ALT 143 H (14-59) U/L Alkaline Phosphatase 570 H (46-116) U/L Total Protein 5.6 L (6.4-8.2) g/dl Albumin 2.1 L (3.4-5.0) g/dl Globulin 3.5 gm/dL Albumin/Globulin Ratio 0.6 L (1-2) Jairo Results Last 24 Hours: Microbiology 05/06/21 12:05 Blood Culture - Preliminary Blood - Venous Gram Positive Rods Med Orders - Current: Current Medications Acetaminophen (Acetaminophen 325 Mg Tab) 650 mg PO Q4H PRN PRN Reason: Pain (Mild 1-3)/fever Last Admin: 05/11/21 00:22 Dose: 650 mg Documented by: Hydrocodone Bitart/Acetaminophen (Acetaminophen/Hydrocodone 325-5 Mg Tab) 1 tab PO Q4H PRN PRN Reason: Pain (moderate 4-6) Last Admin: 05/09/21 15:23 Dose: 1 tab Documented by: Aspirin (Aspirin 81 Mg Tab.Ec) 81 mg PO DAILY [facility] Last Admin: 05/11/21 09:14 Dose: 81 mg Documented by: Bisacodyl (Bisacodyl 5 Mg Tab) 5 mg PO DAILY [facility] Last Admin: 05/11/21 09:14 Dose: 5 mg Documented by: Calcium Carbonate (Calcium Carbonate/Vitamin D3 600 Mg-200 Units Tab) 1 tab PO TID [facility] Last Admin: 05/11/21 09:13 Dose: 1 tab Documented by: Calcium Carbonate/Glycine (Calcium Carbonate 500 Mg Tab.Chew) 1,000 mg PO Q2HR PRN PRN Reason: Indigestion Dexamethasone (Dexamethasone 4 Mg Tab) 2 mg PO DAILY [facility] Last Admin: 05/11/21 09:17 Dose: 2 mg Documented by: Docusate Sodium (Docusate Sodium 100 Mg Cap) 100 mg PO DAILY PRN PRN Reason: Constipation Famotidine (Famotidine 10 Mg Tab) 10 mg PO DAILY [facility] Last Admin: 05/11/21 09:16 Dose: 10 mg Documented by: Gabapentin (Gabapentin 100 Mg Cap) 200 mg PO BID [facility] Last Admin: 05/11/21 09:16 Dose: 200 mg Documented by: Promethazine HCl 6.25 mg/ (Sodium Chloride) 50.25 mls @ 100 mls/hr IV Q6H PRN PRN Reason: Nausea/Vomiting Levofloxacin/Dextrose 750 mg/ (Premix) 150 mls @ 100 mls/hr IV Q24H [facility] Last Admin: 05/11/21 11:17 Dose: 100 mls/hr Documented by: Dextrose/Sodium Chloride (Dextrose 5%-Normal Saline) 1,000 mls @ 60 mls/hr IV ASDIRECTED [facility] Amikacin Sulfate 580 mg/ (Sodium Chloride) 102.32 mls @ 102.32 mls/hr IV Q24H [facility] Last Admin: 05/11/21 13:20 Dose: 102.32 mls/hr Documented by: Insulin Human Lispro (Insulin Lispro 100 Unit/Ml 10 Ml Vial) 0 unit SUBCUT Q IDACANDBED [facility]; Protocol Last Admin: 05/11/21 11:18 Dose: 4 unit Documented by: Loratadine (Loratadine 10 Mg Tab) 10 mg PO DAILY [facility] Last Admin: 05/11/21 09:13 Dose: 10 mg Documented by: Lorazepam (Lorazepam 0.5 Mg Tab) 0.5 mg PO Q6H [facility] Last Admin: 05/11/21 11:54 Dose: 0.5 mg Documented by: Losartan Potassium (Losartan 25 Mg Tab) 25 mg PO DAILY [facility] Last Admin: 05/11/21 09:15 Dose: 25 mg Documented by: Megestrol Acetate (Megestrol Susp 40 Mg/Ml 10 Ml Ud Cup) 400 mg PO DAILY [facility] Last Admin: 05/11/21 09:16 Dose: 400 mg Documented by: Morphine Sulfate (Morphine 15 Mg Tab.Er) 15 mg PO BEDTIME [facility] Last Admin: 05/10/21 21:29 Dose: 15 mg Documented by: Ondansetron HCl (Ondansetron 4 Mg Tab.Dis) 4 mg PO Q4H PRN PRN Reason: nausea, able to take PO Pantoprazole Sodium (Pantoprazole 40 Mg Tab.Cr) 40 mg PO ACBREAKFAST [facility] Last Admin: 05/11/21 06:58 Dose: 40 mg Documented by: Potassium Chloride (Potassium Chloride 10 Meq Tab.Er) 10 meq PO TID [facility] Last Admin: 05/11/21 09:15 Dose: 10 meq Documented by: Prochlorperazine Maleate (Prochlorperazine 5 Mg Tab) 10 mg PO QID PRN PRN Reason: Nausea/Vomiting Trazodone HCl (Trazodone 50 Mg Tab) 50 mg PO BEDTIME [facility] Last Admin: 05/10/21 21:29 Dose: 50 mg Documented by: Zolpidem Tartrate (Zolpidem 5 Mg Tab) 5 mg PO BEDTIME PRN PRN Reason: Sleep Last Admin: 05/07/21 21:12 Dose: 5 mg Documented by: Discontinued Medications Calcium Carbonate/Glycine (Calcium Carbonate 600 Mg Tab) 1,200 mg PO BIDMEALS [facility] Last Admin: 05/03/21 06:09 Dose: 1,200 mg Documented by: Enoxaparin Sodium (Enoxaparin 40 Mg/0.4 Ml Syringe) 40 mg SUBCUT DAILY [facility] Last Admin: 05/02/21 01:33 Dose: Not Given Documented by: Enoxaparin Sodium (Enoxaparin 40 Mg/0.4 Ml Syringe) 40 mg SUBCUT DAILY@2200 [facility] Last Admin: 05/02/21 21:28 Dose: 40 mg Documented by: Sodium Chloride (Normal Saline) 1,000 mls @ 999 mls/hr IV ONETIME ONE Stop: 05/01/21 17:42 Last Admin: 05/01/21 16:54 Dose: 999 mls/hr Documented by: Magnesium Sulfate 2 gm/ Premix 50 mls @ 25 mls/hr IV ONETIME ONE Stop: 05/01/21 19:46 Last Admin: 05/01/21 18:08 Dose: 25 mls/hr Documented by: Sodium Chloride (Normal Saline) 1,000 mls @ 150 mls/hr IV ONETIME ONE Stop: 05/02/21 02:56 Last Admin: 05/01/21 22:45 Dose: Not Given Documented by: Dextrose/Sodium Chloride (Dextrose 5%-1/2 Ns) 1,000 mls @ 75 mls/hr IV ASDIRECTED [facility] Last Admin: 05/03/21 23:42 Dose: 75 mls/hr Documented by: Potassium Chloride 10 meq/ (Premix) 100 mls @ 100 mls/hr IV Q1H [facility] Stop: 05/02/21 12:14 Last Admin: 05/02/21 11:50 Dose: 100 mls/hr Documented by: Sodium Chloride (Normal Saline) 1,000 mls @ 999 mls/hr IV ONETIME ONE Stop: 05/02/21 14:04 Last Admin: 05/02/21 13:15 Dose: 999 mls/hr Documented by: Cefepime HCl 2 gm/ Premix 50 mls @ 100 mls/hr IV Q8H [facility] Last Admin: 05/07/21 06:49 Dose: 100 mls/hr Documented by: Sodium Chloride (Normal Saline) 500 mls @ 500 mls/hr IV .BOLUS ONE Stop: 05/03/21 10:04 Last Infusion: 05/03/21 10:30 Dose: Infused Documented by: Vancomycin HCl 1 gm/Vancomycin HCl 250 mg/ Sodium Chloride 250 mls @ 166.667 mls/hr IV ONETIME ONE Stop: 05/03/21 11:59 Last Admin: 05/03/21 10:24 Dose: 166.667 mls/hr Documented by: Vancomycin HCl 1 gm/ Sodium (Chloride) 250 mls @ 250 mls/hr IV Q12H [facility] Last Admin: 05/04/21 23:01 Dose: 250 mls/hr Documented by: Potassium Phosphate 30 mmole/ (Sodium Chloride) 510 mls @ 102 mls/hr IV ONETIME ONE Stop: 05/03/21 18:59 Last Admin: 05/03/21 16:09 Dose: 102 mls/hr Documented by: Sodium Phosphate 30 mmole/ (Sodium Chloride) 260 mls @ 130 mls/hr IV ONETIME ONE Stop: 05/03/21 13:44 Last Admin: 05/03/21 12:51 Dose: 130 mls/hr Documented by: Magnesium Sulfate 2 gm/ Premix 50 mls @ 25 mls/hr IV ONETIME ONE Stop: 05/03/21 13:29 Last Admin: 05/03/21 12:50 Dose: 25 mls/hr Documented by: Sodium Chloride (Normal Saline) 500 mls @ 100 mls/hr IV ONETIME ONE Stop: 05/03/21 17:29 Last Admin: 05/03/21 15:50 Dose: 100 mls/hr Documented by: Sodium Chloride (Normal Saline) 1,000 mls @ 50 mls/hr IV ASDIRECTED [facility] Sodium Phosphate 30 mmole/ (Sodium Chloride) 260 mls @ 130 mls/hr IV ONETIME ONE Stop: 05/04/21 11:59 Last Admin: 05/04/21 11:34 Dose: 130 mls/hr Documented by: Sodium Phosphate 30 mmole/ (Sodium Chloride) 260 mls @ 130 mls/hr IV ONETIME ONE Stop: 05/04/21 15:59 Last Admin: 05/04/21 15:21 Dose: 130 mls/hr Documented by: Sodium Chloride (Normal Saline) 1,000 mls @ 15 mls/hr IV ASDIRECTED [facility] Last Admin: 05/04/21 18:26 Dose: 15 mls/hr Documented by: Vancomycin HCl 1 gm/Vancomycin HCl 250 mg/ Sodium Chloride 250 mls @ 166.667 mls/hr IV Q12H [facility] Last Admin: 05/09/21 15:09 Dose: Not Given Documented by: Sodium Phosphate 30 mmole/ (Sodium Chloride) 260 mls @ 130 mls/hr IV ONETIME ONE Stop: 05/05/21 15:59 Last Admin: 05/05/21 13:54 Dose: 130 mls/hr Documented by: Magnesium Sulfate 2 gm/ Premix 50 mls @ 25 mls/hr IV ONETIME ONE Stop: 05/05/21 13:29 Last Admin: 05/05/21 11:41 Dose: 25 mls/hr Documented by: Sodium Chloride (Normal Saline) 1,000 mls @ 25 mls/hr IV ASDIRECTED [facility] Last Admin: 05/11/21 06:58 Dose: 25 mls/hr Documented by: Sodium Phosphate 30 mmole/ (Sodium Chloride) 260 mls @ 86.667 mls/hr IV ONETIME ONE Stop: 05/06/21 09:01 Last Admin: 05/06/21 08:44 Dose: 86.667 mls/hr Documented by: Cefepime HCl 2 gm/ Sodium (Chloride) 50 mls @ 100 mls/hr IV Q8H [facility] Last Admin: 05/09/21 06:06 Dose: 100 mls/hr Documented by: Magnesium Sulfate 4 gm/ Premix 50 mls @ 12.5 mls/hr IV ONETIME ONE Stop: 05/09/21 12:59 Last Admin: 05/09/21 12:55 Dose: 12.5 mls/hr Documented by: Insulin Human Lispro (Insulin Lispro 100 Unit/Ml 10 Ml Vial) 0 unit SUBCUT QIDACANDBED [facility]; Protocol Last Admin: 05/04/21 11:53 Dose: Not Given Documented by: Ketorolac Tromethamine (Ketorolac 30 Mg/Ml Sdv) 30 mg IVPUSH ONETIME ONE Stop: 05/01/21 20:30 Last Admin: 05/01/21 22:44 Dose: 30 mg Documented by: Lorazepam (Lorazepam 2 Mg/Ml Sdv) 1 mg IVPUSH ONETIME ONE Stop: 05/01/21 16:58 Last Admin: 05/01/21 17:23 Dose: 1 mg Documented by: Ondansetron HCl (Ondansetron 4 Mg/2 Ml Sdv) 4 mg IVPUSH ONETIME ONE Stop: 05/01/21 16:58 Last Admin: 05/01/21 17:23 Dose: 4 mg Documented by: Sodium Phosphate (Phosphorus #1 250 Mg Tab) 250 mg PO TID [facility] Stop: 05/08/21 21:01 Last Admin: 05/08/21 21:09 Dose: 250 mg Documented by: Tbo-Filgrastim (Tbo-Filgrastim 480 Mcg/0.8 Ml Syringe) 320 mcg SUBCUT DAILY [facility] Stop: 05/06/21 11:00 Last Admin: 05/05/21 09:28 Dose: 320 mcg Documented by: Vancomycin HCl (Pharmacy To Dose - Vancomycin) 0 dose .XX ASDIRECTED PRN PRN Reason: RX TO DOSE VANCO Vancomycin HCl (Vancomycin 500 Mg Sdv) Confirm Administered Dose 500 mg .ROUTE .STK-MED ONE Stop: 05/05/21 11:18 Last Admin: 05/05/21 11:43 Dose: Not Given Documented by: - Exam Central Line Total Time: 9Days 19Hours Physical Findings Comments:: Central: No acute distress HEENT: Mucous Membr. Moist/[place] Neck: Supple Chest: a port is noted in the RU chest area. No evidence of infection. Lungs: Normal Respiratory Effort, Crackles (Bibasilar) Cardiovascular: Regular Rate, Regular Rhythm GI/Abdominal Exam: Normal Bowel Sounds, Soft, Non-Tender, No Distention Extremities: Normal Inspection, Normal Range of Motion, Non-Tender, No Pedal Edema Psy/Mental Status: Alert, Normal Affect, Normal Mood - Patient Data Lab Results Last 24 hrs: Laboratory Results - last 24 hr 05/10/21 05/10/21 05/11/21 Range/Units 18:01 22:17 06:20 WBC 5.12 (3.98-10.04) K/mm3 RBC 3.31 L (3.98-5.22) M/mm3 Hgb 10.6 L (11.2-15.7) gm/dl Hct 34.3 (34.1-44.9) % MCV 103.6 H (79.4-94.8) fl MCH 32.0 (25.6-32.2) pg MCHC 30.9 L (32.2-35.5) g/dl RDW Std Deviation 67.9 H (36.4-46.3) fL Plt Count 81 L (182-369) K/mm3 MPV 10.9 (9.4-12.3) fl Neut % (Auto) 72.7 H (34.0-71.1) % Lymph % (Auto) 14.1 L (19.3-51.7) % [place] % (Auto) 8.0 (4.7-12.5) % Eos % (Auto) 1.8 (0.7-5.8) Baso % (Auto) 2.0 H (0.1-1.2) % Neut # (Auto) 3.73 (1.56-6.13) K/mm3 Lymph # (Auto) 0.72 L (1.18-3.74) K/mm3 [place] # (Auto) 0.41 H (0.24-0.36) K/mm3 Eos # (Auto) 0.09 (0.04-0.36) K/mm3 Baso # (Auto) 0.10 H (0.01-0.08) K/mm3 Manual Slide Review Abnormal smear Sodium (136-145) mEq/L Potassium (3.5-5.1) mEq/L Chloride (98-107) mEq/L Carbon Dioxide (21-32) mEq/L Anion Gap (5-15) BUN (7-18) mg/dL Creatinine (0.55-1.02) mg/dL Est Cr Clr Drug Dosing mL/min Estimated GFR (MDRD) (>60) mL/min BUN/Creatinine Ratio (14-18) Glucose (70-99) mg/dL POC Glucose 235 H 195 H (70-99) mg/dL Calcium (8.5-10.1) mg/dL Total Bilirubin (0.2-1.0) mg/dL AST (15-37) U/L ALT (14-59) U/L Alkaline Phosphatase (46-116) U/L Total Protein (6.4-8.2) g/dl Albumin (3.4-5.0) g/dl Globulin gm/dL Albumin/Globulin Ratio (1-2) 05/11/21 05/11/21 05/11/21 Range/Units 06:20 06:47 11:04 WBC (3.98-10.04) K/mm3 RBC (3.98-5.22) M/mm3 Hgb (11.2-15.7) gm/dl Hct (34.1-44.9) % MCV (79.4-94.8) fl MCH (25.6-32.2) pg MCHC (32.2-35.5) g/dl RDW Std Deviation (36.4-46.3) fL Plt Count (182-369) K/mm3 MPV (9.4-12.3) fl Neut % (Auto) (34.0-71.1) % Lymph % (Auto) (19.3-51.7) % [place] % (Auto) (4.7-12.5) % Eos % (Auto) (0.7-5.8) Baso % (Auto) (0.1-1.2) % Neut # (Auto) (1.56-6.13) K/mm3 Lymph # (Auto) (1.18-3.74) K/mm3 [place] # (Auto) (0.24-0.36) K/mm3 Eos # (Auto) (0.04-0.36) K/mm3 Baso # (Auto) (0.01-0.08) K/mm3 Manual Slide Review Sodium 135 L (136-145) mEq/L Potassium 4.0 (3.5-5.1) mEq/L Chloride 104 (98-107) mEq/L Carbon Dioxide 22 (21-32) mEq/L Anion Gap 13.0 (5-15) BUN 16 (7-18) mg/dL Creatinine 0.4 L (0.55-1.02) mg/dL Est Cr Clr Drug Dosing 107.22 mL/min Estimated GFR (MDRD) > 60 (>60) mL/min BUN/Creatinine Ratio 40.0 H (14-18) Glucose 102 H (70-99) mg/dL POC Glucose 62 L 237 H (70-99) mg/dL Calcium 7.9 L (8.5-10.1) mg/dL Total Bilirubin 1.0 (0.2-1.0) mg/dL AST 65 H (15-37) U/L ALT 143 H (14-59) U/L Alkaline Phosphatase 570 H (46-116) U/L Total Protein 5.6 L (6.4-8.2) g/dl Albumin 2.1 L (3.4-5.0) g/dl Globulin 3.5 gm/dL Albumin/Globulin Ratio 0.6 L (1-2) Result Diagrams: 05/11/21 06:20 05/11/21 06:20 Jairo Results Last 24 hrs: Microbiology 05/06/21 12:05 Blood Culture - Preliminary Blood - Venous Gram Positive Rods Sepsis Event Note - Evaluation Sepsis Screening Result: Possible Sepsis Risk - Focused Exam Vital Signs: Vital Signs Temp Pulse Resp BP Pulse Ox 05/11/21 11:56 37.2 C 120 H 28 H 102/60 94 L 05/11/21 09:15 106/73 05/11/21 09:12 36.8 C 125 H 26 H 106/73 93 L 05/11/21 05:07 36.6 C 97 18 102/70 93 L - Problem List Review Problem List Initiated/Reviewed/Updated: Yes - My Orders Last 24 Hours: My Active Orders 05/11/21 05:00 Blood Culture x2 Reflex Set [OM.PC] ONETIME 05/11/21 06:30 BLOOD CULTURE [MREF] ONETIME 05/11/21 08:15 Dextrose 5%-0.9% NaCl [Dextrose 5%-Normal Saline] 1,000 ml IV ASDIRECTED 05/11/21 13:00 Amikacin 580 mg Sodium Chloride 0.9% [Normal Saline] 100 ml IV Q24H 05/11/21 13:16 Renew/Continue Central Line Access [OM.PC] Routine 05/12/21 05:00 CBC WITH AUTO DIFF [HEME] DAILY COMPREHENSIVE METABOLIC PN,CMP [CHEM] DAILY 05/13/21 05:00 CBC WITH AUTO DIFF [HEME] DAILY COMPREHENSIVE METABOLIC PN,CMP [CHEM] DAILY - Plan Plan:: 65-year-old female with history of metastatic breast cancer on chemotherapy presented with generalized weakness, failure to thrive and neutropenia Neutropenic fever -resolved Gram-positive messi bacteremia Afebrile; last fever 05/03/2021 at 1325 White count normalized blood cultures growing gram-positive messi. Repeat PCR today is negative. Sensiti vity pending Repeat blood culture became positive exactly on day 4. As pe microbiology lab, it could be rapid grooming macrobacteria discontinued vancomycin since culture showed gram-positive rods discontinued cefepime and initiated Levaquin on 05/10/2021. I will add amikacin 10mg/kg today (05/11) Echo on 05/06/2021 -EF 60 to 65%; none diagnostic a study for valve vegetation. She has a port in the RU chest. No evidence of infection. I would not like to remove the port before causative bacteria is identified. Discussed with the patient the possibility of the transfer to a higher level hospital where there is an infectious disease doctor available. Patient agreed to be transferred to [place] but she does not want to go to anywhere else such as [place]. Contacted [facility] and [facility] in [place]. There is no bed available at both hospitals. Generalized weaknessimproving Admit pt to the medical floor under observation status. Patient will need PT and OT as well as nutritional support Pancytopenia Anemia 1 unit packed red blood cells -given on May 03 Marked thrombocytopenia Platelets improving Last chemotherapy Sunday, April 29 Granix/filgrastim -stopped on May 06 Transfused 1 unit packed red blood cells Hemoglobin is trending up Follow CBC Metastatic breast cancer Spoke with Mckayla Barrett NP who recommended filgrastim. She was started on chemotherapy in October of this year and is now on her 4th cycle of treatment. her last does of chemo was on April 29. She follows with Dr. Osuna at [place] Transaminitis possibly secondary to chemotherapy Repeat liver enzymes in the morning Ultrasound abdomen -diffusely abnormal appearance liver raising the possibility of metastatic disease. 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 Discussed with patient this morning who agreed not to do further work up including CT abd with contrast. She will see Dr. Osuna at [place] for further workup and treatment. Diabetes mellitus Restart home Jardiance Continue to hold Glucophage Fingerstick blood sugar 4 times daily with sliding scale insulin low-dose Past medical history of hypertension Blood pressure started to increase Added losartan 25 mg daily Severe protein calorie malnutrition Hypophosphatemia Hypomagnesemia Replaced and repeat it. Started on Megace Dehydration Resolved Full code DVT prophylaxis. Lovenox stopped because of thrombocytopenia. SCDs Disposition: TBD
[2021-05-11] MEDS: Morphine 15 MG Tab.ER PO SCH (21:05)
[2021-05-11] MEDS: traZODone 50 MG Tab PO SCH (21:05)
[2021-05-12] MEDS: LORazepam 0.5 MG Tab PO SCH ×4 (00:26→17:40)
[2021-05-12] MEDS: Insulin Lispro 100 UNIT/ML 10 ML Vial SUBCUT SCH ×4 (06:25→21:36)
[2021-05-12] MEDS: Pantoprazole 40 MG Tab.CR PO SCH (06:31)
[2021-05-12] MEDS: Aspirin 81 MG Tab.EC PO SCH (08:35)
[2021-05-12] MEDS: Famotidine 10 MG Tab PO SCH (08:35)
[2021-05-12] MEDS: Calcium Carbonate/Vitamin D3 600 MG-200 Units Tab PO SCH ×3 (08:35→20:49)
[2021-05-12] MEDS: Gabapentin 100 MG Cap PO SCH ×2 (08:35→20:50)
[2021-05-12] MEDS: Dexamethasone 4 MG Tab PO SCH (08:35)
[2021-05-12] MEDS: Loratadine 10 MG Tab PO SCH (08:35)
[2021-05-12] MEDS: Losartan 25 MG Tab PO SCH (08:37)
[2021-05-12] MEDS: Potassium Chloride 10 MEQ Tab.ER PO SCH ×3 (08:37→20:49)
[2021-05-12] MEDS: Empagliflozin 25 MG Tab PO SCH (08:39)
[2021-05-12] MEDS: Megestrol Susp 40 MG/ML 10 ML UD Cup PO SCH (08:39)
[2021-05-12] MEDS: Bisacodyl 5 MG Tab PO SCH (08:39)
[2021-05-12] MEDS: Levofloxacin/Dextrose 5%-Water 750 MG in Premix Bag 1 BAG IV SCH (10:57)
--- NOTE | 2021-05-12 12:39 | PCM.PN ---
- General Info Date of Service: 05/12/21 Admission Dx/Problem (Free Text): Admission Diagnosis/Problem Admission Diagnosis/Problem Generalized weakness Subjective Update: Mrs. Aguilar is a 67-year-old female history with a h/o breast cancer diagnosed in September 2020. She was started on chemotherapy in October of this year and is now on her 4th cycle of treatment. her last does of chemo was about 8 days ago. She follows with Dr. Osuna at [place]. She was brought to the ER due to lethargy. In the hospital, she was informed to have low a positive will blood cultu up-[id number] rods. Today patient is feeling better. Denies fever, chills, nausea, vomiting, or dysuria. She still has mild tachypnea but her tachycardia is improving He is now on 2 L WBC 4.82, platelets 124, red blood cells of 3.34 No episodes of hypoglycemia - Patient Data Vitals - Most Recent: Last Vital Signs Temp 35.6 C L 05/12/21 08:38 Pulse 116 H 05/12/21 08:38 Resp 12 05/12/21 08:38 BP 92/60 05/12/21 08:38 Pulse Ox 94 L 05/12/21 08:38 Weight - Most Recent: 63.185 kg I&O - Last 24 Hours: Intake & Output 05/11/21 05/12/21 05/12/21 22:59 06:59 14:59 Intake Total 2092 1910 Output Total 1200 1500 Balance 892 410 Lab Results Last 24 Hours: Laboratory Results - last 24 hr 05/11/21 05/11/21 05/12/21 Range/Units 17:12 22:00 05:58 WBC 4.82 (3.98-10.04) K/mm3 RBC 3.34 L (3.98-5.22) M/mm3 Hgb 10.7 L (11.2-15.7) gm/dl Hct 34.6 (34.1-44.9) % MCV 103.6 H (79.4-94.8) fl MCH 32.0 (25.6-32.2) pg MCHC 30.9 L (32.2-35.5) g/dl RDW Std Deviation 66.4 H (36.4-46.3) fL Plt Count 124 L (182-369) K/mm3 MPV 10.3 (9.4-12.3) fl Neut % (Auto) 75.5 H (34.0-71.1) % Lymph % (Auto) 14.1 L (19.3-51.7) % Adams % (Auto) 7.5 (4.7-12.5) % Eos % (Auto) 1.5 (0.7-5.8) Baso % (Auto) 0.4 (0.1-1.2) % Neut # (Auto) 3.64 (1.56-6.13) K/mm3 Lymph # (Auto) 0.68 L (1.18-3.74) K/mm3 Adams # (Auto) 0.36 (0.24-0.36) K/mm3 Eos # (Auto) 0.07 (0.04-0.36) K/mm3 Baso # (Auto) 0.02 (0.01-0.08) K/mm3 Manual Slide Review Abnormal smear Sodium (136-145) mEq/L Potassium (3.5-5.1) mEq/L Chloride (98-107) mEq/L Carbon Dioxide (21-32) mEq/L Anion Gap (5-15) BUN (7-18) mg/dL Creatinine (0.55-1.02) mg/dL Est Cr Clr Drug Dosing mL/min Estimated GFR (MDRD) (>60) mL/min BUN/Creatinine Ratio (14-18) Glucose (70-99) mg/dL POC Glucose 226 H 292 H (70-99) mg/dL Calcium (8.5-10.1) mg/dL Total Bilirubin (0.2-1.0) mg/dL AST (15-37) U/L ALT (14-59) U/L Alkaline Phosphatase (46-116) U/L Total Protein (6.4-8.2) g/dl Albumin (3.4-5.0) g/dl Globulin gm/dL Albumin/Globulin Ratio (1-2) 05/12/21 05/12/21 05/12/21 Range/Units 05:58 06:24 11:46 WBC (3.98-10.04) K/mm3 RBC (3.98-5.22) M/mm3 Hgb (11.2-15.7) gm/dl Hct (34.1-44.9) % MCV (79.4-94.8) fl MCH (25.6-32.2) pg MCHC (32.2-35.5) g/dl RDW Std Deviation (36.4-46.3) fL Plt Count (182-369) K/mm3 MPV (9.4-12.3) fl Neut % (Auto) (34.0-71.1) % Lymph % (Auto) (19.3-51.7) % Adams % (Auto) (4.7-12.5) % Eos % (Auto) (0.7-5.8) Baso % (Auto) (0.1-1.2) % Neut # (Auto) (1.56-6.13) K/mm3 Lymph # (Auto) (1.18-3.74) K/mm3 Adams # (Auto) (0.24-0.36) K/mm3 Eos # (Auto) (0.04-0.36) K/mm3 Baso # (Auto) (0.01-0.08) K/mm3 Manual Slide Review Sodium 139 (136-145) mEq/L Potassium 4.2 (3.5-5.1) mEq/L Chloride 107 (98-107) mEq/L Carbon Dioxide 20 L (21-32) mEq/L Anion Gap 16.2 H (5-15) BUN 13 (7-18) mg/dL Creatinine 0.5 L (0.55-1.02) mg/dL Est Cr Clr Drug Dosing 85.77 mL/min Estimated GFR (MDRD) > 60 (>60) mL/min BUN/Creatinine Ratio 26.0 H (14-18) Glucose 153 H (70-99) mg/dL POC Glucose 146 H 227 H (70-99) mg/dL Calcium 8.3 L (8.5-10.1) mg/dL Total Bilirubin 0.7 (0.2-1.0) mg/dL AST 57 H (15-37) U/L ALT 127 H (14-59) U/L Alkaline Phosphatase 559 H (46-116) U/L Total Protein 6.1 L (6.4-8.2) g/dl Albumin 2.1 L (3.4-5.0) g/dl Globulin 4.0 gm/dL Albumin/Globulin Ratio 0.5 L (1-2) Jairo Results Last 24 Hours: Microbiology 05/11/21 06:20 Blood Culture - Preliminary Blood - Venous 05/06/21 12:12 Blood Culture - Final Blood - Venous - Lab Draw Med Orders - Current: Current Medications Acetaminophen (Acetaminophen 325 Mg Tab) 650 mg PO Q4H PRN PRN Reason: Pain (Mild 1-3)/fever Last Admin: 05/11/21 00:22 Dose: 650 mg Documented by: Hydrocodone Bitart/Acetaminophen (Acetaminophen/Hydrocodone 325-5 Mg Tab) 1 tab PO Q4H PRN PRN Reason: Pain (moderate 4-6) Last Admin: 05/09/21 15:23 Dose: 1 tab Documented by: Aspirin (Aspirin 81 Mg Tab.Ec) 81 mg PO DAILY [facility] Last Admin: 05/12/21 08:35 Dose: 81 mg Documented by: Bisacodyl (Bisacodyl 5 Mg Tab) 5 mg PO DAILY [facility] Last Admin: 05/12/21 08:39 Dose: 5 mg Documented by: Calcium Carbonate (Calcium Carbonate/Vitamin D3 600 Mg-200 Units Tab) 1 tab PO TID [facility] Last Admin: 05/12/21 08:35 Dose: 1 tab Documented by: Calcium Carbonate/Glycine (Calcium Carbonate 500 Mg Tab.Chew) 1,000 mg PO Q2HR PRN PRN Reason: Indigestion Dexamethasone (Dexamethasone 4 Mg Tab) 2 mg PO DAILY [facility] Last Admin: 05/12/21 08:35 Dose: 2 mg Documented by: Docusate Sodium (Docusate Sodium 100 Mg Cap) 100 mg PO DAILY PRN PRN Reason: Constipation Famotidine (Famotidine 10 Mg Tab) 10 mg PO DAILY [facility] Last Admin: 05/12/21 08:35 Dose: 10 mg Documented by: Gabapentin (Gabapentin 100 Mg Cap) 200 mg PO BID [facility] Last Admin: 05/12/21 08:35 Dose: 200 mg Documented by: Promethazine HCl 6.25 mg/ (Sodium Chloride) 50.25 mls @ 100 mls/hr IV Q6H PRN PRN Reason: Nausea/Vomiting Levofloxacin/Dextrose 750 mg/ (Premix) 150 mls @ 100 mls/hr IV Q24H [facility] Last Admin: 05/12/21 10:57 Dose: 100 mls/hr Documented by: Amikacin Sulfate 580 mg/ (Sodium Chloride) 102.32 mls @ 102.32 mls/hr IV Q24H [facility] Last Admin: 05/11/21 13:20 Dose: 102.32 mls/hr Documented by: Insulin Human Lispro (Insulin Lispro 100 Unit/Ml 10 Ml Vial) 0 unit SUBCUT QIDACANDBED [facility]; Protocol Last Admin: 05/12/21 11:55 Dose: 4 unit Documented by: Loratadine (Loratadine 10 Mg Tab) 10 mg PO DAILY [facility] Last Admin: 05/12/21 08:35 Dose: 10 mg Documented by: Lorazepam (Lorazepam 0.5 Mg Tab) 0.5 mg PO Q6H [facility] Last Admin: 05/12/21 11:56 Dose: 0.5 mg Documented by: Losartan Potassium (Losartan 25 Mg Tab) 25 mg PO DAILY [facility] Last Admin: 05/12/21 08:37 Dose: 25 mg Documented by: Megestrol Acetate (Megestrol Susp 40 Mg/Ml 10 Ml Ud Cup) 400 mg PO DAILY [facility] Last Admin: 05/12/21 08:39 Dose: 400 mg Documented by: Morphine Sulfate (Morphine 15 Mg Tab.Er) 15 mg PO BEDTIME [facility] Last Admin: 05/11/21 21:05 Dose: 15 mg Documented by: Ondansetron HCl (Ondansetron 4 Mg Tab.Dis) 4 mg PO Q4H PRN PRN Reason: nausea, able to take PO Pantoprazole Sodium (Pantoprazole 40 Mg Tab.Cr) 40 mg PO ACBREAKFAST [facility] Last Admin: 05/12/21 06:31 Dose: 40 mg Documented by: Potassium Chloride (Potassium Chloride 10 Meq Tab.Er) 10 meq PO TID [facility] Last Admin: 05/12/21 08:37 Dose: 10 meq Documented by: Prochlorperazine Maleate (Prochlorperazine 5 Mg Tab) 10 mg PO QID PRN PRN Reason: Nausea/Vomiting Trazodone HCl (Trazodone 50 Mg Tab) 50 mg PO BEDTIME [facility] Last Admin: 05/11/21 21:05 Dose: 50 mg Documented by: Zolpidem Tartrate (Zolpidem 5 Mg Tab) 5 mg PO BEDTIME PRN PRN Reason: Sleep Last Admin: 05/07/21 21:12 Dose: 5 mg Documented by: Discontinued Medications Calcium Carbonate/Glycine (Calcium Carbonate 600 Mg Tab) 1,200 mg PO BIDMEALS [facility] Last Admin: 05/03/21 06:09 Dose: 1,200 mg Documented by: Enoxaparin Sodium (Enoxaparin 40 Mg/0.4 Ml Syringe) 40 mg SUBCUT DAILY [facility] Last Admin: 05/02/21 01:33 Dose: Not Given Documented by: Enoxaparin Sodium (Enoxaparin 40 Mg/0.4 Ml Syringe) 40 mg SUBCUT DAILY@2200 [facility] Last Admin: 05/02/21 21:28 Dose: 40 mg Documented by: Sodium Chloride (Normal Saline) 1,000 mls @ 999 mls/hr IV ONETIME ONE Stop: 05/01/21 17:42 Last Admin: 05/01/21 16:54 Dose: 999 mls/hr Documented by: Magnesium Sulfate 2 gm/ Premix 50 mls @ 25 mls/hr IV ONETIME ONE Stop: 05/01/21 19:46 Last Admin: 05/01/21 18:08 Dose: 25 mls/hr Documented by: Sodium Chloride (Normal Saline) 1,000 mls @ 150 mls/hr IV ONETIME ONE Stop: 05/02/21 02:56 Last Admin: 05/01/21 22:45 Dose: Not Given Documented by: Dextrose/Sodium Chloride (Dextrose 5%-1/2 Ns) 1,000 mls @ 75 mls/hr IV ASDIRECTED [facility] Last Admin: 05/03/21 23:42 Dose: 75 mls/hr Documented by: Potassium Chloride 10 meq/ (Premix) 100 mls @ 100 mls/hr IV Q1H [facility] Stop: 05/02/21 12:14 Last Admin: 05/02/21 11:50 Dose: 100 mls/hr Documented by: Sodium Chloride (Normal Saline) 1,000 mls @ 999 mls/hr IV ONETIME ONE Stop: 05/02/21 14:04 Last Admin: 05/02/21 13:15 Dose: 999 mls/hr Documented by: Cefepime HCl 2 gm/ Premix 50 mls @ 100 mls/hr IV Q8H [facility] Last Admin: 05/07/21 06:49 Dose: 100 mls/hr Documented by: Sodium Chloride (Normal Saline) 500 mls @ 500 mls/hr IV .BOLUS ONE Stop: 05/03/21 10:04 Last Infusion: 05/03/21 10:30 Dose: Infused Documented by: Vancomycin HCl 1 gm/Vancomycin HCl 250 mg/ Sodium Chloride 250 mls @ 166.667 mls/hr IV ONETIME ONE Stop: 05/03/21 11:59 Last Admin: 05/03/21 10:24 Dose: 166.667 mls/hr Documented by: Vancomycin HCl 1 gm/ Sodium (Chloride) 250 mls @ 250 mls/hr IV Q12H [facility] Last Admin: 05/04/21 23:01 Dose: 250 mls/hr Documented by: Potassium Phosphate 30 mmole/ (Sodium Chloride) 510 mls @ 102 mls/hr IV ONETIME ONE Stop: 05/03/21 18:59 Last Admin: 05/03/21 16:09 Dose: 102 mls/hr Documented by: Sodium Phosphate 30 mmole/ (Sodium Chloride) 260 mls @ 130 mls/hr IV ONETIME ONE Stop: 05/03/21 13:44 Last Admin: 05/03/21 12:51 Dose: 130 mls/hr Documented by: Magnesium Sulfate 2 gm/ Premix 50 mls @ 25 mls/hr IV ONETIME ONE Stop: 05/03/21 13:29 Last Admin: 05/03/21 12:50 Dose: 25 mls/hr Documented by: Sodium Chloride (Normal Saline) 500 mls @ 100 mls/hr IV ONETIME ONE Stop: 05/03/21 17:29 Last Admin: 05/03/21 15:50 Dose: 100 mls/hr Documented by: Sodium Chloride (Normal Saline) 1,000 mls @ 50 mls/hr IV ASDIRECTED [facility] Sodium Phosphate 30 mmole/ (Sodium Chloride) 260 mls @ 130 mls/hr IV ONETIME ONE Stop: 05/04/21 11:59 Last Admin: 05/04/21 11:34 Dose: 130 mls/hr Documented by: Sodium Phosphate 30 mmole/ (Sodium Chloride) 260 mls @ 130 mls/hr IV ONETIME ONE Stop: 05/04/21 15:59 Last Admin: 05/04/21 15:21 Dose: 130 mls/hr Documented by: Sodium Chloride (Normal Saline) 1,000 mls @ 15 mls/hr IV ASDIRECTED [facility] Last Admin: 05/04/21 18:26 Dose: 15 mls/hr Documented by: Vancomycin HCl 1 gm/Vancomycin HCl 250 mg/ Sodium Chloride 250 mls @ 166.667 mls/hr IV Q12H [facility] Last Admin: 05/09/21 15:09 Dose: Not Given Documented by: Sodium Phosphate 30 mmole/ (Sodium Chloride) 260 mls @ 130 mls/hr IV ONETIME ONE Stop: 05/05/21 15:59 Last Admin: 05/05/21 13:54 Dose: 130 mls/hr Documented by: Magnesium Sulfate 2 gm/ Premix 50 mls @ 25 mls/hr IV ONETIME ONE Stop: 05/05/21 13:29 Last Admin: 05/05/21 11:41 Dose: 25 mls/hr Documented by: Sodium Chloride (Normal Saline) 1,000 mls @ [facility] Last Admin: 05/11/21 06:58 Dose: 25 mls/hr Documented by: Sodium Phosphate 30 mmole/ (Sodium Chloride) 260 mls @ 86.667 mls/hr IV ONETIME ONE Stop: 05/06/21 09:01 Last Admin: 05/06/21 08:44 Dose: 86.667 mls/hr Documented by: Cefepime HCl 2 gm/ Sodium (Chloride) 50 mls @ 100 mls/hr IV Q8H [facility] Last Admin: 05/09/21 06:06 Dose: 100 mls/hr Documented by: Magnesium Sulfate 4 gm/ Premix 50 mls @ 12.5 mls/hr IV ONETIME ONE Stop: 05/09/21 12:59 Last Admin: 05/09/21 12:55 Dose: 12.5 mls/hr Documented by: Dextrose/Sodium Chloride (Dextrose 5%-Normal Saline) 1,000 mls @ 60 mls/hr IV ASDIRECTED [facility] Last Admin: 05/11/21 16:43 Dose: 60 mls/hr Documented by: Insulin Human Lispro (Insulin Lispro 100 Unit/Ml 10 Ml Vial) 0 unit SUBCUT QIDACANDBED [facility]; Protocol Last Admin: 05/04/21 11:53 Dose: Not Given Documented by: Ketorolac Tromethamine (Ketorolac 30 Mg/Ml Sdv) 30 mg IVPUSH ONETIME ONE Stop: 05/01/21 20:30 Last Admin: 05/01/21 22:44 Dose: 30 mg Documented by: Lorazepam (Lorazepam 2 Mg/Ml Sdv) 1 mg IVPUSH ONETIME ONE Stop: 05/01/21 16:58 Last Admin: 05/01/21 17:23 Dose: 1 mg Documented by: Ondansetron HCl (Ondansetron 4 Mg/2 Ml Sdv) 4 mg IVPUSH ONETIME ONE Stop: 05/01/21 16:58 Last Admin: 05/01/21 17:23 Dose: 4 mg Documented by: Sodium Phosphate (Phosphorus #1 250 Mg Tab) 250 mg PO TID JOSÉ LUIS Stop: 05/08/21 21:01 Last Admin: 05/08/21 21:09 Dose: 250 mg Documented by: Tbo-Filgrastim (Tbo-Filgrastim 480 Mcg/0.8 Ml Syringe) 320 mcg SUBCUT DAILY JOSÉ LUIS Stop: 05/06/21 11:00 Last Admin: 05/05/21 09:28 Dose: 320 mcg Documented by: Vancomycin HCl (Pharmacy To Dose - Vancomycin) 0 dose .XX ASDIRECTED PRN PRN Reason: RX TO DOSE VANCO Vancomycin HCl (Vancomycin 500 Mg Sdv) Confirm Administered Dose 500 mg .ROUTE .STK-MED ONE Stop: 05/05/21 11:18 Last Admin: 05/05/21 11:43 Dose: Not Given Documented by: - Exam Central Line Total Time: 10Days 18Hours - Patient Data Lab Results Last 24 hrs: Laboratory Results - last 24 hr 05/11/21 05/11/21 05/12/21 Range/Units 17:12 22:00 05:58 WBC 4.82 (3.98-10.04) K/mm3 RBC 3.34 L (3.98-5.22) M/mm3 Hgb 10.7 L (11.2-15.7) gm/dl Hct 34.6 (34.1-44.9) % MCV 103.6 H (79.4-94.8) fl MCH 32.0 (25.6-32.2) pg MCHC 30.9 L (32.2-35.5) g/dl RDW Std Deviation 66.4 H (36.4-46.3) fL Plt Count 124 L (182-369) K/mm3 MPV 10.3 (9.4-12.3) fl Neut % (Auto) 75.5 H (34.0-71.1) % Lymph % (Auto) 14.1 L (19.3-51.7) % Adams % (Auto) 7.5 (4.7-12.5) % Eos % (Auto) 1.5 (0.7-5.8) Baso % (Auto) 0.4 (0.1-1.2) % Neut # (Auto) 3.64 (1.56-6.13) K/mm3 Lymph # (Auto) 0.68 L (1.18-3.74) K/mm3 Adams # (Auto) 0.36 (0.24-0.36) K/mm3 Eos # (Auto) 0.07 (0.04-0.36) K/mm3 Baso # (Auto) 0.02 (0.01-0.08) K/mm3 Manual Slide Review Abnormal smear Sodium (136-145) mEq/L Potassium (3.5-5.1) mEq/L Chloride (98-107) mEq/L Carbon Dioxide (21-32) mEq/L Anion Gap (5-15) BUN (7-18) mg/dL Creatinine (0.55-1.02) mg/dL Est Cr Clr Drug Dosing mL/min Estimated GFR (MDRD) (>60) mL/min BUN/Creatinine Ratio (14-18) Glucose (70-99) mg/dL POC Glucose 226 H 292 H (70-99) mg/dL Calcium (8.5-10.1) mg/dL Total Bilirubin (0.2-1.0) mg/dL AST (15-37) U/L ALT (14-59) U/L Alkaline Phosphatase (46-116) U/L Total Protein (6.4-8.2) g/dl Albumin (3.4-5.0) g/dl Globulin gm/dL Albumin/Globulin Ratio (1-2) 05/12/21 05/12/21 05/12/21 Range/Units 05:58 06:24 11:46 WBC (3.98-10.04) K/mm3 RBC (3.98-5.22) M/mm3 Hgb (11.2-15.7) gm/dl Hct (34.1-44.9) % MCV (79.4-94.8) fl MCH (25.6-32.2) pg MCHC (32.2-35.5) g/dl RDW Std Deviation (36.4-46.3) fL Plt Count (182-369) K/mm3 MPV (9.4-12.3) fl Neut % (Auto) (34.0-71.1) % Lymph % (Auto) (19.3-51.7) % Adams % (Auto) (4.7-12.5) % Eos % (Auto) (0.7-5.8) Baso % (Auto) (0.1-1.2) % Neut # (Auto) (1.56-6.13) K/mm3 Lymph # (Auto) (1.18-3.74) K/mm3 Adams # (Auto) (0.24-0.36) K/mm3 Eos # (Auto) (0.04-0.36) K/mm3 Baso # (Auto) (0.01-0.08) K/mm3 Manual Slide Review Sodium 139 (136-145) mEq/L Potassium 4.2 (3.5-5.1) mEq/L Chloride 107 (98-107) mEq/L Carbon Dioxide 20 L (21-32) mEq/L Anion Gap 16.2 H (5-15) BUN 13 (7-18) mg/dL Creatinine 0.5 L (0.55-1.02) mg/dL Est Cr Clr Drug Dosing 85.77 mL/min Estimated GFR (MDRD) > 60 (>60) mL/min BUN/Creatinine Ratio 26.0 H (14-18) Glucose 153 H (70-99) mg/dL POC Glucose 146 H 227 H (70-99) mg/dL Calcium 8.3 L (8.5-10.1) mg/dL Total Bilirubin 0.7 (0.2-1.0) mg/dL AST 57 H (15-37) U/L ALT 127 H (14-59) U/L Alkaline Phosphatase 559 H (46-116) U/L Total Protein 6.1 L (6.4-8.2) g/dl Albumin 2.1 L (3.4-5.0) g/dl Globulin 4.0 gm/dL Albumin/Globulin Ratio 0.5 L (1-2) Result Diagrams: 05/12/21 05:58 05/12/21 05:58 Jairo Results Last 24 hrs: Microbiology 05/11/21 06:20 Blood Culture - Preliminary Blood - Venous 05/06/21 12:12 Blood Culture - Final Blood - Venous - Lab Draw Sepsis Event Note - Evaluation Sepsis Screening Result: No Definite Risk - Focused Exam Vital Signs: Vital Signs Temp Pulse Resp BP Pulse Ox 05/12/21 08:38 35.6 C L 116 H 12 92/60 94 L 05/12/21 08:37 92/60 05/12/21 05:05 36.2 C 85 24 H 100/86 96 - Problem List Review Problem List Initiated/Reviewed/Updated: Yes - My Orders Last 24 Hours: My Active Orders 05/11/21 13:00 Amikacin 580 mg Sodium Chloride 0.9% [Normal Saline] 100 ml IV Q24H 05/11/21 13:16 Renew/Continue Central Line Access [OM.PC] Routine 05/12/21 05:58 MISC TEST Routine 05/13/21 05:00 CBC WITH AUTO DIFF [HEME] DAILY COMPREHENSIVE METABOLIC PN,CMP [CHEM] DAILY - Plan Plan:: 65-year-old female with history of metastatic breast cancer on chemotherapy p resented with generalized weakness, failure to thrive and neutropenia Neutropenic fever -resolved Gram-positive messi bacteremia Afebrile; last fever 05/03/2021 at 1325 White count normalized blood cultures growing gram-positive messi. Repeat PCR today is negative. Sensitivity pending Repeat blood culture became positive exactly on day 4. As pe microbiology lab, it could be rapid growing macrobacteria discontinued vancomycin since culture showed gram-positive rods discontinued cefepime and initiated Levaquin on 05/10/2021. Continue amikacin 10mg/kg today (05/11) (pharmacy to dose) Echo on 05/06/2021 -EF 60 to 65%; none diagnostic a study for valve vegetation. She has a port in the RU chest. No evidence of infection. I would not like to remove the port before causative bacteria is identified. Discussed with the patient the possibility of the transfer to a higher level hospital where there is an infectious disease doctor available. Patient agreed to be transferred to [place] but she does not want to go to anywhere else such as [place]. Contacted [facility] and [facility] in [place]. But I could not get a bed for her from both hospitals in [place]. Chest [id number] area within the proximal left humerus. Difficulty to exclude an osteosclerotic metastases. Improved atelectasis within both lung bases. Generalized weaknessimproving Admit pt to the medical floor under observation status. Patient will need PT and OT as well as nutritional support Pancytopenia WBC up to 4.85 today Anemia 1 unit packed red blood cells -given on May 03 Marked thrombocytopenia Platelets improving Last chemotherapy April 29 Granix/filgrastim -stopped on May 06 Transfused 1 unit packed red blood cells Hemoglobin is trending up to 124 today Follow CBC Metastatic breast cancer Spoke with Mckayla Barrett NP who recommended filgrastim. She was started on chemotherapy in October of this year and is now on her 4th cycle of treatment. her last does of chemo was on April 29. She follows with Dr. Osuna at [place] Transaminitis possibly secondary to chemotherapy Repeat liver enzymes in the morning Ultrasound abdomen -diffusely abnormal appearance liver raising the possibility of metastatic disease. 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 Discussed with patient this morning who agreed not to do further work up includ ing CT abd with contrast. She will see Dr. Osuna at [place] for further workup and treatment. Diabetes mellitus One episode of hypoglycemia Restart home Jardiance Continue to hold Glucophage Fingerstick blood sugar 4 times daily with sliding scale insulin low-dose Advised pt not to skip meals Past medical history of hypertension Blood pressure started to increase Added losartan 25 mg daily Severe protein calorie malnutrition Hypophosphatemia Hypomagnesemia Replaced and repeat it. Started on Megace Dehydration Resolved Full code DVT prophylaxis. Lovenox stopped because of thrombocytopenia. SCDs Disposition: TBD, pending on blood culture sensitivity Length of stay is greater than 96 hours due to complicated medical condition, slow response to treatment and awaiting for culture sensitivity.
[2021-05-12] MEDS: AMIKACIN IV SCH (13:15)
[2021-05-12] MEDS: SODIUM CHLORIDE 0.9% IV SCH (13:15)
[2021-05-12] MEDS: Morphine 15 MG Tab.ER PO SCH (20:49)
[2021-05-12] MEDS: traZODone 50 MG Tab PO SCH (20:50)
[2021-05-13] MEDS: LORazepam 0.5 MG Tab PO SCH ×4 (04:25→17:52)
[2021-05-13] MEDS: Insulin Lispro 100 UNIT/ML 10 ML Vial SUBCUT SCH ×4 (07:46→22:24)
[2021-05-13] MEDS: Pantoprazole 40 MG Tab.CR PO SCH (07:46)
--- NOTE | 2021-05-13 09:00 | PCM.PN ---
- General Info Date of Service: 05/13/21 Admission Dx/Problem (Free Text): Admission Diagnosis/Problem Admission Diagnosis/Problem Generalized weakness Subjective Update: The patient is a 65-year-old lady who was admitted to acute hospitalization on May 01, 2021 out of concern for generalized weakness. The patient has a history of breast cancer and has been on chemotherapy 2 days prior to admission. The patient was placed in neutropenic precautions as her white cell count initially had been at 1800. The patient says today that she is feeling very weak. She has not been eating very well. The patient has denied any pain. Still pending cultures for her positive blood cultures that were noted to be gram-positive rods. Functional Status: Reports: Pain Controlled, Tolerating Diet - Review of Systems General: Reports: Weakness, Fatigue HEENT: Reports: No Symptoms Pulmonary: Reports: Shortness of Breath Cardiovascular: Reports: No Symptoms Gastrointestinal: Reports: Nausea Genitourinary: Reports: No Symptoms Musculoskeletal: Reports: No Symptoms Skin: Reports: Bruising Neurological: Reports: No Symptoms Psychiatric: Reports: Depression - Patient Data Vitals - Most Recent: Last Vital Signs Temp 36.9 C 05/13/21 06:36 Pulse 86 05/13/21 06:41 Resp 20 05/13/21 06:36 BP 102/75 05/13/21 06:36 Pulse Ox 94 L 05/13/21 06:41 Weight - Most Recent: 62.097 kg I&O - Last 24 Hours: Intake & Output 05/12/21 05/13/21 05/13/21 22:59 06:59 14:59 Intake Total 380 Output Total 1400 1600 Balance -1020 -1600 Lab Results Last 24 Hours: Laboratory Results - last 24 hr 05/12/21 05/12/21 05/12/21 Range/Units 11:46 17:25 21:05 WBC (3.98-10.04) K/mm3 RBC (3.98-5.22) M/mm3 Hgb (11.2-15.7) gm/dl Hct (34.1-44.9) % MCV (79.4-94.8) fl MCH (25.6-32.2) pg MCHC (32.2-35.5) g/dl RDW Std Deviation (36.4-46.3) fL Plt Count (182-369) K/mm3 MPV (9.4-12.3) fl Neut % (Auto) (34.0-71.1) % Lymph % (Auto) (19.3-51.7) % [place] % (Auto) (4.7-12.5) % Eos % (Auto) (0.7-5.8) Baso % (Auto) (0.1-1.2) % Neut # (Auto) (1.56-6.13) K/mm3 Lymph # (Auto) (1.18-3.74) K/mm3 [place] # (Auto) (0.24-0.36) K/mm3 Eos # (Auto) (0.04-0.36) K/mm3 Baso # (Auto) (0.01-0.08) K/mm3 Sodium (136-145) mEq/L Potassium (3.5-5.1) mEq/L Chloride (98-107) mEq/L Carbon Dioxide (21-32) mEq/L Anion Gap (5-15) BUN (7-18) mg/dL Creatinine (0.55-1.02) mg/dL Est Cr Clr Drug Dosing mL/min Estimated GFR (MDRD) (>60) mL/min BUN/Creatinine Ratio (14-18) Glucose (70-99) mg/dL POC Glucose 227 H 242 H 325 H (70-99) mg/dL Calcium (8.5-10.1) mg/dL Total Bilirubin (0.2-1.0) mg/dL AST (15-37) U/L ALT (14-59) U/L Alkaline Phosphatase (46-116) U/L Total Protein (6.4-8.2) g/dl Albumin (3.4-5.0) g/dl Globulin gm/dL Albumin/Globulin Ratio (1-2) 05/13/21 05/13/21 05/13/21 Range/Units 05:53 05:53 07:37 WBC 3.67 L (3.98-10.04) K/mm3 RBC 3.11 L (3.98-5.22) M/mm3 Hgb 9.9 L (11.2-15.7) gm/dl Hct 32.0 L (34.1-44.9) % MCV 102.9 H (79.4-94.8) fl MCH 31.8 (25.6-32.2) pg MCHC 30.9 L (32.2-35.5) g/dl RDW Std Deviation 65.2 H (36.4-46.3) fL Plt Count 134 L (182-369) K/mm3 MPV 10.2 (9.4-12.3) fl Neut % (Auto) 75.3 H (34.0-71.1) % Lymph % (Auto) 13.6 L (19.3-51.7) % [place] % (Auto) 7.9 (4.7-12.5) % Eos % (Auto) 1.6 (0.7-5.8) Baso % (Auto) 0.5 (0.1-1.2) % Neut # (Auto) 2.76 (1.56-6.13) K/mm3 Lymph # (Auto) 0.50 L (1.18-3.74) K/mm3 [place] # (Auto) 0.29 (0.24-0.36) K/mm3 Eos # (Auto) 0.06 (0.04-0.36) K/mm3 Baso # (Auto) 0.02 (0.01-0.08) K/mm3 Sodium 139 (136-145) mEq/L Potassium 4.1 (3.5-5.1) mEq/L Chloride 106 (98-107) mEq/L Carbon Dioxide 21 (21-32) mEq/L Anion Gap 16.1 H (5-15) BUN 14 (7-18) mg/dL Creatinine 0.5 L (0.55-1.02) mg/dL Est Cr Clr Drug Dosing 85.77 mL/min Estimated GFR (MDRD) > 60 (>60) mL/min BUN/Creatinine Ratio 28.0 H (14-18) Glucose 205 H (70-99) mg/dL POC Glucose 156 H (70-99) mg/dL Calcium 8.2 L (8.5-10.1) mg/dL Total Bilirubin 0.6 (0.2-1.0) mg/dL AST 76 H (15-37) U/L ALT 141 H (14-59) U/L Alkaline Phosphatase 595 H (46-116) U/L Total Protein 6.2 L (6.4-8.2) g/dl Albumin 2.0 L (3.4-5.0) g/dl Globulin 4.2 gm/dL Albumin/Globulin Ratio 0.5 L (1-2) Jairo Results Last 24 Hours: Microbiology 05/11/21 06:30 Blood Culture - Preliminary Blood - Venous - Lab Draw 05/11/21 06:20 Blood Culture - Preliminary Blood - Venous Med Orders - Current: Current Medications Acetaminophen (Acetaminophen 325 Mg Tab) 650 mg PO Q4H PRN PRN Reason: Pain (Mild 1-3)/fever Last Admin: 05/11/21 00:22 Dose: 650 mg Documented by: Hydrocodone Bitart/Acetaminophen (Acetaminophen/Hydrocodone 325-5 Mg Tab) 1 tab PO Q4H PRN PRN Reason: Pain (moderate 4-6) Last Admin: 05/09/21 15:23 Dose: 1 tab Documented by: Aspirin (Aspirin 81 Mg Tab.Ec) 81 mg PO DAILY [facility] Last Admin: 05/12/21 08:35 Dose: 81 mg Documented by: Bisacodyl (Bisacodyl 5 Mg Tab) 5 mg PO DAILY [facility] Last Admin: 05/12/21 08:39 Dose: 5 mg Documented by: Calcium Carbonate (Calcium Carbonate/Vitamin D3 600 Mg-200 Units Tab) 1 tab PO TID [facility] Last Admin: 05/12/21 20:49 Dose: 1 tab Documented by: Calcium Carbonate/Glycine (Calcium Carbonate 500 Mg Tab.Chew) 1,000 mg PO Q2HR PRN PRN Reason: Indigestion Dexamethasone (Dexamethasone 4 Mg Tab) 2 mg PO DAILY [facility] Last Admin: 05/12/21 08:35 Dose: 2 mg Documented by: Docusate Sodium (Docusate Sodium 100 Mg Cap) 100 mg PO DAILY PRN PRN Reason: Constipation Famotidine (Famotidine 10 Mg Tab) 10 mg PO DAILY [facility] Last Admin: 05/12/21 08:35 Dose: 10 mg Documented by: Gabapentin (Gabapentin 100 Mg Cap) 200 mg PO BID [facility] Last Admin: 05/12/21 20:50 Dose: 200 mg Documented by: Promethazine HCl 6.25 mg/ (Sodium Chloride) 50.25 mls @ 100 mls/hr IV Q6H PRN PRN Reason: Nausea/Vomiting Levofloxacin/Dextrose 750 mg/ (Premix) 150 mls @ 100 mls/hr IV Q24H [facility] Last Admin: 05/12/21 10:57 Dose: 100 mls/hr Documented by: Amikacin Sulfate 580 mg/ (Sodium Chloride) 102.32 mls @ 102.32 mls/hr IV Q24H [facility] Last Admin: 05/12/21 13:15 Dose: 102.32 mls/hr Documented by: Insulin Human Lispro (Insulin Lispro 100 Unit/Ml 10 Ml Vial) 0 unit SUBCUT QIDACANDBED [facility]; Protocol Last Admin: 05/13/21 07:46 Dose: 2 unit Documented by: Loratadine (Loratadine 10 Mg Tab) 10 mg PO DAILY [facility] Last Admin: 05/12/21 08:35 Dose: 10 mg Documented by: Lorazepam (Lorazepam 0.5 Mg Tab) 0.5 mg PO Q6H [facility] Last Admin: 05/13/21 07:45 Dose: 0.5 mg Documented by: Losartan Potassium (Losartan 25 Mg Tab) 25 mg PO DAILY [facility] Last Admin: 05/12/21 08:37 Dose: 25 mg Documented by: Megestrol Acetate (Megestrol Susp 40 Mg/Ml 10 Ml Ud Cup) 400 mg PO DAILY [facility] Last Admin: 05/12/21 08:39 Dose: 400 mg Documented by: Morphine Sulfate (Morphine 15 Mg Tab.Er) 15 mg PO BEDTIME [facility] Last Admin: 05/12/21 20:49 Dose: 15 mg Documented by: Ondansetron HCl (Ondansetron 4 Mg Tab.Dis) 4 mg PO Q4H PRN PRN Reason: nausea, able to take PO Pantoprazole Sodium (Pantoprazole 40 Mg Tab.Cr) 40 mg PO ACBREAKFAST [facility] Last Admin: 05/13/21 07:46 Dose: 40 mg Documented by: Potassium Chloride (Potassium Chloride 10 Meq Tab.Er) 10 meq PO TID [facility] Last Admin: 05/12/21 20:49 Dose: 10 meq Documented by: Prochlorperazine Maleate (Prochlorperazine 5 Mg Tab) 10 mg PO QID PRN PRN Reason: Nausea/Vomiting Trazodone HCl (Trazodone 50 Mg Tab) 50 mg PO BEDTIME [facility] Last Admin: 05/12/21 20:50 Dose: 50 mg Documented by: Zolpidem Tartrate (Zolpidem 5 Mg Tab) 5 mg PO BEDTIME PRN PRN Reason: Sleep Last Admin: 05/07/21 21:12 Dose: 5 mg Documented by: Discontinued Medications Calcium Carbonate/Glycine (Calcium Carbonate 600 Mg Tab) 1,200 mg PO BIDMEALS [facility] Last Admin: 05/03/21 06:09 Dose: 1,200 mg Documented by: Enoxaparin Sodium (Enoxaparin 40 Mg/0.4 Ml Syringe) 40 mg SUBCUT DAILY [facility] Last Admin: 05/02/21 01:33 Dose: Not Given Documented by: Enoxaparin Sodium (Enoxaparin 40 Mg/0.4 Ml Syringe) 40 mg SUBCUT DAILY@2200 [facility] Last Admin: 05/02/21 21:28 Dose: 40 mg Documented by: Sodium Chloride (Normal Saline) 1,000 mls @ 999 mls/hr IV ONETIME ONE Stop: 05/01/21 17:42 Last Admin: 05/01/21 16:54 Dose: 999 mls/hr Documented by: Magnesium Sulfate 2 gm/ Premix 50 mls @ 25 mls/hr IV ONETIME ONE Stop: 05/01/21 19:46 Last Admin: 05/01/21 18:08 Dose: 25 mls/hr Documented by: Sodium Chloride (Normal Saline) 1,000 mls @ 150 mls/hr IV ONETIME ONE Stop: 05/02/21 02:56 Last Admin: 05/01/21 22:45 Dose: Not Given Documented by: Dextrose/Sodium Chloride (Dextrose 5%-1/2 Ns) 1,000 mls @ 75 mls/hr IV ASDIRECTED [facility] Last Admin: 05/03/21 23:42 Dose: 75 mls/hr Documented by: Potassium Chloride 10 meq/ (Premix) 100 mls @ 100 mls/hr IV Q1H [facility] Stop: 05/02/21 12:14 Last Admin: 05/02/21 11:50 Dose: 100 mls/hr Documented by: Sodium Chloride (Normal Saline) 1,000 mls @ 999 mls/hr IV ONETIME ONE Stop: 05/02/21 14:04 Last Admin: 05/02/21 13:15 Dose: 999 mls/hr Documented by: Cefepime HCl 2 gm/ Premix 50 mls @ 100 mls/hr IV Q8H [facility] Last Admin: 05/07/21 06:49 Dose: 100 mls/hr Documented by: Sodium Chloride (Normal Saline) 500 mls @ 500 mls/hr IV .BOLUS ONE Stop: 05/03/21 10:04 Last Infusion: 05/03/21 10:30 Dose: Infused Documented by: Vancomycin HCl 1 gm/Vancomycin HCl 250 mg/ Sodium Chloride 250 mls @ 166.667 mls/hr IV ONETIME ONE Stop: 05/03/21 11:59 Last Admin: 05/03/21 10:24 Dose: 166.667 mls/hr Documented by: Vancomycin HCl 1 gm/ Sodium (Chloride) 250 mls @ 250 mls/hr IV Q12H JOSÉ LUIS Last Admin: 05/04/21 23:01 Dose: 250 mls/hr Documented by: Potassium Phosphate 30 mmole/ (Sodium Chloride) 510 mls @ 102 mls/hr IV ONETIME ONE Stop: 05/03/21 18:59 Last Admin: 05/03/21 16:09 Dose: 102 mls/hr Documented by: Sodium Phosphate 30 mmole/ (Sodium Chloride) 260 mls @ 130 mls/hr IV ONETIME ONE Stop: 05/03/21 13:44 Last Admin: 05/03/21 12:51 Dose: 130 mls/hr Documented by: Magnesium Sulfate 2 gm/ Premix 50 mls @ 25 mls/hr IV ONETIME ONE Stop: 05/03/21 13:29 Last Admin: 05/03/21 12:50 Dose: 25 mls/hr Documented by: Sodium Chloride (Normal Saline) 500 mls @ 100 mls/hr IV ONETIME ONE Stop: 05/03/21 17:29 Last Admin: 05/03/21 15:50 Dose: 100 mls/hr Documented by: Sodium Chloride (Normal Saline) 1,000 mls @ 50 mls/hr IV ASDIRECTED [facility] Sodium Phosphate 30 mmole/ (Sodium Chloride) 260 mls @ 130 mls/hr IV ONETIME ONE Stop: 05/04/21 11:59 Last Admin: 05/04/21 11:34 Dose: 130 mls/hr Documented by: Sodium Phosphate 30 mmole/ (Sodium Chloride) 260 mls @ 130 mls/hr IV ONETIME ONE Stop: 05/04/21 15:59 Last Admin: 05/04/21 15:21 Dose: 130 mls/hr Documented by: Sodium Chloride (Normal Saline) 1,000 mls @ 15 mls/hr IV ASDIRECTED [facility] Last Admin: 05/04/21 18:26 Dose: 15 mls/hr Documented by: Vancomycin HCl 1 gm/Vancomycin HCl 250 mg/ Sodium Chloride 250 mls @ 166.667 mls/hr IV Q12H [facility] Last Admin: 05/09/21 15:09 Dose: Not Given Documented by: Sodium Phosphate 30 mmole/ (Sodium Chloride) 260 mls @ 130 mls/hr IV ONETIME ONE Stop: 05/05/21 15:59 Last Admin: 05/05/21 13:54 Dose: 130 mls/hr Documented by: Magnesium Sulfate 2 gm/ Premix 50 mls @ 25 mls/hr IV ONETIME ONE Stop: 05/05/21 13:29 Last Admin: 05/05/21 11:41 Dose: 25 mls/hr Documented by: Sodium Chloride (Normal Saline) 1,000 mls @ 25 mls/hr IV ASDIRECTED [facility] Last Admin: 05/11/21 06:58 Dose: 25 mls/hr Documented by: Sodium Phosphate 30 mmole/ (Sodium Chloride) 260 mls @ 86.667 mls/hr IV ONETIME ONE Stop: 05/06/21 09:01 Last Admin: 05/06/21 08:44 Dose: 86.667 mls/hr Documented by: Cefepime HCl 2 gm/ Sodium (Chloride) 50 mls @ 100 mls/hr IV Q8H [facility] Last Admin: 05/09/21 06:06 Dose: 100 mls/hr Documented by: Magnesium Sulfate 4 gm/ Premix 50 mls @ 12.5 mls/hr IV ONETIME ONE Stop: 05/09/21 12:59 Last Admin: 05/09/21 12:55 Dose: 12.5 mls/hr Documented by: Dextrose/Sodium Chloride (Dextrose 5%-Normal Saline) 1,000 mls @ 60 mls/hr IV ASDIRECTED [facility] Last Admin: 05/11/21 16:43 Dose: 60 mls/hr Documented by: Insulin Human Lispro (Insulin Lispro 100 Unit/Ml 10 Ml Vial) 0 unit SUBCUT QIDACANDBED [facility]; Protocol Last Admin: 05/04/21 11:53 Dose: Not Given Documented by: Ketorolac Tromethamine (Ketorolac 30 Mg/Ml Sdv) 30 mg IVPUSH ONETIME ONE Stop: 05/01/21 20:30 Last Admin: 05/01/21 22:44 Dose: 30 mg Documented by: Lorazepam (Lorazepam 2 Mg/Ml Sdv) 1 mg IVPUSH ONETIME ONE Stop: 05/01/21 16:58 Last Admin: 05/01/21 17:23 Dose: 1 mg Documented by: Ondansetron HCl (Ondansetron 4 Mg/2 Ml Sdv) 4 mg IVPUSH ONETIME ONE Stop: 05/01/21 16:58 Last Admin: 05/01/21 17:23 Dose: 4 mg Documented by: Sodium Phosphate (Phosphorus #1 250 Mg Tab) 250 mg PO TID JOSÉ LUIS Stop: 05/08/21 21:01 Last Admin: 05/08/21 21:09 Dose: 250 mg Documented by: Tbo-Filgrastim (Tbo-Filgrastim 480 Mcg/0.8 Ml Syringe) 320 mcg SUBCUT DAILY JOSÉ LUIS Stop: 05/06/21 11:00 Last Admin: 05/05/21 09:28 Dose: 320 mcg Documented by: Vancomycin HCl (Pharmacy To Dose - Vancomycin) 0 dose .XX ASDIRECTED PRN PRN Reason: RX TO DOSE VANCO Vancomycin HCl (Vancomycin 500 Mg Sdv) Confirm Administered Dose 500 mg .ROUTE .STK-MED ONE Stop: 05/05/21 11:18 Last Admin: 05/05/21 11:43 Dose: Not Given Documented by: - Exam Quality Assessment: No: Supplemental Oxygen Central Line Total Time: 11Days 10Hours General: Alert, Oriented, Cooperative HEENT: Pupils Equal, Pupils Reactive Neck: Supple, Trachea Midline Lungs: Crackles (Bibasilar) GI/Abdominal Exam: Normal Bowel Sounds, No Distention (Female) Exam: Deferred Back Exam: Normal Inspection, Full Range of Motion Extremities: Normal Inspection, No Pedal Edema Skin: Warm, Dry, Intact Neurological: No New Focal Deficit Psy/Mental Status: Alert, Depressed - Patient Data Lab Results Last 24 hrs: Laboratory Results - last 24 hr 05/12/21 05/12/21 05/12/21 Range/Units 11:46 17:25 21:05 WBC (3.98-10.04) K/mm3 RBC (3.98-5.22) M/mm3 Hgb (11.2-15.7) gm/dl Hct (34.1-44.9) % MCV (79.4-94.8) fl MCH (25.6-32.2) pg MCHC (32.2-35.5) g/dl RDW Std Deviation (36.4-46.3) fL Plt Count (182-369) K/mm3 MPV (9.4-12.3) fl Neut % (Auto) (34.0-71.1) % Lymph % (Auto) (19.3-51.7) % [place] % (Auto) (4.7-12.5) % Eos % (Auto) (0.7-5.8) Baso % (Auto) (0.1-1.2) % Neut # (Auto) (1.56-6.13) K/mm3 Lymph # (Auto) (1.18-3.74) K/mm3 [place] # (Auto) (0.24-0.36) K/mm3 Eos # (Auto) (0.04-0.36) K/mm3 Baso # (Auto) (0.01-0.08) K/mm3 Sodium (136-145) mEq/L Potassium (3.5-5.1) mEq/L Chloride (98-107) mEq/L Carbon Dioxide (21-32) mEq/L Anion Gap (5-15) BUN (7-18) mg/dL Creatinine (0.55-1.02) mg/dL Est Cr Clr Drug Dosing mL/min Estimated GFR (MDRD) (>60) mL/min BUN/Creatinine Ratio (14-18) Glucose (70-99) mg/dL POC Glucose 227 H 242 H 325 H (70-99) mg/dL Calcium (8.5-10.1) mg/dL Total Bilirubin (0.2-1.0) mg/dL AST (15-37) U/L ALT (14-59) U/L Alkaline Phosphatase (46-116) U/L Total Protein (6.4-8.2) g/dl Albumin (3.4-5.0) g/dl Globulin gm/dL Albumin/Globulin Ratio (1-2) 05/13/21 05/13/21 05/13/21 Range/Units 05:53 05:53 07:37 WBC 3.67 L (3.98-10.04) K/mm3 RBC 3.11 L (3.98-5.22) M/mm3 Hgb 9.9 L (11.2-15.7) gm/dl Hct 32.0 L (34.1-44.9) % MCV 102.9 H (79.4-94.8) fl MCH 31.8 (25.6-32.2) pg MCHC 30.9 L (32.2-35.5) g/dl RDW Std Deviation 65.2 H (36.4-46.3) fL Plt Count 134 L (182-369) K/mm3 MPV 10.2 (9.4-12.3) fl Neut % (Auto) 75.3 H (34.0-71.1) % Lymph % (Auto) 13.6 L (19.3-51.7) % [place] % (Auto) 7.9 (4.7-12.5) % Eos % (Auto) 1.6 (0.7-5.8) Baso % (Auto) 0.5 (0.1-1.2) % Neut # (Auto) 2.76 (1.56-6.13) K/mm3 Lymph # (Auto) 0.50 L (1.18-3.74) K/mm3 [place] # (Auto) 0.29 (0.24-0.36) K/mm3 Eos # (Auto) 0.06 (0.04-0.36) K/mm3 Baso # (Auto) 0.02 (0.01-0.08) K/mm3 Sodium 139 (136-145) mEq/L Potassium 4.1 (3.5-5.1) mEq/L Chloride 106 (98-107) mEq/L Carbon Dioxide 21 (21-32) mEq/L Anion Gap 16.1 H (5-15) BUN 14 (7-18) mg/dL Creatinine 0.5 L (0.55-1.02) mg/dL Est Cr Clr Drug Dosing 85.77 mL/min Estimated GFR (MDRD) > 60 (>60) mL/min BUN/Creatinine Ratio 28.0 H (14-18) Glucose 205 H (70-99) mg/dL POC Glucose 156 H (70-99) mg/dL Calcium 8.2 L (8.5-10.1) mg/dL Total Bilirubin 0.6 (0.2-1.0) mg/dL AST 76 H (15-37) U/L ALT 141 H (14-59) U/L Alkaline Phosphatase 595 H (46-116) U/L Total Protein 6.2 L (6.4-8.2) g/dl Albumin 2.0 L (3.4-5.0) g/dl Globulin 4.2 gm/dL Albumin/Globulin Ratio 0.5 L (1-2) Result Diagrams: 05/13/21 05:53 05/13/21 05:53 Jairo Results Last 24 hrs: Microbiology 05/11/21 06:30 Blood Culture - Preliminary Blood - Venous - Lab Draw 05/11/21 06:20 Blood Culture - Preliminary Blood - Venous Sepsis Event Note - Evaluation Sepsis Screening Result: No Definite Risk - Focused Exam Vital Signs: Vital Signs Temp Pulse Resp BP Pulse Ox 05/13/21 06:41 86 94 L 05/13/21 06:36 36.9 C 95 20 102/75 90 L 05/13/21 03:09 36.6 C 91 20 106/67 97 - Problem List & Annotations (1) Breast cancer SNOMED Code(s): 046835911 Code(s): C50.919 - MALIGNANT NEOPLASM OF UNSP SITE OF UNSPECIFIED FEMALE BREAST Status: Acute Current Visit: Yes Qualifiers: Breast location: unspecified site of breast Estrogen receptor status: unspecified Patient sex: female Laterality: unspecified laterality Qualified Code(s): C50.919 - Malignant neoplasm of unspecified site of unspecified female breast Annotation/Comment:: Metastatic (2) Chemotherapy induced neutropenia SNOMED Code(s): 879943003 Code(s): D70.1 - AGRANULOCYTOSIS SECONDARY TO CANCER CHEMOTHERAPY; T45.1X5A - ADVERSE EFFECT OF ANTINEOPLASTIC AND IMMUNOSUP DRUGS, INIT Status: Chronic Priority: High Current Visit: Yes (3) Generalized weakness SNOMED Code(s): 48150880 Code(s): R53.1 - WEAKNESS Status: Chronic Priority: High Current Visit: Yes (4) T2DM (type 2 diabetes mellitus) SNOMED Code(s): 01571662 Code(s): E11.9 - TYPE 2 DIABETES MELLITUS WITHOUT COMPLICATIONS Status: C hronic Priority: High Current Visit: Yes 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 The patient will be kept inpatient hospitalization. Repeat laboratory studies have been ordered. I had a long discussion with the patient and the patient's sister regarding hospice. The decision was made to allow the patient to continue in hospitalization with IV antibiotics. The patient's culture results are currently pending however she does have gram-positive messi bacteremia that apparently is taking time to identified. Once the patient's bacteremia is identified the antibiotics will be deescalated. Repeat laboratory studies have been ordered for the patient. The patient has been encouraged to ambulate. Given the trace that hospice is not an answer at this time the patient will likely be appropriate for discharge in 1 to 2 days depending upon speciation of the bacteria. It will be as tolerated. - Plan Plan:: 65-year-old female with history of metastatic breast cancer on chemotherapy pres ented with generalized weakness, failure to thrive and neutropenia Neutropenic fever -resolved Gram-positive messi bacteremia Afebrile; last fever 05/03/2021 at 1325 White count normalized blood cultures growing gram-positive messi. Repeat PCR today is negative. Sensitivity pending Repeat blood culture became positive exactly on day 4. As pe microbiology lab, it could be rapid growing macrobacteria discontinued vancomycin since culture showed gram-positive rods discontinued cefepime and initiated Levaquin on 05/10/2021. Continue amikacin 10mg/kg today (05/11) (pharmacy to dose) Echo on 05/06/2021 -EF 60 to 65%; none diagnostic a study for valve vegetation. She has a port in the RU chest. No evidence of infection. I would not like to remove the port before causative bacteria is identified. Discussed with the patient the possibility of the transfer to a higher level hospital where there is an infectious disease doctor available. Patient agreed to be transferred to [place] but she does not want to go to anywhere else such as [place]. Contacted [facility] and [facility] in [place]. But I could not get a bed for her from both hospitals in [place]. Chest [id number] area within the proximal left humerus. Difficulty to exclude an osteosclerotic metastases. Improved atelectasis within both lung bases. Generalized weaknessimproving Admit pt to the medical floor under observation status. Patient will need PT and OT as well as nutritional support Pancytopenia WBC up to 4.85 today Anemia 1 unit packed red blood cells -given on May 03 Marked thrombocytopenia Platelets improving Last chemotherapy April 29 Granix/filgrastim -stopped on May 06 Transfused 1 unit packed red blood cells Hemoglobin is trending up to 124 today Follow CBC Metastatic breast cancer Spoke with Mckayla Barrett NP who recommended filgrastim. She was started on chemotherapy in October of this year and is now on her 4th cyc le of treatment. her last does of chemo was on April 29. She follows with Dr. Osuna at [place] Transaminitis possibly secondary to chemotherapy Repeat liver enzymes in the morning Ultrasound abdomen -diffusely abnormal appearance liver raising the possibility of metastatic disease. 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 Discussed with patient this morning who agreed not to do further work up including CT abd with contrast. She will see Dr. Osuna at [place] for further workup and treatment. Diabetes mellitus One episode of hypoglycemia Restart home Jardiance Continue to hold Glucophage Fingerstick blood sugar 4 times daily with sliding scale insulin low-dose Advised pt not to skip meals Past medical history of hypertension Blood pressure started to increase Added losartan 25 mg daily Severe protein calorie malnutrition Hypophosphatemia Hypomagnesemia Replaced and repeat it. Started on Megace Dehydration Resolved Full code DVT prophylaxis. Lovenox stopped because of thrombocytopenia. SCDs Disposition: TBD, pending on blood culture sensitivity Length of stay is greater than 96 hours due to complicated medical condition, slow response to treatment and awaiting for culture sensitivity.
[2021-05-13] MEDS: Calcium Carbonate/Vitamin D3 600 MG-200 Units Tab PO SCH ×3 (09:03→21:14)
[2021-05-13] MEDS: Megestrol Susp 40 MG/ML 10 ML UD Cup PO SCH (09:03)
[2021-05-13] MEDS: Aspirin 81 MG Tab.EC PO SCH (09:03)
[2021-05-13] MEDS: Bisacodyl 5 MG Tab PO SCH (09:03)
[2021-05-13] MEDS: Potassium Chloride 10 MEQ Tab.ER PO SCH ×3 (09:04→21:15)
[2021-05-13] MEDS: Losartan 25 MG Tab PO SCH (09:04)
[2021-05-13] MEDS: Loratadine 10 MG Tab PO SCH (09:04)
[2021-05-13] MEDS: Famotidine 10 MG Tab PO SCH (09:04)
[2021-05-13] MEDS: Dexamethasone 4 MG Tab PO SCH (09:05)
[2021-05-13] MEDS: Empagliflozin 25 MG Tab PO SCH (09:05)
[2021-05-13] MEDS: Gabapentin 100 MG Cap PO SCH ×2 (09:06→21:15)
[2021-05-13] MEDS: Levofloxacin/Dextrose 5%-Water 750 MG in Premix Bag 1 BAG IV SCH (11:19)
[2021-05-13] MEDS: AMIKACIN IV SCH (13:03)
[2021-05-13] MEDS: SODIUM CHLORIDE 0.9% IV SCH (13:03)
[2021-05-13] MEDS: traZODone 50 MG Tab PO SCH (21:13)
[2021-05-13] MEDS: Morphine 15 MG Tab.ER PO SCH (21:13)
[2021-05-14] MEDS: LORazepam 0.5 MG Tab PO SCH ×4 (06:01→17:58)
[2021-05-14] MEDS: Pantoprazole 40 MG Tab.CR PO SCH (06:01)
[2021-05-14] MEDS: Insulin Lispro 100 UNIT/ML 10 ML Vial SUBCUT SCH ×4 (06:09→21:21)
--- NOTE | 2021-05-14 07:28 | PCM.PN ---
- General Info Date of Service: 05/14/21 Admission Dx/Problem (Free Text): Admission Diagnosis/Problem Admission Diagnosis/Problem Generalized weakness Subjective Update: The patient is a 65-year-old lady who has been admitted to acute hospitalization since May 01, 2021. The patient today says that she is feeling better. She says that she has been eating better. She has more appetite. The patient has denied any pain. The patient has been ambulating in the room. The patient has also said that she is finished with chemotherapy. She also has said that upon discharge she will be entering hospice care. Functional Status: Reports: Pain Controlled, Tolerating Diet - Review of Systems General: Reports: No Symptoms HEENT: Reports: No Symptoms Pulmonary: Reports: No Symptoms Cardiovascular: Reports: No Symptoms Gastrointestinal: Reports: No Symptoms Genitourinary: Reports: No Symptoms Musculoskeletal: Reports: No Symptoms Skin: Reports: No Symptoms Neurological: Reports: No Symptoms Psychiatric: Reports: No Symptoms - Patient Data Vitals - Most Recent: Last Vital Signs Temp 36.1 C 05/13/21 21:11 Pulse 110 H 05/13/21 21:11 Resp 15 05/13/21 21:11 BP 111/78 05/13/21 21:11 Pulse Ox 94 L 05/13/21 21:11 Weight - Most Recent: 61.802 kg I&O - Last 24 Hours: Intake & Output 05/13/21 05/14/21 05/14/21 22:59 06:59 14:59 Intake Total 692 300 Output Total 2400 900 Balance -1708 -600 Lab Results Last 24 Hours: Laboratory Results - last 24 hr 05/12/21 05/13/21 05/13/21 Range/Units 05:58 07:37 10:52 WBC (3.98-10.04) K/mm3 RBC (3.98-5.22) M/mm3 Hgb (11.2-15.7) gm/dl Hct (34.1-44.9) % MCV (79.4-94.8) fl MCH (25.6-32.2) pg MCHC (32.2-35.5) g/dl RDW Std Deviation (36.4-46.3) fL Plt Count (182-369) K/mm3 MPV (9.4-12.3) fl Neut % (Auto) (34.0-71.1) % Lymph % (Auto) (19.3-51.7) % Bowie % (Auto) (4.7-12.5) % Eos % (Auto) (0.7-5.8) Baso % (Auto) (0.1-1.2) % Neut # (Auto) (1.56-6.13) K/mm3 Lymph # (Auto) (1.18-3.74) K/mm3 Bowie # (Auto) (0.24-0.36) K/mm3 Eos # (Auto) (0.04-0.36) K/mm3 Baso # (Auto) (0.01-0.08) K/mm3 Sodium (136-145) mEq/L Potassium (3.5-5.1) mEq/L Chloride (98-107) mEq/L Carbon Dioxide (21-32) mEq/L Anion Gap (5-15) BUN (7-18) mg/dL Creatinine (0.55-1.02) mg/dL Est Cr Clr Drug Dosing mL/min Estimated GFR (MDRD) (>60) mL/min BUN/Creatinine Ratio (14-18) Glucose (70-99) mg/dL POC Glucose 156 H 254 H (70-99) mg/dL Calcium (8.5-10.1) mg/dL Miscellaneous Test Comment 05/13/21 05/13/21 05/14/21 Range/Units 16:52 22:13 05:11 WBC 3.68 L (3.98-10.04) K/mm3 RBC 3.40 L (3.98-5.22) M/mm3 Hgb 10.8 L (11.2-15.7) gm/dl Hct 34.8 (34.1-44.9) % MCV 102.4 H (79.4-94.8) fl MCH 31.8 (25.6-32.2) pg MCHC 31.0 L (32.2-35.5) g/dl RDW Std Deviation 63.0 H (36.4-46.3) fL Plt Count 180 L (182-369) K/mm3 MPV 9.9 (9.4-12.3) fl Neut % (Auto) 77.2 H (34.0-71.1) % Lymph % (Auto) 12.5 L (19.3-51.7) % Bowie % (Auto) 7.3 (4.7-12.5) % Eos % (Auto) 1.4 (0.7-5.8) Baso % (Auto) 0.8 (0.1-1.2) % Neut # (Auto) 2.84 (1.56-6.13) K/mm3 Lymph # (Auto) 0.46 L (1.18-3.74) K/mm3 Bowie # (Auto) 0.27 (0.24-0.36) K/mm3 Eos # (Auto) 0.05 (0.04-0.36) K/mm3 Baso # (Auto) 0.03 (0.01-0.08) K/mm3 Sodium (136-145) mEq/L Potassium (3.5-5.1) mEq/L Chloride (98-107) mEq/L Carbon Dioxide (21-32) mEq/L Anion Gap (5-15) BUN (7-18) mg/dL Creatinine (0.55-1.02) mg/dL Est Cr Clr Drug Dosing mL/min Estimated GFR (MDRD) (>60) mL/min BUN/Creatinine Ratio (14-18) Glucose (70-99) mg/dL POC Glucose 276 H 273 H (70-99) mg/dL Calcium (8.5-10.1) mg/dL Miscellaneous Test 05/14/21 05/14/21 Range/Units 05:11 05:50 WBC (3.98-10.04) K/mm3 RBC (3.98-5.22) M/mm3 Hgb (11.2-15.7) gm/dl Hct (34.1-44.9) % MCV (79.4-94.8) fl MCH (25.6-32.2) pg MCHC (32.2-35.5) g/dl RDW Std Deviation (36.4-46.3) fL Plt Count (182-369) K/mm3 MPV (9.4-12.3) fl Neut % (Auto) (34.0-71.1) % Lymph % (Auto) (19.3-51.7) % Bowie % (Auto) (4.7-12.5) % Eos % (Auto) (0.7-5.8) Baso % (Auto) (0.1-1.2) % Neut # (Auto) (1.56-6.13) K/mm3 Lymph # (Auto) (1.18-3.74) K/mm3 Bowie # (Auto) (0.24-0.36) K/mm3 Eos # (Auto) (0.04-0.36) K/mm3 Baso # (Auto) (0.01-0.08) K/mm3 Sodium 139 (136-145) mEq/L Potassium 4.5 (3.5-5.1) mEq/L Chloride 105 (98-107) mEq/L Carbon Dioxide 24 (21-32) mEq/L Anion Gap 14.5 (5-15) BUN 14 (7-18) mg/dL Creatinine 0.5 L (0.55-1.02) mg/dL Est Cr Clr Drug Dosing 85.77 mL/min Estimated GFR (MDRD) > 60 (>60) mL/min BUN/Creatinine Ratio 28.0 H (14-18) Glucose 176 H (70-99) mg/dL POC Glucose 144 H (70-99) mg/dL Calcium 8.5 (8.5-10.1) mg/dL Miscellaneous Test Jairo Results Last 24 Hours: Microbiology 05/02/21 13:53 Blood Culture - Final Blood - Venous - Lab Draw Mycobacterium Fortuitum Cmplx 05/02/21 13:48 Blood Culture - Final Blood - Venous - Lab Draw Mycobacterium Fortuitum Cmplx Med Orders - Current: Current Medications Acetaminophen (Acetaminophen 325 Mg Tab) 650 mg PO Q4H PRN PRN Reason: Pain (Mild 1-3)/fever Last Admin: 05/11/21 00:22 Dose: 650 mg Documented by: Hydrocodone Bitart/Acetaminophen (Acetaminophen/Hydrocodone 325-5 Mg Tab) 1 tab PO Q4H PRN PRN Reason: Pain (moderate 4-6) Last Admin: 05/09/21 15:23 Dose: 1 tab Documented by: Aspirin (Aspirin 81 Mg Tab.Ec) 81 mg PO DAILY [facility] Last Admin: 05/13/21 09:03 Dose: 81 mg Documented by: Bisacodyl (Bisacodyl 5 Mg Tab) 5 mg PO DAILY [facility] Last Admin: 05/13/21 09:03 Dose: 5 mg Documented by: Calcium Carbonate (Calcium Carbonate/Vitamin D3 600 Mg-200 Units Tab) 1 tab PO TID [facility] Last Admin: 05/13/21 21:14 Dose: 1 tab Documented by: Calcium Carbonate/Glycine (Calcium Carbonate 500 Mg Tab.Chew) 1,000 mg PO Q2HR PRN PRN Reason: Indigestion Dexamethasone (Dexamethasone 4 Mg Tab) 2 mg PO DAILY [facility] Last Admin: 05/13/21 09:05 Dose: 2 mg Documented by: Docusate Sodium (Docusate Sodium 100 Mg Cap) 100 mg PO DAILY PRN PRN Reason: Constipation Famotidine (Famotidine 10 Mg Tab) 10 mg PO DAILY [facility] Last Admin: 05/13/21 09:04 Dose: 10 mg Documented by: Gabapentin (Gabapentin 100 Mg Cap) 200 mg PO BID [facility] Last Admin: 05/13/21 21:15 Dose: 200 mg Documented by: Promethazine HCl 6.25 mg/ (Sodium Chloride) 50.25 mls @ 100 mls/hr IV Q6H PRN PRN Reason: Nausea/Vomiting Levofloxacin/Dextrose 750 mg/ (Premix) 150 mls @ 100 mls/hr IV Q24H [facility] Last Admin: 05/13/21 11:19 Dose: 100 mls/hr Documented by: Amikacin Sulfate 580 mg/ (Sodium Chloride) 102.32 mls @ 102.32 mls/hr IV Q24H [facility] Last Admin: 05/13/21 13:03 Dose: 102.32 mls/hr Documented by: Insulin Human Lispro (Insulin Lispro 100 Unit/Ml 10 Ml Vial) 0 unit SUBCUT QIDACANDBED [facility]; Protocol Last Admin: 05/14/21 06:09 Dose: Not Given Documented by: Loratadine (Loratadine 10 Mg Tab) 10 mg PO DAILY [facility] Last Admin: 05/13/21 09:04 Dose: 10 mg Documented by: Lorazepam (Lorazepam 0.5 Mg Tab) 0.5 mg PO Q6H [facility] Last Admin: 05/14/21 06:08 Dose: Not Given Documented by: Losartan Potassium (Losartan 25 Mg Tab) 25 mg PO DAILY [facility] Last Admin: 05/13/21 09:04 Dose: 25 mg Documented by: Megestrol Acetate (Megestrol Susp 40 Mg/Ml 10 Ml Ud Cup) 400 mg PO DAILY [facility] Last Admin: 05/13/21 09:03 Dose: 400 mg Documented by: Morphine Sulfate (Morphine 15 Mg Tab.Er) 15 mg PO BEDTIME [facility] Last Admin: 05/13/21 21:13 Dose: 15 mg Documented by: Ondansetron HCl (Ondansetron 4 Mg Tab.Dis) 4 mg PO Q4H PRN PRN Reason: nausea, able to take PO Pantoprazole Sodium (Pantoprazole 40 Mg Tab.Cr) 40 mg PO ACBREAKFAST [facility] Last Admin: 05/14/21 06:01 Dose: 40 mg Documented by: Potassium Chloride (Potassium Chloride 10 Meq Tab.Er) 10 meq PO TID [facility] Last Admin: 05/13/21 21:15 Dose: 10 meq Documented by: Prochlorperazine Maleate (Prochlorperazine 5 Mg Tab) 10 mg PO QID PRN PRN Reason: Nausea/Vomiting Trazodone HCl (Trazodone 50 Mg Tab) 50 mg PO BEDTIME [facility] Last Admin: 05/13/21 21:13 Dose: 50 mg Documented by: Zolpidem Tartrate (Zolpidem 5 Mg Tab) 5 mg PO BEDTIME PRN PRN Reason: Sleep Last Admin: 05/07/21 21:12 Dose: 5 mg Documented by: Discontinued Medications Calcium Carbonate/Glycine (Calcium Carbonate 600 Mg Tab) 1,200 mg PO BIDMEALS [facility] Last Admin: 05/03/21 06:09 Dose: 1,200 mg Documented by: Enoxaparin Sodium (Enoxaparin 40 Mg/0.4 Ml Syringe) 40 mg SUBCUT DAILY [facility] Last Admin: 05/02/21 01:33 Dose: Not Given Documented by: Enoxaparin Sodium (Enoxaparin 40 Mg/0.4 Ml Syringe) 40 mg SUBCUT DAILY@2200 [facility] Last Admin: 05/02/21 21:28 Dose: 40 mg Documented by: Sodium Chloride (Normal Saline) 1,000 mls @ 999 mls/hr IV ONETIME ONE Stop: 05/01/21 17:42 Last Admin: 05/01/21 16:54 Dose: 999 mls/hr Documented by: Magnesium Sulfate 2 gm/ Premix 50 mls @ 25 mls/hr IV ONETIME ONE Stop: 05/01/21 19:46 Last Admin: 05/01/21 18:08 Dose: 25 mls/hr Documented by: Sodium Chloride (Normal Saline) 1,000 mls @ 150 mls/hr IV ONETIME ONE Stop: 05/02/21 02:56 Last Admin: 05/01/21 22:45 Dose: Not Given Documented by: Dextrose/Sodium Chloride (Dextrose 5%-1/2 Ns) 1,000 mls @ 75 mls/hr IV ASDIRECTED [facility] Last Admin: 05/03/21 23:42 Dose: 75 mls/hr Documented by: Potassium Chloride 10 meq/ (Premix) 100 mls @ 100 mls/hr IV Q1H [facility] Stop: 05/02/21 12:14 Last Admin: 05/02/21 11:50 Dose: 100 mls/hr Documented by: Sodium Chloride (Normal Saline) 1,000 mls @ 999 mls/hr IV ONETIME ONE Stop: 05/02/21 14:04 Last Admin: 05/02/21 13:15 Dose: 999 mls/hr Documented by: Cefepime HCl 2 gm/ Premix 50 mls @ 100 mls/hr IV Q8H [facility] Last Admin: 05/07/21 06:49 Dose: 100 mls/hr Documented by: Sodium Chloride (Normal Saline) 500 mls @ 500 mls/hr IV .BOLUS ONE Stop: 05/03/21 10:04 Last Infusion: 05/03/21 10:30 Dose: Infused Documented by: Vancomycin HCl 1 gm/Vancomycin HCl 250 mg/ Sodium Chloride 250 mls @ 166.667 mls/hr IV ONETIME ONE Stop: 05/03/21 11:59 Last Admin: 05/03/21 10:24 Dose: 166.667 mls/hr Documented by: Vancomycin HCl 1 gm/ Sodium (Chloride) 250 mls @ 250 mls/hr IV Q12H [facility] Last Admin: 05/04/21 23:01 Dose: 250 mls/hr Documented by: Potassium Phosphate 30 mmole/ (Sodium Chloride) 510 mls @ 102 mls/hr IV ONETIME ONE Stop: 05/03/21 18:59 Last Admin: 05/03/21 16:09 Dose: 102 mls/hr Documented by: Sodium Phosphate 30 mmole/ (Sodium Chloride) 260 mls @ 130 mls/hr IV ONETIME ONE Stop: 05/03/21 13:44 Last Admin: 05/03/21 12:51 Dose: 130 mls/hr Documented by: Magnesium Sulfate 2 gm/ Premix 50 mls @ 25 mls/hr IV ONETIME ONE Stop: 05/03/21 13:29 Last Admin: 05/03/21 12:50 Dose: 25 mls/hr Documented by: Sodium Chloride (Normal Saline) 500 mls @ 100 mls/hr IV ONETIME ONE Stop: 05/03/21 17:29 Last Admin: 05/03/21 15:50 Dose: 100 mls/hr Documented by: Sodium Chloride (Normal Saline) 1,000 mls @ 50 mls/hr IV ASDIRECTED [facility] Sodium Phosphate 30 mmole/ (Sodium Chloride) 260 mls @ 130 mls/hr IV ONETIME ONE Stop: 05/04/21 11:59 Last Admin: 05/04/21 11:34 Dose: 130 mls/hr Documented by: Sodium Phosphate 30 mmole/ (Sodium Chloride) 260 mls @ 130 mls/hr IV ONETIME ONE Stop: 05/04/21 15:59 Last Admin: 05/04/21 15:21 Dose: 130 mls/hr Documented by: Sodium Chloride (Normal Saline) 1,000 mls @ 15 mls/hr IV ASDIRECTED [facility] Last Admin: 05/04/21 18:26 Dose: 15 mls/hr Documented by: Vancomycin HCl 1 gm/Vancomycin HCl 250 mg/ Sodium Chloride 250 mls @ 166.667 mls/hr IV Q12H [facility] Last Admin: 05/09/21 15:09 Dose: Not Given Documented by: Sodium Phosphate 30 mmole/ (Sodium Chloride) 260 mls @ 130 mls/hr IV ONETIME ONE Stop: 05/05/21 15:59 Last Admin: 05/05/21 13:54 Dose: 130 mls/hr Documented by: Magnesium Sulfate 2 gm/ Premix 50 mls @ 25 mls/hr IV ONETIME ONE Stop: 05/05/21 13:29 Last Admin: 05/05/21 11:41 Dose: 25 mls/hr Documented by: Sodium Chloride (Normal Saline) 1,000 mls @ 25 mls/hr IV ASDIRECTED [facility] Last Admin: 05/11/21 06:58 Dose: 25 mls/hr Documented by: Sodium Phosphate 30 mmole/ (Sodium Chloride) 260 mls @ 86.667 mls/hr IV ONETIME ONE Stop: 05/06/21 09:01 Last Admin: 05/06/21 08:44 Dose: 86.667 mls/hr Documented by: Cefepime HCl 2 gm/ Sodium (Chloride) 50 mls @ 100 mls/hr IV Q8H [facility] Last Admin: 05/09/21 06:06 Dose: 100 mls/hr Documented by: Magnesium Sulfate 4 gm/ Premix 50 mls @ 12.5 mls/hr IV ONETIME ONE Stop: 05/09/21 12:59 Last Admin: 05/09/21 12:55 Dose: 12.5 mls/hr Documented by: Dextrose/Sodium Chloride (Dextrose 5%-Normal Saline) 1,000 mls @ 60 mls/hr IV ASDIRECTED [facility] Last Admin: 05/11/21 16:43 Dose: 60 mls/hr Documented by: Insulin Human Lispro (Insulin Lispro 100 Unit/Ml 10 Ml Vial) 0 unit SUBCUT QIDACANDBED [facility]; Protocol Last Admin: 05/04/21 11:53 Dose: Not Given Documented by: Ketorolac Tromethamine (Ketorolac 30 Mg/Ml Sdv) 30 mg IVPUSH ONETIME ONE Stop: 05/01/21 20:30 Last Admin: 05/01/21 22:44 Dose: 30 mg Documented by: Lorazepam (Lorazepam 2 Mg/Ml Sdv) 1 mg IVPUSH ONETIME ONE Stop: 05/01/21 16:58 Last Admin: 05/01/21 17:23 Dose: 1 mg Documented by: Ondansetron HCl (Ondansetron 4 Mg/2 Ml Sdv) 4 mg IVPUSH ONETIME ONE Stop: 05/01/21 16:58 Last Admin: 05/01/21 17:23 Dose: 4 mg Documented by: Sodium Phosphate (Phosphorus #1 250 Mg Tab) 250 mg PO TID [facility] Stop: 05/08/21 21:01 Last Admin: 05/08/21 21:09 Dose: 250 mg Documented by: Tbo-Filgrastim (Tbo-Filgrastim 480 Mcg/0.8 Ml Syringe) 320 mcg SUBCUT DAILY [facility] Stop: 05/06/21 11:00 Last Admin: 05/05/21 09:28 Dose: 320 mcg Documented by: Vancomycin HCl (Pharmacy To Dose - Vancomycin) 0 dose .XX ASDIRECTED PRN PRN Reason: RX TO DOSE VANCO Vancomycin HCl (Vancomycin 500 Mg Sdv) Confirm Administered Dose 500 mg .ROUTE .STK-MED ONE Stop: 05/05/21 11:18 Last Admin: 05/05/21 11:43 Dose: Not Given Documented by: - Exam Quality Assessment: Supplemental Oxygen, Central Line/PICC, DVT Prophylaxis Central Line Total Time: 12Days 12Hours General: Alert, Oriented, Cooperative, No Acute Distress HEENT: Pupils Equal, Pupils Reactive, EOMI, Mucous Membr. Moist/Herman Neck: Supple, Trachea Midline Lungs: Clear to Auscultation, Normal Respiratory Effort Cardiovascular: Regular Rate, Regular Rhythm GI/Abdominal Exam: Normal Bowel Sounds, Soft, Non-Tender, No Distention (Female) Exam: Deferred Back Exam: Normal Inspection, Full Range of Motion Extremities: Normal Inspection, No Pedal Edema Skin: Warm, Dry, Intact Neurological: No New Focal Deficit Psy/Mental Status: Alert, Normal Affect, Normal Mood - Patient Data Lab Results Last 24 hrs: Laboratory Results - last 24 hr 05/12/21 05/13/21 05/13/21 Range/Units 05:58 07:37 10:52 WBC (3.98-10.04) K/mm3 RBC (3.98-5.22) M/mm3 Hgb (11.2-15.7) gm/dl Hct (34.1-44.9) % MCV (79.4-94.8) fl MCH (25.6-32.2) pg MCHC (32.2-35.5) g/dl RDW Std Deviation (36.4-46.3) fL Plt Count (182-369) K/mm3 MPV (9.4-12.3) fl Neut % (Auto) (34.0-71.1) % Lymph % (Auto) (19.3-51.7) % Bowie % (Auto) (4.7-12.5) % Eos % (Auto) (0.7-5.8) Baso % (Auto) (0.1-1.2) % Neut # (Auto) (1.56-6.13) K/mm3 Lymph # (Auto) (1.18-3.74) K/mm3 Bowie # (Auto) (0.24-0.36) K/mm3 Eos # (Auto) (0.04-0.36) K/mm3 Baso # (Auto) (0.01-0.08) K/mm3 Sodium (136-145) mEq/L Potassium (3.5-5.1) mEq/L Chloride (98-107) mEq/L Carbon Dioxide (21-32) mEq/L Anion Gap (5-15) BUN (7-18) mg/dL Creatinine (0.55-1.02) mg/dL Est Cr Clr Drug Dosing mL/min Estimated GFR (MDRD) (>60) mL/min BUN/Creatinine Ratio (14-18) Glucose (70-99) mg/dL POC Glucose 156 H 254 H (70-99) mg/dL Calcium (8.5-10.1) mg/dL Miscellaneous Test Comment 05/13/21 05/13/21 05/14/21 Range/Units 16:52 22:13 05:11 WBC 3.68 L (3.98-10.04) K/mm3 RBC 3.40 L (3.98-5.22) M/mm3 Hgb 10.8 L (11.2-15.7) gm/dl Hct 34.8 (34.1-44.9) % MCV 102.4 H (79.4-94.8) fl MCH 31.8 (25.6-32.2) pg MCHC 31.0 L (32.2-35.5) g/dl RDW Std Deviation 63.0 H (36.4-46.3) fL Plt Count 180 L (182-369) K/mm3 MPV 9.9 (9.4-12.3) fl Neut % (Auto) 77.2 H (34.0-71.1) % Lymph % (Auto) 12.5 L (19.3-51.7) % Bowie % (Auto) 7.3 (4.7-12.5) % Eos % (Auto) 1.4 (0.7-5.8) Baso % (Auto) 0.8 (0.1-1.2) % Neut # (Auto) 2.84 (1.56-6.13) K/mm3 Lymph # (Auto) 0.46 L (1.18-3.74) K/mm3 Bowie # (Auto) 0.27 (0.24-0.36) K/mm3 Eos # (Auto) 0.05 (0.04-0.36) K/mm3 Baso # (Auto) 0.03 (0.01-0.08) K/mm3 Sodium (136-145) mEq/L Potassium (3.5-5.1) mEq/L Chloride (98-107) mEq/L Carbon Dioxide (21-32) mEq/L Anion Gap (5-15) BUN (7-18) mg/dL Creatinine (0.55-1.02) mg/dL Est Cr Clr Drug Dosing mL/min Estimated GFR (MDRD) (>60) mL/min BUN/Creatinine Ratio (14-18) Glucose (70-99) mg/dL POC Glucose 276 H 273 H (70-99) mg/dL Calcium (8.5-10.1) mg/dL Miscellaneous Test 05/14/21 05/14/21 Range/Units 05:11 05:50 WBC (3.98-10.04) K/mm3 RBC (3.98-5.22) M/mm3 Hgb (11.2-15.7) gm/dl Hct (34.1-44.9) % MCV (79.4-94.8) fl MCH (25.6-32.2) pg MCHC (32.2-35.5) g/dl RDW Std Deviation (36.4-46.3) fL Plt Count (182-369) K/mm3 MPV (9.4-12.3) fl Neut % (Auto) (34.0-71.1) % Lymph % (Auto) (19.3-51.7) % Bowie % (Auto) (4.7-12.5) % Eos % (Auto) (0.7-5.8) Baso % (Auto) (0.1-1.2) % Neut # (Auto) (1.56-6.13) K/mm3 Lymph # (Auto) (1.18-3.74) K/mm3 Bowie # (Auto) (0.24-0.36) K/mm3 Eos # (Auto) (0.04-0.36) K/mm3 Baso # (Auto) (0.01-0.08) K/mm3 Sodium 139 (136-145) mEq/L Potassium 4.5 (3.5-5.1) mEq/L Chloride 105 (98-107) mEq/L Carbon Dioxide 24 (21-32) mEq/L Anion Gap 14.5 (5-15) BUN 14 (7-18) mg/dL Creatinine 0.5 L (0.55-1.02) mg/dL Est Cr Clr Drug Dosing 85.77 mL/min Estimated GFR (MDRD) > 60 (>60) mL/min BUN/Creatinine Ratio 28.0 H (14-18) Glucose 176 H (70-99) mg/dL POC Glucose 144 H (70-99) mg/dL Calcium 8.5 (8.5-10.1) mg/dL Miscellaneous Test Result Diagrams: 05/14/21 05:11 05/14/21 05:11 Jairo Results Last 24 hrs: Microbiology 05/02/21 13:53 Blood Culture - Final Blood - Venous - Lab Draw Mycobacterium Fortuitum Cmplx 05/02/21 13:48 Blood Culture - Final Blood - Venous - Lab Draw Mycobacterium Fortuitum Cmplx Sepsis Event Note - Evaluation Sepsis Screening Result: Sepsis Risk - Focused Exam Vital Signs: Vital Signs Temp Pulse Resp BP Pulse Ox 05/13/21 21:11 36.1 C 110 H 15 111/78 94 L - Problem List & Annotations (1) Breast cancer SNOMED Code(s): 961116431 Code(s): C50.919 - MALIGNANT NEOPLASM OF UNSP SITE OF UNSPECIFIED FEMALE BREAST Status: Acute Current Visit: Yes Qualifiers: Breast location: unspecified site of breast Estrogen receptor status: unspecified Patient sex: female Laterality: unspecified laterality Qualified Code(s): C50.919 - Malignant neoplasm of unspecified site of unspecified female breast Annotation/Comment:: Metastatic (2) Chemotherapy induced neutropenia SNOMED Code(s): 308258330 Code(s): D70.1 - AGRANULOCYTOSIS SECONDARY TO CANCER CHEMOTHERAPY; T45.1X5A - ADVERSE EFFECT OF ANTINEOPLASTIC AND IMMUNOSUP DRUGS, INIT Status: Chronic Priority: High Current Visit: Yes (3) Generalized weakness SNOMED Code(s): 45336098 Code(s): R53.1 - WEAKNESS Status: Chronic Priority: High Current Visit: Yes (4) T2DM (type 2 diabetes mellitus) SNOMED Code(s): 66548688 Code(s): E11.9 - TYPE 2 DIABETES MELLITUS WITHOUT COMPLICATIONS Status: Chronic Priority: High Current Visit: Yes Qualifiers: Diabetes mellitus [facility] insulin use: without ferry terminal agent use Diabetes mellitus complication status: without complication Qualified Code(s): E11.9 - Type 2 diabetes mellitus without complications (5) Mycobacterium fortuitum infection SNOMED Code(s): 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 The patient will be kept inpatient hospitalization. Repeat laboratory studies have been ordered. I had a long discussion with the patient and the patient's sister regarding hospice. The decision was made to allow the patient to continue in hospitalization with IV antibiotics. The patient's culture results are currently pending however she does have gram-positive messi bacteremia that apparently is taking time to identified. Once the patient's bacteremia is identified the antibiotics will be deescalated. Repeat laboratory studies have been ordered for the patient. The patient has been encouraged to ambulate. Given the trace that hospice is not an answer at this time the patient will likely be appropriate for discharge in 1 to 2 days depending upon speciation of the bacteria. It will be as tolerated. 05/14/2021 Patient is a 65-year-old lady who has widely metastatic breast cancer that has metastasized to her liver. 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 The patient's amikacin has been discontinued and the patient will be continued on fluoroquinolones as this proves to be effective to this particular organism. Repeat blood cultures to be ordered. I am concerned that the patient does have a chemotherapy port which cannot be removed at this facility. This would be a likely source of infection and bacteremia for this patient. Repeat laboratory studies have also been ordered. The patient will continue on DVT prophylaxis. She has regular diet as tolerated. The patient should be appropriate for discharge in 2 to 3 days. - Plan Plan:: 65-year-old female with history of metastatic breast cancer on chemotherapy presented with generalized weakness, failure to thrive and neutropenia Neutropenic fever -resolved Gram-positive messi bacteremia Afebrile; last fever 05/03/2021 at 1325 White count normalized blood cultures growing gram-positive messi. Repeat PCR today is negative. Sensitivity pending Repeat blood culture became positive exactly on day 4. As pe microbiology lab, it could be rapid growing macrobacteria discontinued vancomycin since culture showed gram-positive rods discontinued cefepime and initiated Levaquin on 05/10/2021. Continue amikacin 10mg/kg today (05/11) (pharmacy to dose) Echo on 05/06/2021 -EF 60 to 65%; none diagnostic a study for valve vegetation. She has a port in the RU chest. No evidence of infection. I would not like to remove the port before causative bacteria is identified. Discussed with the patient the possibility of the transfer to a higher level hospital where there is an infectious disease doctor available. Patient agreed to be transferred to [place] but she does not want to go to anywhere else such as [place]. Contacted [facility] and [facility] in [place]. But I could not get a bed for her from both hospitals in [place]. Chest [id number] area within the proximal left humerus. Difficulty to exclude an osteosclerotic metastases. Improved atelectasis within both lung bases. Generalized weaknessimproving Admit pt to the medical floor under observation status. Patient will need PT and OT as well as nutritional support Pancytopenia WBC up to 4.85 today Anemia 1 unit packed red blood cells -given on May 03 Marked thrombocytopenia Platelets improving Last chemotherapy April 29 Granix/filgrastim -stopped on May 06 Transfused 1 unit packed red blood cells Hemoglobin is trending up to 124 today Follow CBC Metastatic breast cancer Spoke with Mckayla Barrett NP who recommended filgrastim. She was started on chemotherapy in October of this year and is now on her 4th cycle of treatment. her last does of chemo was on April 29. She follows with Dr. Osuna at [facility] possibly secondary to chemotherapy Repeat liver enzymes in the morning Ultrasound abdomen -diffusely abnormal appearance liver raising the possibility of metastatic disease. 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 Discussed with patient this morning who agreed not to do further work up including CT abd with contrast. She will see Dr. Osuna at [facility] for further workup and treatment. Diabetes mellitus One episode of hypoglycemia Restart home Jardiance Continue to hold Glucophage Fingerstick blood sugar 4 times daily with sliding scale insulin low-dose Advised pt not to skip meals Past medical history of hypertension Blood pressure started to increase Added losartan 25 mg daily Severe protein calorie malnutrition Hypophosphatemia Hypomagnesemia Replaced and repeat it. Started on Megace Dehydration Resolved Full code DVT prophylaxis. Lovenox stopped because of thrombocytopenia. SCDs Disposition: TBD, pending on blood culture sensitivity Length of stay is greater than 96 hours due to complicated medical condition, slow response to treatment and awaiting for culture sensitivity.
[2021-05-14] MEDS: Potassium Chloride 10 MEQ Tab.ER PO SCH ×3 (09:29→21:21)
[2021-05-14] MEDS: Famotidine 10 MG Tab PO SCH (09:29)
[2021-05-14] MEDS: Bisacodyl 5 MG Tab PO SCH (09:29)
[2021-05-14] MEDS: Loratadine 10 MG Tab PO SCH (09:29)
[2021-05-14] MEDS: Losartan 25 MG Tab PO SCH (09:29)
[2021-05-14] MEDS: Dexamethasone 4 MG Tab PO SCH (09:29)
[2021-05-14] MEDS: Calcium Carbonate/Vitamin D3 600 MG-200 Units Tab PO SCH ×3 (09:29→21:20)
[2021-05-14] MEDS: Gabapentin 100 MG Cap PO SCH ×2 (09:29→21:20)
[2021-05-14] MEDS: Empagliflozin 25 MG Tab PO SCH (09:29)
[2021-05-14] MEDS: Megestrol Susp 40 MG/ML 10 ML UD Cup PO SCH (09:29)
[2021-05-14] MEDS: Aspirin 81 MG Tab.EC PO SCH (09:29)
[2021-05-14] MEDS: Levofloxacin/Dextrose 5%-Water 750 MG in Premix Bag 1 BAG IV SCH (11:25)
[2021-05-14] MEDS: Morphine 15 MG Tab.ER PO SCH (21:19)
[2021-05-14] MEDS: traZODone 50 MG Tab PO SCH (21:20)
[2021-05-15] MEDS: LORazepam 0.5 MG Tab PO SCH ×4 (01:13→19:18)
[2021-05-15] MEDS: Pantoprazole 40 MG Tab.CR PO SCH (06:00)
[2021-05-15] MEDS: Insulin Lispro 100 UNIT/ML 10 ML Vial SUBCUT SCH (06:25)
--- NOTE | 2021-05-15 07:07 | PCM.PN ---
- General Info Date of Service: 05/15/21 Admission Dx/Problem (Free Text): Admission Diagnosis/Problem Admission Diagnosis/Problem Generalized weakness, metastatic breast cancer, Mycobacterium fortuitum bacteremia Subjective Update: The patient is a 65-year-old lady who had been admitted to acute inpatient on May 02, 2021 due to generalized weakness, neutropenic fever. Patient today says that she feels well. She has been breathing better. She is on room air. She has been tolerating her diet. The patient has denied any new pain. Functional Status: Reports: Pain Controlled, Tolerating Diet - Review of Systems General: Reports: Weakness, Fatigue HEENT: Reports: No Symptoms Pulmonary: Reports: No Symptoms Cardiovascular: Reports: No Symptoms Gastrointestinal: Reports: No Symptoms Genitourinary: Reports: No Symptoms Musculoskeletal: Reports: No Symptoms Skin: Reports: No Symptoms Neurological: Reports: No Symptoms Psychiatric: Reports: Depression - Patient Data Vitals - Most Recent: Last Vital Signs Temp 36.1 C 05/15/21 05:47 Pulse 101 H 05/15/21 05:51 Resp 16 05/14/21 21:06 BP 107/84 05/15/21 05:51 Pulse Ox 91 L 05/15/21 05:51 Weight - Most Recent: 61.235 kg I&O - Last 24 Hours: Intake & Output 05/14/21 05/15/21 05/15/21 22:59 06:59 14:59 Intake Total 1110 Output Total 1700 950 Balance -590 -950 Lab Results Last 24 Hours: Laboratory Results - last 24 hr 05/14/21 05/14/21 05/14/21 Range/Units 10:57 17:09 21:03 WBC (3.98-10.04) K/mm3 RBC (3.98-5.22) M/mm3 Hgb (11.2-15.7) gm/dl Hct (34.1-44.9) % MCV (79.4-94.8) fl MCH (25.6-32.2) pg MCHC (32.2-35.5) g/dl RDW Std Deviation (36.4-46.3) fL Plt Count (182-369) K/mm3 MPV (9.4-12.3) fl Neut % (Auto) (34.0-71.1) % Lymph % (Auto) (19.3-51.7) % [place] % (Auto) (4.7-12.5) % Eos % (Auto) (0.7-5.8) Baso % (Auto) (0.1-1.2) % Neut # (Auto) (1.56-6.13) K/mm3 Lymph # (Auto) (1.18-3.74) K/mm3 [place] # (Auto) (0.24-0.36) K/mm3 Eos # (Auto) (0.04-0.36) K/mm3 Baso # (Auto) (0.01-0.08) K/mm3 Sodium (136-145) mEq/L Potassium (3.5-5.1) mEq/L Chloride (98-107) mEq/L Carbon Dioxide (21-32) mEq/L Anion Gap (5-15) BUN (7-18) mg/dL Creatinine (0.55-1.02) mg/dL Est Cr Clr Drug Dosing mL/min Estimated GFR (MDRD) (>60) mL/min BUN/Creatinine Ratio (14-18) Glucose (70-99) mg/dL POC Glucose 248 H 251 H 295 H (70-99) mg/dL Calcium (8.5-10.1) mg/dL Total Bilirubin (0.2-1.0) mg/dL AST (15-37) U/L ALT (14-59) U/L Alkaline Phosphatase (46-116) U/L Total Protein (6.4-8.2) g/dl Albumin (3.4-5.0) g/dl Globulin gm/dL Albumin/Globulin Ratio (1-2) 05/15/21 05/15/21 05/15/21 Range/Units 05:50 05:50 05:50 WBC 3.70 L (3.98-10.04) K/mm3 RBC 3.42 L (3.98-5.22) M/mm3 Hgb 11.0 L (11.2-15.7) gm/dl Hct 35.2 (34.1-44.9) % MCV 102.9 H (79.4-94.8) fl MCH 32.2 (25.6-32.2) pg MCHC 31.3 L (32.2-35.5) g/dl RDW Std Deviation 62.8 H (36.4-46.3) fL Plt Count 206 (182-369) K/mm3 MPV 9.5 (9.4-12.3) fl Neut % (Auto) 72.9 H (34.0-71.1) % Lymph % (Auto) 14.1 L (19.3-51.7) % [place] % (Auto) 10.0 (4.7-12.5) % Eos % (Auto) 1.1 (0.7-5.8) Baso % (Auto) 0.8 (0.1-1.2) % Neut # (Auto) 2.70 (1.56-6.13) K/mm3 Lymph # (Auto) 0.52 L (1.18-3.74) K/mm3 [place] # (Auto) 0.37 H (0.24-0.36) K/mm3 Eos # (Auto) 0.04 (0.04-0.36) K/mm3 Baso # (Auto) 0.03 (0.01-0.08) K/mm3 Sodium 139 (136-145) mEq/L Potassium 4.3 (3.5-5.1) mEq/L Chloride 105 (98-107) mEq/L Carbon Dioxide 22 (21-32) mEq/L Anion Gap 16.3 H (5-15) BUN 14 (7-18) mg/dL Creatinine 0.6 (0.55-1.02) mg/dL Est Cr Clr Drug Dosing 71.48 mL/min Estimated GFR (MDRD) > 60 (>60) mL/min BUN/Creatinine Ratio 23.3 H (14-18) Glucose 235 H (70-99) mg/dL POC Glucose 219 H (70-99) mg/dL Calcium 8.5 (8.5-10.1) mg/dL Total Bilirubin 0.6 (0.2-1.0) mg/dL AST 43 H (15-37) U/L ALT 115 H (14-59) U/L Alkaline Phosphatase 532 H (46-116) U/L Total Protein 6.7 (6.4-8.2) g/dl Albumin 2.2 L (3.4-5.0) g/dl Globulin 4.5 gm/dL Albumin/Globulin Ratio 0.5 L (1-2) Jairo Results Last 24 Hours: Microbiology 05/06/21 12:05 Blood Culture - Final Blood - Venous Mycobacterium Fortuitum 05/02/21 13:53 Blood Culture - Final Blood - Venous - Lab Draw Mycobacterium Fortuitum Cmplx 05/02/21 13:48 Blood Culture - Final Blood - Venous - Lab Draw Mycobacterium Fortuitum Cmplx Med Orders - Current: Current Medications Acetaminophen (Acetaminophen 325 Mg Tab) 650 mg PO Q4H PRN PRN Reason: Pain (Mild 1-3)/fever Last Admin: 05/11/21 00:22 Dose: 650 mg Documented by: Hydrocodone Bitart/Acetaminophen (Acetaminophen/Hydrocodone 325-5 Mg Tab) 1 tab PO Q4H PRN PRN Reason: Pain (moderate 4-6) Last Admin: 05/09/21 15:23 Dose: 1 tab Documented by: Aspirin (Aspirin 81 Mg Tab.Ec) 81 mg PO DAILY [facility] Last Admin: 05/14/21 09:29 Dose: 81 mg Documented by: Bisacodyl (Bisacodyl 5 Mg Tab) 5 mg PO DAILY [facility] Last Admin: 05/14/21 09:29 Dose: 5 mg Documented by: Calcium Carbonate (Calcium Carbonate/Vitamin D3 600 Mg-200 Units Tab) 1 tab PO TID [facility] Last Admin: 05/14/21 21:20 Dose: 1 tab Documented by: Calcium Carbonate/Glycine (Calcium Carbonate 500 Mg Tab.Chew) 1,000 mg PO Q2HR PRN PRN Reason: Indigestion Dexamethasone (Dexamethasone 4 Mg Tab) 2 mg PO DAILY [facility] Last Admin: 05/14/21 09:29 Dose: 2 mg Documented by: Docusate Sodium (Docusate Sodium 100 Mg Cap) 100 mg PO DAILY PRN PRN Reason: Constipation Famotidine (Famotidine 10 Mg Tab) 10 mg PO DAILY [facility] Last Admin: 05/14/21 09:29 Dose: 10 mg Documented by: Gabapentin (Gabapentin 100 Mg Cap) 200 mg PO BID [facility] Last Admin: 05/14/21 21:20 Dose: 200 mg Documented by: Promethazine HCl 6.25 mg/ (Sodium Chloride) 50.25 mls @ 100 mls/hr IV Q6H PRN PRN Reason: Nausea/Vomiting Levofloxacin/Dextrose 750 mg/ (Premix) 150 mls @ 100 mls/hr IV Q24H [facility] Last Admin: 05/14/21 11:25 Dose: 100 mls/hr Documented by: Insulin Human Lispro (Insulin Lispro 100 Unit/Ml 10 Ml Vial) 0 unit SUBCUT QIDACANDBED [facility]; Protocol Last Admin: 05/15/21 06:25 Dose: 4 unit Documented by: Loratadine (Loratadine 10 Mg Tab) 10 mg PO DAILY [facility] Last Admin: 05/14/21 09:29 Dose: 10 mg Documented by: Lorazepam (Lorazepam 0.5 Mg Tab) 0.5 mg PO Q6H [facility] Last Admin: 05/15/21 06:25 Dose: Not Given Documented by: Losartan Potassium (Losartan 25 Mg Tab) 25 mg PO DAILY [facility] Last Admin: 05/14/21 09:29 Dose: 25 mg Documented by: Megestrol Acetate (Megestrol Susp 40 Mg/Ml 10 Ml Ud Cup) 400 mg PO DAILY [facility] Last Admin: 05/14/21 09:29 Dose: 400 mg Documented by: Morphine Sulfate (Morphine 15 Mg Tab.Er) 15 mg PO BEDTIME [facility] Last Admin: 05/14/21 21:19 Dose: 15 mg Documented by: Ondansetron HCl (Ondansetron 4 Mg Tab.Dis) 4 mg PO Q4H PRN PRN Reason: nausea, able to take PO Pantoprazole Sodium (Pantoprazole 40 Mg Tab.Cr) 40 mg PO ACBREAKFAST [facility] Last Admin: 05/14/21 06:01 Dose: 40 mg Documented by: Potassium Chloride (Potassium Chloride 10 Meq Tab.Er) 10 meq PO TID [facility] Last Admin: 05/14/21 21:21 Dose: 10 meq Documented by: Prochlorperazine Maleate (Prochlorperazine 5 Mg Tab) 10 mg PO QID PRN PRN Reason: Nausea/Vomiting Trazodone HCl (Trazodone 50 Mg Tab) 50 mg PO BEDTIME [facility] Last Admin: 05/14/21 21:20 Dose: 50 mg Documented by: Zolpidem Tartrate (Zolpidem 5 Mg Tab) 5 mg PO BEDTIME PRN PRN Reason: Sleep Last Admin: 05/07/21 21:12 Dose: 5 mg Documented by: Discontinued Medications Calcium Carbonate/Glycine (Calcium Carbonate 600 Mg Tab) 1,200 mg PO BIDMEALS [facility] Last Admin: 05/03/21 06:09 Dose: 1,200 mg Documented by: Enoxaparin Sodium (Enoxaparin 40 Mg/0.4 Ml Syringe) 40 mg SUBCUT DAILY [facility] Last Admin: 05/02/21 01:33 Dose: Not Given Documented by: Enoxaparin Sodium (Enoxaparin 40 Mg/0.4 Ml Syringe) 40 mg SUBCUT DAILY@2200 [facility] Last Admin: 05/02/21 21:28 Dose: 40 mg Documented by: Sodium Chloride (Normal Saline) 1,000 mls @ 999 mls/hr IV ONETIME ONE Stop: 05/01/21 17:42 Last Admin: 05/01/21 16:54 Dose: 999 mls/hr Documented by: Magnesium Sulfate 2 gm/ Premix 50 mls @ 25 mls/hr IV ONETIME ONE Stop: 05/01/21 19:46 Last Admin: 05/01/21 18:08 Dose: 25 mls/hr Documented by: Sodium Chloride (Normal Saline) 1,000 mls @ 150 mls/hr IV ONETIME ONE Stop: 05/02/21 02:56 Last Admin: 05/01/21 22:45 Dose: Not Given Documented by: Dextrose/Sodium Chloride (Dextrose 5%-1/2 Ns) 1,000 mls @ 75 mls/hr IV ASDIRECTED [facility] Last Admin: 05/03/21 23:42 Dose: 75 mls/hr Documented by: Potassium Chloride 10 meq/ (Premix) 100 mls @ 100 mls/hr IV Q1H [facility] Stop: 05/02/21 12:14 Last Admin: 05/02/21 11:50 Dose: 100 mls/hr Documented by: Sodium Chloride (Normal Saline) 1,000 mls @ 999 mls/hr IV ONETIME ONE Stop: 05/02/21 14:04 Last Admin: 05/02/21 13:15 Dose: 999 mls/hr Documented by: Cefepime HCl 2 gm/ Premix 50 mls @ 100 mls/hr IV Q8H [facility] Last Admin: 05/07/21 06:49 Dose: 100 mls/hr Documented by: Sodium Chloride (Normal Saline) 500 mls @ 500 mls/hr IV .BOLUS ONE Stop: 05/03/21 10:04 Last Infusion: 05/03/21 10:30 Dose: Infused Documented by: Vancomycin HCl 1 gm/Vancomycin HCl 250 mg/ Sodium Chloride 250 mls @ 166.667 mls/hr IV ONETIME ONE Stop: 05/03/21 11:59 Last Admin: 05/03/21 10:24 Dose: 166.667 mls/hr Documented by: Vancomycin HCl 1 gm/ Sodium (Chloride) 250 mls @ 250 mls/hr IV Q12H [facility] Last Admin: 05/04/21 23:01 Dose: 250 mls/hr Documented by: Potassium Phosphate 30 mmole/ (Sodium Chloride) 510 mls @ 102 mls/hr IV ONETIME ONE Stop: 05/03/21 18:59 Last Admin: 05/03/21 16:09 Dose: 102 mls/hr Documented by: Sodium Phosphate 30 mmole/ (Sodium Chloride) 260 mls @ 130 mls/hr IV ONETIME ONE Stop: 05/03/21 13:44 Last Admin: 05/03/21 12:51 Dose: 130 mls/hr Documented by: Magnesium Sulfate 2 gm/ Premix 50 mls @ 25 mls/hr IV ONETIME ONE Stop: 05/03/21 13:29 Last Admin: 05/03/21 12:50 Dose: 25 mls/hr Documented by: Sodium Chloride (Normal Saline) 500 mls @ 100 mls/hr IV ONETIME ONE Stop: 05/03/21 17:29 Last Admin: 05/03/21 15:50 Dose: 100 mls/hr Documented by: Sodium Chloride (Normal Saline) 1,000 mls @ 50 mls/hr IV ASDIRECTED [facility] Sodium Phosphate 30 mmole/ (Sodium Chloride) 260 mls @ 130 mls/hr IV ONETIME ONE Stop: 05/04/21 11:59 Last Admin: 05/04/21 11:34 Dose: 130 mls/hr Documented by: Sodium Phosphate 30 mmole/ (Sodium Chloride) 260 mls @ 130 mls/hr IV ONETIME ONE Stop: 05/04/21 15:59 Last Admin: 05/04/21 15:21 Dose: 130 mls/hr Documented by: Sodium Chloride (Normal Saline) 1,000 mls @ 15 mls/hr IV ASDIRECTED [facility] Last Admin: 05/04/21 18:26 Dose: 15 mls/hr Documented by: Vancomycin HCl 1 gm/Vancomycin HCl 250 mg/ Sodium Chloride 250 mls @ 166.667 mls/hr IV Q12H [facility] Last Admin: 05/09/21 15:09 Dose: Not Given Documented by: Sodium Phosphate 30 mmole/ (Sodium Chloride) 260 mls @ 130 mls/hr IV ONETIME ONE Stop: 05/05/21 15:59 Last Admin: 05/05/21 13:54 Dose: 130 mls/hr Documented by: Magnesium Sulfate 2 gm/ Premix 50 mls @ 25 mls/hr IV ONETIME ONE Stop: 05/05/21 13:29 Last Admin: 05/05/21 11:41 Dose: 25 mls/hr Documented by: Sodium Chloride (Normal Saline) 1,000 mls @ 25 mls/hr IV ASDIRECTED [facility] Last Admin: 05/11/21 06:58 Dose: 25 mls/hr Documented by: Sodium Phosphate 30 mmole/ (Sodium Chloride) 260 mls @ 86.667 mls/hr IV ONETIME ONE Stop: 05/06/21 09:01 Last Admin: 05/06/21 08:44 Dose: 86.667 mls/hr Documented by: Cefepime HCl 2 gm/ Sodium (Chloride) 50 mls @ 100 mls/hr IV Q8H [facility] Last Admin: 05/09/21 06:06 Dose: 100 mls/hr Documented by: Magnesium Sulfate 4 gm/ Premix 50 mls @ 12.5 mls/hr IV ONETIME ONE Stop: 05/09/21 12:59 Last Admin: 05/09/21 12:55 Dose: 12.5 mls/hr Documented by: Dextrose/Sodium Chloride (Dextrose 5%-Normal Saline) 1,000 mls @ 60 mls/hr IV ASDIRECTED [facility] Last Admin: 05/11/21 16:43 Dose: 60 mls/hr Documented by: Amikacin Sulfate 580 mg/ (Sodium Chloride) 102.32 mls @ 102.32 mls/hr IV Q24H [facility] Last Admin: 05/13/21 13:03 Dose: 102.32 mls/hr Documented by: Insulin Human Lispro (Insulin Lispro 100 Unit/Ml 10 Ml Vial) 0 unit SUBCUT QIDACANDBED [facility]; Protocol Last Admin: 05/04/21 11:53 Dose: Not Given Documented by: Ketorolac Tromethamine (Ketorolac 30 Mg/Ml Sdv) 30 mg IVPUSH ONETIME ONE Stop: 05/01/21 20:30 Last Admin: 05/01/21 22:44 Dose: 30 mg Documented by: Lorazepam (Lorazepam 2 Mg/Ml Sdv) 1 mg IVPUSH ONETIME ONE Stop: 05/01/21 16:58 Last Admin: 05/01/21 17:23 Dose: 1 mg Documented by: Ondansetron HCl (Ondansetron 4 Mg/2 Ml Sdv) 4 mg IVPUSH ONETIME ONE Stop: 05/01/21 16:58 Last Admin: 05/01/21 17:23 Dose: 4 mg Documented by: Sodium Phosphate (Phosphorus #1 250 Mg Tab) 250 mg PO TID JOS[facility] LUIS Stop: 05/08/21 21:01 Last Admin: 05/08/21 21:09 Dose: 250 mg Documented by: Tbo-Filgrastim (Tbo-Filgrastim 480 Mcg/0.8 Ml Syringe) 320 mcg SUBCUT DAILY [facility] LUIS Stop: 05/06/21 11:00 Last Admin: 05/05/21 09:28 Dose: 320 mcg Documented by: Vancomycin HCl (Pharmacy To Dose - Vancomycin) 0 dose .XX ASDIRECTED PRN PRN Reason: RX TO DOSE VANCO Vancomycin HCl (Vancomycin 500 Mg Sdv) Confirm Administered Dose 500 mg .ROUTE .STK-MED ONE Stop: 05/05/21 11:18 Last Admin: 05/05/21 11:43 Dose: Not Given Documented by: - Exam Quality Assessment: Central Line/PICC, DVT Prophylaxis. No: Supplemental Oxygen Central Line Total Time: 13Days 12Hours General: Alert, Oriented, Cooperative, No Acute Distress HEENT: Pupils Equal, Pupils Reactive, EOMI, Mucous Membr. Moist/[place] Neck: Supple, Trachea Midline Lungs: Clear to Auscultation, Normal Respiratory Effort Cardiovascular: Regular Rate, Regular Rhythm GI/Abdominal Exam: Normal Bowel Sounds, Soft, Non-Tender, No Distention (Female) Exam: Deferred Back Exam: Normal Inspection, Full Range of Motion Extremities: Normal Inspection, Normal Range of Motion, No Pedal Edema Skin: Warm, Dry, Intact Neurological: No New Focal Deficit Psy/Mental Status: Alert, Normal Affect, Normal Mood - Patient Data Lab Results Last 24 hrs: Laboratory Results - last 24 hr 05/14/21 05/14/21 05/14/21 Range/Units 10:57 17:09 21:03 WBC (3.98-10.04) K/mm3 RBC (3.98-5.22) M/mm3 Hgb (11.2-15.7) gm/dl Hct (34.1-44.9) % MCV (79.4-94.8) fl MCH (25.6-32.2) pg MCHC (32.2-35.5) g/dl RDW Std Deviation (36.4-46.3) fL Plt Count (182-369) K/mm3 MPV (9.4-12.3) fl Neut % (Auto) (34.0-71.1) % Lymph % (Auto) (19.3-51.7) % [place] % (Auto) (4.7-12.5) % Eos % (Auto) (0.7-5.8) Baso % (Auto) (0.1-1.2) % Neut # (Auto) (1.56-6.13) K/mm3 Lymph # (Auto) (1.18-3.74) K/mm3 [place] # (Auto) (0.24-0.36) K/mm3 Eos # (Auto) (0.04-0.36) K/mm3 Baso # (Auto) (0.01-0.08) K/mm3 Sodium (136-145) mEq/L Potassium (3.5-5.1) mEq/L Chloride (98-107) mEq/L Carbon Dioxide (21-32) mEq/L Anion Gap (5-15) BUN (7-18) mg/dL Creatinine (0.55-1.02) mg/dL Est Cr Clr Drug Dosing mL/min Estimated GFR (MDRD) (>60) mL/min BUN/Creatinine Ratio (14-18) Glucose (70-99) mg/dL POC Glucose 248 H 251 H 295 H (70-99) mg/dL Calcium (8.5-10.1) mg/dL Total Bilirubin (0.2-1.0) mg/dL AST (15-37) U/L ALT (14-59) U/L Alkaline Phosphatase (46-116) U/L Total Protein (6.4-8.2) g/dl Albumin (3.4-5.0) g/dl Globulin gm/dL Albumin/Globulin Ratio (1-2) 05/15/21 05/15/21 05/15/21 Range/Units 05:50 05:50 05:50 WBC 3.70 L (3.98-10.04) K/mm3 RBC 3.42 L (3.98-5.22) M/mm3 Hgb 11.0 L (11.2-15.7) gm/dl Hct 35.2 (34.1-44.9) % MCV 102.9 H (79.4-94.8) fl MCH 32.2 (25.6-32.2) pg MCHC 31.3 L (32.2-35.5) g/dl RDW Std Deviation 62.8 H (36.4-46.3) fL Plt Count 206 (182-369) K/mm3 MPV 9.5 (9.4-12.3) fl Neut % (Auto) 72.9 H (34.0-71.1) % Lymph % (Auto) 14.1 L (19.3-51.7) % [place]ardo % (Auto) 10.0 (4.7-12.5) % Eos % (Auto) 1.1 (0.7-5.8) Baso % (Auto) 0.8 (0.1-1.2) % Neut # (Auto) 2.70 (1.56-6.13) K/mm3 Lymph # (Auto) 0.52 L (1.18-3.74) K/mm3 [place] # (Auto) 0.37 H (0.24-0.36) K/mm3 Eos # (Auto) 0.04 (0.04-0.36) K/mm3 Baso # (Auto) 0.03 (0.01-0.08) K/mm3 Sodium 139 (136-145) mEq/L Potassium 4.3 (3.5-5.1) mEq/L Chloride 105 (98-107) mEq/L Carbon Dioxide 22 (21-32) mEq/L Anion Gap 16.3 H (5-15) BUN 14 (7-18) mg/dL Creatinine 0.6 (0.55-1.02) mg/dL Est Cr Clr Drug Dosing 71.48 mL/min Estimated GFR (MDRD) > 60 (>60) mL/min BUN/Creatinine Ratio 23.3 H (14-18) Glucose 235 H (70-99) mg/dL POC Glucose 219 H (70-99) mg/dL Calcium 8.5 (8.5-10.1) mg/dL Total Bilirubin 0.6 (0.2-1.0) mg/dL AST 43 H (15-37) U/L ALT 115 H (14-59) U/L Alkaline Phosphatase 532 H (46-116) U/L Total Protein 6.7 (6.4-8.2) g/dl Albumin 2.2 L (3.4-5.0) g/dl Globulin 4.5 gm/dL Albumin/Globulin Ratio 0.5 L (1-2) Result Diagrams: 05/15/21 05:50 05/15/21 05:50 Jairo Results Last 24 hrs: Microbiology 05/06/21 12:05 Blood Culture - Final Blood - Venous Mycobacterium Fortuitum 05/02/21 13:53 Blood Culture - Final Blood - Venous - Lab Draw Mycobacterium Fortuitum Cmplx 05/02/21 13:48 Blood Culture - Final Blood - Venous - Lab Draw Mycobacterium Fortuitum Cmplx Sepsis Event Note - Evaluation Sepsis Screening Result: Sepsis Risk - Focused Exam Vital Signs: Vital Signs Temp Pulse Resp BP Pulse Ox 05/15/21 05:51 101 H 107/84 91 L 05/15/21 05:47 36.1 C 99 92 L 05/14/21 21:06 36.4 C 98 16 100/80 91 L - Problem List & Annotations (1) Breast cancer SNOMED Code(s): 899036772 Code(s): C50.919 - MALIGNANT NEOPLASM OF UNSP SITE OF UNSPECIFIED FEMALE BREAST Status: Chronic Priority: High Current Visit: Yes Qualifiers: Breast location: unspecified site of breast Estrogen receptor status: unspecified Patient sex: female Laterality: unspecified laterality Qualified Code(s): C50.919 - Malignant neoplasm of unspecified site of unspecified female breast Annotation/Comment:: Metastatic (2) Chemotherapy induced neutropenia SNOMED Code(s): 557039172 Code(s): D70.1 - AGRANULOCYTOSIS SECONDARY TO CANCER CHEMOTHERAPY; T45.1X5A - ADVERSE EFFECT OF ANTINEOPLASTIC AND IMMUNOSUP DRUGS, INIT Status: Chronic Priority: High Current Visit: Yes (3) Generalized weakness SNOMED Code(s): 35717319 Code(s): R53.1 - WEAKNESS Status: Chronic Priority: High Current Visit: Yes (4) T2DM (type 2 diabetes mellitus) SNOMED Code(s): 64309429 Code(s): E11.9 - TYPE 2 DIABETES MELLITUS WITHOUT COMPLICATIONS Status: Chronic Priority: High Current Visit: Yes Qualifiers: Diabetes mellitus buttermaker insulin use: without buttermaker use Diabetes mellitus complication status: without complication Qualified Code(s): E11.9 - Type 2 diabetes mellitus without complications (5) Mycobacterium fortuitum infection SNOMED Code(s): 3692455 Code(s): A31.8 - OTHER MYCOBACTERIAL INFECTIONS Status: Acute Priority: High Current Visit: Yes - Problem List Review Problem List Initiated/Reviewed/Updated: Yes - My Orders Last 24 Hours: My Active Orders 05/14/21 13:08 BLOOD CULTURE [MREF] Routine - Assessment Assessment:: The patient is a 65-year-old lady who has been admitted to acute hospitalization out of concern for neutropenic fever induced by chemotherapy. The patient will be kept inpatient hospitalization. Repeat laboratory studies have been ordered. I had a long discussion with the patient and the patient's sister regarding hospice. The decision was made to allow the patient to continue in hospitalization with IV antibiotics. The patient's culture results are currently pending however she does have gram-positive messi bacteremia that apparently is taking time to identified. Once the patient's bacteremia is identified the antibiotics will be deescalated. Repeat laboratory studies have been ordered for the patient. The patient has been encouraged to ambulate. Given the trace that hospice is not an answer at this time the patient will likely be appropriate for discharge in 1 to 2 days depending upon speciation of the bacteria. It will be as tolerated. 05/14/2021 Patient is a 65-year-old lady who has widely metastatic breast cancer that has metastasized to her liver. The patient also had gram positive rods identified and blood cultures identified as Mycobacterium Fortuitum. The patient's amikacin has been discontinued and the patient will be continued on fluoroquinolones as this proves to be effective to this particular organism. Repeat blood cultures to be ordered. I am concerned that the patient does have a chemotherapy port which cannot be removed at this facility. This would be a likely source of infection and bacteremia for this patient. Repeat laboratory studies have also been ordered. The patient will continue on DVT prophylaxis. She has regular diet as tolerated. The patient should be appropriate for discharge in 2 to 3 days. 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 Because of the nature of the bacterial infection I discussed the case with Dr. Mason, ID, in [place] and she has suggested that the patient be started on triple antibiotic therapy to include imipenem, amikacin and cefoxit in. She also had suggested that the patient may need to have IV antibiotics for anywhere between 3 and 6 months. Likely source of the patient's bacteremia is her chemotherapy port. At this time unable to remove chemotherapy port at this facility. The patient previously has suggested that upon discharge she will consider hospice. She is said that she is done with chemotherapy and would not want the chemotherapy port to remain. Because of the patient's diabetes and hyperglycemic excursions I have increased the patient's sliding dose insulin to high-dose to help better control her excursions. I have ordered repeat laboratory studies for the morning. I wish to have a discussion with the patient's family regarding options and general plan of care. - Plan Plan:: 65-year-old female with history of metastatic breast cancer on chemotherapy presented with generalized weakness, failure to thrive and neutropenia Neutropenic fever -resolved Gram-positive messi bacteremia Afebrile; last fever 05/03/2021 at 1325 White count normalized blood cultures growing gram-positive messi. Repeat PCR today is negative. Sensitivity pending Repeat blood culture became positive exactly on day 4. As pe microbiology lab, it could be rapid growing macrobacteria discontinued vancomycin since culture showed gram-positive rods discontinued cefepime and initiated Levaquin on 05/10/2021. Continue amikacin 10mg/kg today (05/11) (pharmacy to dose) Echo on 05/06/2021 -EF 60 to 65%; none diagnostic a study for valve vegetation. She has a port in the RU chest. No evidence of infection. I would not like to remove the port before causative bacteria is identified. Discussed with the patient the possibility of the transfer to a higher level ospital where there is an infectious disease doctor available. Patient agreed to be transferred to [place] but she does not want to go to anywhere else such as [place]. Contacted [facility] and [facility] in [place]. But I could not get a bed for her from both hospitals in [place]. Chest [id number] area within the proximal left humerus. Difficulty to exclude an osteosclerotic metastases. Improved atelectasis within both lung bases. Generalized weaknessimproving Admit pt to the medical floor under observation status. Patient will need PT and OT as well as nutritional support Pancytopenia WBC up to 4.85 today Anemia 1 unit packed red blood cells -given on May 03 Marked thrombocytopenia Platelets improving Last chemotherapy April 29 Granix/filgrastim -stopped on May 06 Transfused 1 unit packed red blood cells Hemoglobin is trending up to 124 today Follow CBC Metastatic breast cancer Spoke with Mckayla Barrett NP who recommended filgrastim. She was started on chemotherapy in October of this year and is now on her 4th cycle of treatment. her last does of chemo was on April 29. She follows with Dr. Osuna at [facility] possibly secondary to chemotherapy Repeat liver enzymes in the morning Ultrasound abdomen -diffusely abnormal appearance liver raising the possibility of metastatic disease. 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 Discussed with patient this morning who agreed not to do further work up including CT abd with contrast. She will see Dr. Osuna at [facility] for further workup and treatment. Diabetes mellitus One episode of hypoglycemia Restart home Jardiance Continue to hold Glucophage Fingerstick blood sugar 4 times daily with sliding scale insulin low-dose Advised pt not to skip meals Past medical history of hypertension Blood pressure started to increase Added losartan 25 mg daily Severe protein calorie malnutrition Hypophosphatemia Hypomagnesemia Replaced and repeat it. Started on Megace Dehydration Resolved Full code DVT prophylaxis. Lovenox stopped because of thrombocytopenia. SCDs Disposition: TBD, pending on blood culture sensitivity Length of stay is greater than 96 hours due to complicated medical condition, slow response to treatment and awaiting for culture sensitivity.
[2021-05-15] MEDS: Gabapentin 100 MG Cap PO SCH ×2 (08:33→21:26)
[2021-05-15] MEDS: Famotidine 10 MG Tab PO SCH (08:33)
[2021-05-15] MEDS: Empagliflozin 25 MG Tab PO SCH (08:33)
[2021-05-15] MEDS: Potassium Chloride 10 MEQ Tab.ER PO SCH ×3 (08:33→21:27)
[2021-05-15] MEDS: Loratadine 10 MG Tab PO SCH (08:33)
[2021-05-15] MEDS: Aspirin 81 MG Tab.EC PO SCH (08:33)
[2021-05-15] MEDS: Dexamethasone 4 MG Tab PO SCH (08:34)
[2021-05-15] MEDS: Bisacodyl 5 MG Tab PO SCH (08:34)
[2021-05-15] MEDS: Megestrol Susp 40 MG/ML 10 ML UD Cup PO SCH (08:34)
[2021-05-15] MEDS: Calcium Carbonate/Vitamin D3 600 MG-200 Units Tab PO SCH ×3 (08:34→21:27)
[2021-05-15] MEDS: Losartan 25 MG Tab PO SCH (08:36)
[2021-05-15] MEDS: Levofloxacin/Dextrose 5%-Water 750 MG in Premix Bag 1 BAG IV SCH (11:13)
[2021-05-15] MEDS: Insulin Regular, Human 100 Units/ML 3 ML Vial SUBCUT SCH ×2 (13:04→19:18)
--- NOTE | 2021-05-15 13:41 | PCM.SN.2 ---
- Free Text/Narrative Note: The patient is a 65-year-old lady who has breast cancer that has metastasized to her liver. She is wanted the chemotherapy port removed. I had discussion with the patient and her family and have outlined plan of care resulting in removal of chemotherapy port as this is likely the source of infection for the mycobac teria bacteremia. The patient herself is says that she just wants everything discontinued and she wants to spend as much time as possible with her family. As a result of this the patient has been transitioned from DNR/DNI to DNR/DNI with comfort measures only. I have also consulted with general surgeon Dr. Cristobal with regards to removal although the chemotherapy port. The patient should likely be appropriate to transition to hospice care tomorrow. Antibiotics have been discontinued. All other noncomfort related medications will also be discontinued. No further testing will be ordered. Time Documentation
[2021-05-15] MEDS ORDERED: Lidocaine 1% with EPINEPHrine 1:100,000 20 ML MDV INJECT ONE (17:14)
--- NOTE | 2021-05-15 17:14 | PCM.CONS ---
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 She has decided to pursue hospice care and has decided she would like to have her PortACath removed. Middle Chest Pain Score (Numeric/FACES): 6 Generalized Pain Score (Numeric/FACES): 4 - Related Data Allergies/Adverse Reactions: Allergies Allergy/AdvReac Type Severity Reaction Status Date / Time No Known Allergies Allergy Verified 05/01/21 23:29 Home Medications: Home Meds atorvaSTATin [Lipitor] 20 mg PO BEDTIME 07/26/20 [History] metFORMIN [Glucophage XR] 1,000 mg PO BID 07/26/20 [History] Calcium Carbonate/Vitamin D3 [Calcium 500-Vit D3 200 Caplet] 1 tab PO TID 07/10 [History] Morphine [MS Contin] 15 mg PO BEDTIME 10/28/20 [History] Ondansetron [Zofran] 8 mg PO Q8H PRN 10/28/20 [History] Ondansetron [Ondansetron ODT] 4 mg PO Q6H PRN #20 tab.rapdis 03/26/21 [Rx] Aspirin [Aspirin EC] 81 mg PO DAILY 05/02/21 [History] Diphenhyd/Lidocaine/Nystatin [First-Bxn Mouthwash] 153 ml MM QID PRN MDD mild- moderate pain-mouth sores 05/02/21 [History] Empagliflozin [Jardiance] 25 mg PO QAM 05/02/21 [History] Famotidine [Pepcid] 10 mg PO DAILY 05/02/21 [History] Gabapentin [Neurontin] 200 mg PO BID 05/02/21 [History] Ibuprofen [Motrin] 400 mg PO TID PRN 05/02/21 [History] Ibuprofen [Motrin] 600 mg PO TID PRN 05/02/21 [History] LORazepam [Ativan] 0.5 mg PO Q6HR 05/02/21 [History] Loperamide [Imodium] 2 mg PO ASDIRECTED 05/02/21 [History] Loratadine [Claritin] 10 mg PO DAILY 05/02/21 [History] Potassium Chloride [K-Tab] 10 meq PO TID 05/02/21 [History] Prochlorperazine [Compazine] 10 mg PO QID PRN 05/02/21 [History] amLODIPine [Norvasc] 5 mg PO DAILY 05/02/21 [History] bisacodyL [Dulcolax] 5 mg PO DAILY 05/02/21 [History] dexAMETHasone [Dexamethasone] 2 mg PO DAILY 05/02/21 [History] traZODone 50 mg PO BEDTIME 05/02/21 [History] Past Medical History - Past Health History Medical/Surgical History: Denies Medical/Surgical History HEENT History: Reports: Cataract Cardiovascular History: Reports: High Cholesterol, Hypertension Respiratory History: Reports: Pneumonia, Recurrent Gastrointestinal History: Reports: None Genitourinary History: Reports: None 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: Musculoskeletal History: Reports: Gout Neurological History: Reports: None Psychiatric History: Reports: None Endocrine/Metabolic History: Reports: Diabetes, Type II Oncologic (Cancer) History: Reports: Bone, Breast, Liver, Metastatic - Infectious Disease History Infectious Disease History: Reports: Chicken Pox, Mumps, Novel Coronavirus - Past Surgical History HEENT Surgical History: Reports: Cataract Surgery, Oral Surgery, Tonsillectomy Social & Family History - Family History Cardiac: Reports: Other (See Below) Other Cardiac Family History: Heart disease Neurological: Reports: Dementia - Tobacco Use Tobacco Use Status *Q: Never Tobacco User - Caffeine Use Caffeine Use: Reports: None - Recreational Drug Use Recreational Drug Use: No - Living Situation & Occupation Living situation: Reports: , Alone Occupation: Retired H&P Review of Systems - Review of Systems: Review Of Systems: See Below General: Reports: Fever, Chills HEENT: Reports: No Symptoms Pulmonary: Reports: No Symptoms Cardiovascular: Reports: No Symptoms Gastrointestinal: Reports: Nausea. Denies: Abdominal Pain, Vomiting Genitourinary: Reports: No Symptoms Musculoskeletal: Reports: No Symptoms Skin: Reports: Bruising, Other (petechiea) Psychiatric: Reports: Depression Neurological: Reports: Dizziness Exam - Exam Exam: See Below - Vital Signs Vital Signs: Last Vital Signs Temp 36.7 C 05/15/21 15:42 Pulse 138 H 09/26/21 15:42 Resp 20 05/15/21 15:42 BP 114/78 05/15/21 15:42 Pulse Ox 96 05/15/21 15:42 Weight: 61.235 kg - Exam Quality Assessment: Supplemental Oxygen General: Alert, Oriented HEENT: Conjunctiva Clear, EOMI Neck: Supple Lungs: Normal Respiratory Effort Skin: Petechia, Ecchymosis, Other (right chest port site without erythema) - Patient Data Lab Results Last 24 hrs: Laboratory Results - last 24 hr 05/13/21 05/14/21 05/14/21 Range/Units 05:53 17:09 21:03 WBC (3.98-10.04) K/mm3 RBC (3.98-5.22) M/mm3 Hgb (11.2-15.7) gm/dl Hct (34.1-44.9) % MCV (79.4-94.8) fl MCH (25.6-32.2) pg MCHC (32.2-35.5) g/dl RDW Std Deviation (36.4-46.3) fL Plt Count (182-369) K/mm3 MPV (9.4-12.3) fl Neut % (Auto) (34.0-71.1) % Lymph % (Auto) (19.3-51.7) % [place] % (Auto) (4.7-12.5) % Eos % (Auto) (0.7-5.8) Baso % (Auto) (0.1-1.2) % Neut # (Auto) (1.56-6.13) K/mm3 Lymph # (Auto) (1.18-3.74) K/mm3 [place] # (Auto) (0.24-0.36) K/mm3 Eos # (Auto) (0.04-0.36) K/mm3 Baso # (Auto) (0.01-0.08) K/mm3 Sodium (136-145) mEq/L Potassium (3.5-5.1) mEq/L Chloride (98-107) mEq/L Carbon Dioxide (21-32) mEq/L Anion Gap (5-15) BUN (7-18) mg/dL Creatinine (0.55-1.02) mg/dL Est Cr Clr Drug Dosing mL/min Estimated GFR (MDRD) (>60) mL/min BUN/Creatinine Ratio (14-18) Glucose (70-99) mg/dL POC Glucose 251 H 295 H (70-99) mg/dL Calcium (8.5-10.1) mg/dL Total Bilirubin (0.2-1.0) mg/dL AST (15-37) U/L ALT (14-59) U/L Alkaline Phosphatase (46-116) U/L Total Protein (6.4-8.2) g/dl Albumin (3.4-5.0) g/dl Globulin gm/dL Albumin/Globulin Ratio (1-2) Miscellaneous Test Comment 05/15/21 05/15/21 05/15/21 Range/Units 05:50 05:50 05:50 WBC 3.70 L (3.98-10.04) K/mm3 RBC 3.42 L (3.98-5.22) M/mm3 Hgb 11.0 L (11.2-15.7) gm/dl Hct 35.2 (34.1-44.9) % MCV 102.9 H (79.4-94.8) fl MCH 32.2 (25.6-32.2) pg MCHC 31.3 L (32.2-35.5) g/dl RDW Std Deviation 62.8 H (36.4-46.3) fL Plt Count 206 (182-369) K/mm3 MPV 9.5 (9.4-12.3) fl Neut % (Auto) 72.9 H (34.0-71.1) % Lymph % (Auto) 14.1 L (19.3-51.7) % [place] % (Auto) 10.0 (4.7-12.5) % Eos % (Auto) 1.1 (0.7-5.8) Baso % (Auto) 0.8 (0.1-1.2) % Neut # (Auto) 2.70 (1.56-6.13) K/mm3 Lymph # (Auto) 0.52 L (1.18-3.74) K/mm3 [place] # (Auto) 0.37 H (0.24-0.36) K/mm3 Eos # (Auto) 0.04 (0.04-0.36) K/mm3 Baso # (Auto) 0.03 (0.01-0.08) K/mm3 Sodium 139 (136-145) mEq/L Potassium 4.3 (3.5-5.1) mEq/L Chloride 105 (98-107) mEq/L Carbon Dioxide 22 (21-32) mEq/L Anion Gap 16.3 H (5-15) BUN 14 (7-18) mg/dL Creatinine 0.6 (0.55-1.02) mg/dL Est Cr Clr Drug Dosing 71.48 mL/min Estimated GFR (MDRD) > 60 (>60) mL/min BUN/Creatinine Ratio 23.3 H (14-18) Glucose 235 H (70-99) mg/dL POC Glucose 219 H (70-99) mg/dL Calcium 8.5 (8.5-10.1) mg/dL Total Bilirubin 0.6 (0.2-1.0) mg/dL AST 43 H (15-37) U/L ALT 115 H (14-59) U/L Alkaline Phosphatase 532 H (46-116) U/L Total Protein 6.7 (6.4-8.2) g/dl Albumin 2.2 L (3.4-5.0) g/dl Globulin 4.5 gm/dL Albumin/Globulin Ratio 0.5 L (1-2) Miscellaneous Test 05/15/21 Range/Units 12:45 WBC (3.98-10.04) K/mm3 RBC (3.98-5.22) M/mm3 Hgb (11.2-15.7) gm/dl Hct (34.1-44.9) % MCV (79.4-94.8) fl MCH (25.6-32.2) pg MCHC (32.2-35.5) g/dl RDW Std Deviation (36.4-46.3) fL Plt Count (182-369) K/mm3 MPV (9.4-12.3) fl Neut % (Auto) (34.0-71.1) % Lymph % (Auto) (19.3-51.7) % [place] % (Auto) (4.7-12.5) % Eos % (Auto) (0.7-5.8) Baso % (Auto) (0.1-1.2) % Neut # (Auto) (1.56-6.13) K/mm3 Lymph # (Auto) (1.18-3.74) K/mm3 [place] # (Auto) (0.24-0.36) K/mm3 Eos # (Auto) (0.04-0.36) K/mm3 Baso # (Auto) (0.01-0.08) K/mm3 Sodium (136-145) mEq/L Potassium (3.5-5.1) mEq/L Chloride (98-107) mEq/L Carbon Dioxide (21-32) mEq/L Anion Gap (5-15) BUN (7-18) mg/dL Creatinine (0.55-1.02) mg/dL Est Cr Clr Drug Dosing mL/min Estimated GFR (MDRD) (>60) mL/min BUN/Creatinine Ratio (14-18) Glucose (70-99) mg/dL POC Glucose 443 H* (70-99) mg/dL Calcium (8.5-10.1) mg/dL Total Bilirubin (0.2-1.0) mg/dL AST (15-37) U/L ALT (14-59) U/L Alkaline Phosphatase (46-116) U/L Total Protein (6.4-8.2) g/dl Albumin (3.4-5.0) g/dl Globulin gm/dL Albumin/Globulin Ratio (1-2) Miscellaneous Test Result Diagrams: 05/15/21 05:50 05/15/21 05:50 [place] Results Last 24 hrs: Microbiology 05/06/21 12:05 Blood Culture - Final Blood - Venous Mycobacterium Fortuitum Sepsis Event Note - Evaluation Sepsis Screening Result: Sepsis Risk - Focused Exam Vital Signs: Vital Signs Temp Pulse Resp BP Pulse Ox 05/15/21 15:42 36.7 C 138 H 20 114/78 96 05/15/21 11:36 36.8 C 130 H 20 117/82 91 L 05/15/21 08:36 128/89 05/15/21 08:30 37.2 C 110 H 20 128/89 91 L 05/15/21 05:51 101 H 107/84 91 L 05/15/21 05:47 36.1 C 99 92 L Consult PN Assessment/Plan Procedures: Procedures ASSAY OF BLOOD/URIC ACID (08/25/20) ASSAY OF CREATININE (10/08/20) ASSAY OF LACTIC ACID (04/20/21) ASSAY OF LIPASE (03/25/21) ASSAY OF MAGNESIUM (04/20/21) ASSAY OF NATRIURETIC PEPTIDE (04/05/17) ASSAY OF TROPONIN QUANT (04/20/21) ASSAY THYROID STIM HORMONE (10/30/18) BL SMEAR W/DIFF WBC COUNT (03/25/21) BLOOD CULTURE FOR BACTERIA (12/13/20) BREAST TOMOSYNTHESIS BI (09/15/20) C-REACTIVE PROTEIN (09/25/20) CHEST X-RAY 2VW FRONTAL&LATL (04/05/17) COMPLETE CBC AUTOMATED (03/25/21) COMPLETE CBC W/AUTO DIFF WBC (04/20/21) COMPREHEN METABOLIC PANEL (04/20/21) ELECTROCARDIOGRAM TRACING (04/20/21) EMERGENCY DEPT VISIT (04/20/21) EMERGENCY DEPT VISIT (03/25/21) EMERGENCY DEPT VISIT (07/28/20) EMERGENCY DEPT VISIT (06/18/20) FIBRIN DEGRADATION QUANT (12/13/20) GLYCOSYLATED HEMOGLOBIN TEST (12/01/20) INFLUENZA ASSAY W/OPTIC (07/28/20) LIPID PANEL (12/01/20) MEDICAL NUTRITION INDIV IN (05/03/17) METABOLIC PANEL TOTAL CA (05/08/19) MRI BRAIN STEM W/O & W/DYE (10/08/20) MRI LUMBAR SPINE W/O DYE (09/30/20) ROUTINE VENIPUNCTURE (04/20/21) SARS-COV-2 COVID-19 AMP PRB (07/28/20) SCR MAMMO BI INCL CAD (09/15/20) THER/PROPH/DIAG INJ IV PUSH (03/25/21) THER/PROPH/DIAG INJ SC/IM (09/25/20) THER/PROPH/DIAG IV INF ADDON (04/20/21) THER/PROPH/DIAG IV INF INIT (04/20/21) TTE W/DOPPLER COMPLETE (10/18/20) TX/PRO/DX INJ NEW DRUG ADDON (03/25/21) UR ALBUMIN QUANTITATIVE (08/25/20) URINALYSIS AUTO W/SCOPE (04/20/21) X-RAY EXAM CHEST 2 VIEWS (07/28/20) X-RAY EXAM HIP UNI 2-3 VIEWS (09/25/20) X-RAY EXAM L-S SPINE 2/3 VWS (09/25/20) XCAPSL CTRC RMVL W/O ECP (09/07/20) (1) Mycobacterium fortuitum infection SNOMED Code(s): 8322026 Code(s): A31.8 - OTHER MYCOBACTERIAL INFECTIONS Priority: High Current Visit: Yes (2) Breast cancer SNOMED Code(s): 325981686 Code(s): C50.919 - MALIGNANT NEOPLASM OF UNSP SITE OF UNSPECIFIED FEMALE BREAST Priority: High Current Visit: Yes Comment: Metastatic Qualifiers: Breast location: unspecified site of breast Estrogen receptor status: unspecified Patient sex: female Laterality: unspecified laterality Qualified Code(s): C50.919 - Malignant neoplasm of unspecified site of unspecified female breast Problem List Initiated/Reviewed/Updated: Yes Plan: 65 y/o lady with mycobacterium infection, would like to have PortACath removed and pursue hospice care - This is appropriate as an infectious source to remove - pt states she is done with chemotherapy and does not need it any longer - discussed risks of infection and bleeding, her written consent was obtained. Sara Ching MD General surgery
[2021-05-15] MEDS ORDERED: Lidocaine 2% 20 ML MDV ONE (17:43)
[2021-05-15] MEDS ORDERED: Lidocaine 1% with EPINEPHrine 1:100,000 10 ML MDV ONE (17:51)
--- NOTE | 2021-05-15 18:56 | PCM.PRNOTE ---
- Free Text/Narrative Note: Procedure Report Date of surgery: May 15, 2021 Preoperative diagnosis: Bacteremia Postoperative diagnosis: same Procedure: Removal of Port-A-Cath Surgeon: Dr. Sara Ching Anesthesia: Local 1% lidocaine with epinephrine Estimated blood loss: 2 mL Drains and lines: Port-A-Cath in the right subclavian vein Findings: Normal anatomy Pathology: None Indication for the procedure: . The patient is a 65 -year-old lady who presented to the hospital. The patient was found to have bacteremia. She would like to have her Port-A-Cath removed and pursue hospice care. Discussion of the risks of infection and bleeding. The patient's written consent was obtained. Description of the procedure: The port was present in the right chest. The area was prepped with iodine and draped in standard surgical fashion. We began by injecting local anesthetic in the previous incision scar. An incision was made using a 15 blade scalpel and the fibrous capsule was opened. The port was grasped and withdrawn from the tissue. A box stitch was made around the catheter site using 3-0 Vicryl. The port was then removed and the suture tied down. A 3-0 Vicryl was then used to close the deep dermal layer and a 4-0 Monocryl used his approximate the skin in a 2 layer closure over the subcutaneous port site. Dermabond surgical glue was then used to cover the incision. The patient tolerated the procedure well. There are no immediate complications noted. Sara Ching MD General Surgery
[2021-05-15] MEDS: Morphine 15 MG Tab.ER PO SCH (21:26)
[2021-05-15] MEDS: traZODone 50 MG Tab PO SCH (21:27)
[2021-05-16] MEDS: LORazepam 0.5 MG Tab PO SCH ×3 (06:33→13:07)
[2021-05-16] MEDS: Pantoprazole 40 MG Tab.CR PO SCH (06:33)
--- NOTE | 2021-05-16 06:35 | PCM.DCSUM1 ---
Discharge Summary - Hospital Course HPI Initial Comments: The patient was admitted due to neutropenic fever from chemotherapy for metastatic breast cancer and weakness. Diagnosis: Stroke: No - Discharge Data Discharge Date: 05/16/21 Discharge Disposition: DC/Tfer to Hospice - Home 51 Condition: Poor - Referral to Home Health Primary Care Physician: Juanito Olivraes MD - Discharge Diagnosis/Problem(s) (1) Breast cancer SNOMED Code(s): 744679940 ICD Code: C50.919 - MALIGNANT NEOPLASM OF UNSP SITE OF UNSPECIFIED FEMALE BREAST Status: Chronic Priority: High Current Visit: Yes Problem De tails: Metastatic Qualifiers: Breast location: unspecified site of breast Estrogen receptor status: unspecified Patient sex: female Laterality: unspecified laterality Qualified Code(s): C50.919 - Malignant neoplasm of unspecified site of unspecified female breast (2) Chemotherapy induced neutropenia SNOMED Code(s): 586548989 ICD Code: D70.1 - AGRANULOCYTOSIS SECONDARY TO CANCER CHEMOTHERAPY; T45.1X5A - ADVERSE EFFECT OF ANTINEOPLASTIC AND IMMUNOSUP DRUGS, INIT Status: Chronic Priority: High Current Visit: Yes (3) Generalized weakness SNOMED Code(s): 73233128 ICD Code: R53.1 - WEAKNESS Status: Chronic Priority: High Current Visit: Yes (4) T2DM (type 2 diabetes mellitus) SNOMED Code(s): 35597278 ICD Code: E11.9 - TYPE 2 DIABETES MELLITUS WITHOUT COMPLICATIONS Status: Chronic Priority: High Current Visit: Yes Qualifiers: 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 use: without intermodal truck driver use Diabetes mellitus complication status: without complication Qualified Code(s): E11.9 - Type 2 diabetes mellitus without complications (5) Mycobacterium fortuitum infection SNOMED Code(s): 8163203 ICD Code: A31.8 - OTHER MYCOBACTERIAL INFECTIONS Status: Acute Priority: High Current Visit: Yes - Patient Summary/Data Operative Procedure(s) Performed: Chemotherapy port removed on May 15, 2021 Consults: Consultations 05/01/21 21:04 Consult to Testing Lead [CONS] Routine 05/02/21 09:31 Consult to Physical Therapy [PT Evaluation and Treatment] [CONS] Routine 05/13/21 08:59 Consult to Hospice [CONS] Routine 05/15/21 13:29 Consult to Physician [CONS] Routine Hospital Course: The patient is a 65-year-old lady who has been admitted to acute hospitalization on May 02, 2021 after concern for weakness and neutropenic fever after chemotherapy. The patient has breast cancer that has metastasized to her liver. She had been feeling very weak and fatigued the patient also had upon admission multiple electrolyte abnormalities as well. Because of the concern for neutropenic fever the patient has been aggressively treated with amikacin and Levaquin and cefepime. Blood cultures were obtained. 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 The patient had tolerated these well. Repeat blood cultures were obtained on May 14, 2021 which as of today showed no growth. At some point during the hospitalization the patient had been transitioned from full resuscitative code to DNR/DNI. The patient's blood glucose had remained high during the hospitalization and at one point required extra insulin when on May 15, 2021 she had a blood glucose reading of 443. The patient is on dexamethasone. On May 15, 2021 a long discussion was held with the patient and the patient's family to include her sister and her daughter. Hospice had been recommended to the patient but the family and the patient were concerned about continuing treatment for the Mycobacterium fortuitum. Prior to discharge the patient had remained on antibiotic treatment for this and the patient had reached the point that she wanted to have the chemotherapy port removed and all further testing and treatment deferred. The patient has also said that she is finished and does not want any more chemotherapy. The patient had expressed a strong desire to go home to spend more time with her family. Surgeon, Dr. Ching, was consulted and the chemotherapy port was removed. The patient was then placed in DNR/DNI with comfort measures only. Home hospice is in the process of being set up for the patient as they do not have bed availability as of yet. aircraft maintenance manager has been working with the patient and the patient's family regarding outcome. Upon discharge the patient's medications were reviewed and appropriate medications were discontinued. The patient's sister had some concerns about continuing antihypertensive medications as well as Metformin. The patient's blood pressure has been well controlled and the amlodipine was stopped. The patient should continue with the Metformin for now. This can be adjusted by her primary care physician. I had discussed this with Dr. Olivares earlier today. The patient's sister was very concerned about what could be considered comfort medication as opposed to noncomfort medications. The patient also should continue with her dexamethasone and it was explained that this will contribute to her hyperglycemia. The patient has been recommended to continue with her regular diabetic diet as tolerated. She is to follow-up with her primary care physician and an appointment has been made. The patient is also to have activity as tolerated. The patient's vital signs have otherwise been stable and she has been at 96% oxygen saturation on room air. Her blood pressure was 117/90. She is discharged from acute hospitalization with the recommendations listed above. The patient is also to have hospice evaluate the patient within 1 to 2 days. This has been arranged with case management. - Patient Instructions Diet: Usual Diet as Tolerated, Diabetic Diet Activity: As Tolerated - Discharge Plan *PRESCRIPTION DRUG MONITORING PROGRAM REVIEWED*: No *COPY OF PRESCRIPTION DRUG MONITORING REPORT IN PATIENT SHY: No Prescriptions/Med Rec: Ondansetron [Zofran ODT] 4 mg PO Q4H PRN #30 tab.dis PRN Reason: nausea, able to take PO Home Medications: Home Meds Calcium Carbonate/Vitamin D3 [Calcium 500-Vit D3 200 Caplet] 1 tab PO TID 10/28/20 [History] Morphine [MS Contin] 15 mg PO BEDTIME 10/28/20 [History] Diphenhyd/Lidocaine/Nystatin [Magic Mouthwash] 153 ml MM QID PRN MDD mild- moderate pain-mouth sores 05/02/21 [History] Famotidine [Pepcid] 10 mg PO DAILY 05/02/21 [History] Gabapentin [Neurontin] 200 mg PO BID 05/02/21 [History] LORazepam [Ativan] 0.5 mg PO Q6HR 05/02/21 [History] Potassium Chloride [K-Tab ER] 10 meq PO TID 05/02/21 [History] bisacodyL [Dulcolax] 5 mg PO DAILY 05/02/21 [History] dexAMETHasone [Dexamethasone] 2 mg PO DAILY 05/02/21 [History] Ondansetron [Zofran ODT] 4 mg PO Q4H PRN #30 tab.dis 05/16/21 [Rx] Patient Handouts: PICC Removal, Adult, Weakness, [id number], Managing Low Blood Counts During Cancer Treatment, Home Oxygen Use, Adult, Central Line, Adult, [id number], Hospice, Neutropenia, Bacteremia, Adult, Sepsis, Self Care, Adult Referrals: Juanito Olivares MD [Primary Care Provider] - 05/18/21 1:00 pm (please arrive at 12:45) Dakotah Osuna MD [Ordering Only Provider] - (follow up as needed) - Discharge Summary/Plan Comment DC Time >30 min.: Yes Total # of Minutes for Discharge Time: 55 - General Info Date of Service: 05/16/21 Admission Dx/Problem (Free Text: Admission Diagnosis/Problem Admission Diagnosis/Problem Generalized weakness, metastatic breast cancer, Mycobacterium fortuitum bacteremia Subjective Update: The patient says that she feels better. She has been able to eat. The patient has denied any pain. She said that she feels like she can safely go home with comfort measures in place and go into hospice care as necessary. Functional Status: Reports: Pain Controlled, Tolerating Diet - Review of Systems General: Reports: Weakness, Fatigue HEENT: Reports: No Symptoms Pulmonary: Reports: No Symptoms, Other (On room air) Cardiovascular: Reports: No Symptoms Gastrointestinal: Reports: No Symptoms Genitourinary: Reports: No Symptoms Musculoskeletal: Reports: No Symptoms Skin: Reports: No Symptoms Neurological: Reports: No Symptoms Psychiatric: Reports: No Symptoms - Patient Data Vitals - Most Recent: Last Vital Signs Temp 36.7 C 05/16/21 04:05 Pulse 110 H 05/16/21 04:05 Resp 14 05/16/21 04:05 BP 128/81 05/16/21 04:05 Pulse Ox 96 05/16/21 04:05 Weight - Most Recent: 61.507 kg I&O - Last 24 hours: Intake & Output 05/15/21 05/15/21 05/16/21 14:59 22:59 06:59 Intake Total 440 860 400 Output Total 3 Balance 440 857 400 Lab Results - Last 24 hrs: Laboratory Results - last 24 hr 05/13/21 05/15/21 05/15/21 Range/Units 05:53 05:50 12:45 Sodium 139 (136-145) mEq/L Potassium 4.3 (3.5-5.1) mEq/L Chloride 105 (98-107) mEq/L Carbon Dioxide 22 (21-32) mEq/L Anion Gap 16.3 H (5-15) BUN 14 (7-18) mg/dL Creatinine 0.6 (0.55-1.02) mg/dL Est Cr Clr Drug Dosing 71.48 mL/min Estimated GFR (MDRD) > 60 (>60) mL/min BUN/Creatinine Ratio 23.3 H (14-18) Glucose 235 H (70-99) mg/dL POC Glucose 443 H* (70-99) mg/dL Calcium 8.5 (8.5-10.1) mg/dL Total Bilirubin 0.6 (0.2-1.0) mg/dL AST 43 H (15-37) U/L ALT 115 H (14-59) U/L Alkaline Phosphatase 532 H (46-116) U/L Total Protein 6.7 (6.4-8.2) g/dl Albumin 2.2 L (3.4-5.0) g/dl Globulin 4.5 gm/dL Albumin/Globulin Ratio 0.5 L (1-2) Miscellaneous Test Comment 05/15/21 Range/Units 18:49 Sodium (136-145) mEq/L Potassium (3.5-5.1) mEq/L Chloride (98-107) mEq/L Carbon Dioxide (21-32) mEq/L Anion Gap (5-15) BUN (7-18) mg/dL Creatinine (0.55-1.02) mg/dL Est Cr Clr Drug Dosing mL/min Estimated GFR (MDRD) (>60) mL/min BUN/Creatinine Ratio (14-18) Glucose (70-99) mg/dL POC Glucose 302 H (70-99) mg/dL Calcium (8.5-10.1) mg/dL Total Bilirubin (0.2-1.0) mg/dL AST (15-37) U/L ALT (14-59) U/L Alkaline Phosphatase (46-116) U/L Total Protein (6.4-8.2) g/dl Albumin (3.4-5.0) g/dl Globulin gm/dL Albumin/Globulin Ratio (1-2) Miscellaneous Test ALAN Results - Last 24 hrs: Microbiology 05/06/21 12:05 Blood Culture - Final Blood - Venous Mycobacterium Fortuitum Med Orders - Current: Current Medications Acetaminophen (Acetaminophen 325 Mg Tab) 650 mg PO Q4H PRN PRN Reason: Pain (Mild 1-3)/fever Last Admin: 05/11/21 00:22 Dose: 650 mg Documented by: Hydrocodone Bitart/Acetaminophen (Acetaminophen/Hydrocodone 325-5 Mg Tab) 1 tab PO Q4H PRN PRN Reason: Pain (moderate 4-6) Last Admin: 05/09/21 15:23 Dose: 1 tab Documented by: Aspirin (Aspirin 81 Mg Tab.Ec) 81 mg PO DAILY [facility] Last Admin: 05/15/21 08:33 Dose: 81 mg Documented by: Bisacodyl (Bisacodyl 5 Mg Tab) 5 mg PO DAILY [facility] Last Admin: 05/15/21 08:34 Dose: 5 mg Documented by: Calcium Carbonate (Calcium Carbonate/Vitamin D3 600 Mg-200 Units Tab) 1 tab PO TID [facility] Last Admin: 05/15/21 21:27 Dose: 1 tab Documented by: Calcium Carbonate/Glycine (Calcium Carbonate 500 Mg Tab.Chew) 1,000 mg PO Q2HR PRN PRN Reason: Indigestion Docusate Sodium (Docusate Sodium 100 Mg Cap) 100 mg PO DAILY PRN PRN Reason: Constipation Famotidine (Famotidine 10 Mg Tab) 10 mg PO DAILY [facility] Last Admin: 05/15/21 08:33 Dose: 10 mg Documented by: Gabapentin (Gabapentin 100 Mg Cap) 200 mg PO BID [facility] Last Admin: 05/15/21 21:26 Dose: 200 mg Documented by: Promethazine HCl 6.25 mg/ (Sodium Chloride) 50.25 mls @ 100 mls/hr IV Q6H PRN PRN Reason: Nausea/Vomiting Insulin Human Regular (Insulin Regular, Human 100 Units/Ml 3 Ml Vial) 0 unit SUBCUT [facility]; Protocol Last Admin: 05/15/21 19:18 Dose: 12 unit Documented by: Loratadine (Loratadine 10 Mg Tab) 10 mg PO DAILY [facility] Last Admin: 05/15/21 08:33 Dose: 10 mg Documented by: Lorazepam (Lorazepam 0.5 Mg Tab) 0.5 mg PO Q6H [facility] Last Admin: 05/16/21 06:33 Dose: 0.5 mg Documented by: Morphine Sulfate (Morphine 15 Mg Tab.Er) 15 mg PO BEDTIME [facility] Last Admin: 05/15/21 21:26 Dose: 15 mg Documented by: Ondansetron HCl (Ondansetron 4 Mg Tab.Dis) 4 mg PO Q4H PRN PRN Reason: nausea, able to take PO Pantoprazole Sodium (Pantoprazole 40 Mg Tab.Cr) 40 mg PO ACBREAKFAST [facility] Last Admin: 05/16/21 06:33 Dose: 40 mg Documented by: Potassium Chloride (Potassium Chloride 10 Meq Tab.Er) 10 meq PO TID [facility] Last Admin: 05/15/21 21:27 Dose: 10 meq Documented by: Prochlorperazine Maleate (Prochlorperazine 5 Mg Tab) 10 mg PO QID PRN PRN Reason: Nausea/Vomiting Trazodone HCl (Trazodone 50 Mg Tab) 50 mg PO BEDTIME [facility] Last Admin: 05/15/21 21:27 Dose: 50 mg Documented by: Zolpidem Tartrate (Zolpidem 5 Mg Tab) 5 mg PO BEDTIME PRN PRN Reason: Sleep Last Admin: 05/07/21 21:12 Dose: 5 mg Documented by: Discontinued Medications Calcium Carbonate/Glycine (Calcium Carbonate 600 Mg Tab) 1,200 mg PO BIDMEALS [facility] Last Admin: 05/03/21 06:09 Dose: 1,200 mg Documented by: Dexamethasone (Dexamethasone 4 Mg Tab) 2 mg PO DAILY [facility] Last Admin: 05/15/21 08:34 Dose: 2 mg Documented by: Enoxaparin Sodium (Enoxaparin 40 Mg/0.4 Ml Syringe) 40 mg SUBCUT DAILY [facility] Last Admin: 05/02/21 01:33 Dose: Not Given Documented by: Enoxaparin Sodium (Enoxaparin 40 Mg/0.4 Ml Syringe) 40 mg SUBCUT DAILY@2200 [facility] Last Admin: 05/02/21 21:28 Dose: 40 mg Documented by: Sodium Chloride (Normal Saline) 1,000 mls @ 999 mls/hr IV ONETIME ONE Stop: 05/01/21 17:42 Last Admin: 05/01/21 16:54 Dose: 999 mls/hr Documented by: Magnesium Sulfate 2 gm/ Premix 50 mls @ 25 mls/hr IV ONETIME ONE Stop: 05/01/21 19:46 Last Admin: 05/01/21 18:08 Dose: 25 mls/hr Documented by: Sodium Chloride (Normal Saline) 1,000 mls @ 150 mls/hr IV ONETIME ONE Stop: 05/02/21 02:56 Last Admin: 05/01/21 22:45 Dose: Not Given Documented by: Dextrose/Sodium Chloride (Dextrose 5%-1/2 Ns) 1,000 mls @ 75 mls/hr IV ASDIRECTED [facility] Last Admin: 05/03/21 23:42 Dose: 75 mls/hr Documented by: Potassium Chloride 10 meq/ (Premix) 100 mls @ 100 mls/hr IV Q1H [facility] Stop: 05/02/21 12:14 Last Admin: 05/02/21 11:50 Dose: 100 mls/hr Documented by: Sodium Chloride (Normal Saline) 1,000 mls @ 999 mls/hr IV ONETIME ONE Stop: 05/02/21 14:04 Last Admin: 05/02/21 13:15 Dose: 999 mls/hr Documented by: Cefepime HCl 2 gm/ Premix 50 mls @ 100 mls/hr IV Q8H [facility] Last Admin: 05/07/21 06:49 Dose: 100 mls/hr Documented by: Sodium Chloride (Normal Saline) 500 mls @ 500 mls/hr IV .BOLUS ONE Stop: 05/03/21 10:04 Last Infusion: 05/03/21 10:30 Dose: Infused Documented by: Vancomycin HCl 1 gm/Vancomycin HCl 250 mg/ Sodium Chloride 250 mls @ 166.667 mls/hr IV ONETIME ONE Stop: 05/03/21 11:59 Last Admin: 05/03/21 10:24 Dose: 166.667 mls/hr Documented by: Vancomycin HCl 1 gm/ Sodium (Chloride) 250 mls @ 250 mls/hr IV Q12H [facility] Last Admin: 05/04/21 23:01 Dose: 250 mls/hr Documented by: Potassium Phosphate 30 mmole/ (Sodium Chloride) 510 mls @ 102 mls/hr IV ONETIME ONE Stop: 05/03/21 18:59 Last Admin: 05/03/21 16:09 Dose: 102 mls/hr Documented by: Sodium Phosphate 30 mmole/ (Sodium Chloride) 260 mls @ 130 mls/hr IV ONETIME ONE Stop: 05/03/21 13:44 Last Admin: 05/03/21 12:51 Dose: 130 mls/hr Documented by: Magnesium Sulfate 2 gm/ Premix 50 mls @ 25 mls/hr IV ONETIME ONE Stop: 05/03/21 13:29 Last Admin: 05/03/21 12:50 Dose: 25 mls/hr Documented by: Sodium Chloride (Normal Saline) 500 mls @ 100 mls/hr IV ONETIME ONE Stop: 05/03/21 17:29 Last Admin: 05/03/21 15:50 Dose: 100 mls/hr Documented by: Sodium Chloride (Normal Saline) 1,000 mls @ 50 mls/hr IV ASDIRECTED [facility] Sodium Phosphate 30 mmole/ (Sodium Chloride) 260 mls @ 130 mls/hr IV ONETIME ONE Stop: 05/04/21 11:59 Last Admin: 05/04/21 11:34 Dose: 130 mls/hr Documented by: Sodium Phosphate 30 mmole/ (Sodium Chloride) 260 mls @ 130 mls/hr IV ONETIME ONE Stop: 05/04/21 15:59 Last Admin: 05/04/21 15:21 Dose: 130 mls/hr Documented by: Sodium Chloride (Normal Saline) 1,000 mls @ 15 mls/hr IV ASDIRECTED [facility] Last Admin: 05/04/21 18:26 Dose: 15 mls/hr Documented by: Vancomycin HCl 1 gm/Vancomycin HCl 250 mg/ Sodium Chloride 250 mls @ 166.667 mls/hr IV Q12H [facility] Last Admin: 05/09/21 15:09 Dose: Not Given Documented by: Sodium Phosphate 30 mmole/ (Sodium Chloride) 260 mls @ 130 mls/hr IV ONETIME ONE Stop: 05/05/21 15:59 Last Admin: 05/05/21 13:54 Dose: 130 mls/hr Documented by: Magnesium Sulfate 2 gm/ Premix 50 mls @ 25 mls/hr IV ONETIME ONE Stop: 05/05/21 13:29 Last Admin: 05/05/21 11:41 Dose: 25 mls/hr Documented by: Sodium Chloride (Normal Saline) 1,000 mls @ 25 mls/hr IV ASDIRECTED [facility] Last Admin: 05/11/21 06:58 Dose: 25 mls/hr Documented by: Sodium Phosphate 30 mmole/ (Sodium Chloride) 260 mls @ 86.667 mls/hr IV ONETIME ONE Stop: 05/06/21 09:01 Last Admin: 05/06/21 08:44 Dose: 86.667 mls/hr Documented by: Cefepime HCl 2 gm/ Sodium (Chloride) 50 mls @ 100 mls/hr IV Q8H [facility] Last Admin: 05/09/21 06:06 Dose: 100 mls/hr Documented by: Magnesium Sulfate 4 gm/ Premix 50 mls @ 12.5 mls/hr IV ONETIME ONE Stop: 05/09/21 12:59 Last Admin: 05/09/21 12:55 Dose: 12.5 mls/hr Documented by: Levofloxacin/Dextrose 750 mg/ (Premix) 150 mls @ 100 mls/hr IV Q24H [facility] Last Admin: 05/15/21 11:13 Dose: 100 mls/hr Documented by: Dextrose/Sodium Chloride (Dextrose 5%-Normal Saline) 1,000 mls @ 60 mls/hr IV ASDIRECTED [facility] Last Admin: 05/11/21 16:43 Dose: 60 mls/hr Documented by: Amikacin Sulfate 580 mg/ (Sodium Chloride) 102.32 mls @ 102.32 mls/hr IV Q24H [facility] Last Admin: 05/13/21 13:03 Dose: 102.32 mls/hr Documented by: Insulin Human Lispro (Insulin Lispro 100 Unit/Ml 10 Ml Vial) 0 unit SUBCUT QIDACANDBED [facility]; Protocol Last Admin: 05/04/21 11:53 Dose: Not Given Documented by: Insulin Human Lispro (Insulin Lispro 100 Unit/Ml 10 Ml Vial) 0 unit SUBCUT QIDACANDBED [facility]; Protocol Last Admin: 05/15/21 06:25 Dose: 4 unit Documented by: Ketorolac Tromethamine (Ketorolac 30 Mg/Ml Sdv) 30 mg IVPUSH ONETIME ONE Stop: 05/01/21 20:30 Last Admin: 05/01/21 22:44 Dose: 30 mg Documented by: Lidocaine HCl (Lidocaine 2% 20 Ml Mdv) Confirm Administered Dose 20 ml .ROUTE .STK-MED ONE Stop: 05/15/21 17:44 Last Admin: 05/15/21 19:19 Dose: Not Given Documented by: Lidocaine/Epinephrine (Lidocaine 1% With Epinephrine 1:100,000 20 Ml Mdv) 20 ml INJECT ONETIME ONE Stop: 05/15/21 17:15 Last Admin: 05/15/21 19:19 Dose: Not Given Documented by: Lidocaine/Epinephrine (Lidocaine 1% With Epinephrine 1:100,000 10 Ml Mdv) Confirm Administered Dose 20 ml .ROUTE .STK-MED ONE Stop: 05/15/21 17:52 Last Admin: 05/15/21 19:17 Dose: 20 ml Documented by: Lorazepam (Lorazepam 2 Mg/Ml Sdv) 1 mg IVPUSH ONETIME ONE Stop: 05/01/21 16:58 Last Admin: 05/01/21 17:23 Dose: 1 mg Documented by: Losartan Potassium (Losartan 25 Mg Tab) 25 mg PO DAILY [facility] Last Admin: 05/15/21 08:36 Dose: 25 mg Documented by: Megestrol Acetate (Megestrol Susp 40 Mg/Ml 10 Ml Ud Cup) 400 mg PO DAILY [facility] Last Admin: 05/15/21 08:34 Dose: 400 mg Documented by: Ondansetron HCl (Ondansetron 4 Mg/2 Ml Sdv) 4 mg IVPUSH ONETIME ONE Stop: 05/01/21 16:58 Last Admin: 05/01/21 17:23 Dose: 4 mg Documented by: Sodium Phosphate (Phosphorus #1 250 Mg Tab) 250 mg PO TID [facility]OS[facility] Stop: 05/08/21 21:01 Last Admin: 05/08/21 21:09 Dose: 250 mg Documented by: Tbo-Filgrastim (Tbo-Filgrastim 480 Mcg/0.8 Ml Syringe) 320 mcg SUBCUT DAILY [facility] Stop: 05/06/21 11:00 Last Admin: 05/05/21 09:28 Dose: 320 mcg Documented by: Vancomycin HCl (Pharmacy To Dose - Vancomycin) 0 dose .XX ASDIRECTED PRN PRN Reason: RX TO DOSE VANCO Vancomycin HCl (Vancomycin 500 Mg Sdv) Confirm Administered Dose 500 mg .ROUTE .STK-MED ONE Stop: 05/05/21 11:18 Last Admin: 05/05/21 11:43 Dose: Not Given Documented by: - Exam Quality Assessment: Denies: Supplemental Oxygen, DVT Prophylaxis General: Reports: Alert, Oriented, Cooperative, No Acute Distress HEENT: Reports: Pupils Equal, Pupils Reactive, EOMI, Mucous Membr. Moist/[place] Neck: Reports: Supple, Trachea Midline Lungs: Reports: Clear to Auscultation, Normal Respiratory Effort GI/Abdominal Exam: Normal Bowel Sounds, Soft, Non-Tender, No Distention (Female) Exam: Deferred Rectal (Female) Exam: Deferred Back Exam: Reports: Normal Inspection, Full Range of Motion Extremities: Normal Inspection, Normal Range of Motion, No Pedal Edema Skin: Reports: Warm, Dry, Intact Neurological: Reports: No New Focal Deficit Psy/Mental Status: Reports: Alert, Normal Affect, Normal Mood, Other (The patient says that she is accepting of the outcome of her illness.)
[2021-05-16] MEDS: Insulin Regular, Human 100 Units/ML 3 ML Vial SUBCUT SCH (09:08)
[2021-05-16] MEDS: Aspirin 81 MG Tab.EC PO SCH (09:11)
[2021-05-16] MEDS: Famotidine 10 MG Tab PO SCH (09:11)
[2021-05-16] MEDS: Bisacodyl 5 MG Tab PO SCH (09:12)
[2021-05-16] MEDS: Potassium Chloride 10 MEQ Tab.ER PO SCH (09:12)
[2021-05-16] MEDS: Loratadine 10 MG Tab PO SCH (09:12)
[2021-05-16] MEDS: Empagliflozin 25 MG Tab PO SCH (09:13)
[2021-05-16] MEDS: Calcium Carbonate/Vitamin D3 600 MG-200 Units Tab PO SCH (09:13)
[2021-05-16] MEDS: Gabapentin 100 MG Cap PO SCH (09:13)
== END 2021-05-16 13:12 | disposition hospice, home (50) | DRG 808 ==
LOC: JD.ED 16:19 → JD.MS 20:50 → JD.OB 20:51 → OBSVTOIN 05-03 11:42 → JD.MS 05-16 13:00 → UNDODISIN 05-16 13:12
PROVIDERS: ADMIT Hospitalist; ATTEND Hospitalist
PROC: 3E0DX3Z Introduction of Anti-inflammatory into Mouth and Pharynx, External Approach (ICD-10-PCS; principal; 2021-05-03)
PROC: 0JPT0WZ Removal of Totally Implantable Vascular Access Device from Trunk Subcutaneous Tissue and Fascia, Open Approach (ICD-10-PCS; 2021-05-15)
DX: D70.1 Agranulocytosis secondary to cancer chemotherapy (principal); E43 Unspecified severe protein-calorie malnutrition; C78.7 Secondary malignant neoplasm of liver and intrahepatic bile duct; T45.1X5A Adverse effect of antineoplastic and immunosuppressive drugs, initial encounter; C50.919 Malignant neoplasm of unspecified site of unspecified female breast; Z66 Do not resuscitate; Z51.5 Encounter for palliative care; E11.65 Type 2 diabetes mellitus with hyperglycemia; Z20.822 Contact with and (suspected) exposure to COVID-19; E78.00 Pure hypercholesterolemia, unspecified; M10.9 Gout, unspecified; E83.42 Hypomagnesemia; E87.6 Hypokalemia; E83.51 Hypocalcemia; E86.0 Dehydration; Z79.899 Other long term (current) drug therapy; Z79.84 Long term (current) use of oral hypoglycemic drugs; Z79.82 Long term (current) use of aspirin; Z87.01 Personal history of pneumonia (recurrent); Z98.49 Cataract extraction status, unspecified eye; Z90.89 Acquired absence of other organs; Z86.16 Personal history of COVID-19
CPT/HCPCS: 36415; 36430; 71045; 71045-26; 76705; 76705-26; 80048; 80053; 80202; 81001; 81003; 82947; 83735; 84100; 84145; 85025; 85610; 85730; 86850; 86900; 86901; 86922; 87040; 87150; 93005; 93010; 93306; 94760; 94761; 96365; 96366; 96375; 97110-GP; 97116-GP; 97162-GP; 97530-GP; 99284; 99285-25; A9270-GY; J0278; J0692; J1447; J1650; J1815-GY; J1885; J1956; J2060; J2405; J3370; J3475; J3480; J3490; J7030; J7040; J7042; J7050; J8540; P9016; U0002